=== PATIENT | male | born 1960 | race Caucasian/White ===

== ENCOUNTER → 2017-03-30 10:23 | Outpatient (CLI) | payer MEDICAID, SELFPAY | PROVIDERS: Family Provider Family Medicine; PCP Family Medicine; Visit Provider Family Medicine | DX: R22.2 Localized swelling, mass and lump, trunk (principal) ==

== ENCOUNTER → 2017-04-09 16:47 | Outpatient (CLI) | payer MEDICAID, SELFPAY ==
[2017-04-02 09:06] VITALS: BP 160/82; BMI 40.6
[2017-04-08 07:12] VITALS: BP 144/77; BMI 42.3
--- NOTE | 2017-04-09 16:49 | CT_ITS ---
STUDY: CT CHEST WITH CONTRAST REASON FOR EXAM: Male, 56 years old. Enlarged lymph nodes. Left neck swelling for months. RADIATION DOSAGE (If Supplied By Facility): CTDIvol = ( 18.38 ) mGy, DLP = ( 687.98 ) mGycm TECHNIQUE: Transaxial imaging was performed following intravenous administration of 100 ml of Isovue 300 contrast material. Multiplanar coronal and sagittal images were reformatted. Individualized dose optimization techniques were used for this CT. COMPARISON: Chest, March 05, 2017. FINDINGS: The lungs are normal. There is no demonstrated pleural abnormality. Normal heart and pericardium. Normal mediastinum. Normal hilar regions. Normal enhanced pulmonary arteries. Normal aorta arch and descending thoracic aorta. There are multi-level degenerative changes of the thoracic spine. There is no demonstrated abnormality of the visualized upper abdomen. CT/Chest WITH Contrast IMPRESSION: Essentially normal enhanced CT Chest examination. Electronically Signed: Fox Marc DO at 18:05 EST Tel [phone], Service support ,
== END ==
PROVIDERS: Family Provider Family Medicine; PCP Family Medicine; Visit Provider Surgery
DX: R59.0 Localized enlarged lymph nodes (principal)
CPT/HCPCS: 71260; Q9967

== ENCOUNTER → 2017-04-14 09:55 | Outpatient (CLI) | payer MEDICAID, SELFPAY ==
[2017-04-08 07:12] VITALS: BP 144/77; BMI 42.3
--- NOTE | 2017-04-14 13:34 | PFT_ITS ---
INTRODUCTION: The patient is a 56-year-old male currently under the care of myself the presents for pulmonary function testing secondary to a diagnosis of tobacco abuse. Respiratory therapy reports good patient effort reports no other concerns. Bronchodilators were used during testing. INTERPRETATION: Forced expiration spirometry demonstrates no evidence of a large airways obstructive ventilatory defect. There was no significant response to aerosolized bronchodilators, based upon strict ATS criteria. Spirograms are of good quality and plateau gradually. The respiratory flow volume loop appears normal. Body plethysmography was performed and reveals a trend towards hyperinflation and air-trapping. Diffusing capacity by single breath CO is within normal limits. IMPRESSION: These pulmonary function studies are essentially within normal limits. There is , nevertheless, a trend towards hyperinflation and air-trapping.
== END ==
PROVIDERS: Family Provider Family Medicine; PCP Family Medicine; Visit Provider Internal Medicine Critical Care Medicine
DX: J45.909 Unspecified asthma, uncomplicated (principal); F17.201 Nicotine dependence, unspecified, in remission
CPT/HCPCS: 94060; 94726; 94729

== ENCOUNTER → 2017-04-28 20:10 | Outpatient (CLI) | payer MEDICAID, SELFPAY ==
[2017-04-08 07:12] VITALS: BP 144/77; BMI 42.3
== END ==
PROVIDERS: Family Provider Family Medicine; PCP Family Medicine; Visit Provider Nurse Practitioner Acute Care
DX: G47.33 Obstructive sleep apnea (adult) (pediatric) (principal)
CPT/HCPCS: 95811

== ENCOUNTER → 2017-06-03 07:17 | Outpatient (CLI) | payer MEDICAID, SELFPAY ==
[2017-06-03 10:20] LABS: Hematocrit 41.7 % (40-54); Hemoglobin 13.9 g/dl (13.0-16.5); Mean Corp Hgb Conc 33.3 g/gl (32-36); Mean Corpuscular Hgb 31.3 pg (27.0-32.0); Mean Corpuscular Volume 93.9 fL (80-94); Mean Platelet Vol. 10.5 fl (6.2-12.0); Platelet Count 231 K/mm3 (150-450); RBC Distribution Width CV 12.6 % (11.6-14.6); RBC Distribution Width SD 42.4 fl (35.1-43.9); Red Blood Count 4.44 M/mm3 (4.6-6.2); White Blood Count 7.9 K/mm3 (4.4-11.0)
[2017-06-03 10:21] LABS: Scan Indicated on CBC? Y/N NO
[2017-06-03 10:55] LABS: Albumin, Serum 3.7 g/dL (3.2-5.0); BUN 22 mg/dL (7-18); BUN/Creat Ratio 21.6 RATIO (10-20); Creatinine, Serum 1.02 mg/dL (0.70-1.30); EST Glomerular Filtration Rate 80 mL/min (>60); Est Glom Filt Rate - Afr Amer 97 mL/min (>60); Glucose 121 mg/dL (74-106); Protein, Total 7.3 g/dL (6.4-8.2)
[2017-06-03 10:56] LABS: AST(SGOT) 19 U/L (15-37); Alanine Aminotransfer ALT/SGPT 35 U/L (16-61); Alkaline Phosphatase 48 U/L (45-117); Anion Gap 8 (5-15); Chloride 104 mmol/L (98-107); Cholesterol 162 mg/dL (200); Globulin 3.6 g/dL (2.2-4.2); High Density Lipoprotein 42 mg/dL; Potassium 4.2 mmol/L (3.5-5.1); Sodium Level 141 mmol/L (136-145); Triglycerides 179 mg/dL; Very Low Density Lipoprotein 36 mg/dL (5-40)
[2017-06-03 11:14] LABS: Hemoglobin A1c 6.7 % (4.2-6.3)
== END ==
PROVIDERS: Family Provider Family Medicine; PCP Family Medicine; Visit Provider Family Medicine
DX: E11.9 Type 2 diabetes mellitus without complications (principal); I10 Essential (primary) hypertension; E78.5 Hyperlipidemia, unspecified
CPT/HCPCS: 36415; 80053; 80061; 83036; 85027

== ENCOUNTER 2017-08-25 08:45 | Emergency (ER) | payer MEDICAID, SELFPAY ==
[2017-08-25 08:46] VITALS: BP 156/92; PULSE 71; RESP 18; TEMP 36.6; O2SAT 98; BMI 43.4
--- NOTE | 2017-08-25 09:31 | CT_ITS ---
STUDY: CT BRAIN WITHOUT CONTRAST REASON FOR EXAM: Male, 57 years old. Dizziness. RADIATION DOSAGE (If Supplied By Facility): CTDIvol = ( 44.99 ) mGy, DLP = ( 846.73 ) mGycm TECHNIQUE: Transaxial CT imaging of the brain was performed without administration of intravenous contrast material. Individualized dose optimization techniques were used for this CT. COMPARISON: None. FINDINGS: Normal soft tissue structures. Normal calvarium. Normal size ventricles and extra-axial spaces for the patient's age. Normal white matter tracts of the cerebral hemispheres. Normal basal ganglia and thalami. Normal brainstem. Normal cerebellum. Prominence of the cisterna magna. This is a normal variant. There is no intracranial hemorrhage. There are no findings of an acute ischemic infarction. Partial opacification of the maxillary sinuses and ethmoid sinuses bilaterally. CT/Brain/Head without Contrast IMPRESSION: Maxillary and ethmoid sinusitis. Electronically Signed: Blayne Novak MD at 11:01 EDT Tel [phone], Service support ,
--- NOTE | 2017-08-25 09:32 | ED.VISSUMM ---
- ER Visit Summary Date of Service: 08/25/17 Chief Complaint: Vertigo History of Present Illness: The patient is a 57 M woke up this morning with vertigo symptoms. Patient states he sat up in bed and had a sudden spinning sensation. He states when he turns his head this gets much worse. The symptoms are starting to resolve. He denies recent fever. Denies chest pain or shortness of breath. Denies headache. Denies lightheadedness or syncope. Physical Examination: Vitals are stable. Patient is afebrile. Alert no acute distress. HEENT exam is unremarkable. TMs normal bilaterally Neck is supple. Lungs are clear and equal bilaterally. Heart is regular rate and rhythm. Abdomen is soft nontender nondistended. Extremities are unremarkable. Skin is warm and dry. No focal neurologic deficit. Remainder of exam is unremarkable. Emergency Department Course and Treatment: Patient given IV fluids, meclizine. CBC, chemistries unremarkable other than glucose 159, BUN 22. CT head shows maxillary and ethmoid sinusitis. Patient has much improvement on reevaluation. He is able to ambulate in the ED without difficulty. He is given a prescription for meclizine. He is advised to follow up with his primary care physician. Advised return to ED if worsening complaints. Disposition: Discharge home Impression: Benign positional vertigo This note was generated with [employer] dictation software. It may contain incorrect words, spelling, and punctuation that were not noted in review of the chart prior to signing ED Disposition - Plan for ED Patient: Chief Complaint: Dizziness Referrals: Kevin Borden MD [Primary Care Provider] -
[2017-08-25] MEDS: 0.9% Normal Saline 1,000 ML 999 ML IV (09:54)
[2017-08-25] MEDS: Meclizine HCl 25 MG Tablet PO (09:54)
--- NOTE | 2017-08-25 09:57 | EKG12_ITS ---
Test Reason : SYNCOPE Blood Pressure : / mmHG Vent. Rate : 061 BPM Atrial Rate : 061 BPM P-R Int : 178 ms QRS Dur : 148 ms QT Int : 442 ms P-R-T Axes : 031 -45 027 degrees QTc Int : 444 ms Normal sinus rhythm Left bundle branch block Abnormal ECG Confirmed by ALESSANDRA CUEVA, ANUP ([id number]), film editor KODAK SLOAN ([id number]) on 08/28/2017 8:43:45 AM Referred By: CHRISTINE Confirmed By:ANUP APARICIO MD
[2017-08-25 10:17] LABS: Anion Gap 10 (5-15); BUN 22 mg/dL (7-18); BUN/Creat Ratio 20.8 RATIO (10-20); Calcium,Total 9.3 mg/dL (8.5-10.1); Chloride 100 mmol/L (98-107); Creatinine, Serum 1.06 mg/dL (0.70-1.30); EST Glomerular Filtration Rate 77 mL/min (>60); Est Glom Filt Rate - Afr Amer 93 mL/min (>60); Estimated Creatinine Clearance 84.39 ml/min; Glucose 159 mg/dL (74-106); Potassium 3.9 mmol/L (3.5-5.1); Sodium Level 139 mmol/L (136-145)
[2017-08-25 10:21] LABS: Absolute Lymphocyte Count 1.41 X10^3/ul (0.83-4.51); Absolute Neutrophil Count 4.9 X10^3/uL (2.0-7.7); Basophil# 0.04 X10^3/uL; Basophil% 0.6 % (0-1); Eosinophil# 0.33 X10^3/uL; Eosinophils% 4.6 % (0-5); Hematocrit 44.1 % (40-54); Hemoglobin 14.5 g/dl (13.0-16.5); Lymphocyte # 1.41 X10^3/ul (4.0); Lymphocyte % 19.4 % (19-41); Mean Corp Hgb Conc 32.9 g/gl (32-36); Mean Corpuscular Hgb 30.3 pg (27.0-32.0); Mean Corpuscular Volume 92.3 fL (80-94); Mean Platelet Vol. 10.3 fl (6.2-12.0); Monocyte# 0.52 X10^3/uL; Monocyte% 7.2 % (0-10); Neutrophil # 4.93 X10^3/uL (2.7-7.7); Neutrophil % 67.9 % (47-70); Platelet Count 240 K/mm3 (150-450); RBC Distribution Width SD 43.1 fl (35.1-43.9); Red Blood Count 4.78 M/mm3 (4.6-6.2); White Blood Count 7.3 K/mm3 (4.4-11.0)
[2017-08-25 10:22] LABS: POSITIVE COUNT NO; POSITIVE DIFFERENTIAL NO; POSITIVE MORPHOLOGY NO
--- NOTE | 2017-08-25 11:39 | ED.DEP ---
ED Disposition - Plan for ED Patient: Chief Complaint: Dizziness Instructions: ED BPV Vertigo Prescriptions: Meclizine HCl [Antivert] 25 mg PO TID PRN PRN #20 tablet PRN Reason: Vertigo Referrals: Kevin Borden MD [Primary Care Provider] -
== END 2017-08-25 11:54 | disposition home or self-care (01) ==
LOC: ED 10:19
PROVIDERS: Emergency Provider Emergency Medicine; Family Provider Family Medicine; PCP Family Medicine
DX: H81.10 Benign paroxysmal vertigo, unspecified ear (principal); J32.0 Chronic maxillary sinusitis; J32.2 Chronic ethmoidal sinusitis; J45.909 Unspecified asthma, uncomplicated; K21.9 Gastro-esophageal reflux disease without esophagitis; E11.9 Type 2 diabetes mellitus without complications; I10 Essential (primary) hypertension; E78.00 Pure hypercholesterolemia, unspecified; M10.9 Gout, unspecified; G47.33 Obstructive sleep apnea (adult) (pediatric); Z79.82 Long term (current) use of aspirin; Z79.84 Long term (current) use of oral hypoglycemic drugs; Z79.899 Other long term (current) drug therapy
CPT/HCPCS: 70450; 80048; 85025; 93005; 96360; 96361; 99283; J7030; A4216

== ENCOUNTER → 2017-09-17 09:25 | Outpatient (CLI) | payer MEDICAID, SELFPAY ==
[2017-09-17 09:30] LABS: Bacteria 0 SEEN /hpf (None Seen); Mucous, Urine 0 SEEN /hpf (<or=2+); Red Blood Cells-Urine 0 SEEN /hpf (0-5); Squamous Epithelial Cells - UA 0 SEEN /hpf (0-5); White Blood Cells 0 SEEN /hpf (0-5)
[2017-09-17 12:22] LABS: Absolute Lymphocyte Count 2.13 X10^3/ul (0.83-4.51); Absolute Neutrophil Count 4.9 X10^3/uL (2.0-7.7); Basophil# 0.03 X10^3/uL; Basophil% 0.4 % (0-1); Eosinophil# 0.48 X10^3/uL; Eosinophils% 5.8 % (0-5); Hematocrit 43.1 % (40-54); Lymphocyte # 2.13 X10^3/ul (4.0); Lymphocyte % 25.9 % (19-41); Mean Corp Hgb Conc 32.5 g/gl (32-36); Mean Corpuscular Hgb 30.4 pg (27.0-32.0); Mean Corpuscular Volume 93.5 fL (80-94); Mean Platelet Vol. 10.5 fl (6.2-12.0); Monocyte# 0.67 X10^3/uL; Monocyte% 8.2 % (0-10); Neutrophil # 4.89 X10^3/uL (2.7-7.7); Neutrophil % 59.6 % (47-70); Platelet Count 238 K/mm3 (150-450); RBC Distribution Width CV 13.3 % (11.6-14.6); RBC Distribution Width SD 45.4 fl (35.1-43.9); Red Blood Count 4.61 M/mm3 (4.6-6.2); White Blood Count 8.2 K/mm3 (4.4-11.0)
[2017-09-17 12:25] LABS: Color, Urine Yellow (Yellow); Glucose, Dipstick Normal (Normal); Ketone-Dipstick Negative (Negative); Leukocyte Esterase-Dipstick Negative /ul (Negative); Nitrite-Dipstick Negative (Negative); Occult Blood-Urine Negative /ul (Negative); Protein-Dipstick Negative (Negative); Urine Bilirubin Dipstick Negative (Negative); Urine Clarity Sl. Cloudy (Clear); Urine Urobilinogen Normal (Normal); Urine pH 6.5 (5.0 - 8.0)
[2017-09-17 12:36] LABS: POSITIVE COUNT NO; POSITIVE DIFFERENTIAL NO; POSITIVE MORPHOLOGY NO
[2017-09-17 12:38] LABS: AST(SGOT) 24 U/L (15-37); Alanine Aminotransfer ALT/SGPT 39 U/L (16-61); Albumin, Serum 3.9 g/dL (3.2-5.0); Alkaline Phosphatase 51 U/L (45-117); Anion Gap 8 (5-15); BUN 19 mg/dL (7-18); BUN/Creat Ratio 16.4 RATIO (10-20); Calcium,Total 8.7 mg/dL (8.5-10.1); Chloride 103 mmol/L (98-107); Cholesterol 179 mg/dL (200); Creatinine, Serum 1.16 mg/dL (0.70-1.30); EST Glomerular Filtration Rate 69 mL/min (>60); Est Glom Filt Rate - Afr Amer 83 mL/min (>60); Globulin 3.9 g/dL (2.2-4.2); Glucose 138 mg/dL (74-106); High Density Lipoprotein 46 mg/dL; Potassium 3.7 mmol/L (3.5-5.1); Protein, Total 7.8 g/dL (6.4-8.2); Sodium Level 138 mmol/L (136-145); Triglycerides 172 mg/dL; Uric Acid 8.1 mg/dL (3.5-7.2); Very Low Density Lipoprotein 34 mg/dL (5-40)
[2017-09-17 12:52] LABS: Microalbumin,Random Urine 5.2 mg/L (NO RANGE EST.); Microalbumin:Creatinine Ratio 19.3 mg/g CRE (<30 mg/g CRE)
== END ==
PROVIDERS: Family Provider Family Medicine; PCP Family Medicine; Visit Provider Family Medicine
DX: I10 Essential (primary) hypertension (principal); E11.9 Type 2 diabetes mellitus without complications; E78.5 Hyperlipidemia, unspecified; Z87.39 Personal history of other diseases of the musculoskeletal system and connective tissue
CPT/HCPCS: 36415; 80053; 80061; 81001; 82043; 82570; 83036; 84550; 85025

== ENCOUNTER → 2017-12-31 09:18 | Outpatient (CLI) | payer MEDICAID, SELFPAY ==
[2017-12-31 11:58] LABS: Absolute Lymphocyte Count 1.88 X10^3/ul (0.83-4.51); Absolute Neutrophil Count 3.6 X10^3/uL (2.0-7.7); Basophil# 0.04 X10^3/uL; Basophil% 0.6 % (0-1); Eosinophil# 0.39 X10^3/uL; Eosinophils% 6.2 % (0-5); Hematocrit 43.4 % (40-54); Hemoglobin 14.1 g/dl (13.0-16.5); Lymphocyte # 1.88 X10^3/ul (4.0); Lymphocyte % 29.7 % (19-41); Mean Corp Hgb Conc 32.5 g/gl (32-36); Mean Corpuscular Hgb 29.7 pg (27.0-32.0); Mean Corpuscular Volume 91.4 fL (80-94); Mean Platelet Vol. 10.5 fl (6.2-12.0); Monocyte# 0.43 X10^3/uL; Monocyte% 6.8 % (0-10); Neutrophil # 3.58 X10^3/uL (2.7-7.7); Neutrophil % 56.5 % (47-70); Platelet Count 252 K/mm3 (150-450); RBC Distribution Width CV 13.1 % (11.6-14.6); RBC Distribution Width SD 43.7 fl (35.1-43.9); Red Blood Count 4.75 M/mm3 (4.6-6.2); White Blood Count 6.3 K/mm3 (4.4-11.0)
[2017-12-31 12:05] LABS: POSITIVE COUNT NO; POSITIVE DIFFERENTIAL NO; POSITIVE MORPHOLOGY NO
[2017-12-31 12:14] LABS: Hemoglobin A1c 6.8 % (4.2-6.3)
[2017-12-31 12:37] LABS: ALB/GLOB Ratio 1.1 RATIO (0.9-2.4); AST(SGOT) 23 U/L (15-37); Alanine Aminotransfer ALT/SGPT 39 U/L (16-61); Albumin, Serum 3.9 g/dL (3.2-5.0); Alkaline Phosphatase 52 U/L (45-117); Anion Gap 12 (5-15); BUN 19 mg/dL (7-18); BUN/Creat Ratio 19.1 RATIO (10-20); Calcium,Total 9.4 mg/dL (8.5-10.1); Chloride 101 mmol/L (98-107); Cholesterol 160 mg/dL (200); Creatinine, Serum 0.99 mg/dL (0.70-1.30); EST Glomerular Filtration Rate 82 mL/min (>60); Est Glom Filt Rate - Afr Amer 100 mL/min (>60); Globulin 3.7 g/dL (2.2-4.2); Glucose 134 mg/dL (74-106); High Density Lipoprotein 38 mg/dL; Potassium 3.5 mmol/L (3.5-5.1); Protein, Total 7.6 g/dL (6.4-8.2); Sodium Level 138 mmol/L (136-145); Triglycerides 211 mg/dL; Very Low Density Lipoprotein 42 mg/dL (5-40)
== END ==
PROVIDERS: Family Provider Family Medicine; PCP Family Medicine; Referring Provider Family Medicine; Visit Provider Family Medicine
DX: E78.5 Hyperlipidemia, unspecified (principal); E11.9 Type 2 diabetes mellitus without complications; I10 Essential (primary) hypertension
CPT/HCPCS: 36415; 80053; 80061; 83036; 85025

== ENCOUNTER → 2018-03-29 08:37 | Outpatient (CLI) | payer MEDICAID, SELFPAY ==
[2018-03-29 08:37] VITALS: BMI 42.3
[2018-03-29 08:47] LABS: Bacteria 0 SEEN /hpf (None Seen); Mucous, Urine 0 SEEN /hpf (<or=2+); Red Blood Cells-Urine 0 SEEN /hpf (0-5); Squamous Epithelial Cells - UA 0 SEEN /hpf (0-5); White Blood Cells 0 SEEN /hpf (0-5)
[2018-03-29 10:19] LABS: Absolute Lymphocyte Count 1.88 X10^3/ul (0.83-4.51); Absolute Neutrophil Count 4.2 X10^3/uL (2.0-7.7); Basophil# 0.04 X10^3/uL; Basophil% 0.6 % (0-1); Eosinophil# 0.51 X10^3/uL; Hematocrit 41.9 % (40-54); Hemoglobin 13.4 g/dl (13.0-16.5); Lymphocyte # 1.88 X10^3/ul (4.0); Mean Corpuscular Volume 93.7 fL (80-94); Mean Platelet Vol. 10.1 fl (6.2-12.0); Monocyte# 0.61 X10^3/uL; Monocyte% 8.4 % (0-10); Neutrophil # 4.18 X10^3/uL (2.7-7.7); Neutrophil % 57.7 % (47-70); Platelet Count 259 K/mm3 (150-450); RBC Distribution Width CV 13.4 % (11.6-14.6); RBC Distribution Width SD 45.9 fl (35.1-43.9); Red Blood Count 4.47 M/mm3 (4.6-6.2); White Blood Count 7.2 K/mm3 (4.4-11.0)
[2018-03-29 10:27] LABS: POSITIVE COUNT NO; POSITIVE DIFFERENTIAL NO; POSITIVE MORPHOLOGY NO
[2018-03-29 10:57] LABS: AST(SGOT) 23 U/L (15-37); Alanine Aminotransfer ALT/SGPT 39 U/L (16-61); Albumin, Serum 3.7 g/dL (3.2-5.0); Alkaline Phosphatase 48 U/L (45-117); Anion Gap 10 (5-15); BUN 18 mg/dL (7-18); Calcium,Total 8.9 mg/dL (8.5-10.1); Chloride 105 mmol/L (98-107); Cholesterol 155 mg/dL (200); Creatinine, Serum 0.95 mg/dL (0.70-1.30); EST Glomerular Filtration Rate 87 mL/min (>60); Est Glom Filt Rate - Afr Amer 105 mL/min (>60); Globulin 3.7 g/dL (2.2-4.2); Glucose 140 mg/dL (74-106); High Density Lipoprotein 47 mg/dL; Potassium 3.8 mmol/L (3.5-5.1); Protein, Total 7.4 g/dL (6.4-8.2); Sodium Level 142 mmol/L (136-145); Triglycerides 89 mg/dL; Uric Acid 7.1 mg/dL (3.5-7.2); Very Low Density Lipoprotein 18 mg/dL (5-40)
[2018-03-29 11:11] LABS: Color, Urine Yellow (Yellow); Glucose, Dipstick Normal (Normal); Ketone-Dipstick Negative (Negative); Leukocyte Esterase-Dipstick Negative /ul (Negative); Nitrite-Dipstick Negative (Negative); Occult Blood-Urine 10 /ul (Negative); Protein-Dipstick Negative (Negative); Specific Gravity, Urine 1.015 (1.002-1.030); Urine Bilirubin Dipstick Negative (Negative); Urine Clarity Clear (Clear); Urine Urobilinogen Normal (Normal)
[2018-03-29 12:13] LABS: Microalbumin:Creatinine Ratio 6.4 mg/g CRE (<30 mg/g CRE)
== END ==
PROVIDERS: Family Provider Family Medicine; PCP Family Medicine; Referring Provider Family Medicine; Visit Provider Family Medicine
DX: I10 Essential (primary) hypertension (principal); E78.5 Hyperlipidemia, unspecified; E11.9 Type 2 diabetes mellitus without complications; Z87.39 Personal history of other diseases of the musculoskeletal system and connective tissue
CPT/HCPCS: 36415; 80053; 80061; 81001; 82043; 82570; 83036; 84550; 85025

== ENCOUNTER → 2018-04-22 14:34 | Outpatient (CLI) | payer MEDICAID, SELFPAY ==
[2018-03-29 08:37] VITALS: BMI 42.3
--- NOTE | 2018-04-22 14:36 | RAD_ITS ---
STUDY: X-RAY CHEST REASON FOR EXAM: Male, 57 years old. Asthma exacerbation TECHNIQUE: PA and lateral views of the chest. COMPARISON: None. FINDINGS: The lungs are clear and expanded. There is no demonstrated pleural abnormality. Normal size heart. Normal mediastinum and gloria. Normal visualized pulmonary arteries. Normal visualized aortic arch and descending thoracic aorta. Normal visualized thoracic spine. Normal visualized ribs, clavicles, and shoulders. There is no demonstrated abnormality of the visualized soft tissue structures of the upper abdomen. RAD/Chest PA and Lateral IMPRESSION: Normal x-ray examination of the chest. Electronically Signed: Tomas Clark MD at 14:52 EST , Service support ,
== END ==
PROVIDERS: Family Provider Family Medicine; PCP Family Medicine; Referring Provider Family Medicine; Visit Provider Family Medicine
DX: J45.901 Unspecified asthma with (acute) exacerbation (principal)
CPT/HCPCS: 71046

== ENCOUNTER → 2018-07-19 | Outpatient (CLI) | payer MEDICAID, SELFPAY ==
[2018-06-30 08:53] VITALS: BMI 42.3
[2018-07-19 10:29] LABS: Hemoglobin A1c 6.8 % (4.2-6.3)
[2018-07-19 10:43] LABS: AST(SGOT) 22 U/L (15-37); Alanine Aminotransfer ALT/SGPT 43 U/L (16-61); Albumin, Serum 3.7 g/dL (3.2-5.0); Alkaline Phosphatase 49 U/L (45-117); Anion Gap 9 (5-15); BUN 16 mg/dL (7-18); BUN/Creat Ratio 16.6 RATIO (10-20); Calcium,Total 9.2 mg/dL (8.5-10.1); Chloride 105 mmol/L (98-107); Cholesterol 159 mg/dL (200); Creatinine, Serum 0.96 mg/dL (0.70-1.30); EST Glomerular Filtration Rate 85 mL/min (>60); Est Glom Filt Rate - Afr Amer 103 mL/min (>60); Globulin 3.7 g/dL (2.2-4.2); Glucose 130 mg/dL (74-106); High Density Lipoprotein 49 mg/dL; Potassium 3.7 mmol/L (3.5-5.1); Protein, Total 7.4 g/dL (6.4-8.2); Sodium Level 141 mmol/L (136-145); Triglycerides 170 mg/dL; Very Low Density Lipoprotein 34 mg/dL (5-40)
== END | disposition home or self-care (01) ==
LOC: MTLAB 09:04
PROVIDERS: Family Provider Family Medicine; PCP Family Medicine; Referring Provider Family Medicine; Visit Provider Family Medicine
DX: E78.5 Hyperlipidemia, unspecified (principal); E11.9 Type 2 diabetes mellitus without complications
CPT/HCPCS: 36415; 80053; 80061; 83036

== ENCOUNTER → 2018-09-09 | Outpatient (CLI) | payer MEDICAID, SELFPAY ==
[2018-06-30 08:53] VITALS: BMI 42.3
[2018-09-09 13:00] LABS: PSA,Total - Annual Screen 1.24 ng/mL (0.00-4.00)
== END | disposition home or self-care (01) ==
LOC: MTLAB 10:32
PROVIDERS: Family Provider Family Medicine; PCP Family Medicine; Referring Provider Family Medicine; Visit Provider Family Medicine
DX: Z12.5 Encounter for screening for malignant neoplasm of prostate (principal)
CPT/HCPCS: 36415; 84153; G0103

== ENCOUNTER 2018-10-20 06:55 | Day surgery (SDC) | payer MEDICAID, SELFPAY ==
[2018-06-30 08:53] VITALS: BMI 42.3
--- NOTE | 2018-10-20 | COLBX_PTH ---
PATIENT: JONEL FRITZ LOC: EN U#:[id number] AGE/SX: 58/M ROOM: RE10/20/[address]: Dr. Davy Toscano MD : 1960 BED: DIS: 10/20/2018 SPEC #: [id number] RECD: 10/20/18 13:34 STATUS: SIM NICK #: [id number] KARINE: 10/20/18 00:[address]: Davy Toscano DEPT: SURGICAL PATHOLOGY RECD BY: Gian Allan ENTERED: 10/20/18 13:34 SP TYPE: COLON BX OTHR DR: Dr. Kevin Borden MD Tissues: A - Ascending colon B - Transverse colon Procedures: Surgery Specimen Level IV HEADER OPERATION: Colonoscopy - open access (MAC) PRE-OP DIAGNOSIS: Screen TISSUE SUBMITTED: A - Ascending colon polyp, B - Transverse colon polyp MICROSCOPIC DIAGNOSIS A. Ascending colon polyp, biopsy: Fragments of colonic mucosa with marked cautery artifact, changes suggestive of hyperplastic polyp. B. Transverse colon polyp, biopsy: Consistent with inflammatory polyp. JOHANNY:reid 10/21/18 MICROSCOPIC DESCRIPTION Slides are reviewed. GROSS DESCRIPTION A - Received in fixative is one container labeled with the patient's name and designated ascending colon polyp. The specimen consists of multiple minute fragments of boyd soft tissue that in aggregate measure 0.3 x 0.1 x 0.1 cm. The specimen is totally submitted in one cassette. B - Received in fixative is one container labeled with the patient's name and designated transverse colon polyp. The specimen consists of a boyd-pink polyp measuring 0.5 x 0.5 x 0.3 cm. The polyp is bisected and submitted entirely in one cassette. / JOHANNY:reid 10/20/18 TC:5 [facility]: [id number] x2
[2018-10-20 07:18] VITALS: BP 146/87; PULSE 78; RESP 16; TEMP 36.7; O2SAT 96; BMI 41.2
[2018-10-20 07:31] LABS: Bedside Glucose 140 mg/dL (70-110)
[2018-10-20] MEDS: Lactated Ringers 1,000 ML 75 ML IV (07:50)
--- NOTE | 2018-10-20 08:13 | H&P.OPEN ---
History of Present Illness Date of Admission: 10/20/18 The patient is a 58 year old M who presents for screening colonoscopy Past Medical/Surgical History - Planned Operation Planned Operative Procedure/s: cscope open access Date of Operative Procedure: 10/20/18 Permit Signed: No S.O.S: No Is This Patient Having a Total Joint: No - Previous Hospitalizations/Surgeries HX Hospitalizations: No HX of Surgeries: umbilical hernia repair. cscope 2007 Any Problems With Anesthesia: No You/Your Family Experience Fever (Hyperthermia) With Anes: No Cholinesterase deficiency: No - Cardiovascular Hx Chest Pain within Last 2 months: No Hx of Irregular Heartbeat and/or Afib: No Hx Heart Attack: No Hx Congestive Heart Failure: No Hx Rheumatic Fever: No Hx Hypertension: Yes - controlled with med Hx Internal Defibrillator: No Hx Pacemaker: No Hx Cardiac Catheterization: No Hx Cardiac Surgery/Stents/Etc.: No Hx Stress Test: Yes - over 5 yrs ago/echo 2015 HX Edema: Yes - legs Hx Pain in Legs when Walking/Leg Cramps: No - Respiratory Chronic Cough: No HX of Shortness of Breath: No Hoarseness: No Hx Chronic Obstructive Pulmonary Disease (COPD): No Hx Asthma: Yes - inhalers Hx Emphysema: No Hx Sleep Apnea: Yes CPAP: Yes BIPAP: No Hx Oxygen Use at Home: No Hx Respiratory Tract Infection/Cold (presently): No Result (for STOP score): Positive Hx Smoking: Yes - quit chewing tobacco 1 yr ago Smoking Status: Former smoker - Gastrointestinal Hx Gastroesophageal Reflux: No Hx Gastrointestinal Disorders: No Hx Gastrointestinal Bleed: No Hx Ulcer: No Hx Hiatal Hernia: No Difficulty Chewing/Swallowing: No Recent Onset of Swallowing Problems: No Special diet followed at home: Yes - ada Hx Unplanned Weight Loss of 20#: No HX Unplanned Weight Gain of 20#: No - Neurological Hx Seizures: No HX Syncope/Blackout Spells/Unconsciousness: Yes - vertigo Hx CVA/Stroke: No Hx Transient Ischemic Attacks (TIA): No Hx Multiple Sclerosis: No Hx Parkinson's Disease: No Hx Head/Neck Injury: No Hx Headaches: No Hx Back Injury/Pain: Yes - occ back pain Recent Onset of Speech Difficulty: No Restless Legs: No Does patient have nerve stimulator: No Patient instructed to have device shut off: No Rep notified?: No - Blood Disorder Hx Leukemia: No Bleeding Tendencies: Yes - easy bleeding Hx Deep Vein Thrombosis: No Hx High Cholesterol: Yes - on med Blood Transmitted Disease: No Hx Hepatitis: No Hx Cirrhosis: No Hx Anemia: No Hx Blood Disorders: No - Genitourinary Hx Renal Disease: No - Musculoskeletal Hx Arthritis: No Hx Rheumatoid Arthritis: No Hx Gout: No Recent Onset of an Orthopedic Problem: No - Endocrine Hx Diabetes: Yes Insulin: No Thyroid Disease: No Hx Steroid Therapy: No - Psycho/Social Hx Substance Use: No Hx Alcohol Use: Yes - occ Hx Anxiety: No Hx Depression: No Mental Illness: No Hx Dementia: No - Miscellaneous Hx Cancer: No Recent Exposure to Contagious Disease: No Active MRSA: No Hx of C-Diff: No Any Loose Teeth: No Allergies lisinopril Allergy (Mild, Verified 10/18/18 10:50) Unknown PEANUTS Allergy (Uncoded 10/18/18 10:50) Anaphylaxis - Discharge Is Pt Admitted From a Skilled Nursing, or a Prison: No Who Could Help: family After D/C, Where Do you Plan to Go: Return Home - Physical Exam General: Alert, Oriented x3 Lungs: Clear to auscultation Cardiovascular: Regular rate, Regular Rhythm, No murmurs Abdomen: Bowel Sounds Present, Soft, Non Tender, Non-Distended Vital Signs Temp Pulse Resp BP Pulse Ox 98.0 F 78 16 146/87 H 96 10/20/18 07:18 10/20/18 07:18 10/20/18 07:18 10/20/18 07:18 10/20/18 07:18 Oxygen Delivery Method Room Air Weight: 303 lb 12.752 oz Body Mass Index (BMI) 41.2 POC Glucose 10/20/18 07:25 POC Glucose 140 H Assessment/Plan All Active Problems (Last Reviewed 06/30/18 @ 08:55 by Patricia Mtz) Hemorrhoids (Acute) Acid reflux (Acute) Arthritis (Acute) Gout (Acute) Hx of umbilical hernia repair (Acute) Diabetes (Acute) Mild intermittent asthma (Acute) Aortic root aneurysm (Acute) Hyperlipemia (Acute) LVH (left ventricular hypertrophy) (Acute) Plan is to perform a colonoscopy Surgery Risks - Colonoscopy Risks Include but are not Limited To: Risks include but are not limited to: Bleeding, perforation requiring further surgery, inability to complete colonoscopy requiring barium enema.
[2018-10-20 08:50] VITALS: BP 110/66; BP 146/87; PULSE 66; RESP 14; TEMP 36.9; O2SAT 95
[2018-10-20 08:55] VITALS: BP 114/59; BP 146/87; PULSE 63; RESP 16; O2SAT 96
[2018-10-20 09:00] VITALS: BP 115/73; BP 146/87; PULSE 64; RESP 16; O2SAT 93
[2018-10-20 09:05] VITALS: BP 124/73; BP 146/87; PULSE 61; RESP 16; TEMP 36.6; O2SAT 95
[2018-10-20 09:30] VITALS: BP 146/87
--- NOTE | 2018-10-20 16:40 | OP.ENDO_ITS ---
10/21/2018 Kevin Borden [address] [place] [address] Re : Colonoscopy procedure for Kendrick Terrell Dear Dr. Borden This procedure was performed on Saturday, October 20, 2018. My impressions and recommendations are as follows: Impressions : - Three 2 to 8 mm polyps in the transverse colon, in the ascending colon and in the cecum, removed with a hot snare. Resected and retrieved. - Diverticulosis in the sigmoid colon. No specimens collected. - Non-bleeding internal hemorrhoids. - The examination was otherwise normal. Recommendations : - Discharge patient to home. - Resume previous diet. - Continue present medications. - Await pathology results. - Repeat colonoscopy in 3 years for surveillance. - Return to my office in 1 week. My findings are described in the full procedure note, which is enclosed. If I can be of further assistance, please feel free to contact me at Doctor phone number(s): , Fax: [phone], Work: . Sincerely, MD Davy Yepez MD 10/20/2018 8:49:05 AM This report has been signed electronically.
== END 2018-10-20 09:40 | disposition home or self-care (01) ==
LOC: EN 06:56 → AC 06:57
PROVIDERS: Family Provider Family Medicine; PCP Family Medicine; Referring Provider Surgery; Visit Provider Surgery
PROC: 0DJD8ZZ Inspection of Lower Intestinal Tract, Via Natural or Artificial Opening Endoscopic (ICD-10-PCS; CPT 45378; principal; 2018-10-20 08:10)
DX: Z12.11 Encounter for screening for malignant neoplasm of colon (principal); K63.5 Polyp of colon; K57.30 Diverticulosis of large intestine without perforation or abscess without bleeding; K64.8 Other hemorrhoids; I10 Essential (primary) hypertension; G47.30 Sleep apnea, unspecified; E78.00 Pure hypercholesterolemia, unspecified; E11.9 Type 2 diabetes mellitus without complications; K21.9 Gastro-esophageal reflux disease without esophagitis; M19.90 Unspecified osteoarthritis, unspecified site; M10.9 Gout, unspecified; J45.20 Mild intermittent asthma, uncomplicated; Q25.43 Congenital aneurysm of aorta; Z79.82 Long term (current) use of aspirin; Z79.84 Long term (current) use of oral hypoglycemic drugs; Z79.899 Other long term (current) drug therapy; Z87.891 Personal history of nicotine dependence
CPT/HCPCS: 45385; 82962; 88305; J7120; J1610

== ENCOUNTER → 2018-12-15 09:10 | Outpatient (CLI) | payer MEDICAID, SELFPAY ==
[2018-12-15 09:16] LABS: Bacteria 0 SEEN /hpf (None Seen); Mucous, Urine 0 SEEN /hpf (<or=2+); Red Blood Cells-Urine 0 SEEN /hpf (0-5); Squamous Epithelial Cells - UA 0 SEEN /hpf (0-5); White Blood Cells 0 SEEN /hpf (0-5)
[2018-12-15 10:12] LABS: Absolute Lymphocyte Count 2.05 X10^3/uL (0.83-4.51); Absolute Neutrophil Count 4.2 X10^3/uL (2.0-7.7); Basophil# 0.05 X10^3/uL; Basophil% 0.7 % (0-1); Eosinophil# 0.58 X10^3/uL; Eosinophils% 7.6 % (0-5); Hematocrit 43.1 % (40-54); Hemoglobin 13.9 g/dL (13.0-16.5); Lymphocyte # 2.05 X10^3/ul (4.0); Lymphocyte % 26.8 % (19-41); Mean Corp Hgb Conc 32.3 g/dL (32-36); Mean Corpuscular Hgb 30.2 pg (27.0-32.0); Mean Corpuscular Volume 93.7 fL (80-94); Mean Platelet Vol. 10.1 fl (6.2-12.0); Monocyte# 0.73 X10^3/uL; Monocyte% 9.6 % (0-10); NRBC Flagged by Analyzer 0 % (0-5); Neutrophil % 54.9 % (47-70); Platelet Count 265 K/mm3 (150-450); RBC Distribution Width CV 12.9 % (11.6-14.6); RBC Distribution Width SD 43.8 fl (35.1-43.9); White Blood Count 7.6 K/mm3 (4.4-11.0)
[2018-12-15 10:21] LABS: Color, Urine Yellow (Yellow); Glucose, Dipstick Normal (Normal); Ketone-Dipstick Negative (Negative); Leukocyte Esterase-Dipstick Negative /ul (Negative); Nitrite-Dipstick Negative (Negative); Occult Blood-Urine 10 /ul (Negative); Protein-Dipstick Negative (Negative); Urine Bilirubin Dipstick Negative (Negative); Urine Clarity Clear (Clear); Urine Urobilinogen Normal (Normal)
[2018-12-15 10:25] LABS: Hemoglobin A1c 6.5 % (4.2-6.3)
[2018-12-15 10:28] LABS: Microalbumin,Random Urine 9.3 mg/L (NO RANGE EST.); Microalbumin:Creatinine Ratio 7.4 mg/g CRE (<30 mg/g CRE)
[2018-12-15 10:33] LABS: AST(SGOT) 19 U/L (15-37); Alanine Aminotransfer ALT/SGPT 35 U/L (16-61); Albumin, Serum 3.7 g/dL (3.2-5.0); Alkaline Phosphatase 47 U/L (45-117); Anion Gap 5 (5-15); BUN 19 mg/dL (7-18); BUN/Creat Ratio 20.6 RATIO (10-20); Calcium,Total 9.2 mg/dL (8.5-10.1); Chloride 107 mmol/L (98-107); Cholesterol 149 mg/dL (200); Creatinine, Serum 0.92 mg/dL (0.70-1.30); EST Glomerular Filtration Rate 90 mL/min (>60); Est Glom Filt Rate - Afr Amer 108 mL/min (>60); Globulin 3.6 g/dL (2.2-4.2); Glucose 120 mg/dL (74-106); High Density Lipoprotein 53 mg/dL; Potassium 3.7 mmol/L (3.5-5.1); Protein, Total 7.3 g/dL (6.4-8.2); Sodium Level 140 mmol/L (136-145); Triglycerides 75 mg/dL; Very Low Density Lipoprotein 15 mg/dL (5-40)
== END ==
PROVIDERS: Family Provider Family Medicine; PCP Family Medicine; Referring Provider Family Medicine; Visit Provider Family Medicine
DX: I10 Essential (primary) hypertension (principal); E11.9 Type 2 diabetes mellitus without complications; E78.5 Hyperlipidemia, unspecified
CPT/HCPCS: 80053; 80061; 81001; 82043; 82570; 83036; 85025

== ENCOUNTER → 2019-05-13 08:02 | Outpatient (CLI) | payer MEDICAID, SELFPAY ==
[2019-03-15 09:25] VITALS: BMI 40.6
[2019-05-13 10:38] LABS: AST(SGOT) 22 U/L (15-37); Alanine Aminotransfer ALT/SGPT 36 U/L (16-61); Albumin, Serum 3.8 g/dL (3.2-5.0); Alkaline Phosphatase 56 U/L (45-117); Anion Gap 8 (5-15); BUN 18 mg/dL (7-18); BUN/Creat Ratio 19.9 RATIO (10-20); Calcium,Total 9.2 mg/dL (8.5-10.1); Chloride 103 mmol/L (98-107); Cholesterol 168 mg/dL (200); EST Glomerular Filtration Rate 91 mL/min (>60); Est Glom Filt Rate - Afr Amer 111 mL/min (>60); Globulin 3.9 g/dL (2.2-4.2); Glucose 113 mg/dL (74-106); High Density Lipoprotein 50 mg/dL; Potassium 3.7 mmol/L (3.5-5.1); Protein, Total 7.7 g/dL (6.4-8.2); Sodium Level 139 mmol/L (136-145); Triglycerides 161 mg/dL; Very Low Density Lipoprotein 32 mg/dL (5-40)
[2019-05-13 10:46] LABS: Hemoglobin A1c 6.9 % (4.2-6.3)
== END ==
PROVIDERS: PCP Family Medicine; Referring Provider Family Medicine; Visit Provider Family Medicine
DX: E11.9 Type 2 diabetes mellitus without complications (principal); E78.5 Hyperlipidemia, unspecified
CPT/HCPCS: 36415; 80053; 80061; 83036

== ENCOUNTER → 2019-11-01 08:32 | Outpatient (CLI) | payer MEDICAID, SELFPAY ==
[2019-10-06 07:07] VITALS: BMI 39.6
[2019-11-01 10:17] LABS: Absolute Lymphocyte Count 1.98 X10^3/uL (0.83-4.51); Absolute Neutrophil Count 4.6 X10^3/uL (2.0-7.7); Basophil# 0.04 X10^3/uL; Basophil% 0.5 % (0-1); Eosinophils% 7.4 % (0-5); Hematocrit 43.8 % (40-54); Hemoglobin 13.8 g/dL (13.0-16.5); Lymphocyte # 1.98 X10^3/ul (4.0); Lymphocyte % 24.5 % (19-41); Mean Corp Hgb Conc 31.5 g/dL (32-36); Mean Corpuscular Hgb 29.7 pg (27.0-32.0); Mean Corpuscular Volume 94.2 fL (80-94); Mean Platelet Vol. 10.1 fl (6.2-12.0); Monocyte# 0.84 X10^3/uL; Monocyte% 10.4 % (0-10); NRBC Flagged by Analyzer 0 % (0-5); Neutrophil # 4.58 X10^3/uL (2.7-7.7); Neutrophil % 56.8 % (47-70); Platelet Count 303 K/mm3 (150-450); RBC Distribution Width CV 12.8 % (11.6-14.6); RBC Distribution Width SD 43.8 fl (35.1-43.9); Red Blood Count 4.65 M/mm3 (4.6-6.2); White Blood Count 8.1 K/mm3 (4.4-11.0)
[2019-11-01 10:44] LABS: AST(SGOT) 16 U/L (15-37); Alanine Aminotransfer ALT/SGPT 36 U/L (16-61); Albumin, Serum 3.7 g/dL (3.2-5.0); Alkaline Phosphatase 50 U/L (45-117); Anion Gap 5 (5-15); BUN 19 mg/dL (7-18); BUN/Creat Ratio 20.5 RATIO (10-20); Calcium,Total 9.1 mg/dL (8.5-10.1); Chloride 102 mmol/L (98-107); Cholesterol 174 mg/dL (200); Creatinine, Serum 0.93 mg/dL (0.70-1.30); EST Glomerular Filtration Rate 89 mL/min (>60); Est Glom Filt Rate - Afr Amer 107 mL/min (>60); Globulin 3.7 g/dL (2.2-4.2); Glucose 124 mg/dL (74-106); High Density Lipoprotein 45 mg/dL; Potassium 3.6 mmol/L (3.5-5.1); Protein, Total 7.4 g/dL (6.4-8.2); Sodium Level 136 mmol/L (136-145); Triglycerides 197 mg/dL; Very Low Density Lipoprotein 39 mg/dL (5-40)
[2019-11-01 10:46] LABS: Hemoglobin A1c 6.5 % (3.8-5.6)
[2019-11-01 11:02] LABS: Microalbumin,Random Urine < 5.0 mg/L (NO RANGE EST.)
== END ==
PROVIDERS: PCP Family Medicine; Referring Provider Family Medicine; Visit Provider Family Medicine
DX: I11.0 Hypertensive heart disease with heart failure (principal); E11.9 Type 2 diabetes mellitus without complications; M19.90 Unspecified osteoarthritis, unspecified site
CPT/HCPCS: 36415; 80053; 80061; 82043; 82570; 83036; 85025

== ENCOUNTER → 2020-03-06 08:50 | Outpatient (CLI) | payer MEDICARE, MEDICAID, SELFPAY ==
[2019-10-06 07:07] VITALS: BMI 39.6
[2020-03-06 09:03] LABS: Bacteria 0 SEEN /hpf (None Seen); Mucous, Urine 0 SEEN /hpf (<or=2+); Red Blood Cells-Urine 0 SEEN /hpf (0-5); Squamous Epithelial Cells - UA 0 SEEN /hpf (0-5); White Blood Cells 0 SEEN /hpf (0-5)
[2020-03-06 10:13] LABS: Color, Urine Yellow (Yellow); Glucose, Dipstick Normal (Normal); Ketone-Dipstick Negative (Negative); Leukocyte Esterase-Dipstick Negative /ul (Negative); Nitrite-Dipstick Negative (Negative); Occult Blood-Urine Negative /ul (Negative); Protein-Dipstick Negative (Negative); Urine Bilirubin Dipstick Negative (Negative); Urine Clarity Clear (Clear); Urine Urobilinogen Normal (Normal)
[2020-03-06 10:17] LABS: Absolute Lymphocyte Count 2.07 X10^3/uL (0.83-4.51); Absolute Neutrophil Count 4.3 X10^3/uL (2.0-7.7); Basophil# 0.05 X10^3/uL; Basophil% 0.7 % (0-1); Eosinophil# 0.46 X10^3/uL; Hematocrit 43.6 % (40-54); Hemoglobin 13.9 g/dL (13.0-16.5); Lymphocyte # 2.07 X10^3/ul (4.0); Lymphocyte % 27.2 % (19-41); Mean Corp Hgb Conc 31.9 g/dL (32-36); Mean Corpuscular Hgb 29.9 pg (27.0-32.0); Mean Corpuscular Volume 93.8 fL (80-94); Mean Platelet Vol. 10.2 fl (6.2-12.0); Monocyte# 0.71 X10^3/uL; Monocyte% 9.3 % (0-10); NRBC Flagged by Analyzer 0 % (0-5); Neutrophil % 56.5 % (47-70); Platelet Count 267 K/mm3 (150-450); RBC Distribution Width CV 12.7 % (11.6-14.6); RBC Distribution Width SD 43.7 fl (35.1-43.9); Red Blood Count 4.65 M/mm3 (4.6-6.2); White Blood Count 7.6 K/mm3 (4.4-11.0)
[2020-03-06 10:27] LABS: AST(SGOT) 10 U/L (15-37); Alanine Aminotransfer ALT/SGPT 28 U/L (16-61); Albumin, Serum 3.7 g/dL (3.2-5.0); Alkaline Phosphatase 43 U/L (45-117); Anion Gap 8 (5-15); BUN 18 mg/dL (7-18); BUN/Creat Ratio 19.8 RATIO (10-20); Calcium,Total 9.2 mg/dL (8.5-10.1); Chloride 102 mmol/L (98-107); Cholesterol 166 mg/dL (200); Creatinine, Serum 0.91 mg/dL (0.70-1.30); EST Glomerular Filtration Rate 90 mL/min (>60); Est Glom Filt Rate - Afr Amer 109 mL/min (>60); Globulin 3.6 g/dL (2.2-4.2); Glucose 122 mg/dL (74-106); High Density Lipoprotein 59 mg/dL; PSA,Total - Annual Screen 1.25 ng/mL (0.00-4.00); Potassium 3.6 mmol/L (3.5-5.1); Protein, Total 7.3 g/dL (6.4-8.2); Sodium Level 139 mmol/L (136-145); Triglycerides 87 mg/dL; Very Low Density Lipoprotein 17 mg/dL (5-40)
[2020-03-06 10:35] LABS: Hemoglobin A1c 6.2 % (3.8-5.6)
[2020-03-06 10:39] LABS: Microalbumin,Random Urine < 5.0 mg/L (NO RANGE EST.)
== END ==
PROVIDERS: PCP Family Medicine; Referring Provider Family Medicine; Visit Provider Family Medicine
DX: E11.9 Type 2 diabetes mellitus without complications (principal); I10 Essential (primary) hypertension; E78.5 Hyperlipidemia, unspecified; Z12.5 Encounter for screening for malignant neoplasm of prostate
CPT/HCPCS: 36415; 80053; 80061; 81001; 82043; 82570; 83036; 84153; 85025; G0103

== ENCOUNTER → 2020-04-12 10:57 | Outpatient (CLI) | payer MEDICAID, SELFPAY | PROVIDERS: PCP Family Medicine; Visit Provider Family Medicine | DX: I71.9 Aortic aneurysm of unspecified site, without rupture (principal) | CPT/HCPCS: 93306 ==

== ENCOUNTER → 2020-06-28 16:36 | Outpatient (CLI) | payer MEDICAID, SELFPAY ==
--- NOTE | 2020-06-28 16:38 | RAD_ITS ---
STUDY: X-RAY - LEFT SHOULDER REASON FOR EXAM: Male, 59 years old. PAIN TECHNIQUE: 4 view(s) of the shoulder. COMPARISON: None. FINDINGS: Normal glenohumeral articulation. Degenerative hypertrophy at the acromioclavicular joint. Normal acromion. Normal humeral head and visualized proximal humerus. The soft tissue structures are unremarkable. Normal visualized pulmonary apex. RAD/Shoulder min 2 Views IMPRESSION: No acute bony injury of the shoulder. Electronically Signed: Federico Ulrich DO at 16:39 EDT Tel [phone], Service support ,
--- NOTE | 2020-06-28 16:38 | RAD_ITS ---
EXAM: XR LEFT HAND COMPLETE, 3 OR MORE VIEWS : 1960 CLINICAL INDICATION: PAIN TECHNIQUE: Frontal, lateral and oblique views of the left hand. This report was created using [employer] report generation technology. COMPARISON: None. FINDINGS: BONES/JOINTS: Unremarkable. No acute fracture. No subluxation. Normal alignment. Preservation of the joint space. No sclerotic or destructive changes observed. SOFT TISSUES: Unremarkable. No soft tissue swelling or gas. No radiopaque foreign body. RAD/Hand Min 3 Views IMPRESSION: Negative left hand x-rays. at 0116 Reported and signed by: Rome Mccarthy MD Electronically Signed: Rome Mccarthy MD at 1:15 EDT Tel , Service support ,
--- NOTE | 2020-06-28 16:38 | RAD_ITS ---
EXAM: XR RIGHT HAND COMPLETE, 3 OR MORE VIEWS : 1960 CLINICAL INDICATION: Pain TECHNIQUE: Frontal, lateral and oblique views of the right hand. This report was created using [employer] report generation technology. COMPARISON: None. FINDINGS: BONES/JOINTS: Unremarkable. No acute fracture. No subluxation. Normal alignment. Preservation of the joint space. No sclerotic or destructive changes observed. SOFT TISSUES: Unremarkable. No soft tissue swelling or gas. No radiopaque foreign body. RAD/Hand Min 3 Views IMPRESSION: Negative right hand x-rays. at 0117 Reported and signed by: Rome Mccarthy MD Electronically Signed: Rome Mccarthy MD at 1:15 EDT Tel , Service support ,
== END ==
PROVIDERS: PCP Family Medicine; Referring Provider Family Medicine; Visit Provider Family Medicine
DX: M25.512 Pain in left shoulder (principal); M79.642 Pain in left hand; M79.641 Pain in right hand
CPT/HCPCS: 73030; 73130

== ENCOUNTER → 2020-10-31 09:17 | Outpatient (CLI) | payer MEDICAID, SELFPAY ==
[2020-10-31 10:15] LABS: Absolute Lymphocyte Count 1.78 X10^3/uL (0.83-4.51); Absolute Neutrophil Count 3.9 X10^3/uL (2.0-7.7); Basophil# 0.06 X10^3/uL; Basophil% 0.8 % (0-1); Eosinophil# 0.74 X10^3/uL; Eosinophils% 9.9 % (0-5); Hematocrit 42.6 % (40-54); Lymphocyte # 1.78 X10^3/ul (0.83-4.51); Lymphocyte % 23.8 % (19-41); Mean Corp Hgb Conc 32.9 g/dL (32-36); Mean Corpuscular Hgb 30.6 pg (27.0-32.0); Mean Corpuscular Volume 93.2 fL (80-94); Mean Platelet Vol. 10.2 fl (6.2-12.0); Monocyte# 0.96 X10^3/uL; Monocyte% 12.8 % (0-10); NRBC Flagged by Analyzer 0 % (0-5); Neutrophil # 3.92 X10^3/uL (2.7-7.7); Neutrophil % 52.4 % (47-70); Platelet Count 265 K/mm3 (150-450); RBC Distribution Width CV 12.7 % (11.6-14.6); RBC Distribution Width SD 43.6 fl (35.1-43.9); Red Blood Count 4.57 M/mm3 (4.6-6.2); White Blood Count 7.5 K/mm3 (4.4-11.0)
[2020-10-31 10:37] LABS: Hemoglobin A1c 6.2 % (3.8-5.6)
[2020-10-31 10:52] LABS: ALB/GLOB Ratio 1.2 RATIO (0.9-2.4); AST(SGOT) 22 U/L (15-37); Alanine Aminotransfer ALT/SGPT 36 U/L (16-61); Alkaline Phosphatase 44 U/L (45-117); Anion Gap 6 (5-15); BUN 15 mg/dL (7-18); BUN/Creat Ratio 17.3 RATIO (10-20); Calcium,Total 9.1 mg/dL (8.5-10.1); Chloride 104 mmol/L (98-107); Cholesterol 155 mg/dL (200); Creatinine, Serum 0.87 mg/dL (0.70-1.30); EST Glomerular Filtration Rate 95 mL/min (>60); Est Glom Filt Rate - Afr Amer 116 mL/min (>60); Globulin 3.2 g/dL (2.2-4.2); Glucose 124 mg/dL (74-106); High Density Lipoprotein 52 mg/dL; Potassium 3.4 mmol/L (3.5-5.1); Protein, Total 7.2 g/dL (6.4-8.2); Sodium Level 139 mmol/L (136-145); Triglycerides 83 mg/dL; Very Low Density Lipoprotein 17 mg/dL (5-40)
== END ==
PROVIDERS: PCP Family Medicine; Referring Provider Family Medicine; Visit Provider Family Medicine
DX: I10 Essential (primary) hypertension (principal); E11.9 Type 2 diabetes mellitus without complications; E78.5 Hyperlipidemia, unspecified
CPT/HCPCS: 36415; 80053; 80061; 83036; 85025

== ENCOUNTER → 2021-02-13 09:35 | Outpatient (CLI) | payer MEDICAID, SELFPAY ==
--- NOTE | 2021-02-13 09:45 | RAD_ITS ---
STUDY: X-RAY - LEFT WRIST REASON FOR EXAM: Male, 60 years old. Bilateral wrist pain. TECHNIQUE: 3 view(s) of the wrist were obtained. COMPARISON: None. FINDINGS: Mild osteopenia. Cystic change in the distal ulna. Mild arthrosis of the radiocarpal joint. Mild arthrosis of the radioulnar joint. Mild arthrosis of the radiocarpal row. Mild arthrosis of the first CMC joint. The soft tissue structures are unremarkable. RAD/Wrist min 3 Views IMPRESSION: Mild osteopenia with diffuse mild osteoarthritic changes. No acute abnormality, erosive changes, chondrocalcinosis or periostitis. Electronically Signed: Brandon Patrick MD at 10:18 EST , Service support ,
--- NOTE | 2021-02-13 09:45 | RAD_ITS ---
STUDY: X-RAY - RIGHT WRIST REASON FOR EXAM: Male, 60 years old. Bilateral wrist pain. TECHNIQUE: 3 view(s) of the wrist were obtained. COMPARISON: None. FINDINGS: Mild osteopenia. Mild arthrosis of the radiocarpal joint. Mild arthrosis of the radioulnar joint. Mild arthrosis of the radiocarpal row. Mild arthrosis of the first CMC joint. The soft tissue structures are unremarkable. RAD/Wrist min 3 Views IMPRESSION: Mild osteopenia with diffuse mild osteoarthritic changes. No acute abnormality, erosive changes, chondrocalcinosis or periostitis. Electronically Signed: Brandon Patrick MD at 10:18 EST , Service support ,
== END ==
PROVIDERS: PCP Family Medicine; Referring Provider Family Medicine; Visit Provider Family Medicine
DX: M25.531 Pain in right wrist (principal); M25.532 Pain in left wrist
CPT/HCPCS: 73110

== ENCOUNTER → 2021-02-28 10:47 | Outpatient (CLI) | payer MEDICAID, SELFPAY ==
[2021-02-28 12:26] LABS: Erythrocyte Sedimentation Rate 51 mm/hr (0-20)
[2021-02-28 13:06] LABS: Rheumatoid Factor < 10.0 IU/mL (<15)
[2021-03-01 23:37] LABS: ANTINUCLEAR ANTIBODIES DIRECT Negative (Negative)
[2021-03-04 14:26] LABS: CCP IgG Antibodies < 1 units (0-19)
== END ==
PROVIDERS: PCP Family Medicine; Referring Provider Family Medicine; Visit Provider Family Medicine
DX: M25.50 Pain in unspecified joint (principal)
CPT/HCPCS: 36415; 85652; 86038; 86200; 86431

== ENCOUNTER 2021-03-06 08:53 | Outpatient (CLI) | payer MEDICAID, SELFPAY ==
[2021-03-06 10:17] LABS: Absolute Lymphocyte Count 2.86 X10^3/uL (0.83-4.51); Absolute Neutrophil Count 5.3 X10^3/uL (2.0-7.7); Basophil# 0.05 X10^3/uL; Basophil% 0.5 % (0-1); Eosinophil# 0.38 X10^3/uL; Hematocrit 41.5 % (40-54); Hemoglobin 13.4 g/dL (13.0-16.5); Lymphocyte # 2.86 X10^3/ul (0.83-4.51); Lymphocyte % 30.1 % (19-41); Mean Corp Hgb Conc 32.3 g/dL (32-36); Mean Corpuscular Hgb 30.2 pg (27.0-32.0); Mean Corpuscular Volume 93.5 fL (80-94); Mean Platelet Vol. 9.7 fl (6.2-12.0); Monocyte# 0.85 X10^3/uL; Monocyte% 8.9 % (0-10); NRBC Flagged by Analyzer 0 % (0-5); Neutrophil # 5.32 X10^3/uL (2.7-7.7); Platelet Count 315 K/mm3 (150-450); RBC Distribution Width CV 13.2 % (11.6-14.6); Red Blood Count 4.44 M/mm3 (4.6-6.2); White Blood Count 9.5 K/mm3 (4.4-11.0)
[2021-03-06 10:38] LABS: Hemoglobin A1c 6.3 % (3.8-5.6)
[2021-03-06 10:44] LABS: ALB/GLOB Ratio 1.1 RATIO (0.9-2.4); AST(SGOT) 11 U/L (15-37); Alanine Aminotransfer ALT/SGPT 25 U/L (16-61); Albumin, Serum 3.2 g/dL (3.2-5.0); Alkaline Phosphatase 39 U/L (45-117); Anion Gap 10 (5-15); BUN 21 mg/dL (7-18); BUN/Creat Ratio 24.6 RATIO (10-20); Calcium,Total 9.5 mg/dL (8.5-10.1); Chloride 105 mmol/L (98-107); Cholesterol 180 mg/dL (200); Creatinine, Serum 0.85 mg/dL (0.70-1.30); EST Glomerular Filtration Rate 97 mL/min (>60); Est Glom Filt Rate - Afr Amer 118 mL/min (>60); Glucose 115 mg/dL (74-106); High Density Lipoprotein 58 mg/dL; Magnesium 2.1 mg/dL (1.6-2.6); Microalbumin,Random Urine 5.3 mg/L (NO RANGE EST.); Microalbumin:Creatinine Ratio 5.5 mg/g CRE (<30 mg/g CRE); Protein, Total 6.2 g/dL (6.4-8.2); Sodium Level 142 mmol/L (136-145); Triglycerides 86 mg/dL; Very Low Density Lipoprotein 17 mg/dL (5-40)
== END 2021-03-06 23:59 | disposition short-term general hospital (02) ==
LOC: MFPLAB 08:54
PROVIDERS: PCP Family Medicine; Referring Provider Family Medicine; Visit Provider Family Medicine
DX: E11.59 Type 2 diabetes mellitus with other circulatory complications (principal)
CPT/HCPCS: 36415; 80053; 80061; 82043; 82570; 83036; 83735; 85025

== ENCOUNTER 2021-05-03 10:28 | Outpatient (CLI) | payer MEDICAID, SELFPAY ==
[2021-05-03 12:45] LABS: PSA,Total - Annual Screen 1.47 ng/mL (0.00-4.00)
== END 2021-05-03 23:59 | disposition home or self-care (01) ==
LOC: MFPLAB 10:30
PROVIDERS: PCP Family Medicine; Referring Provider Family Medicine; Visit Provider Family Medicine
DX: Z12.5 Encounter for screening for malignant neoplasm of prostate (principal)
CPT/HCPCS: 84153; 36415; G0103

== ENCOUNTER → 2021-08-01 | Outpatient (CLI) | payer MEDICAID, SELFPAY ==
[2021-08-01 10:05] LABS: Absolute Lymphocyte Count 1.74 X10^3/uL (0.83-4.51); Absolute Neutrophil Count 4.1 X10^3/uL (2.0-7.7); Basophil# 0.05 X10^3/uL; Basophil% 0.7 % (0-1); Eosinophil# 0.56 X10^3/uL; Eosinophils% 7.8 % (0-5); Hemoglobin 13.3 g/dL (13.0-16.5); Lymphocyte # 1.74 X10^3/ul (0.83-4.51); Lymphocyte % 24.3 % (19-41); Mean Corp Hgb Conc 32.4 g/dL (32-36); Mean Corpuscular Hgb 30.6 pg (27.0-32.0); Mean Corpuscular Volume 94.5 fL (80-94); Monocyte# 0.67 X10^3/uL; Monocyte% 9.3 % (0-10); NRBC Flagged by Analyzer 0 % (0-5); Neutrophil # 4.13 X10^3/uL (2.7-7.7); Neutrophil % 57.6 % (47-70); Platelet Count 248 K/mm3 (150-450); RBC Distribution Width CV 13.2 % (11.6-14.6); RBC Distribution Width SD 45.5 fl (35.1-43.9); Red Blood Count 4.34 M/mm3 (4.6-6.2); White Blood Count 7.2 K/mm3 (4.4-11.0)
[2021-08-01 10:28] LABS: AST(SGOT) 15 U/L (15-37); Alanine Aminotransfer ALT/SGPT 27 U/L (16-61); Albumin, Serum 3.4 g/dL (3.2-5.0); Alkaline Phosphatase 41 U/L (45-117); Anion Gap 6 (5-15); BUN 17 mg/dL (7-18); BUN/Creat Ratio 21.4 RATIO (10-20); Calcium,Total 8.8 mg/dL (8.5-10.1); Chloride 109 mmol/L (98-107); Cholesterol 148 mg/dL (200); EST Glomerular Filtration Rate 105 mL/min (>60); Est Glom Filt Rate - Afr Amer 127 mL/min (>60); Globulin 3.4 g/dL (2.2-4.2); Glucose 127 mg/dL (74-106); High Density Lipoprotein 52 mg/dL; Potassium 3.7 mmol/L (3.5-5.1); Protein, Total 6.8 g/dL (6.4-8.2); Sodium Level 139 mmol/L (136-145); Triglycerides 61 mg/dL; Very Low Density Lipoprotein 12 mg/dL (5-40)
[2021-08-01 10:43] LABS: Hemoglobin A1c 6.2 % (3.8-5.6)
[2021-08-01 10:53] LABS: Microalbumin,Random Urine < 5.0 mg/L (NO RANGE EST.)
== END | disposition home or self-care (01) ==
LOC: MFPLAB 08:33
PROVIDERS: PCP Family Medicine; Visit Provider Family Medicine
DX: E11.9 Type 2 diabetes mellitus without complications (principal)
CPT/HCPCS: 36415; 80053; 80061; 82043; 82570; 83036; 85025

== ENCOUNTER → 2021-08-20 | Outpatient (CLI) | payer MEDICAID, SELFPAY ==
--- NOTE | 2021-08-20 16:44 | CT_ITS ---
EXAM: CT ANGIOGRAPHY CHEST WITHOUT AND WITH INTRAVENOUS CONTRAST CLINICAL INDICATION: aortic root aneurysm TECHNIQUE: Helically acquired angiography images were obtained of the chest without and with intravenous contrast. This CT exam was performed using one or more of the following dose reduction techniques: automated exposure control, adjustment of the mA and/or kV according to patient size, and/or use of iterative reconstruction technique. This report was created using [employer] report generation technology. MIP reconstructed images were created and reviewed. CONTRAST: IV 100mL Isovue-370 RADIATION DOSE: CTDIvol = 25.72 mGy, DLP = 592.10 mGy-cm COMPARISON: April 09, 2017. FINDINGS: PULMONARY ARTERIES: Unremarkable. Normal in caliber. No evidence of pulmonary embolism. AORTA: Mildly patulous aortic root, similar to prior exam, measuring 4.1 cm AP on axial images, it was 4.2, presumably measured at a different location. Ascending aorta 4.2 cm, slightly dilated, also stable. No evidence of dissection. GREAT VESSELS OF AORTIC ARCH: Unremarkable. Normal in caliber. No evidence of dissection. LUNGS AND PLEURAL SPACES: Stable right posterior lateral pulmonary nodule of roughly 4.5 mm on axial image #101, similar size and configuration, 5 mm on prior exam. Stable left lower lobe nodule 5.2 mm x 5.2 mm, it was 5.4 mm x 5.3 mm. No infiltrates or effusions. No pneumothorax. HEART: Mild calcification of left anterior descending coronary artery. Normal heart size. MEDIASTINUM: Unremarkable. No mediastinal or hilar adenopathy. Esophagus is unremarkable. No hiatal hernia. THYROID: Slightly heterogeneous thyroid, slight hypodensity in the left lobe. BONES/JOINTS: No suspicious findings. ABDOMEN: No suspicious findings, the proximal pancreas and gallbladder are not fully included. CT/CTA Chest W/WO Contrast IMPRESSION: 1. Similar size and patulous appearance of aortic root and slightly dilatedectatic ascending aorta. 2. Stable 4.5 mm right lower lobe pulmonary nodule. Stable 5.2 mm left lower lobe pulmonary nodule. Recommendations concerning small pulmonary nodules stable over 12 months: Fleischner Society Guidelines suggest no follow-up is necessary for patients with low or high risk of malignancy. 3. Exam is compared to April 2017, consistent with 4 years and 4 months follow-up interval. 4. Minimal coronary artery calcification. Electronically Signed: Elicia Hussein MD at 6:36 EDT ,
== END | disposition home or self-care (01) ==
LOC: CT 16:43
PROVIDERS: PCP Family Medicine; Referring Provider Family Medicine; Visit Provider Family Medicine
DX: I71.9 Aortic aneurysm of unspecified site, without rupture (principal)
CPT/HCPCS: 71275; Q9967

== ENCOUNTER → 2021-12-09 | Outpatient (CLI) | payer MEDICAID, SELFPAY ==
[2021-12-09 12:09] LABS: Absolute Lymphocyte Count 2.13 X10^3/uL (0.83-4.51); Absolute Neutrophil Count 5.1 X10^3/uL (2.0-7.7); Basophil# 0.05 X10^3/uL; Basophil% 0.6 % (0-1); Eosinophil# 0.64 X10^3/uL; Eosinophils% 7.4 % (0-5); Hematocrit 44.7 % (40-54); Hemoglobin 14.2 g/dL (13.0-16.5); Lymphocyte # 2.13 X10^3/ul (0.83-4.51); Lymphocyte % 24.6 % (19-41); Mean Corp Hgb Conc 31.8 g/dL (32-36); Mean Corpuscular Hgb 30.7 pg (27.0-32.0); Mean Corpuscular Volume 96.5 fL (80-94); Mean Platelet Vol. 10.4 fl (6.2-12.0); Monocyte# 0.68 X10^3/uL; Monocyte% 7.9 % (0-10); NRBC Flagged by Analyzer 0 % (0-5); Neutrophil # 5.12 X10^3/uL (2.7-7.7); Neutrophil % 59.2 % (47-70); Platelet Count 252 K/mm3 (150-450); RBC Distribution Width CV 12.9 % (11.6-14.6); RBC Distribution Width SD 46.1 fl (35.1-43.9); Red Blood Count 4.63 M/mm3 (4.6-6.2); White Blood Count 8.7 K/mm3 (4.4-11.0)
[2021-12-09 12:37] LABS: AST(SGOT) 17 U/L (15-37); Alanine Aminotransfer ALT/SGPT 28 U/L (16-61); Albumin, Serum 3.5 g/dL (3.2-5.0); Alkaline Phosphatase 45 U/L (45-117); Anion Gap 9 (5-15); BUN 19 mg/dL (7-18); BUN/Creat Ratio 17.9 RATIO (10-20); Calcium,Total 8.9 mg/dL (8.5-10.1); Chloride 108 mmol/L (98-107); Cholesterol 169 mg/dL (200); Creatinine, Serum 1.06 mg/dL (0.70-1.30); EST Glomerular Filtration Rate 75 mL/min (>60); Est Glom Filt Rate - Afr Amer 91 mL/min (>60); Globulin 3.5 g/dL (2.2-4.2); Glucose 133 mg/dL (74-106); High Density Lipoprotein 50 mg/dL; Sodium Level 142 mmol/L (136-145); Triglycerides 126 mg/dL; Very Low Density Lipoprotein 25 mg/dL (5-40)
[2021-12-09 13:04] LABS: Hemoglobin A1c 6.2 % (3.8-5.6)
== END | disposition home or self-care (01) ==
LOC: MFPLAB 09:20
PROVIDERS: PCP Family Medicine; Visit Provider Family Medicine
DX: E11.59 Type 2 diabetes mellitus with other circulatory complications (principal)
CPT/HCPCS: 36415; 80053; 80061; 83036; 85025

== ENCOUNTER → 2021-12-10 | Outpatient (CLI) | payer MEDICAID, SELFPAY ==
--- NOTE | 2021-12-10 11:17 | RAD_ITS ---
STUDY: X-RAY - CERVICAL SPINE REASON FOR EXAM: Male, 61 years old. cervicalgia TECHNIQUE: 6 view(s) of the cervical spine were obtained. COMPARISON: None FINDINGS: There is moderate anterior osteophyte formation C4-C7 with severe loss of disc space height. Mild anterior osteophyte formation and loss of disc space height is seen at C3-4 and C7-T1. There is moderate bilateral neural foraminal encroachment extending from C3 through C7. There is normal alignment. The odontoid is intact. There is normal articulation of the lateral mass of C1 and C2. RAD/Cerv Spine 4 or 5 Views IMPRESSION: Degenerative changes as above. Electronically Signed: Yamil Richardson MD, SVETLANA at 12:29 EDT ,
== END | disposition home or self-care (01) ==
LOC: MTRAD 11:09
PROVIDERS: PCP Family Medicine; Referring Provider Family Medicine; Visit Provider Family Medicine
DX: M54.12 Radiculopathy, cervical region (principal)
CPT/HCPCS: 72050

== ENCOUNTER 2022-02-19 00:13 | Emergency (ER) | payer MEDICAID, SELFPAY ==
[2022-02-19 00:18] VITALS: BP 141/126; PULSE 85; RESP 18; TEMP 36; O2SAT 98; BMI 37.3
--- NOTE | 2022-02-19 00:39 | ED.VIS.DENTA ---
HPI History of Present Illness Chief Complaint: Dental Informant: patient Onset/Context/Timing Onset: Days Context: Gradual Onset Timing: Continuous Quality: Aching, pressure Location: Right upper molars Worsened by: Nothing Relieved by: - (Nothing) Associated Symptoms Assocated Symptom - Dental: jaw swelling and face swelling; Negative for fever, cold sensitivity or hot sensitivity Narrative Narrative: Shama with right upper dental pain that has been getting worse over the past several days. Patient states he went to an urgent care and was started on prednisone and Augmentin and Flagyl. Patient states that he followed up with his dentist who recommended pulling his tooth. Patient states that he did not want to have the tooth pulled at that time. Patient states he would prefer to wait until the infection was cleared up by the antibiotics. Patient admits to some pressure in his right maxillary sinus. Patient admits to some subjective chills but denies any fevers. Patient admits to some nausea but denies any vomiting. Patient describes his pain as aching and pressure. [facility] Medical History (Updated 02/19/22 @ 00:[address] Kayden Agee, ) Acid reflux Allergic rhinitis Aortic root aneurysm Arthritis Asthma Diabetes Gout Hemorrhoids Hyperlipemia Hypertension LVH (left ventricular hypertrophy) Mild intermittent asthma Morbid obesity HASMUHK (obstructive sleep apnea) Tobacco dependence in remission Home Medications aspirin 81 mg tablet,delayed release (Adult Low Dose Aspirin) 81 mg PO QDAY heart 04/02/17 [History Last Taken 08/25/17] atorvastatin 40 mg tablet 40 mg PO QHS cholesterol 04/02/17 [History Last Taken 08/24/17] metformin 500 mg tablet 1,000 mg PO BID blood sugar 04/02/17 [History Last Taken 08/24/17] metoprolol tartrate 25 mg tablet 25 mg PO DAILY 10/18/18 [History Last Taken Unknown] triamcinolone acetonide 55 mcg nasal spray aerosol (Nasacort) 2 spray intranasal DAILY #16.9 mL 05/09/21 [Rx Last Taken Unknown] mometasone-formoterol HFA 200 mcg-5 mcg/actuation aerosol inhaler (Dulera) 2 puff inhalation BID #13 grams 10/17/21 [Rx Last Taken Unknown] montelukast 10 mg tablet 10 mg PO QPM #30 tabs 10/17/21 [Rx Last Taken Unknown] albuterol sulfate 90 mcg/actuation aerosol inhaler 2 puff inhalation Q4H PRN shortness of breath or wheezing #8.5 grams 12/09/21 [Rx Last Taken Unknown] amoxicillin 875 mg-potassium clavulanate 125 mg tablet 1 tab PO BID 02/19/22 [History Last Taken Unknown] betamethasone valerate 0.1 % topical cream 1 applic topical BID 02/19/22 [History Last Taken Unknown] hydrocodone-acetaminophen 5-325mg 5mg-325mg 1 tab PO Q6H PRN PRN Pain 3 days #10 TABLETS 02/19/22 [Rx Last Taken Unknown] metronidazole 500 mg tablet 500 mg PO BID 02/19/22 [History Last Taken Unknown] prednisolone 5 mg tablet 4 mg PO BID 02/19/22 [History Last Taken Unknown] Allergy/AdvReac Type Severity Reaction Status Date / Time peanut Allergy Severe Anaphylaxis Verified 02/19/22 00:14 lisinopril Allergy Mild Unknown Verified 02/19/22 00:14 Family History Mother Asthma Surgical History Hx of colonoscopy Hx of umbilical hernia repair Social History Smoking Status: Never smoker how long ago did patient quit smokin, 2p/day second hand exposure: Yes alcohol intake: current alcohol intake frequency: a few times a week substance use type: does not use caffeine: Yes what type of physical activity do you participate in: none frequency: does not exercise seatbelt use: always ROS ROS ED Constitutional Constitutional ED: Reports chills and subjective; Denies fever(s) Eyes Eyes: Reports blurry vision; Denies change in vision ENT ENT ED: Reports tinnitus; Denies rhinorrhea or sore throat Cardiovascular Cardiovascular: Denies chest pain or palpitations Respiratory/Chest Respiratory/Chest: Denies cough or dyspnea Gastrointestinal Gastrointestinal: Reports nausea; Denies vomiting Genitourinary Genitourinary ED: Reports urinary frequency; Denies dysuria or hematuria Musculoskeletal Musculoskeletal: Denies back pain or neck pain Integumentary Denies abscess or rash Neurologic Neurologic: Denies headache(s) or weakness Allergic/Immunologic Allergic/Immunologic ED: Denies mouth swelling or urticaria EXAM Physical Exam Const Vital Signs: 02/19/22 00:18 Temperature 96.8 F L Temperature Source Temporal Pulse Rate 85 Respiratory Rate 18 Blood Pressure 141/126 H Blood Pressure Mean 131 Pulse Ox 98 Oxygen Delivery Method Room Air Positive well nourished, well developed and obese General Appearance ED: well developed and NAD Nutritional Appearance: obese HEENT HEENT Narrative: There is dental caries and tenderness over the right upper first molar. There is some mild gingival edema. There is no fluctuance. There is no evidence of any abscess. There is tenderness over the right maxillary sinus. Tympanic membranes are clear bilaterally. Nasal mucosa is pink and moist. There is no septal deviation or septal hematoma noted. Mouth ED: Yes tongue normal Mouth: tongue normal Teeth and Gingiva: caries Eyes PERRL and EOMs intact bilaterally Neck no lymphadenopathy, supple and no JVD Lymph Lymphatic: no lymphadenopathy noted Neuro oriented x3, CN's II-XII intact bilaterally, moves all extremities, no focal motor deficits and no sensory deficits noted Sensorium / Orientation: alert Motor Exam: strength 5/5 throughout Psych mental status grossly normal MDM MDM MDM Narrative Medical decision making narrative: Patient was advised he is on the appropriate antibiotics. I do not want to increase his prednisone. Patient was given a dose of [place] here. Patient was given a prescription for [place]. Patient was instructed to follow-up with his dentist in 5 to 7 days. Patient understood and was agreeable with the plan. All questions were answered. Discharge Plan Triage Chief Complaint: Dental ED Provider: Kayden Agee Dx/Rx/DC Orders Clinical Impression: Infected dental caries Instructions: ED Dental Pain Prescriptions: New hydrocodone-acetaminophen [hydrocodone-acetaminophen] 5-325 mg tablet 1 tab PO Q6H PRN PRN (Reason: Pain) 3 Days Qty: 10 0RF No Action metformin 500 mg tablet 1,000 mg PO BID atorvastatin 40 mg tablet 40 mg PO QHS aspirin [Adult Low Dose Aspirin] 81 mg tablet,delayed release (DR/EC) 81 mg PO QDAY Dulera 200-5 mcg/actuation HFA aerosol inhaler 2 puff INHALATION BID Qty: 13 11RF montelukast 10 mg tablet 10 mg PO QPM Qty: 30 11RF metoprolol tartrate 25 MG tablet 25 mg PO DAILY betamethasone valerate 0.1 % cream 1 applic TOPICAL BID metronidazole [Flagyl] 500 mg Tablet 500 mg PO BID prednisolone 5 mg Tablet 4 mg PO BID amoxicillin-pot clavulanate 875-125 mg tablet 1 tab PO BID triamcinolone acetonide [Nasacort] 55 mcg aerosol,spray 2 spray INTRANASAL DAILY Qty: 16.9 11RF Rx Instructions: administer into each nostril albuterol sulfate 90 mcg/actuation HFA aerosol inhaler 2 puff inhalation Q4H PRN (Reason: shortness of breath or wheezing) Qty: 8.5 6RF Rx Instructions: administer with spacer Primary Care Provider: Kevin Borden Referrals: Kevin Borden MD [Primary Care Provider] - 3-5 Days Dentist,Penelope [STAFF PHYSICIAN] - 5-7 Days Disposition Disposition: Home, Self Care
[2022-02-19] MEDS: HYDROcodone Bitartrate/Apap 5/325 Tablet PO (01:01)
== END 2022-02-19 01:03 | disposition home or self-care (01) ==
PROVIDERS: Emergency Provider Emergency Medicine; PCP Family Medicine; Visit Provider Emergency Medicine
DX: E11.638 Type 2 diabetes mellitus with other oral complications (principal); I10 Essential (primary) hypertension; E78.5 Hyperlipidemia, unspecified; G47.33 Obstructive sleep apnea (adult) (pediatric); E66.9 Obesity, unspecified; Z79.82 Long term (current) use of aspirin; Z79.899 Other long term (current) drug therapy; Z79.84 Long term (current) use of oral hypoglycemic drugs
CPT/HCPCS: 99283

== ENCOUNTER → 2022-04-08 | Outpatient (CLI) | payer MEDICAID, SELFPAY ==
[2022-04-08 10:05] LABS: Absolute Lymphocyte Count 2.11 X10^3/uL (0.83-4.51); Absolute Neutrophil Count 4.1 X10^3/uL (2.0-7.7); Basophil# 0.05 X10^3/uL; Basophil% 0.7 % (0-1); Eosinophil# 0.66 X10^3/uL; Eosinophils% 8.8 % (0-5); Hematocrit 43.3 % (40-54); Hemoglobin 13.4 g/dL (13.0-16.5); Lymphocyte # 2.11 X10^3/ul (0.83-4.51); Lymphocyte % 28.1 % (19-41); Mean Corp Hgb Conc 30.9 g/dL (32-36); Mean Corpuscular Hgb 29.6 pg (27.0-32.0); Mean Corpuscular Volume 95.6 fL (80-94); Mean Platelet Vol. 10.2 fl (6.2-12.0); Monocyte# 0.61 X10^3/uL; Monocyte% 8.1 % (0-10); NRBC Flagged by Analyzer 0 % (0-5); Neutrophil # 4.05 X10^3/uL (2.7-7.7); Neutrophil % 53.9 % (47-70); Platelet Count 292 K/mm3 (150-450); RBC Distribution Width CV 13.6 % (11.6-14.6); Red Blood Count 4.53 M/mm3 (4.6-6.2); White Blood Count 7.5 K/mm3 (4.4-11.0)
[2022-04-08 11:17] LABS: Hemoglobin A1c 6.2 % (3.8-5.6)
[2022-04-08 11:28] LABS: AST(SGOT) 18 U/L (15-37); Alanine Aminotransfer ALT/SGPT 23 U/L (16-61); Albumin, Serum 3.5 g/dL (3.2-5.0); Alkaline Phosphatase 38 U/L (45-117); Anion Gap 8 (5-15); BUN 17 mg/dL (7-18); BUN/Creat Ratio 18.2 RATIO (10-20); Calcium,Total 9.2 mg/dL (8.5-10.1); Chloride 107 mmol/L (98-107); Cholesterol 199 mg/dL (200); Creatinine, Serum 0.94 mg/dL (0.70-1.30); EST Glomerular Filtration Rate 87 mL/min (>60); Est Glom Filt Rate - Afr Amer 105 mL/min (>60); Globulin 3.5 g/dL (2.2-4.2); Glucose 126 mg/dL (74-106); High Density Lipoprotein 66 mg/dL; Potassium 4.3 mmol/L (3.5-5.1); Sodium Level 141 mmol/L (136-145); Thyroid Stim Hormone (TSH) 3.21 uIU/mL (0.358-3.74); Triglycerides 60 mg/dL; Very Low Density Lipoprotein 12 mg/dL (5-40)
[2022-04-08 13:28] LABS: Microalbumin,Random Urine 5.2 mg/L (NO RANGE EST.); Microalbumin:Creatinine Ratio 7.8 mg/g CRE (<30 mg/g CRE)
== END | disposition home or self-care (01) ==
LOC: MFPLAB 08:33
PROVIDERS: PCP Family Medicine; Referring Provider Family Medicine; Visit Provider Family Medicine
DX: E11.69 Type 2 diabetes mellitus with other specified complication (principal)
CPT/HCPCS: 36415; 80053; 80061; 82043; 82570; 83036; 84443; 85025

== ENCOUNTER → 2022-05-30 | Outpatient (CLI) | payer MEDICAID, SELFPAY ==
--- NOTE | 2022-05-30 08:56 | RAD_ITS ---
INDICATION: ASTHMA EXAMINATION/TECHNIQUE: X-RAY - XR Chest 2 Views COMPARISON: None. FINDINGS: LINES/DEVICES: None. LUNGS: No consolidation, edema or effusion. No pneumothorax. MEDIASTINUM AND CARDIOVASCULAR STRUCTURES: Cardiac silhouette not enlarged. Central airways and mediastinal contour are unremarkable. BONES AND SOFT TISSUES: Degenerative vertebral changes. RAD/Chest PA and Lateral IMPRESSION: No radiographic evidence of acute cardiopulmonary disease. Electronically Signed: Federico Ulrich DO at 23:01 EDT Reading Location ID and State: [facility] / [place] Tel [phone], Service support ,
== END | disposition home or self-care (01) ==
LOC: MTRAD 08:55
PROVIDERS: PCP Family Medicine; Referring Provider Family Medicine; Visit Provider Family Medicine
DX: J45.901 Unspecified asthma with (acute) exacerbation (principal)
CPT/HCPCS: 71046

== ENCOUNTER → 2022-08-04 | Outpatient (CLI) | payer MEDICAID, SELFPAY ==
[2022-08-04 10:49] LABS: Absolute Lymphocyte Count 2.06 X10^3/uL (0.83-4.51); Absolute Neutrophil Count 4.3 X10^3/uL (2.0-7.7); Basophil# 0.07 X10^3/uL; Basophil% 0.8 % (0-1); Eosinophil# 1.28 X10^3/uL; Eosinophils% 15.1 % (0-5); Hemoglobin 14.2 g/dL (13.0-16.5); Lymphocyte # 2.06 X10^3/ul (0.83-4.51); Lymphocyte % 24.4 % (19-41); Mean Corp Hgb Conc 32.3 g/dL (32-36); Mean Corpuscular Hgb 30.7 pg (27.0-32.0); Mean Corpuscular Volume 95.2 fL (80-94); Mean Platelet Vol. 10.1 fl (6.2-12.0); Monocyte# 0.73 X10^3/uL; Monocyte% 8.6 % (0-10); NRBC Flagged by Analyzer 0 % (0-5); Neutrophil # 4.29 X10^3/uL (2.7-7.7); Neutrophil % 50.9 % (47-70); Platelet Count 262 K/mm3 (150-450); RBC Distribution Width SD 45.7 fl (35.1-43.9); Red Blood Count 4.62 M/mm3 (4.6-6.2); White Blood Count 8.5 K/mm3 (4.4-11.0)
[2022-08-04 11:10] LABS: Hemoglobin A1c 6.3 % (3.8-5.6)
[2022-08-04 11:12] LABS: Microalbumin,Random Urine 5.3 mg/L (NO RANGE EST.); Microalbumin:Creatinine Ratio 6.6 mg/g CRE (<30 mg/g CRE)
[2022-08-04 11:27] LABS: AST(SGOT) 17 U/L (15-37); Alanine Aminotransfer ALT/SGPT 24 U/L (16-61); Albumin, Serum 3.4 g/dL (3.2-5.0); Alkaline Phosphatase 42 U/L (45-117); Anion Gap 7 (5-15); BUN 18 mg/dL (7-18); BUN/Creat Ratio 21.4 RATIO (10-20); Calcium,Total 9.1 mg/dL (8.5-10.1); Chloride 107 mmol/L (98-107); Cholesterol 149 mg/dL (200); Creatinine, Serum 0.84 mg/dL (0.70-1.30); EST Glomerular Filtration Rate 98 mL/min (>60); Est Glom Filt Rate - Afr Amer 119 mL/min (>60); Globulin 3.4 g/dL (2.2-4.2); Glucose 118 mg/dL (74-106); High Density Lipoprotein 51 mg/dL; Potassium 3.8 mmol/L (3.5-5.1); Protein, Total 6.8 g/dL (6.4-8.2); Sodium Level 140 mmol/L (136-145); Thyroid Stim Hormone (TSH) 3.44 uIU/mL (0.358-3.74); Triglycerides 81 mg/dL; Uric Acid 5.8 mg/dL (3.5-7.2); Very Low Density Lipoprotein 16 mg/dL (5-40)
== END | disposition home or self-care (01) ==
LOC: MFPLAB 08:41
PROVIDERS: PCP Family Medicine; Visit Provider Family Medicine
DX: E11.59 Type 2 diabetes mellitus with other circulatory complications (principal); M10.9 Gout, unspecified
CPT/HCPCS: 36415; 80053; 80061; 82043; 82570; 83036; 84443; 84550; 85025

== ENCOUNTER → 2022-08-19 | Outpatient (CLI) | payer MEDICAID, SELFPAY ==
--- NOTE | 2022-08-19 16:41 | CT_ITS ---
STUDY: CTA CHEST REASON FOR EXAM: Male, 62 years old. aortic root enlargement and pulm nodules RADIATION DOSAGE (If Supplied By Facility): CTDIvol = ( 20.31 ) mGy, DLP = ( 1884.19 ) mGycm TECHNIQUE: The examination was performed with the intravenous administration of IV 100mL Isovue-370. Post-processing of the angiographic images was performed, with multiplanar reformation and 3D reconstruction. Individualized dose optimization techniques were used for this CT. COMPARISON: Chest x-ray May 30, 2022. CT chest April 09, 2017 FINDINGS: 3 mm pulmonary nodule right lower lobe image #95 appears stable. 5 mm stable nodule left lower lobe image #9. Normal enhancement of the main pulmonary artery and right and left pulmonary arteries. Normal enhancement of the bilateral peripheral pulmonary arteries. There is no demonstrated pulmonary embolism. Normal thoracic aorta and visualized great vessels. There is no demonstrated aortic dissection. Calcific coronary artery disease. Normal mediastinum. Normal hilar regions. Normal visualized trachea and bronchi. The lungs are well expanded. Normal pulmonary parenchyma. Normal pleura. Normal chest wall structures. Normal osseous structures. Normal visualized upper abdomen. CT/CTA Chest W/WO Contrast IMPRESSION: Stable bilateral pulmonary nodules. No further follow-up required. Coronary artery disease. Electronically Signed: Yusuf Murray MD at 18:23 EDT ,
== END | disposition home or self-care (01) ==
LOC: CT 16:40
PROVIDERS: PCP Family Medicine; Referring Provider Family Medicine; Visit Provider Family Medicine
DX: I71.21 Aneurysm of the ascending aorta, without rupture (principal)
CPT/HCPCS: 71275; Q9967; A4216

== ENCOUNTER 2022-09-04 17:36 | Emergency (ER) | payer MEDICAID, SELFPAY ==
[2022-09-04 17:38] VITALS: BP 121/70; PULSE 86; RESP 17; TEMP 36.6; O2SAT 99; BMI 36.3
--- NOTE | 2022-09-04 18:22 | EKG12_ITS ---
Test Reason : DIZZINESS Blood Pressure : / mmHG Vent. Rate : 068 BPM Atrial Rate : 068 BPM P-R Int : 180 ms QRS Dur : 156 ms QT Int : 450 ms P-R-T Axes : 033 -66 014 degrees QTc Int : 478 ms Normal sinus rhythm Right bundle branch block Left anterior fascicular block Bifascicular block Abnormal ECG Confirmed by TY CUEVA, STEPHEN ([id number]), editor in chief BERNARD GAVIRIA ([id number]) on 09/08/2022 1:05:38 PM Referred By: ARAMIS Confirmed By:ANN CRAWFORD MD
--- NOTE | 2022-09-04 18:25 | EX.ED.DYSGE1 ---
HPI History of Present Illness Chief Complaint: Dizziness Informant: patient Onset/Context/Timing Onset: Days (2-3) Context: Gradual Onset Timing: Intermittent Quality: dizzy Location: head Current Severity: Gone Maximum Severity: Moderate Narrative Narrative: Patient states he has started sulfasalazine about 2 weeks ago because of arthritis in his neck and back, with radicular versus neuropathic symptoms going down his right upper extremity, and he has been increasingly feeling lightheaded at times, especially in the last couple days where he has been feeling very fatigued with it. He states his neck feels better, but he feels poorly everywhere else. He has had some headaches. He has some occasional blurry vision but no diplopia or vision loss. He states his dizziness feels like lightheadedness, he has been experiencing intermittent tinnitus bilaterally, and states this feels different than vertigo suggesting that he had vertigo from his CPAP machine exerting pressure on his inner ear in the past. He denies any focal neurologic symptoms or confusions or fever/chills but he felt very cold the day and laid inside all day. He admits he has been working outside lately it is been very hot and humid and he thinks he has been drinking water, but he is urinating less, and it is orange. [facility] Medical History (Updated 09/04/22 @ 20:[address] Floyd Vickers MD) Acid reflux Allergic rhinitis Aortic root aneurysm Arthritis Asthma Diabetes Gout Hemorrhoids Hyperlipemia Hypertension LVH (left ventricular hypertrophy) Mild intermittent asthma Morbid obesity HASMUKH (obstructive sleep apnea) Tobacco dependence in remission Home Medications aspirin 81 mg tablet,delayed release (Adult Low Dose Aspirin) 81 mg PO QDAY heart 04/02/17 [History Last Taken 08/25/17] atorvastatin 40 mg tablet 40 mg PO QHS cholesterol 04/02/17 [History Last Taken 08/24/17] metformin 500 mg tablet 1,000 mg PO BID blood sugar 04/02/17 [History Last Taken 08/24/17] metoprolol tartrate 25 mg tablet 25 mg PO DAILY 10/18/18 [History Last Taken Unknown] mometasone-formoterol HFA 200 mcg-5 mcg/actuation aerosol inhaler (Dulera) 2 puff inhalation BID #13 grams 10/17/21 [Rx Last Taken Unknown] albuterol sulfate 90 mcg/actuation aerosol inhaler 2 puff inhalation Q4H PRN shortness of breath or wheezing #8.5 grams 12/09/21 [Rx Last Taken Unknown] amoxicillin 875 mg-potassium clavulanate 125 mg tablet 1 tab PO BID 02/19/22 [History Last Taken Unknown] betamethasone valerate 0.1 % topical cream 1 applic topical BID 02/19/22 [History Last Taken Unknown] hydrocodone-acetaminophen 5-325mg 5mg-325mg 1 tab PO Q6H PRN PRN Pain 3 days #10 TABLETS 02/19/22 [Rx Last Taken Unknown] metronidazole 500 mg tablet 500 mg PO BID 02/19/22 [History Last Taken Unknown] prednisolone 5 mg tablet 4 mg PO BID 02/19/22 [History Last Taken Unknown] triamcinolone acetonide 55 mcg nasal spray aerosol (Nasacort) 2 spray intranasal DAILY #16.9 mL 05/13/22 [Rx Last Taken Unknown] montelukast 10 mg tablet 10 mg PO QPM #30 tabs 07/01/22 [Rx Last Taken Unknown] meclizine 25 mg tablet 25 mg PO Q8H PRN PRN Dizziness #20 tabs 09/04/22 [Rx Last Taken Unknown] Allergy/AdvReac Type Severity Reaction Status Date / Time peanut Allergy Severe Anaphylaxis Verified 09/04/22 17:37 lisinopril Allergy Mild Unknown Verified 09/04/22 17:37 amlodipine AdvReac Mild Rash Verified 09/04/22 17:37 Family History Mother Asthma Surgical History Hx of colonoscopy Hx of umbilical hernia repair Social History Smoking Status: Never smoker how long ago did patient quit smokin, 2p/day second hand exposure: Yes alcohol intake: current alcohol intake frequency: a few times a week substance use type: does not use caffeine: Yes what type of physical activity do you participate in: none frequency: does not exercise seatbelt use: always ROS ROS ED Constitutional Constitutional ED: Reports other Details: felt cold all day today ; Denies chills or fever(s) Eyes Eyes: Denies change in vision or diplopia ENT ENT ED: Reports as per HPI, tinnitus and other Details: hearing disturbance intermittently ; Denies ear discharge, ear pain, hearing loss, rhinorrhea or sore throat Cardiovascular Cardiovascular: Denies chest pain or palpitations Respiratory/Chest Respiratory/Chest: Denies cough or dyspnea Gastrointestinal Gastrointestinal: Denies abdominal pain, diarrhea, nausea or vomiting Genitourinary Genitourinary ED: Denies dysuria or hematuria Musculoskeletal Musculoskeletal: Denies back pain or neck pain Integumentary Denies abscess or rash Neurologic Neurologic: Reports as per HPI and dizziness; Denies abnormal gait, headache(s), paresthesias or weakness Psychiatric Psychiatric: Denies anxiety or suicidal thoughts EXAM Physical Exam Const Vital Signs: 09/04/22 17:38 09/04/22 18:41 09/04/22 19:25 Temperature 98 F Temperature Source Temporal Pulse Rate 86 69 Respiratory Rate 17 16 Respiratory Effort Normal Non-Labored Respiratory Pattern Normal Blood Pressure 121/70 H 135/64 H Blood Pressure Mean 87 87 Pulse Ox 99 98 Oxygen Delivery Method Room Air Room Air Positive well nourished and well developed General Appearance ED: well developed and NAD HEENT Reports TM's clear and moist mucous membranes normocephalic and atraumatic Tympanic Membrane ED: Yes TM's clear Eyes PERRL and EOMs intact bilaterally Neck full ROM and supple Resp normal respiratory effort and clear to auscultation bilaterally Cardio regular rate, regular rhythm and no murmurs GI non-tender and non-distended Auscultation: normoactive bowel sounds Palpation: soft Back/Spine no CVA tenderness General Back: other FROM Extremity normal to inspection General Extremety ED: Negative for edema, pulses abnormal or tenderness General Extremity: Negative for edema or pulses abnormal Neuro oriented x3, CN's II-XII intact bilaterally and no sensory deficits noted Neuro Narrative: Normal [id number] and [id number] bilaterally Sensorium / Orientation: awake and alert Motor Exam: strength 5/5 throughout Psych mental status grossly normal Skin no rashes or lesions noted and no wounds MDM MDM MDM Narrative Medical decision making narrative: Labs are unremarkable, he does not have prerenal azotemia, he was given a liter of fluids he thinks he feels a little better, but he is not feeling dizzy right now. His blood pressure has been stable, 120-130, and he only seems to have symptoms when he gets up he states. He does not have jorge spinning. He states on reevaluation after reporting test results that every time he gets the dizziness, he gets a whooshing type of feeling in his ears. I think this is more disequilibrium/vertiginous than it is low-flow/lightheaded, he has never been near syncopal or syncopal, I reassured him I think he stable to be discharged home, whether this is a side effect of his new arthritis medication or not is unknown, I think he should talk to his doctor about whether he should continue that or not, he states that the pharmacy told him he needs to taper off of it and cannot to stop it cold turkey. I am putting him on meclizine to use as needed and have him follow-up he is comfortable with that plan. Lab Data Attestation: I reviewed the patient's lab results. Labs: Laboratory Results - last 24 hr 09/04/22 09/04/22 18:43 19:15 WBC 7.2 RBC 4.41 L Hgb 14.0 Hct 40.9 MCV 92.7 MCH 31.7 MCHC 34.2 RDW Std Deviation 44.3 H RDW Coeff of Clotilde 13.0 Plt Count 218 MPV 9.7 Immature Gran % (Auto) 0.300 Neut % (Auto) 68.3 Lymph % (Auto) 11.5 L [place] % (Auto) 11.9 H Eos % (Auto) 7.4 H Baso % (Auto) 0.6 Absolute Neuts (auto) 4.9 Absolute Lymphs (auto) 0.83 Nucleated RBC % 0 Sodium 136 Potassium 3.7 Chloride 103 Carbon Dioxide 26.0 Anion Gap 7 BUN 11 Creatinine 1.04 Estim Creat Clear Calc 80.83 Est GFR (MDRD) Af Amer 93 Est GFR (MDRD) Non-Af 77 BUN/Creatinine Ratio 10.6 Glucose 118 H Calcium 9.1 Urine Color Yellow Urine Clarity Clear Urine pH 7.0 Ur Specific [place] 1.010 Urine Protein Negative Urine Glucose (UA) Normal Urine Ketones 15 H Urine Occult Blood 10 H Urine Nitrite Negative Urine Bilirubin Negative Urine Urobilinogen Normal Ur Leukocyte Esterase Negative Urine RBC 0 SEEN Urine WBC 0 SEEN Ur Squamous Epith Cells 0 SEEN Urine Bacteria 0 SEEN Urine Mucus 0 SEEN EKG Initial EKG: Attestation: I personally reviewed and interpreted this EKG as follows: Interpretation: Sinus Rhythm, No Acute Injury Pattern, RBBB and LAFB Prior EKG tracings: available for review (2018) Prior: Changed Discharge Plan Triage Chief Complaint: Dizziness ED Provider: Floyd Vickers Dx/Rx/DC Orders Clinical Impression: Nonspecific dizziness Instructions: Vertigo Disequilibrium Syncope Prescriptions: New meclizine [meclizine] 25 mg tablet 25 mg PO Q8H PRN PRN (Reason: Dizziness) Qty: 20 0RF No Action metformin 500 mg tablet 1,000 mg PO BID atorvastatin 40 mg tablet 40 mg PO QHS aspirin [Adult Low Dose Aspirin] 81 mg tablet,delayed release (DR/EC) 81 mg PO QDAY Dulera 200-5 mcg/actuation HFA aerosol inhaler 2 puff INHALATION BID Qty: 13 11RF metoprolol tartrate 25 MG tablet 25 mg PO DAILY betamethasone valerate 0.1 % cream 1 applic TOPICAL BID metronidazole [Flagyl] 500 mg Tablet 500 mg PO BID prednisolone 5 mg Tablet 4 mg PO BID amoxicillin-pot clavulanate 875-125 mg tablet 1 tab PO BID hydrocodone-acetaminophen [hydrocodone-acetaminophen] 5-325 mg tablet 1 tab PO Q6H PRN PRN (Reason: Pain) 3 Days Qty: 10 0RF albuterol sulfate 90 mcg/actuation HFA aerosol inhaler 2 puff inhalation Q4H PRN (Reason: shortness of breath or wheezing) Qty: 8.5 6RF Rx Instructions: administer with spacer triamcinolone acetonide [Nasacort] 55 mcg aerosol,spray 2 spray INTRANASAL DAILY Qty: 16.9 11RF Rx Instructions: administer into each nostril montelukast 10 mg tablet 10 mg PO QPM Qty: 30 11RF Primary Care Provider: Kevin Borden Referrals: Kevin Borden MD [Primary Care Provider] - Yusuf Keller MD [Med Staff - Active Staff] - 1 Week if not improving Disposition Disposition: Home, Self Care
[2022-09-04] MEDS: 0.9% Normal Saline 1,000 ML 999 ML IV (18:43)
[2022-09-04 18:54] LABS: Absolute Lymphocyte Count 0.83 X10^3/uL (0.83-4.51); Absolute Neutrophil Count 4.9 X10^3/uL (2.0-7.7); Basophil# 0.04 X10^3/uL; Basophil% 0.6 % (0-1); Eosinophil# 0.53 X10^3/uL; Eosinophils% 7.4 % (0-5); Hematocrit 40.9 % (40-54); Lymphocyte # 0.83 X10^3/ul (0.83-4.51); Lymphocyte % 11.5 % (19-41); Mean Corp Hgb Conc 34.2 g/dL (32-36); Mean Corpuscular Hgb 31.7 pg (27.0-32.0); Mean Corpuscular Volume 92.7 fL (80-94); Mean Platelet Vol. 9.7 fl (6.2-12.0); Monocyte# 0.86 X10^3/uL; Monocyte% 11.9 % (0-10); NRBC Flagged by Analyzer 0 % (0-5); Neutrophil # 4.93 X10^3/uL (2.7-7.7); Neutrophil % 68.3 % (47-70); Platelet Count 218 K/mm3 (150-450); RBC Distribution Width SD 44.3 fl (35.1-43.9); Red Blood Count 4.41 M/mm3 (4.6-6.2); White Blood Count 7.2 K/mm3 (4.4-11.0)
[2022-09-04 19:10] LABS: Anion Gap 7 (5-15); BUN 11 mg/dL (7-18); BUN/Creat Ratio 10.6 RATIO (10-20); Calcium,Total 9.1 mg/dL (8.5-10.1); Chloride 103 mmol/L (98-107); Creatinine, Serum 1.04 mg/dL (0.70-1.30); EST Glomerular Filtration Rate 77 mL/min (>60); Est Glom Filt Rate - Afr Amer 93 mL/min (>60); Estimated Creatinine Clearance 80.83 ml/min; Glucose 118 mg/dL (74-106); Potassium 3.7 mmol/L (3.5-5.1); Sodium Level 136 mmol/L (136-145)
[2022-09-04 19:25] VITALS: BP 135/64; PULSE 69; RESP 16; O2SAT 98
[2022-09-04 19:31] LABS: Bacteria 0 SEEN /hpf (None Seen); Mucous, Urine 0 SEEN /hpf (<or=2+); Red Blood Cells-Urine 0 SEEN /hpf (0-5); Squamous Epithelial Cells - UA 0 SEEN /hpf (0-5); White Blood Cells 0 SEEN /hpf (0-5)
[2022-09-04 19:33] LABS: Color, Urine Yellow (Yellow); Glucose, Dipstick Normal (Normal); Ketone-Dipstick 15 mg/dl (Negative); Leukocyte Esterase-Dipstick Negative /ul (Negative); Nitrite-Dipstick Negative (Negative); Occult Blood-Urine 10 /ul (Negative); Protein-Dipstick Negative (Negative); Urine Bilirubin Dipstick Negative (Negative); Urine Clarity Clear (Clear); Urine Urobilinogen Normal (Normal)
[2022-09-04] MEDS: Meclizine HCl 25 MG Tablet PO (20:16)
[2022-09-04 20:30] VITALS: BP 138/78; PULSE 78; RESP 16; O2SAT 99
== END 2022-09-04 20:32 | disposition home or self-care (01) ==
PROVIDERS: Emergency Provider Emergency Medicine; PCP Family Medicine; Visit Provider Emergency Medicine
DX: R42 Dizziness and giddiness (principal); E11.9 Type 2 diabetes mellitus without complications; E78.5 Hyperlipidemia, unspecified; M47.812 Spondylosis without myelopathy or radiculopathy, cervical region; I10 Essential (primary) hypertension; R51.9 Headache, unspecified; Z79.82 Long term (current) use of aspirin; Z79.84 Long term (current) use of oral hypoglycemic drugs; Z79.899 Other long term (current) drug therapy
CPT/HCPCS: 80048; 81001; 85025; 93005; 96360; 99285; J7030; A4216

== ENCOUNTER → 2022-09-26 | Outpatient (CLI) | payer MEDICAID, SELFPAY ==
--- NOTE | 2022-09-26 07:37 | ECHOD_ITS ---
Reason For Study: CAD/ASHD Procedure This was a 2D Doppler, Color Flow transthoracic echocardiogram. Exam performed in department. Left Ventricle Normal LV size. Left ventricular systolic function is normal. No regional wall motion abnormalities noted. Right Ventricle Normal RV size. Normal systolic function. Atria Normal left atrium. Normal right atrium. Bubble contrast study negative for right to left interatrial shunt. Mitral Valve Normal mitral valve. Tricuspid Valve Normal tricuspid valve. Aortic Valve Trisinus/trileaflet aortic valve. Pulmonic Valve Normal pulmonic valve. Great Vessels Mildly dilated aortic root. The pulmonary artery is normal size. Normal inferior vena cava. Pericardium/Pleural No pericardial effusion. Medication Performed a rapid injection of agitated mix of 9 cc saline and 1cc air to assess for atrial septal defect. MMode/2D Measurements & Calculations LVIDd: 5.1 cm IVSd: 1.4 cm LVOT diam: 2.2 cm LVIDs: 3.8 cm LVPWd: 1.4 cm FS: 24.3 % LVOT area: 3.9 cm2 Ao root diam: 4.2 cm LAV(MOD-bp): 54.9 ml LVAd ap4: 33.0 cm2 LAV(MOD-bp) Indexed: 22.5 ml/m2 LVLd ap4: 8.2 cm LAV(MOD-sp2): 66.2 ml EDV(MOD-sp4): 108.9 ml LAV(MOD-sp4): 41.3 ml EDV(sp4-el): 112.4 ml LVAs ap4: 21.9 cm2 LVLs ap4: 7.2 cm ESV(MOD-sp4): 56.7 ml ESV(sp4-el): 56.3 ml EF(MOD-sp4): 48.0 % EF(sp4-el): 49.9 % SV(MOD-sp4): 52.2 ml SV(sp4-el): 56.2 ml LA A4 area: 18.2 cm2 LA dimension(2D): 4.6 cm RA A4 area: 15.7 cm2 TAPSE: 2.9 cm Time Measurements MV dec time: 0.20 sec Doppler Measurements & Calculations MV E max jerry: 72.8 cm/sec MV V2 max: 77.2 cm/sec MV dec slope: 393.0 cm/sec2 MV A max jerry: 58.8 cm/sec MV max P.4 mmHg MV E/A: 1.2 MV V2 mean: 44.5 cm/sec MV mean P.91 mmHg MV V2 VTI: 26.5 cm MVA(VTI): 3.4 cm2 Ao V2 max: 153.9 cm/sec LV V1 max: 90.5 cm/sec SV(LVOT): 91.1 ml Ao max P.5 mmHg LV V1 max P.1 mmHg Ao V2 mean: 102.9 cm/sec LV V1 mean P.2 mmHg Ao mean P.9 mmHg LV V1 mean: 84.0 cm/sec Ao V2 VTI: 30.7 cm LV V1 VTI: 23.2 cm AV (velocity ratio): 0.75 LAURIE(I,D): 3.0 cm2 LAURIE(V,D): 2.3 cm2 PA V2 max: 97.8 cm/sec PA V2 mean: 69.4 cm/sec ECHO/Echo Complete Interpretation Summary Normal LV size. Left ventricular systolic function is normal. Bubble contrast study negative for right to left interatrial shunt. Mildly dilated aortic root. Ordering Physician: Lu Styles Referring Physician: Lu Styles Performed By: Megan Simon RCS
--- NOTE | 2022-09-26 16:52 | STRESSREP_ITS ---
Stress Test Report Exercise myocardial perfusion stress test. 62-year-old man with a history of coronary artery disease Stress protocol: Resting EKG demonstrates normal sinus rhythm with a rate of 52 bpm resting blood pressure is 134/78 mmHg. The patient exercised according to the regular Ag protocol for a total duration of 6 minutes and 44 seconds attaining a maximum heart rate of 146 bpm which was 92% of maximum predicted heart rate; the maximum workload was 9.2 metabolic equivalents. At rest there were no ST or T wave changes noted to suggest ischemia and at peak exercise upsloping ST changes only were noted which did not meet the criteria for ischemia. No clinical angina was noted the test was terminated due to the target heart rate being ac hieved/fatigue. The peak blood pressure was 204/70 mmHg. Rate-pressure product was 22,700. Myocardial perfusion protocol. 14.7 mCi of technetium 99m sestamibi was injected at rest. The patient exe rcised according to regular Ag protocol for total duration of 6 minutes and 44 seconds and at peak exercise 44.9 mCi of technetium 99m sestamibi was injected stress images were obtained stress and rest images were reconstructed in comparing the short axis vertical long and horizontal long axis. Gated images were also obtained. Perfusion SPECT analysis: Review of the stress images demonstrate normal uptake of tracer noted in all areas of the myocardium. The resting images similarly demonstrate normal uptake of tracer noted in all areas of the myocardium. No areas of reversibility are noted to suggest ischemia no previous infarct was noted. Gated SPECT analysis: The gated ejection fraction is 64%. Conclusion: Normal exercise myocardial perfusion stress test at a moderate to high workload Preserved ejection fraction.
== END | disposition home or self-care (01) ==
LOC: CVS 07:32
PROVIDERS: PCP Family Medicine; Referring Provider Internal Medicine Cardiovascular Disease; Visit Provider Internal Medicine Cardiovascular Disease
DX: I25.10 Atherosclerotic heart disease of native coronary artery without angina pectoris (principal); I71.9 Aortic aneurysm of unspecified site, without rupture; R42 Dizziness and giddiness; I10 Essential (primary) hypertension; I51.7 Cardiomegaly
CPT/HCPCS: 78452; 93017; 93306; A9500; A4216

== ENCOUNTER 2022-10-20 01:47 | Emergency (ER) | payer MEDICAID, SELFPAY ==
[2022-10-20 01:48] VITALS: PULSE 60; RESP 20; TEMP 36.6; O2SAT 97; BMI 37.3
[2022-10-20 01:52] VITALS: BP 152/72
--- NOTE | 2022-10-20 01:54 | ED.VIS.DENTA ---
HPI History of Present Illness Chief Complaint: Dental Informant: patient Onset/Context/Timing Onset: Days Context: Gradual Onset Narrative Narrative: Patient presents with left-sided dental pain has been building for the past week or so. He has a temporary veneer to the left central incisor that is scheduled to be replaced next week. He states for the past week his left back teeth been bothering him but he was just going to wait until his appointment. Pain has been progressively worsening and tonight has become more severe. As long as he keeps cold water in his mouth he states that seems to improve the pain. Has been trying Orajel without improvement. [facility] Medical History Acid reflux Allergic rhinitis Aortic root aneurysm Arthritis Asthma BPPV (benign paroxysmal positional vertigo) CAD (coronary artery disease) Cervical radiculopathy DDD (degenerative disc disease), cervical Diabetes Gout Hand pain Hemorrhoids Hyperlipemia Hypertension Lightheadedness LVH (left ventricular hypertrophy) Mild intermittent asthma Morbid obesity Neck pain Nonspecific dizziness HASMUKH (obstructive sleep apnea) Polyarticular psoriatic arthritis Pulmonary nodules Tear of biceps muscle Tobacco dependence in remission Home Medications aspirin 81 mg tablet,delayed release (Adult Low Dose Aspirin) 81 mg PO QDAY heart 04/02/17 [History Last Taken 08/25/17] atorvastatin 40 mg tablet 40 mg PO QHS cholesterol 04/02/17 [History Last Taken 08/24/17] mometasone-formoterol HFA 200 mcg-5 mcg/actuation aerosol inhaler (Dulera) 2 puff inhalation BID #13 grams 10/17/21 [Rx Last Taken Unknown] montelukast 10 mg tablet 10 mg PO QPM #30 tabs 07/01/22 [Rx Last Taken Unknown] albuterol sulfate 90 mcg/actuation aerosol inhaler 2 puff inhalation Q6H PRN shortness of breath or wheezing 09/11/22 [History Last Taken Unknown] metformin 1,000 mg tablet 1,000 mg PO BIDWMEAL 09/11/22 [History Last Taken Unknown] metoprolol succinate 50 mg tablet,extended release 24 hr 50 mg PO DAILY 09/11/22 [History Last Taken Unknown] hydrocodone-acetaminophen 5-325mg 5mg-325mg 1 tab PO Q6H PRN PRN Pain 3 days #10 TABLETS 10/20/22 [Rx Last Taken Unknown] penicillin V potassium 500 mg tablet 500 mg PO 4X/DAY #40 tabs 10/20/22 [Rx Last Taken Unknown] Allergy/AdvReac Type Severity Reaction Status Date / Time peanut Allergy Severe Anaphylaxis Verified 09/12/22 11:19 lisinopril Allergy Intermediate Angioedema Verified 09/12/22 11:19 metronidazole [From Flagyl] Allergy Hives Verified 10/20/22 01:50 amlodipine AdvReac Mild Rash Verified 09/12/22 11:19 Family History Mother Asthma Surgical History Hx of colonoscopy Hx of umbilical hernia repair Social History Smoking Status: Current some day smoker tobacco type: cigars Smokeless tobacco user: chewing tobacco how long ago did patient quit smokin, 2p/day second hand exposure: Yes alcohol intake: current alcohol intake frequency: a few times a month substance use type: does not use caffeine: Yes Type: coffee Number of servings: 10 what type of physical activity do you participate in: none frequency: does not exercise seatbelt use: always ROS ROS ED Constitutional Constitutional ED: Denies chills or fever(s) Eyes Eyes: Denies change in vision or discharge from eye(s) ENT ENT ED: Reports other Details: Left-sided dental pain ; Denies discharge from eye(s), rhinorrhea or sore throat Cardiovascular Cardiovascular: Denies chest pain Respiratory/Chest Respiratory/Chest: Denies cough or dyspnea Gastrointestinal Gastrointestinal: Denies abdominal pain, nausea or vomiting Musculoskeletal Musculoskeletal: Denies back pain or extremity pain Integumentary Denies Abrasions or rash Neurologic Neurologic: Denies headache(s) or weakness Allergic/Immunologic Allergic/Immunologic ED: Denies lip swelling or urticaria EXAM Physical Exam Const Vital Signs: 10/20/22 01:48 10/20/22 01:52 Temperature 97.9 F Temperature Source Temporal Pulse Rate 60 Respiratory Rate 20 H Blood Pressure 152/72 H Blood Pressure Mean 98 Pulse Ox 97 Oxygen Delivery Method Room Air Positive well nourished and well developed General Appearance ED: well developed HEENT HEENT Narrative: No facial edema or erythema noted. Intraoral examination reveals tenderness to the left maxillary second molar and left mandibular third molar. Mild gum edema is noted. He has no trismus. Posterior pharynx exam is unremarkable. Eyes EOMs intact bilaterally Neck no lymphadenopathy Lymph Lymphatic: no lymphadenopathy noted Chest Wall inspection of chest normal Resp normal respiratory effort Cardio regular rate and regular rhythm Extremity normal to inspection Neuro oriented x3, no focal motor deficits and no sensory deficits noted Skin no rashes or lesions noted MDM MDM MDM Narrative Medical decision making narrative: Patient be treated with a course of Pen-Vee K. He will follow-up with his dentist. He is taking Tylenol and ibuprofen to help control pain. I will write him a short course of [place] to help him sleep at night. [facility] report was reviewed and he has not had a prescription since March. Discharge Plan Triage Chief Complaint: Dental ED Provider: Latonia Mann Dx/Rx/DC Orders Clinical Impression: Odontalgia Instructions: ED Dental Pain Prescriptions: New hydrocodone-acetaminophen 5-325 mg tablet 1 tab PO Q6H PRN PRN (Reason: Pain) 3 Days Qty: 10 0RF penicillin V potassium 500 mg tablet 500 mg PO 4X/DAY Qty: 40 0RF No Action atorvastatin 40 mg tablet 40 mg PO QHS aspirin [Adult Low Dose Aspirin] 81 mg tablet,delayed release (DR/EC) 81 mg PO QDAY Dulera 200-5 mcg/actuation HFA aerosol inhaler 2 puff INHALATION BID Qty: 13 11RF metoprolol succinate 50 mg tablet extended release 24 hr 50 mg PO DAILY metformin 1,000 mg tablet 1,000 mg PO BIDWMEAL albuterol sulfate 90 mcg/actuation HFA aerosol inhaler 2 puff inhalation Q6H PRN (Reason: shortness of breath or wheezing) Rx Instructions: administer with spacer montelukast 10 mg tablet 10 mg PO QPM Qty: 30 11RF Primary Care Provider: Kevin Borden Referrals: Kevin Borden MD [Primary Care Provider] - Activity Restrictions/Additional Instructions: Please complete the full course of antibiotics. Follow-up with your dentist as scheduled. Disposition Disposition: Home, Self Care
[2022-10-20] MEDS: Penicillin Vk 250 MG Tablet 500 MG PO (02:09)
== END 2022-10-20 02:10 | disposition home or self-care (01) ==
LOC: ED 02:00
PROVIDERS: Emergency Provider Emergency Medicine; PCP Family Medicine; Visit Provider Emergency Medicine
DX: K08.89 Other specified disorders of teeth and supporting structures (principal); E11.9 Type 2 diabetes mellitus without complications; I25.10 Atherosclerotic heart disease of native coronary artery without angina pectoris; I10 Essential (primary) hypertension; E78.5 Hyperlipidemia, unspecified; J45.20 Mild intermittent asthma, uncomplicated; G47.33 Obstructive sleep apnea (adult) (pediatric); Z79.82 Long term (current) use of aspirin; Z79.84 Long term (current) use of oral hypoglycemic drugs; Z87.891 Personal history of nicotine dependence; Z79.899 Other long term (current) drug therapy
CPT/HCPCS: 99283

== ENCOUNTER → 2022-12-09 | Outpatient (CLI) | payer MEDICAID, SELFPAY ==
[2022-12-09 10:39] LABS: Absolute Lymphocyte Count 1.82 X10^3/uL (0.83-4.51); Absolute Neutrophil Count 4.1 X10^3/uL (2.0-7.7); Basophil# 0.08 X10^3/uL; Eosinophil# 1.38 X10^3/uL; Eosinophils% 16.9 % (0-5); Hematocrit 43.9 % (40-54); Hemoglobin 13.9 g/dL (13.0-16.5); Lymphocyte # 1.82 X10^3/ul (0.83-4.51); Lymphocyte % 22.3 % (19-41); Mean Corp Hgb Conc 31.7 g/dL (32-36); Mean Corpuscular Hgb 30.8 pg (27.0-32.0); Mean Corpuscular Volume 97.1 fL (80-94); Mean Platelet Vol. 10.2 fl (6.2-12.0); Monocyte# 0.75 X10^3/uL; Monocyte% 9.2 % (0-10); NRBC Flagged by Analyzer 0 % (0-5); Neutrophil % 50.4 % (47-70); Platelet Count 270 K/mm3 (150-450); RBC Distribution Width SD 46.6 fl (35.1-43.9); Red Blood Count 4.52 M/mm3 (4.6-6.2); White Blood Count 8.2 K/mm3 (4.4-11.0)
[2022-12-09 10:58] LABS: ALB/GLOB Ratio 0.9 RATIO (0.9-2.4); AST(SGOT) 13 U/L (15-37); Alanine Aminotransfer ALT/SGPT 25 U/L (16-61); Albumin, Serum 3.3 g/dL (3.2-5.0); Alkaline Phosphatase 46 U/L (45-117); Anion Gap 5 (5-15); BUN 16 mg/dL (7-18); BUN/Creat Ratio 17.4 RATIO (10-20); Calcium,Total 8.8 mg/dL (8.5-10.1); Chloride 106 mmol/L (98-107); Cholesterol 152 mg/dL (200); Creatinine, Serum 0.92 mg/dL (0.70-1.30); EST Glomerular Filtration Rate 89 mL/min (>60); Est Glom Filt Rate - Afr Amer 107 mL/min (>60); Globulin 3.5 g/dL (2.2-4.2); Glucose 127 mg/dL (74-106); High Density Lipoprotein 52 mg/dL; Potassium 4.5 mmol/L (3.5-5.1); Protein, Total 6.8 g/dL (6.4-8.2); Sodium Level 139 mmol/L (136-145); Triglycerides 59 mg/dL; Very Low Density Lipoprotein 12 mg/dL (5-40)
[2022-12-09 11:08] LABS: Hemoglobin A1c 6.1 % (3.8-5.6)
[2022-12-09 11:39] LABS: Microalbumin,Random Urine < 5.0 mg/L (NO RANGE EST.)
== END | disposition home or self-care (01) ==
LOC: MFPLAB 08:57
PROVIDERS: PCP Family Medicine; Visit Provider Family Medicine
DX: E11.9 Type 2 diabetes mellitus without complications (principal)
CPT/HCPCS: 36415; 80053; 80061; 82043; 82570; 83036; 85025

== ENCOUNTER → 2022-12-11 | Outpatient (CLI) | payer MEDICAID, SELFPAY | END | disposition home or self-care (01) | LOC: MFPLAB 11:01 | PROVIDERS: PCP Family Medicine; Visit Provider Family Medicine | DX: Z12.5 Encounter for screening for malignant neoplasm of prostate (principal) | CPT/HCPCS: 84153; 36415; G0103 ==

== ENCOUNTER → 2022-12-16 | Outpatient (CLI) | payer MEDICAID, SELFPAY ==
--- NOTE | 2022-12-16 15:00 | RAD_ITS ---
STUDY: X-RAY - ABDOMEN/PELVIS REASON FOR EXAM: Male, 62 years old. swolled foreing body TECHNIQUE: Single AP view of the abdomen / pelvis. COMPARISON: None. FINDINGS: Normal visualized lung bases. No radiopaque foreign bodies are seen. There is an unremarkable bowel gas pattern. There is no demonstrated free abdominal air. The visualized liver, spleen and kidneys are grossly normal in size and morphology. Normal soft tissue structures. Normal visualized osseous structures. RAD/Abdomen Single View IMPRESSION: Normal x-ray examination of the abdomen and pelvis. Electronically Signed: Frederic Aguilar MD at 21:06 EDT ,
== END | disposition home or self-care (01) ==
LOC: MTRAD 14:52
PROVIDERS: PCP Family Medicine; Referring Provider Family Medicine; Visit Provider Family Medicine
DX: T18.9XXA Foreign body of alimentary tract, part unspecified, initial encounter (principal); X58.XXXA Exposure to other specified factors, initial encounter
CPT/HCPCS: 74018

== ENCOUNTER → 2022-12-31 | Outpatient (CLI) | payer MEDICAID, SELFPAY ==
--- NOTE | 2022-12-31 14:53 | CT_ITS ---
STUDY: CT ABDOMEN AND PELVIS WITH CONTRAST REASON FOR EXAM: Male, 62 years old. Abdominal pain, altered bowel habits, possible ingested stable, n RADIATION DOSAGE (If Supplied By Facility): CTDIvol = ( 16.24 ) mGy, DLP = ( 1223.75 ) mGycm TECHNIQUE: Transaxial images were obtained from the dome of the diaphragm to the symphysis pubis without oral contrast. IV 100mL Isovue-300 was administered. Sagittal and coronal images were reconstructed. Individualized dose optimization techniques were used for this CT. COMPARISON: None. FINDINGS: The visualized lung bases are unremarkable. Coronary artery calcification. There is decreased attenuation of the liver consistent with steatosis. Normal gallbladder and extrahepatic biliary system. Normal spleen. Normal pancreas. Normal bilateral adrenal glands. Punctate calculus in the anterior upper pole calyx. 2 mm calculus is seen in the posterior mid pole calyx of the right kidney. A tiny calculus is also seen in the inferior pole of the right kidney. Normal left kidney. Normal visualized stomach. Normal small intestine. There are multiple colonic diverticula consistent with diverticulosis. Mild degree of sigmoid diverticulitis. The appendix is visualized and appears normal. Normal abdominal aorta. Normal inferior vena cava. Normal retroperitoneum. Mild degree of diffuse bladder wall thickening although the bladder is not completely distended at this time. Central prostatic calcification. There is evidence of prior anterior abdominal wall hernia repair with a mesh. Deformity and calcification of the inferior aspect of the mesh. Small benign-appearing bilateral inguinal lymph nodes. There are degenerative changes of the visualized lumbar spine. CT/Abdomen/Pelvis W IV Cont ONLY IMPRESSION: Findings suggestive of a mild degree of sigmoid diverticulitis. Fatty infiltration of the liver. Tiny nonobstructive right intrarenal calculi. Electronically Signed: Blayne Novak MD at 15:38 EDT ,
== END | disposition home or self-care (01) ==
LOC: CT 14:46
PROVIDERS: PCP Family Medicine; Visit Provider Family Medicine
DX: R10.9 Unspecified abdominal pain (principal); R19.4 Change in bowel habit
CPT/HCPCS: 74177; Q9967

== ENCOUNTER → 2023-04-14 | Outpatient (CLI) | payer MEDICAID, SELFPAY ==
[2023-04-14 10:16] LABS: Absolute Lymphocyte Count 1.94 X10^3/uL (0.83-4.51); Absolute Neutrophil Count 3.6 X10^3/uL (2.0-7.7); Basophil# 0.06 X10^3/uL; Basophil% 0.8 % (0-1); Eosinophil# 1.68 X10^3/uL; Hemoglobin 13.6 g/dL (13.0-16.5); Lymphocyte # 1.94 X10^3/ul (0.83-4.51); Lymphocyte % 24.3 % (19-41); Mean Corp Hgb Conc 32.4 g/dL (32-36); Mean Corpuscular Hgb 31.1 pg (27.0-32.0); Mean Corpuscular Volume 95.9 fL (80-94); Mean Platelet Vol. 10.1 fl (6.2-12.0); Monocyte# 0.67 X10^3/uL; Monocyte% 8.4 % (0-10); NRBC Flagged by Analyzer 0 % (0-5); Neutrophil # 3.62 X10^3/uL (2.7-7.7); Neutrophil % 45.1 % (47-70); Platelet Count 253 K/mm3 (150-450); RBC Distribution Width CV 12.7 % (11.6-14.6); RBC Distribution Width SD 44.5 fl (35.1-43.9); Red Blood Count 4.38 M/mm3 (4.6-6.2)
[2023-04-14 10:41] LABS: AST(SGOT) 22 U/L (15-37); Alanine Aminotransfer ALT/SGPT 26 U/L (16-61); Albumin, Serum 3.5 g/dL (3.2-5.0); Alkaline Phosphatase 43 U/L (45-117); Anion Gap 5 (5-15); BUN 16 mg/dL (7-18); BUN/Creat Ratio 18.3 RATIO (10-20); Calcium,Total 9.5 mg/dL (8.5-10.1); Chloride 110 mmol/L (98-107); Cholesterol 175 mg/dL (200); Creatinine, Serum 0.88 mg/dL (0.70-1.30); EST Glomerular Filtration Rate 94 mL/min (>60); Est Glom Filt Rate - Afr Amer 113 mL/min (>60); Globulin 3.5 g/dL (2.2-4.2); Glucose 121 mg/dL (74-106); High Density Lipoprotein 56 mg/dL; Potassium 4.5 mmol/L (3.5-5.1); Sodium Level 141 mmol/L (136-145); Thyroid Stim Hormone (TSH) 2.63 uIU/mL (0.358-3.74); Triglycerides 53 mg/dL; Very Low Density Lipoprotein 11 mg/dL (5-40)
[2023-04-14 11:27] LABS: Hemoglobin A1c 6.2 % (3.8-5.6)
== END | disposition home or self-care (01) ==
LOC: MFPLAB 08:43
PROVIDERS: PCP Family Medicine; Visit Provider Family Medicine
DX: E11.8 Type 2 diabetes mellitus with unspecified complications (principal); M10.9 Gout, unspecified
CPT/HCPCS: 36415; 80053; 80061; 83036; 84443; 84550; 85025

== ENCOUNTER → 2023-04-15 | Outpatient (CLI) | payer MEDICAID, SELFPAY ==
--- NOTE | 2023-04-15 10:59 | RAD_ITS ---
STUDY: X-RAY CHEST REASON FOR EXAM: Male, 62 years old. MILD PERSISTENT ASTHMA TECHNIQUE: PA and lateral views of the chest. COMPARISON: Comparison is made with prior study dated May 30, 2022. FINDINGS: Hyperinflation. The lungs are clear. There is no demonstrated pleural abnormality. Normal size heart. Normal mediastinum and gloria. Normal visualized pulmonary arteries. Normal visualized aortic arch and descending thoracic aorta. Normal visualized thoracic spine. Normal visualized ribs, clavicles, and shoulders. There is no demonstrated abnormality of the visualized soft tissue structures of the upper abdomen. RAD/Chest PA and Lateral IMPRESSION: Hyperinflation. The lungs are clear. Electronically Signed: Blayne Novak MD at 15:20 EST ,
== END | disposition home or self-care (01) ==
PROVIDERS: PCP Family Medicine; Referring Provider Family Medicine; Visit Provider Family Medicine
DX: J45.30 Mild persistent asthma, uncomplicated (principal)
CPT/HCPCS: 71046

== ENCOUNTER → 2023-08-05 | Outpatient (CLI) | payer MEDICAID, SELFPAY ==
[2023-08-05 18:10] LABS: AST(SGOT) 17 U/L (15-37); Alanine Aminotransfer ALT/SGPT 23 U/L (16-61); Albumin, Serum 3.8 g/dL (3.2-5.0); Alkaline Phosphatase 51 U/L (45-117); Anion Gap 5 (5-15); BUN 17 mg/dL (7-18); BUN/Creat Ratio 19.1 RATIO (10-20); Calcium,Total 9.7 mg/dL (8.5-10.1); Chloride 107 mmol/L (98-107); Creatinine, Serum 0.89 mg/dL (0.70-1.30); EST Glomerular Filtration Rate 92 mL/min (>60); Est Glom Filt Rate - Afr Amer 111 mL/min (>60); Globulin 3.7 g/dL (2.2-4.2); Glucose 81 mg/dL (74-106); Potassium 3.9 mmol/L (3.5-5.1); Protein, Total 7.5 g/dL (6.4-8.2); Sodium Level 140 mmol/L (136-145)
== END | disposition home or self-care (01) ==
LOC: MFPLAB 17:02
PROVIDERS: PCP Family Medicine; Visit Provider Family Medicine
DX: E11.8 Type 2 diabetes mellitus with unspecified complications (principal)
CPT/HCPCS: 36415; 80053

== ENCOUNTER → 2023-08-11 | Outpatient (CLI) | payer MEDICAID, SELFPAY ==
[2023-08-11 08:41] LABS: Bacteria 0 SEEN /hpf (None Seen); Mucous, Urine 0 SEEN /hpf (<or=2+); White Blood Cells 0 SEEN /hpf (0-5)
[2023-08-11 10:02] LABS: Absolute Lymphocyte Count 2.06 X10^3/uL (0.83-4.51); Basophil# 0.06 X10^3/uL; Basophil% 0.7 % (0-1); Eosinophil# 0.56 X10^3/uL; Eosinophils% 6.6 % (0-5); Hematocrit 41.9 % (40-54); Hemoglobin 13.6 g/dL (13.0-16.5); Lymphocyte # 2.06 X10^3/ul (0.83-4.51); Lymphocyte % 24.2 % (19-41); Mean Corp Hgb Conc 32.5 g/dL (32-36); Mean Corpuscular Volume 95.4 fL (80-94); Mean Platelet Vol. 9.9 fl (6.2-12.0); Monocyte# 0.79 X10^3/uL; Monocyte% 9.3 % (0-10); NRBC Flagged by Analyzer 0 % (0-5); Neutrophil % 58.8 % (47-70); Platelet Count 294 K/mm3 (150-450); RBC Distribution Width CV 12.5 % (11.6-14.6); RBC Distribution Width SD 44.1 fl (35.1-43.9); Red Blood Count 4.39 M/mm3 (4.6-6.2); White Blood Count 8.5 K/mm3 (4.4-11.0)
[2023-08-11 10:06] LABS: Color, Urine Yellow (Yellow); Glucose, Dipstick Normal (Normal); Ketone-Dipstick Negative (Negative); Leukocyte Esterase-Dipstick Negative /ul (Negative); Nitrite-Dipstick Negative (Negative); Occult Blood-Urine 10 /ul (Negative); Protein-Dipstick Negative (Negative); Specific Gravity, Urine 1.015 (1.002-1.030); Urine Bilirubin Dipstick Negative (Negative); Urine Clarity Clear (Clear); Urine Urobilinogen Normal (Normal)
[2023-08-11 10:17] LABS: Red Blood Cells-Urine 0-5 SEEN /hpf (0-5); Squamous Epithelial Cells - UA 0-5 SEEN /hpf (0-5)
[2023-08-11 10:55] LABS: AST(SGOT) 14 U/L (15-37); Alanine Aminotransfer ALT/SGPT 23 U/L (16-61); Albumin, Serum 3.6 g/dL (3.2-5.0); Alkaline Phosphatase 47 U/L (45-117); Anion Gap 5 (5-15); BUN 20 mg/dL (7-18); BUN/Creat Ratio 23.3 RATIO (10-20); Calcium,Total 9.1 mg/dL (8.5-10.1); Chloride 107 mmol/L (98-107); Cholesterol 176 mg/dL (200); Creatinine, Serum 0.86 mg/dL (0.70-1.30); EST Glomerular Filtration Rate 96 mL/min (>60); Est Glom Filt Rate - Afr Amer 116 mL/min (>60); Globulin 3.5 g/dL (2.2-4.2); Glucose 124 mg/dL (74-106); High Density Lipoprotein 53 mg/dL; Protein, Total 7.1 g/dL (6.4-8.2); Sodium Level 137 mmol/L (136-145); Triglycerides 94 mg/dL; Very Low Density Lipoprotein 19 mg/dL (5-40)
[2023-08-11 11:40] LABS: Hemoglobin A1c 6.2 % (3.8-5.6)
== END | disposition home or self-care (01) ==
LOC: MTLAB 08:36
PROVIDERS: PCP Family Medicine; Referring Provider Family Medicine; Visit Provider Family Medicine
DX: E11.59 Type 2 diabetes mellitus with other circulatory complications (principal)
CPT/HCPCS: 36415; 80053; 80061; 81001; 83036; 85025

== ENCOUNTER 2023-09-02 21:00 | Emergency (ER) | payer MEDICAID, SELFPAY ==
[2023-09-02 21:01] VITALS: BP 173/90; PULSE 71; RESP 17; TEMP 36.2; O2SAT 99; BMI 37.6
[2023-09-02 21:02] VITALS: BP 173/90; PULSE 71; RESP 16; TEMP 36.2; O2SAT 97
[2023-09-02] MEDS: Penicillin Vk 250 MG Tablet 500 MG PO (22:13)
[2023-09-02 22:14] VITALS: BP 150/78; PULSE 78; RESP 16; TEMP 36.2; O2SAT 99
--- NOTE | 2023-09-22 16:24 | ED.VIS.DENTA ---
HPI History of Present Illness Chief Complaint: Dental Informant: patient Onset/Context/Timing Onset: Days Context: Gradual Onset Timing: Continuous Current Severity: Mild Maximum Severity: Mild Associated Symptoms Assocated Symptom - Dental: jaw swelling Narrative Narrative: 63-year-old male initially seen on September 01 dictation was either lost or misses being redictated now on 09/22/2023. Chief complaint is dental pain left lower molar. Several days. Pain and swelling. No fever. No trouble swallowing or breathing. He has appointment to see a dentist on 09/08/2023. Patient is a history of diabetes and CAD. Prior similar symptoms: Yes [facility] Medical History Dental abscess Polyarticular psoriatic arthritis BPPV (benign paroxysmal positional vertigo) Tear of biceps muscle Neck pain Cervical radiculopathy DDD (degenerative disc disease), cervical Hand pain Pulmonary nodules CAD (coronary artery disease) Lightheadedness Nonspecific dizziness Allergic rhinitis Tobacco dependence in remission Morbid obesity Asthma Hemorrhoids Acid reflux Arthritis Gout Diabetes Hypertension HASMUKH (obstructive sleep apnea) Mild intermittent asthma Aortic root aneurysm Hyperlipemia LVH (left ventricular hypertrophy) Home Medications ?Medication ?Instructions ?Recorded ?Last Taken ?Type aspirin 81 mg tablet,delayed 81 mg PO QDAY heart 04/02/17 08/25/17 History release (Adult Low Dose Aspirin) atorvastatin 40 mg tablet 40 mg PO QHS cholesterol 04/02/17 08/24/17 History metformin 1,000 mg tablet 1,000 mg PO BIDWMEAL 09/11/22 Unknown History metoprolol succinate 50 mg 50 mg PO DAILY 09/11/22 Unknown History tablet,extended release 24 hr hydrocodone-acetaminophen 5-325mg 1 tab PO Q6H PRN PRN Pain 3 days 10/20/22 Unknown Rx 5mg-325mg #10 TABLETS mometasone-formoterol HFA 200 2 puff inhalation BID #13 grams 11/04/22 Unknown Rx mcg-5 mcg/actuation aerosol inhaler (Dulera) azithromycin 250 mg tablet See Rx Instructions PO .COMPLEX 04/16/23 Unknown History (Zithromax) prednisone 20 mg tablet 40 mg PO DAILY 04/16/23 Unknown History albuterol sulfate 90 mcg/actuation 2 puff inhalation Q6H PRN 06/04/23 Unknown Rx aerosol inhaler shortness of breath or wheezing #8.5 grams montelukast 10 mg tablet 10 mg PO QPM #30 tabs 06/04/23 Unknown Rx triamcinolone acetonide 55 mcg 2 spray intranasal DAILY #16.9 mL 06/04/23 Unknown Rx nasal spray aerosol (Nasacort Allergy) penicillin V potassium 500 mg 500 mg PO 4X/DAY #40 tabs 09/02/23 Unknown Rx tablet Allergy/AdvReac Type Severity Reaction Status Date / Time peanut Allergy Severe Anaphylaxis Verified 09/02/23 21:01 lisinopril Allergy Intermediate Angioedema Verified 09/02/23 21:01 metronidazole (From Flagyl) Allergy Hives Verified 09/02/23 21:01 amlodipine AdvReac Mild Rash Verified 09/02/23 21:01 Family History Mother Asthma Surgical History Hx of colonoscopy Hx of umbilical hernia repair Social History Smoking Status: Current some day smoker tobacco type: cigars Smokeless tobacco user: chewing tobacco how long ago did patient quit smokin, 2p/day second hand exposure: Yes alcohol intake: current alcohol intake frequency: a few times a month substance use type: does not use caffeine: Yes Type: coffee Number of servings: 10 what type of physical activity do you participate in: none frequency: does not exercise seatbelt use: always ROS ROS ED ROS Narrative Jaw and dental pain. Constitutional Constitutional ED: Denies chills or fever(s) Eyes Eyes: Denies blurry vision ENT ENT ED: Denies ear pain Cardiovascular Cardiovascular: Denies chest pain Respiratory/Chest Respiratory/Chest: Denies cough Gastrointestinal Gastrointestinal: Denies abdominal pain Genitourinary Genitourinary ED: Denies dysuria or hematuria Integumentary Denies abscess Neurologic Neurologic: Denies headache(s) Psychiatric Psychiatric: Denies anxiety or depression Endocrine Endocrinology: Denies cold intolerance Hematologic/Lymphatic Hematologic/Lymphatic: Denies easy bleeding Allergic/Immunologic Allergic/Immunologic ED: Denies mouth swelling, tongue swelling or urticaria EXAM Physical Exam Narrative Exam Narrative: 63-year-old male no acute distress vital signs stable afebrile. H EENT exam left lower molar tender to palpation. Minimal gingival swelling. No drainable abscess. No trismus. No trouble breathing or swallowing. Neck nontender. No lymphadenopathy. Lungs clear. Heart regular rhythm no murmur. Abdomen soft. Otherwise exam unremarkable. Const Positive well nourished and well developed; Negative for cachectic or contractures General Appearance ED: well developed and NAD; Negative for cachectic or contractures Nutritional Appearance: Negative for cachectic HEENT HEENT Narrative: Tenderness left lower molar. No drainable abscess. Mild swelling. No trismus. Negative for trauma or tenderness Mouth ED: Yes lips normal, Yes tongue normal, Yes salivary gland normal, No mouth trauma and No salivary gland abnormal Mouth: lips normal, tongue normal, salivary gland normal, No mouth trauma and No salivary gland abnormal Teeth and Gingiva: abnormal tooth and associated gingiva Eyes PERRL and EOMs intact bilaterally General Eye ED: Negative for pale conjunctiva or scleral icterus Neck no lymphadenopathy, supple and no JVD General: Negative for normal visual inspection Lymph Lymphatic: no lymphadenopathy noted Chest Wall inspection of chest normal Resp normal respiratory effort, no retractions and clear to auscultation bilaterally Cardio regular rate, regular rhythm, S1 normal heart sound, S2 normal heart sound and no murmurs GI normal to inspection, nondistended, normoactive bowel sounds, non-tender, non-distended and no masses Back/Spine no CVA tenderness Extremity normal to inspection and no joint enlargement General Extremety ED: Negative for edema General Extremity: Negative for edema Neuro oriented x3 Sensorium / Orientation: alert, oriented to person, oriented to place and oriented to time Motor Exam: strength 5/5 throughout Psych mental status grossly normal Skin no rashes or lesions noted and no wounds MDM MDM MDM Narrative Medical decision making narrative: 63-year-old male left lower jaw dental pain. Patient be started on oral antibiotics. Motrin and Tylenol for pain. Follow-up with his dentist appointment Discharge Plan Triage Chief Complaint: Dental ED Provider: Abhilash Lozano Dx/Rx/DC Orders Clinical Impression: Pain, dental, Abscess, dental Instructions: Dental Abscess, ED Dental Pain Prescriptions: New penicillin V potassium 500 mg tablet 500 mg PO 4X/DAY Qty: 40 0RF No Action atorvastatin 40 mg tablet 40 mg PO QHS aspirin [Adult Low Dose Aspirin] 81 mg tablet,delayed release (DR/EC) 81 mg PO QDAY metoprolol succinate 50 mg tablet extended release 24 hr 50 mg PO DAILY metformin 1,000 mg tablet 1,000 mg PO BIDWMEAL azithromycin [Zithromax] 250 mg tablet See Rx Instructions PO .COMPLEX Rx Instructions: For 250 mg dose pack: take 500 mg today (day 1), then 250 mg for 4 days (days 2-5) PO prednisone 20 mg tablet 40 mg PO DAILY Rx Instructions: X 5 days hydrocodone-acetaminophen 5-325 mg tablet 1 tab PO Q6H PRN PRN (Reason: Pain) 3 Days Qty: 10 0RF Dulera 200-5 mcg/actuation HFA aerosol inhaler 2 puff INHALATION BID Qty: 13 11RF triamcinolone acetonide [Nasacort Allergy] 55 mcg aerosol,spray 2 spray intranasal DAILY Qty: 16.9 11RF Rx Instructions: administer into each nostril albuterol sulfate 90 mcg/actuation HFA aerosol inhaler 2 puff inhalation Q6H PRN (Reason: shortness of breath or wheezing) Qty: 8.5 11RF Rx Instructions: administer with spacer montelukast 10 mg tablet 10 mg PO QPM Qty: 30 11RF Primary Care Provider: Kevin Borden Referrals: Kevin Borden MD [Primary Care Provider] - Activity Restrictions/Additional Instructions: Motrin and Tylenol for pain. Penicillin 4 times a day. Follow-up with your dentist as scheduled. Print Language: Japanese Disposition Disposition: Home, Self Care Discharge Date/Time: 09/02/23 22:15
== END 2023-09-02 22:15 | disposition home or self-care (01) ==
PROVIDERS: Emergency Provider Emergency Medicine; PCP Family Medicine; Visit Provider Emergency Medicine
DX: K04.7 Periapical abscess without sinus (principal); E11.9 Type 2 diabetes mellitus without complications; I10 Essential (primary) hypertension; I25.10 Atherosclerotic heart disease of native coronary artery without angina pectoris; E78.5 Hyperlipidemia, unspecified; J45.20 Mild intermittent asthma, uncomplicated; Z79.82 Long term (current) use of aspirin; Z79.84 Long term (current) use of oral hypoglycemic drugs; Z79.899 Other long term (current) drug therapy; Z87.891 Personal history of nicotine dependence
CPT/HCPCS: 99282

== ENCOUNTER → 2023-12-22 | Outpatient (CLI) | payer MEDICAID, SELFPAY | END | disposition home or self-care (01) | PROVIDERS: PCP Family Medicine; Referring Provider Family Medicine; Visit Provider Family Medicine | DX: Z12.5 Encounter for screening for malignant neoplasm of prostate (principal) | CPT/HCPCS: 84153; 36415; G0103 ==

== ENCOUNTER → 2024-01-20 | Outpatient (CLI) | payer MEDICAID, SELFPAY ==
--- NOTE | 2024-01-20 13:38 | CT_ITS ---
STUDY: CTA CHEST REASON FOR EXAM: Male, 63 years old. Aortic root aneurysm, CAD, LVH -- Aortic root aneurysm, CAD RADIATION DOSAGE (If Supplied By Facility): CTDIvol = ( 18.80 ) mGy, DLP = ( 838.76 ) mGycm TECHNIQUE: The examination was performed with the intravenous administration of IV 100mL Isovue-370. Post-processing of the angiographic images was performed, with multiplanar reformation and 3D reconstruction. The protocol utilizes one or more of the following dose reduction techniques: automated exposure control, adjustment of mA and/or kV according to patient size,and/or use of iterative reconstruction technique. COMPARISON: No relevant prior comparison study available FINDINGS: Normal enhancement of the main pulmonary artery and right and left pulmonary arteries. Normal enhancement of the bilateral peripheral pulmonary arteries. There is no demonstrated pulmonary embolism. Borderline dilatation of the ascending thoracic aorta measuring up to 4 cm AP diameter. Mild atherosclerotic calcifications of the aortic arch. There is no demonstrated aortic dissection. Normal heart and pericardium. Mild coronary calcifications. Normal mediastinum. Normal hilar regions. Normal visualized trachea and bronchi. There are no pulmonary infiltrates. 3 mm right lower lobe nodule on image 83 series 2 for which no further follow-up examination is needed. There are no pleural effusions. Normal chest wall structures. Mild degenerative changes of the thoracic spine. No demonstrated acute changes in the visualized upper abdomen. Probable hepatic steatosis. CT/CTA Chest W/WO Contrast IMPRESSION: 1. Borderline aneurysm of the ascending thoracic aorta measuring up to 4 cm in AP diameter. 2. No acute pulmonary infiltrate, adenopathy or pleural effusions. 3. Small right lower lobe nodule for which no further follow-up exam is needed other than routine annual screening (lung RADS 2). Electronically Signed: Mike Moy MD at 15:38 EST ,
[2024-01-20 14:15] LABS: CREATININE FINGERSTICK < 1.0 mg/dL (0.70-1.30); EGFR FINGERSTICK > 60.0000 mL/min (>60)
== END | disposition home or self-care (01) ==
LOC: CT 13:36
PROVIDERS: PCP Family Medicine; Referring Provider Internal Medicine Cardiovascular Disease; Visit Provider Internal Medicine Cardiovascular Disease
DX: R42 Dizziness and giddiness (principal); I51.7 Cardiomegaly; I25.10 Atherosclerotic heart disease of native coronary artery without angina pectoris; I71.9 Aortic aneurysm of unspecified site, without rupture
CPT/HCPCS: 71275; Q9967

== ENCOUNTER → 2024-02-18 | Outpatient (CLI) | payer MEDICAID, SELFPAY ==
--- NOTE | 2024-02-18 09:00 | RAD_ITS ---
STUDY: X-RAY - ESOPHAGUS (BARIUM SWALLOW) WITH FLUOROSCOPY REASON FOR EXAM: Male, 63 years old. GERD,DYSPHGIA TECHNIQUE: 66 fluoroscopic view(s) of the esophagus were obtained following swallowing of barium. FLUOROSCOPY TIME (if supplied): (36 seconds) minutes/seconds. 37.9 mGy COMPARISON: None. FINDINGS: There is no demonstrated esophageal foreign body. There is no demonstrated stricture or mucosal abnormality. Normal gastroesophageal junction, without a demonstrated hiatal hernia. The patient ingested a 12 mm tablet of barium without any difficulty. Normal visualized aortic arch and descending thoracic aorta. Normal visualized pulmonary parenchyma. There are degenerative changes of the visualized thoracic spine. RAD/Esophagus Dual Contrast IMPRESSION: Normal plain film x-ray examination (barium swallow) of the esophagus. Electronically Signed: Blayne Novak MD at 10:51 EST ,
== END | disposition home or self-care (01) ==
LOC: RAD 08:55
PROVIDERS: PCP Family Medicine; Referring Provider Otolaryngology Otolaryngology/Facial Plastic Surgery; Visit Provider Otolaryngology Otolaryngology/Facial Plastic Surgery
DX: R13.10 Dysphagia, unspecified (principal); K21.9 Gastro-esophageal reflux disease without esophagitis
CPT/HCPCS: 74221

== ENCOUNTER → 2024-03-24 | Outpatient (CLI) | payer MEDICAID, SELFPAY ==
[2024-03-24 12:53] LABS: Hemoglobin A1c 6.4 % (3.8-5.6)
== END | disposition home or self-care (01) ==
LOC: MFPLAB 09:52
PROVIDERS: PCP Family Medicine; Visit Provider Family Medicine
DX: E11.8 Type 2 diabetes mellitus with unspecified complications (principal)
CPT/HCPCS: 36415; 83036

== ENCOUNTER → 2024-03-25 | Outpatient (CLI) | payer MEDICAID, SELFPAY ==
[2024-03-25 10:49] LABS: Bacteria 0 SEEN /hpf (None Seen); Mucous, Urine 0 SEEN /hpf (<or=2+); Red Blood Cells-Urine 0 SEEN /hpf (0-5); Squamous Epithelial Cells - UA 0 SEEN /hpf (0-5)
[2024-03-25 17:39] LABS: Absolute Lymphocyte Count 1.96 X10^3/uL (0.83-4.51); Absolute Neutrophil Count 5.5 X10^3/uL (2.0-7.7); Basophil# 0.08 X10^3/uL; Basophil% 0.8 % (0-1); Eosinophil# 1.35 X10^3/uL; Hematocrit 42.8 % (40-54); Hemoglobin 13.6 g/dL (13.0-16.5); Lymphocyte # 1.96 X10^3/ul (0.83-4.51); Lymphocyte % 20.3 % (19-41); Mean Corp Hgb Conc 31.8 g/dL (32-36); Mean Corpuscular Hgb 29.6 pg (27.0-32.0); Mean Platelet Vol. 9.9 fl (6.2-12.0); Monocyte# 0.67 X10^3/uL; NRBC Flagged by Analyzer 0 % (0-5); Neutrophil # 5.54 X10^3/uL (2.7-7.7); Neutrophil % 57.5 % (47-70); Platelet Count 340 K/mm3 (150-450); RBC Distribution Width CV 13.4 % (11.6-14.6); RBC Distribution Width SD 45.3 fl (35.1-43.9); White Blood Count 9.6 K/mm3 (4.4-11.0)
[2024-03-25 18:03] LABS: ALB/GLOB Ratio 0.9 RATIO (0.9-2.4); AST(SGOT) 17 U/L (15-37); Alanine Aminotransfer ALT/SGPT 28 U/L (16-61); Albumin, Serum 3.7 g/dL (3.2-5.0); Alkaline Phosphatase 48 U/L (45-117); Anion Gap 9 (5-15); BUN 19 mg/dL (7-18); BUN/Creat Ratio 18.3 RATIO (10-20); Calcium,Total 9.8 mg/dL (8.5-10.1); Chloride 103 mmol/L (98-107); Cholesterol 242 mg/dL (200); Creatinine, Serum 1.04 mg/dL (0.70-1.30); EST Glomerular Filtration Rate 77 mL/min (>60); Est Glom Filt Rate - Afr Amer 93 mL/min (>60); Globulin 3.9 g/dL (2.2-4.2); Glucose 107 mg/dL (74-106); High Density Lipoprotein 53 mg/dL; Magnesium 2.2 mg/dL (1.6-2.6); Potassium 4.1 mmol/L (3.5-5.1); Protein, Total 7.6 g/dL (6.4-8.2); Sodium Level 139 mmol/L (136-145); Triglycerides 154 mg/dL; Very Low Density Lipoprotein 31 mg/dL (5-40)
[2024-03-25 19:05] LABS: Color, Urine Yellow (Yellow); Glucose, Dipstick Normal (Normal); Ketone-Dipstick Negative (Negative); Leukocyte Esterase-Dipstick 25 /ul (Negative); Nitrite-Dipstick Negative (Negative); Occult Blood-Urine Negative /ul (Negative); Protein-Dipstick Negative (Negative); Urine Bilirubin Dipstick Negative (Negative); Urine Clarity Clear (Clear); Urine Urobilinogen Normal (Normal)
[2024-03-25 19:22] LABS: White Blood Cells 0-5 SEEN /hpf (0-5)
[2024-03-25 19:28] LABS: Microalbumin,Random Urine < 5.0 mg/L (NO RANGE EST.)
== END | disposition home or self-care (01) ==
LOC: MFPLAB 10:45
PROVIDERS: PCP Family Medicine; Referring Provider Family Medicine; Visit Provider Family Medicine
DX: E11.59 Type 2 diabetes mellitus with other circulatory complications (principal)
CPT/HCPCS: 36415; 80053; 80061; 81001; 82043; 82570; 83735; 85025

== ENCOUNTER → 2024-06-02 | Outpatient (CLI) | payer MEDICAID, SELFPAY ==
--- NOTE | 2024-06-02 13:44 | RAD_ITS ---
PROCEDURE: CHEST PA AND LATERAL 06/02/2024 REASON FOR EXAM: BRONCHITIS TECHNIQUE: Frontal and lateral views of the chest. 2 PA views to include the entire chest and lateral, 3 total images COMPARISON: None available FINDINGS: Small linear opacity at the peripheral left base on the frontal view may represent atelectasis or scar. The lungs otherwise appear clear. Pulmonary vascularity appears within limits. No pleural effusion. The cardiac and mediastinal contours appear within limits. The visualized osseous structures appear within limits. RAD/Chest PA and Lateral IMPRESSION: Small linear opacity at the peripheral left base on the frontal view may repres ent atelectasis or scar. The lungs otherwise appear clear. Pulmonary vascularity appears within limits. No pleural effusion . Reading Location: [id number]
== END | disposition home or self-care (01) ==
LOC: MTRAD 13:42
PROVIDERS: PCP Family Medicine; Referring Provider Family Medicine; Visit Provider Family Medicine
DX: J20.9 Acute bronchitis, unspecified (principal)
CPT/HCPCS: 71046

== ENCOUNTER → 2024-06-16 | Outpatient (CLI) | payer MEDICAID, SELFPAY | END | disposition home or self-care (01) | LOC: LABSPEC 15:13 | PROVIDERS: PCP Family Medicine; Referring Provider Otolaryngology Otolaryngology/Facial Plastic Surgery; Visit Provider Otolaryngology Otolaryngology/Facial Plastic Surgery | DX: J32.9 Chronic sinusitis, unspecified (principal) | CPT/HCPCS: 87070; 87077; 87186; 87205 ==

== ENCOUNTER → 2024-07-12 | Outpatient (CLI) | payer MEDICAID, SELFPAY ==
--- NOTE | 2024-07-12 15:47 | CT_ITS ---
PROCEDURE: SINUS/FACIAL BONE REASON FOR EXAM: SINUSITIS TECHNIQUE: CT of the paranasal sinuses without contrast. Coronal and Sagittal reconstruction series were provided. One or more dose reduction techniques were used (e.g., Automated exposure control, adjustment of the mA and/or kV according to patient size, use of iterative reconstruction technique). CT dL volume: 33.06 mGy. DLP: 899.96 COMPARISON: None. FINDINGS: Frontal: Opacification of the left frontal sinus. Ethmoid: Opacification of the ethmoid sinuses bilaterally worse on the right side with thinning of the bony septations. Sphenoid: Mucosal thickening of the sphenoid sinuses. Maxillary: Bilateral maxillary sinus opacification. There is compromise of the ostiomeatal complexes due to soft tissue prominence. Turbinates: Hypertrophy of the inferior turbinates bilaterally. Soft tissue prominence in the posterior aspect of the nasal passages. Nasal Septum: Nasal septal deviation towards the left side of the midline. Mastoids/Middle Ears: Unremarkable CT/Sinus/Facial Bone IMPRESSION: Pansinusitis. Reading Location: [id number]
== END | disposition home or self-care (01) ==
LOC: CT 15:40
PROVIDERS: PCP Family Medicine; Referring Provider Otolaryngology Otolaryngology/Facial Plastic Surgery; Visit Provider Otolaryngology Otolaryngology/Facial Plastic Surgery
DX: J32.9 Chronic sinusitis, unspecified (principal)
CPT/HCPCS: 70486

== ENCOUNTER → 2024-09-22 | Outpatient (CLI) | payer MEDICAID, SELFPAY ==
[2024-09-22 09:35] LABS: Mucous, Urine 0 SEEN /hpf (<or=2+); Red Blood Cells-Urine 0 SEEN /hpf (0-5); Squamous Epithelial Cells - UA 0 SEEN /hpf (0-5)
[2024-09-22 10:19] LABS: Hematocrit 42.4 % (40-54); Hemoglobin 13.9 g/dL (13.0-16.5); Immature Granulocytes Count 0.060 X10^3/uL (0.0-0.0); Mean Corp Hgb Conc 32.8 g/dL (32-36); Mean Corpuscular Volume 92.2 fL (80-94); Mean Platelet Vol. 10.1 fl (6.2-12.0); NRBC Flagged by Analyzer 0 % (0-5); Platelet Count 286 K/mm3 (150-450); RBC Distribution Width CV 13.1 % (11.6-14.6); RBC Distribution Width SD 43.7 fl (35.1-43.9); Red Blood Count 4.60 M/mm3 (4.6-6.2); White Blood Count 8.8 K/mm3 (4.4-11.0)
[2024-09-22 10:50] LABS: Color, Urine Yellow (Yellow); Glucose, Dipstick Normal (Normal); Ketone-Dipstick Negative (Negative); Leukocyte Esterase-Dipstick Negative /ul (Negative); Nitrite-Dipstick Negative (Negative); Occult Blood-Urine Negative /ul (Negative); Protein-Dipstick Negative (Negative); Specific Gravity, Urine 1.015 (1.002-1.030); Urine Bilirubin Dipstick Negative (Negative)
[2024-09-22 11:23] LABS: Creatinine, Urine (random) 67.90 mg/dL (39.00-259.00); Microalbumin,Random Urine < 12.0 mg/L (<20 mg/L)
[2024-09-22 11:30] LABS: AST(SGOT) 22 U/L (<=37); Alanine Aminotransfer ALT/SGPT 24 U/L (<=46); Albumin, Serum 4.2 g/dL (3.4-4.8); Alkaline Phosphatase 46 U/L (40-129); Anion Gap 14 (5-15); BUN 20 mg/dL (4-19); BUN/Creat Ratio 21.0 RATIO (10-20); Calcium,Total 9.8 mg/dL (7.6-11.0); Carbon Dioxide 24.5 mmol/L (21.0-32.0); Chloride 100 mmol/L (98-108); Cholesterol 235 mg/dL (<=200); Globulin 3.0 g/dL (2.2-4.2); Glucose 124 mg/dL (70-99); Low Density Lipoprotein Calc. 160 mg/dL; Potassium 3.7 mmol/L (3.3-5.1); Triglycerides 126 mg/dL; Very Low Density Lipoprotein 25 mg/dL (5-40); cholesterol:hdl ratio screen 4.67
--- OUTSIDE RECORDS SUMMARY | 2024-09-22 19:51 | XMS RPT_ITS | CCD ---
Author Organization [facility] CliniSyut Care Team Providers Care Legal Intern Name Role Phone Zahra Guerrero Primary Care Provider [phone] Dr. Zahra Guerrero Primary Care Provider Dr. Zahra Guerrero Referring Provider Dr. Suman Hanley Attending Provider 1([facility])[phone] Zahra Guerrero Primary Care Provider ZAHRA GUERRERO Primary Care ZAHRA Aldrich Primary Care Dr. Zahra Aldrich Primary Care Provider [phone] Dr. Zahra Guerrero Referring Provider Dr. Lu Styles Attending Provider Dr. Cody Sherwood Attending Provider 1([facility])-[phone] Roof DIRECTOR OF INVESTIGATIONS, DIRECTOR OF INVESTIGATIONS-Brett Lugo Attending Provider Zahra Guerrero MD Primary Care Provider Dr. Zahra Guerrero Primary Care Provider Dr. Zahra Guerrero Referring Provider Dr. Lu Styles Attending Provider Dr. Cody Sherwood Attending Provider [phone]([facility])[phone] Roof DIRECTOR OF INVESTIGATIONS, DIRECTOR OF INVESTIGATIONS-C Zahra Lugo Attending Provider Dr. Suman Hanley Attending Provider 1([facility])[phone] Zahra Guerrero Primary Care Provider Dr. Zahra Guerrero Referring Provider 1([facility])[phone] Jensen, Dr. Lu Attending Provider Suha CUEVA, Zahra Fabian Primary Care Provider Suha CUEVA, Dr. Zahra Fabian Primary Care Provider [phone] Arianna CUEVA, Dr. Heber Reyes Attending Provider Arianna CUEVA, Dr. Heber Reyes Referring Provider Xander CUEVA, Dr. Monique Attending Provider [phone] Suha CUEVA, Dr. Zahra Fabian Attending Provider Suha CUEVA, Dr. Zahra Fabian Referring Provider SHARRON TORIBIO Attending Unavailable SCHINNER, ZAHRA E Primary Care Unavailable SHARRON TORIBIO Attending Unavailable SCHINNER, ZAHRA E Primary Care Unavailable SHARRON TORIBIO Attending Unavailable SCHINNER, ZAHRA E Primary Care Unavailable Suha CUEVA, Dr. Zahra Fabian Primary Care Provider [phone] Jensen CUEVA, Dr. Leigh Attending Provider Arianna CUEVA, Dr. Heber Reyes Attending Provider Arianna CUEVA, Dr. Hbeer Reyes Referring Provider Schinner, Zahra E Primary Care Unavailable Abhilash Lozano Attending Unavailable Arianna, Yusuf Attending Unavailable Arianna, Yusuf Referring Unavailable Schinner, Zahra E Primary Care Unavailable Schinner, Zahra E Attending Unavailable Schinner, Zahra E Referring Unavailable Schinner, Zahra E Primary Care Unavailable Schinner, Zahra E Primary Care Unavailable Kayden Terrell Attending Unavailable Schinner, Zahra E Primary Care Unavailable Heber Keller Attending Unavailable Heber Keller K Referring Unavailable Schinner, Zahra E Primary Care Unavailable JensenLu bingham Attending Unavailable JensenLu Referring Unavailable Schinner, Zahra E Primary Care Unavailable Schinner, Zahra E Attending Unavailable Schinner, Zahra E Referring Unavailable JensenLu Attending Unavailable Schinner, Zahra E Referring Unavailable Schinner, Zahra E Primary Care Unavailable Schinner, Zahra E Primary Care Unavailable Marily Javier NP Attending Unavailable Schinner, Zahra E Primary Care Unavailable JensenLu Attending Unavailable Schinner, Zahra E Referring Unavailable Heber Keller Referring Unavailable Heber Keller Attending Unavailable Schinner, Zahra E Primary Care Unavailable Heber Keller Attending Unavailable Heber Keller Referring Unavailable Zahra Guerrero Primary Care Unavailable Zahra Guerrero Attending Unavailable Zahra Guerrero Referring Unavailable Zahra Guerrero Primary Care Unavailable Zahra Guerrero Primary Care Unavailable Tamiko Modi NP Attending Unavailable Zahra Guerrero Referring Unavailable Allergies Allergy Classification Reported Allergen(s) Allergy Type Date of Onset Reaction(s) Facility Angiotensin Converting Enzyme (LEO) Inhibitors (1 source) Lisinopril Drug Allergy 11-23-19 17 Other: See Comments [facility] Nitroimidazoles (antibiotic) (1 source) metroNIDAZOLE Drug Allergy 02-25-20 Other: See Comments [facility] Work Phone: (20 sources) Lisinopril; Translations: [LISINOPRIL] Drug Allergy 11-23-19 17 Other: See Comments [facility] (19 sources) peanut butter [Other] Propensity to adverse reactions 10-07-19 08 Anaphylaxis [facility] (2 sources) peanut Allergy to substance 07-01-19 20 Anaphylaxis [facility] Work Phone: (14 sources) peanut allergenic extract Drug Allergy 10-18-19 22 Anaphylaxis [facility] (20 sources) metroNIDAZOLE; Translations: [METRONIDAZOLE] Drug Allergy 02-25-20 Other: See Comments [facility] Work Phone: (2 sources) OTHER; Translations: [OTHER] Propensity to adverse reactions (disorder) 10-07-19 08 [facility] Repository (9 sources) amLODIPine Drug Allergy 09-05-19 23 Rash [facility] (1 source) amLODIPine Drug Allergy 06-16-19 25 [facility] Repository (1 source) Lisinopril Drug Allergy 06-16-19 25 [facility] Repository (1 source) metroNIDAZOLE Drug Allergy 06-16-19 25 [facility] Repository (1 source) peanut allergenic extract Drug Allergy 06-16-19 25 [facility] Repository Medications Current Medications Medication Drug Class(es) Dates Sig (Normalized) Sig (Original) aspirin 81 mg delayed release oral tablet (20 sources) Platelet Aggregation Inhibitor, Nonsteroidal Anti-inflammatory Drug Start: 04-02-2017 Aspirin (Adult Low Dose Aspirin) 81 mg tablet,delayed release (DR/EC) Active 81 mg PO daily April 02, 2017 1:00am Comment on above: Take 81 mg by mouth once daily. atorvastatin 40 mg oral tablet (20 sources) HMG-CoA Reductase Inhibitor Start: 04-02-2017 take 1 tablet by mouth at bedtime Atorvastatin 40 mg tablet Active 40 mg PO AT BEDTIME April 02, 2017 1:00am take 2 tablets by mouth once ilene ly atorvastatin (LIPITOR) 20 mg tablet Take 40 mg by mouth once daily. Active Comment on above: Take 40 mg by mouth once daily. doxycycline monohydrate 100 mg oral tablet (1 source) Tetracycline-cl ass Drug Start: 022 End: 023 take 1 tablet by mouth twice daily doxycycline monohydrate 100 mg tablet Indications: Sinusitis, unspecified chronicity, unspecified location Take 1 tablet by mouth twice daily for 7 days. 14 tablet 0 02/24/2022 03/03/2022 Active Comment on above: Take 1 tablet by matilde th twice daily for 7 days. hydroCHLOROthiazide 25 mg oral tablet (18 sources) Thiazide Diuretic Start: take 1 tablet by mouth once daily Hydrochlorothiazide 25 mg tablet Active 25 mg PO daily December 29, 2023 12:00am Start: 04-02-2017 End: 10-17-2021 take 1 tablet by mouth once daily Hydrochlorothiazide 25 mg tablet Discontinued 25 mg PO daily April 02, 2017 1:00am October 17, 2021 8:46am metFORMIN hydrochloride 1000 mg oral tablet (20 sources) Biguanide Start: 09-11-2022 take 1 tablet by mouth twice daily at mealtime Metformin 1,000 mg tablet Active 1000 mg PO 2 times per day with meals September 11, 2022 12:00am Start: 04-02-2017 End: 09-11-2022 take 2 tablets by mouth twice daily Metformin 500 mg tablet Discontinued 1000 mg PO TWICE A DAY April 02, 2017 1:00am September 11, 2022 5:55pm Start: 04-02-2017 End: 09-11-2022 take 1000 mg by mouth twice daily Metformin Discontinued 1000 MG PO TWICE A DAY April 02, 2017 12:00am September 11, 2022 4:55pm Comment on above: Take 1,000 mg by matilde th twice daily with meals. methylPREDNISolone (5 sources) Corticosteroid Start: 02-15-2022 End: 02-21-2022 methylPREDNISolone (MEDROL, RAVI,) 4 mg Dose-Pack Follow dosing instructions, take with food. 21 tablet 0 02/15/2022 02/21/2022 Active Start: 11-22-2016 End: 02-15-2022 methylPREDNISolone (MEDROL D OSE-PACK) 4 mg Dose-Pack Indications: Acute pain of left shoulder As Instructed per package 1 Package 0 11/22/2016 02/15/2022 Discontinued Start: 11-22-2016 methylPREDNISo lone (MEDROL DOSE-PACK) 4 mg Dose-Pack Indications: Acute pain of left shoulder As Instructed per package 1 Package 0 11/22/2016 Active Comment on above: As Instructed per margie wing Follow dosing instru ctions, take with food. 24 hr metoprolol succinate 50 mg extended release oral tablet (20 sources) beta-Adrenergic David Start: 09-11-2022 take 1 tablet by mouth once daily Metoprolol Succinate 50 mg tablet extended release 24 hr Active 50 mg PO DAILY September 11, 2022 12:00am Start: 10-18-2018 End: 09-11-2022 take 1 tablet by mouth once daily Metoprolol Tartrate 25 MG tablet Discontinued 25 mg PO DAILY October 18, 2018 12:00am September 11, 2022 5:56pm take 1 tablet by matilde th once daily metoprolol succinate ER (TOPROL XL) 25 mg 24 hr tablet Take 50 mg by mouth once daily. Active take 1 tablet by matilde th once daily metoprolol succinate ER (TOPROL XL) 25 mg 24 hr tablet Take 25 mg by mouth once daily. 0 Active Comment on above: Take 25 mg by mouth once daily. Take 50 mg by mouth once daily. Mometasone-Formoterol (Dulera) 200-5 mcg/actuation HFA aerosol inhaler (20 sources) Start: 12-21-2023 Mometasone-Formoterol (Dulera) 200-5 mcg/actuation HFA aerosol inhaler Active 2 NMA INHALATION TWICE A DAY December 21, 2023 11:31am Start: 11-04-2022 End: 12-21-2023 Mometasone-Formoterol (Duler a) 200-5 mcg/actuation HFA aerosol inhaler Discontinued 2 NMA INHALATION TWICE A DAY November 04, 2022 9:04am December 21, 2023 11:31am Start: 11-04-2022 take 1 puff(s) by in halation twice daily Mometasone-Formoterol (Dulera) 200-5 mcg/actuation HFA aerosol inhaler Active 2 PUFF INHALATION TWICE A DAY November 04, 2022 8:04am Start: 11-04-2022 take 1 puff(s) by in halation twice daily Mometasone-Formoterol (Dulera) 200-5 mcg/actuation HFA aerosol inhaler Active 2 PUFF INHALATION TWICE A DAY November 04, 2022 9:04am Start: 10-17-2021 End: 11-04-2022 Mometasone-Formoterol (Duler a) 200-5 mcg/actuation HFA aerosol inhaler Discontinued 2 NMA INHALATION TWICE A DAY October 17, 2021 9:10am November 04, 2022 9:04am Start: 10-17-2021 End: 11-04-2022 take 1 puff(s) by inhalation twice daily Mometasone-Formoterol (Dulera) 200-5 mcg/actuation HFA aerosol inhaler Discontinued 2 PUFF INHALATION TWICE A DAY October 17, 2021 8:10am November 04, 2022 8:04am Start: 10-17-2021 End: 11-04-2022 take 1 puff(s) by inhalation twice daily Mometasone-Formoterol (Dulera) 200-5 mcg/actuation HFA aerosol inhaler Discontinued 2 PUFF INHALATION TWICE A DAY October 17, 2021 9:10am November 04, 2022 9:04am Start: 10-17-2021 take 1 puff(s) by in halation twice daily Mometasone-Formoterol (Dulera) 200-5 mcg/actuation HFA aerosol inhaler Active 2 PUFF INHALATION TWICE A DAY October 17, 2021 8:10am Start: 10-17-2021 take 1 puff(s) by in halation twice daily Mometasone-Formoterol (Dulera) 200-5 mcg/actuation HFA aerosol inhaler Active 2 PUFF INHALATION TWICE A DAY October 17, 2021 9:10am pantoprazole 40 mg delayed release oral tablet (2 sources) Proton Pump Inhibitor take 1 tablet by mouth once daily pantoprazole DR (PROTONIX) 40 mg tablet Take 40 mg by mouth once daily. Active sulfaSALAzine 500 mg oral tablet (18 sources) Aminosalicylate Start: 05-18-19 End: 10-29-19 take 1 tablet by mouth once daily sulfaSALAzine (AZULFIDINE) 500 mg tablet Indications: Polyarticular psoriatic arthritis (HCC) take 1 tablet by mouth once daily 30 tablet 10/29/2023 Active Start: 03-18-2023 End: 05-18-2023 take 1 tablet by mouth twice daily sulfaSALAzine (AZULFIDINE) 500 mg tablet Indications: Polyarticular psoriatic arthritis (HCC) Take 1 tablet by mouth two times a day. 60 tablet 1 03/18/2023 05/18/2023 Discontinued Start: 07-31-2022 take 1 tablet by matilde th twice daily sulfaSALAzine (AZULFIDINE) 500 mg tablet Indications: Polyarticular psoriatic arthritis (HCC) Take 1 tablet by mouth twice daily. 60 tablet 1 07/31/2022 Active Comment on above: Take 1 tablet by matilde th twice daily. Take 1 tablet by matilde th two times a day. Take 1 tablet by matilde th once daily. tiZANidine 2 mg oral capsule (3 sources) Central alpha-2 Adrenergic Agonist Start: 04-02-19 take 2-4 mg by mouth three times daily Tizanidine Active 2 - 4 MG PO THREE TIMES A DAY April 02, 2020 1:00am triamcinolone acetonide 0.055 mg/actuat metered dose nasal spray (20 sources) Corticosteroid Start: 06-04-19 End: 12-21-19 Triamcinolone Acetonide (Nasacort Allergy) 55 mcg aerosol,spray Active 2 NMA INTRANASAL DAILY 16.December 21, 2023 11:29am administer into each nostril Start: 05-13-2022 End: 10-20-2022 Triamcinolone Acetonide (Dwayne acort) 55 mcg aerosol,spray Discontinued 2 NMA INTRANASAL DAILY 16.May 13, 2022 11:27am October 20, 2022 1:54am administer into each nostril Start: 05-09-2021 End: 05-13-2022 Triamcinolone Acetonide (Dwayne acort) 55 mcg aerosol,spray Discontinued 2 NMA INTRANASAL DAILY 16.May 09, 2021 3:56pm May 13, 2022 11:28am administer into each nostril Start: 05-03-2020 End: 05-09-2021 Triamcinolone Acetonide (Dwayne acort) 55 mcg aerosol,spray Discontinued 2 NMA INTRANASAL DAILY 16.May 03, 2020 4:09pm May 09, 2021 3:56pm administer into each nostril Start: 03-15-2019 End: 05-03-2020 Triamcinolone Acetonide (Dwayne acort) 55 mcg aerosol,spray Discontinued 2 NMA INTRANASAL DAILY 16.March 15, 2019 1:00am May 03, 2020 4:10pm administer into each nostril Start: 03-15-2019 End: 10-20-2022 take 1 spray(s) nasal route once daily Triamcinolone Acetonide (Nasacort) 55 mcg aerosol,spray Discontinued 2 SPRAY INTRANASAL DAILY 16.May 13, 2022 10:27am October 20, 2022 12:54am administer into each nostril TRIAMCINOLONE AC ETONIDE (NASACORT NASAL) Use in the nose. Active TRIAMCINOLONE AC ETONIDE (NASACORT NASAL) Use in the nose. 0 Active Comment on above: Use in the nose. Completed/Discontinued Medications Medication Drug Class(es) Dates Sig (Normalized) Sig (Original) acetaminophen 325 mg / HYDROcodone bitartrate 5 mg oral tablet (20 sources) Opioid Agonist Start: 10-20-2022 End: 12-21-2023 Hydrocodone-Acetami nophen 5-325 mg tablet Discontinued 1 {tbl} PO EVERY 6 HOURS NEEDED as needed for Pain 10 October 20, 2022 December 21, 2023 11:31am Start: 10-20-2022 take 1 tablet by matilde th every six hours as needed Hydrocodone-Acetaminophen Active 1 TABLE T PO EVERY 6 HOURS NEEDED 10 October 20, 2022 Start: 02-19-2022 End: 09-11-2022 Hydrocodone-Acetaminophen 5- 325 mg tablet Discontinued 1 {tbl} PO EVERY 6 HOURS NEEDED as needed for Pain 10 February 19, 2022 September 11, 2022 5:57pm Start: 02-19-2022 End: 09-11-2022 take 1 tablet by mouth every six hours as needed Hydrocodone-Acetaminophen Discontinued 1 TABLET PO EVERY 6 HOURS NEEDED 10 February 19, 2022 September 11, 2022 4:57pm acetaminophen 325 mg / oxyCODONE hydrochloride 5 mg oral tablet (16 sources) Opioid Agonist Start: 10-29-2013 End: 04-02-2017 Oxycodone-Acetaminophen 1 TABLET tablet Discontinued 1 {tbl} PO EVERY 6 HOURS NEEDED as needed for Pain 10 October 29, 2013 12:00am April 02, 2017 10:15am Start: 10-29-2013 End: 04-02-2017 take 1 tablet by mouth every six hours as needed Oxycodone-Acetaminophen Discontinued 1 TABLET PO EVERY 6 HOURS NEEDED October 28, 2013 11:00pm April 02, 2017 9:15am [id number] 200 actuat albuterol 0.09 mg/actuat metered dose inhaler (20 sources) beta2-Adrenergic Agonist Start: 09-11-2022 End: 12-21-2023 Albuterol Sulfate 90 mcg/actuation HFA aerosol inhaler Discontinued 2 NMA INHALATION EVERY 6 HOURS as needed for shortness of breath or wheezing 8.5 June 04, 2023 7:21am December 21, 2023 11:31am administer with spacer Start: 09-11-2022 End: 11-04-2022 take 1 puff(s) by inhalation every six hours Albuterol Sulfate Active 2 PUFF INHALATION EVERY 6 HOURS 8.5 November 04, 2022 8:04am administer with spacer Start: 10-18-2020 End: 09-11-2022 Albuterol Sulfate 90 mcg/act uation HFA aerosol inhaler Discontinued 2 NMA INHALATION Q4H as needed for shortness of breath or wheezing 8.5 December 09, 2021 10:56am September 11, 2022 5:58pm administer with spacer Start: 10-18-2020 End: 09-11-2022 take 1 puff(s) by inhalation every four hours Albuterol Sulfate Discontinued 2 PUFF INHALATION Q4H 8.December 09, 2021 9:56am September 11, 2022 4:58pm administer with spacer Start: 01-11-2019 End: 04-02-2020 Albuterol Sulfate (Ventolin Hfa) 90 mcg/actuation HFA aerosol inhaler Discontinued 2 NMA INHALATION EVERY 6 HOURS as needed for Shortness Of Breath October 06, 2019 9:29am April 02, 2020 11:07am Start: 01-11-2019 End: 04-02-2020 take 1 puff(s) by inhalation every six hours Albuterol Sulfate (Ventolin Hfa) 90 mcg/actuation HFA aerosol inhaler Discontinued 2 PUFF INHALATION EVERY 6 HOURS October 06, 2019 8:29am April 02, 2020 10:07am Start: 04-16-2018 End: 01-11-2019 Albuterol Sulfate (Ventolin Hfa) 90 mcg/actuation HFA aerosol inhaler Discontinued 2 NMA INHALATION EVERY 6 HOURS as needed for Shortness Of Breath April 16, 2018 5:10pm January 11, 2019 10:41am Start: 04-16-2018 End: 01-11-2019 take 1 puff(s) by inhalation every six hours Albuterol Sulfate (Ventolin Hfa) 90 mcg/actuation HFA aerosol inhaler Discontinued 2 PUFF INHALATION EVERY 6 HOURS April 16, 2018 4:10pm January 11, 2019 9:41am Start: 04-16-2018 End: 01-11-2019 take 1 puff(s) by inhalation every six hours Albuterol Sulfate (Ventolin Hfa) 90 mcg/actuation HFA aerosol inhaler Discontinued 2 PUFF INHALATION EVERY 6 HOURS April 16, 2018 5:10pm January 11, 2019 10:41am Start: 04-02-2017 End: 04-16-2018 Albuterol Sulfate (Ventolin Hfa) 90 mcg/actuation HFA aerosol inhaler Discontinued 2 NMA INHALATION EVERY 6 HOURS as needed for Shortness Of Breath April 02, 2017 1:00am April 16, 2018 5:11pm Start: 04-02-2017 End: 04-16-2018 take 1 puff(s) by inhalation every six hours Albuterol Sulfate (Ventolin Hfa) 90 mcg/actuation HFA aerosol inhaler Discontinued 2 PUFF INHALATION EVERY 6 HOURS April 02, 2017 12:00am April 16, 2018 4:11pm take 2 puff(s) by in halation every six hours as needed for wheezing albuterol HFA (PROVENTIL HFA, VENTOLIN HFA) 90 mcg/actuation inhaler Inhale 2 Puffs as instructed every 6 hours as needed for wheezing/shortness of breath. Active Comment on above: Inhale 2 Puffs as in structed every 6 hours as needed for wheezing/shortness of breath. amLODIPine 5 mg oral tablet (16 sources) Dihydropyridine Calcium Channel David Start: 08-26-19 End: 10-18-19 take 2 tablets by mouth once daily Amlodipine 5 MG tablet Discontinued 10 mg PO DAILY August 25, 2017 12:00am October 17, 2021 8:46am Start: 08-25-2017 End: 10-17-2021 take 10 mg by mouth once daily Amlodipine Discontinued 10 MG PO DAILY August 24, 2017 11:00pm October 17, 2021 7:46am amoxicillin 875 mg / clavulanate 125 mg oral tablet (14 sources) Penicillin-class Antibacterial Start: 02-19-2022 End: 09-11-2022 take 1 tablet by mouth twice daily Amoxicillin-Pot Clavulanate Discontinued 1 TABLET PO TWICE A DAY February 19, 2022 12:00am September 11, 2022 4:57pm Start: 02-15-2022 End: 09-11-2022 Amoxicillin-Pot Clavulanate 875-125 mg tablet Discontinued 1 {tbl} PO TWICE A DAY February 19, 2022 1:00am September 11, 2022 5:57pm Comment on above: Take 1 tablet by matilde twice daily for 5 days. azithromycin 250 mg oral tablet (4 sources) Macrolide Antimicrobial Start: 024 End: 024 Azithromycin (Zithromax) 250 mg tablet Discontinued 0 PO .COMPLEX April 16, 2023 1:00am December 21, 2023 11:30am For 250 mg dose pack: take 500 mg today (day 1), then 250 mg for 4 days (days 2-5) PO betamethasone 1 mg/ml topical cream (20 sources) Corticosteroid Start: 022 End: 023 Betamethasone Valerate 0.1 % cream Discontinued 1 NMA TOPICAL TWICE A DAY February 19, 2022 1:00am October 20, 2022 1:55am Comment on above: Apply to affected ar ea twice daily. cyclobenzaprine hydrochloride 10 mg oral tablet (16 sources) Muscle Relaxant Start: 014 End: take 1 tablet by mouth three times daily as needed for pain Cyclobenzaprine 10 MG tablet Discontinued 10 mg PO THREE TIMES A DAY as needed for Pain October 29, 2013 12:12am April 02, 2017 10:15am 60 actuat fluticasone propionate 0.232 mg/actuat / salmeterol xinafoate 0.014 mg/actuat dry powder inhaler (20 sources) Corticosteroid, beta2-Adrenergic Agonist Start: End: Fluticasone Propion-Salmeterol (Airduo Respiclick) 232-14 mcg/actuation aerosol powdr breath activated Discontinued 1 INH INHALATION TWICE A DAY October 06, 2019 8:30am February 16, 2020 8:10am Start: 02-24-2018 End: 02-16-2020 Fluticasone Propion-Salmeter ol (Airduo Respiclick) 232-14 mcg/actuation aerosol powdr breath activated Discontinued 1 NMA INHALATION TWICE A DAY March 10, 2019 7:32am October 06, 2019 9:30am Start: 02-24-2018 End: 10-06-2019 take 1 puff(s) by inhalation twice daily Fluticasone Propion-Salmeterol (Airduo Respiclick) 232-14 mcg/actuation aerosol powdr breath activated Discontinued 1 PUFF INHALATION TWICE A DAY March 10, 2019 6:32am October 06, 2019 8:30am take 1 puff(s) by in halation twice daily fluticasone-salmeterol (ADVAIR, WIXELA) 250-50 mcg/dose inhaler Inhale 1 Puff as instructed two times a day. Active take 1 puff(s) by in halation twice daily fluticasone-salmeterol (ADVAIR, WIXELA) 250-50 mcg/dose inhaler Inhale 1 Puff as instructed two times a day. 0 Active take 1 puff(s) by in halation twice daily fluticasone-salmeterol (ADVAIR, WIXELA) 250-50 mcg/dose inhaler Inhale 1 Puff as instructed twice daily. 0 Active take 1 puff(s) by in halation twice daily fluticasone-salmeterol (ADVAIR DISKUS) 250-50 mcg/dose dsdv Inhale 1 Puff as instructed twice daily. 0 Active take 1 puff(s) by in halation twice daily fluticasone-salmeterol (ADVAIR DISKUS) 250-50 mcg/dose dsdv Inhale 1 Puff as instructed twice daily. 0 Active Comment on above: Inhale 1 Puff as ins tructed twice daily. Inhale 1 Puff as ins tructed two times a day. Fluticasone Furoate-Vilanterol (20 sources) Corticosteroid, beta2-Adrenergic Agonist Start: 01-07-2018 End: 03-04-2018 Fluticasone Furoate-Vilanterol 200-25 mcg/dose blister with device Discontinued 1 NMA INHALATION daily 60 January 07, 2018 4:01pm March 04, 2018 8:25am after inhalation, rinse mouth with water and spit out; do not swallow Start: 01-07-2018 End: 03-04-2018 Fluticasone Furoate-Vilanter ol Discontinued 1 INH INHALATION daily 60 January 07, 2018 3:01pm March 04, 2018 7:25am after inhalation, rinse mouth with water and spit out; do not swallow Start: 01-07-2018 End: 03-04-2018 Fluticasone Furoate-Vilanter ol Discontinued 1 INH INHALATION daily 60 January 07, 2018 4:01pm March 04, 2018 8:25am after inhalation, rinse mouth with water and spit out; do not swallow Start: 08-25-2017 End: 01-07-2018 take 1 dose by mouth once daily Fluticasone Furoate-Vilanterol 1 EACH blister with device Discontinued 1 NMA INHALATION daily August 25, 2017 10:11am January 07, 2018 4:08pm after inhalation, rinse mouth with water and spit out; do not swallow Start: 08-25-2017 End: 01-07-2018 take 1 puff(s) by mouth once daily Fluticasone Furoate-Vilanterol Discontinued 1 PUFF INHALATION daily August 25, 2017 9:11am January 07, 2018 3:08pm after inhalation, rinse mouth with water and spit out; do not swallow Start: 08-25-2017 End: 01-07-2018 take 1 puff(s) by mouth once daily Fluticasone Furoate-Vilanterol Discontinued 1 PUFF INHALATION daily August 25, 2017 10:11am January 07, 2018 4:08pm after inhalation, rinse mouth with water and spit out; do not swallow Start: 05-14-2017 End: 08-25-2017 Fluticasone Furoate-Vilanter ol (Breo Ellipta) 200-25 mcg/dose blister with device Discontinued 1 INH INHALATION daily 60 May 14, 2017 9:27am August 25, 2017 10:12am after inhalation, rinse mouth with water and spit out; do not swallow Start: 05-14-2017 End: 08-25-2017 Fluticasone Furoate-Vilanter ol (Breo Ellipta) 200-25 mcg/dose blister with device Discontinued 1 NMA INHALATION daily 60 May 14, 2017 12:00am August 25, 2017 10:12am after inhalation, rinse mouth with water and spit out; do not swallow Start: 05-14-2017 End: 08-25-2017 Fluticasone Furoate-Vilanter ol (Breo Ellipta) 200-25 mcg/dose blister with device Discontinued 1 INH INHALATION daily 60 May 13, 2017 11:00pm August 25, 2017 9:12am after inhalation, rinse mouth with water and spit out; do not swallow Start: 05-14-2017 End: 08-25-2017 Fluticasone Furoate-Vilanter ol (Breo Ellipta) 200-25 mcg/dose blister with device Discontinued 1 INH INHALATION daily 60 May 14, 2017 12:00am August 25, 2017 10:12am after inhalation, rinse mouth with water and spit out; do not swallow 120 actuat formoterol fumarate 0.005 mg/actuat / mometasone furoate 0.2 mg/actuat metered dose inhaler (20 sources) Corticosteroid, beta2-Adrenergic Agonist Start: 02-16-2020 End: 10-17-2021 Mometasone-Formoterol (Dulera) 200-5 mcg/actuation HFA aerosol inhaler Discontinued 2 NMA INHALATION TWICE A DAY 13 October 18, 2020 9:18am October 17, 2021 9:10am Start: 02-16-2020 End: 10-17-2021 take 1 puff(s) by inhalation twice daily Mometasone-Formoterol (Dulera) 200-5 mcg/actuation HFA aerosol inhaler Discontinued 2 PUFF INHALATION TWICE A DAY October 18, 2020 8:18am October 17, 2021 8:10am mometasone-formo terol (DULERA) 200-5 mcg/actuation inhaler Inhale as instructed twice daily. Active Comment on above: Inhale as instructed twice daily. meclizine hydrochloride 25 mg oral tablet (12 sources) Antiemetic Start: 09-05-19 End: 10-21-19 take 1 tablet by mouth every eight hours as needed for dizziness Meclizine 25 mg tablet Discontinued 25 mg PO EVERY 8 HOURS NEEDED as needed for Dizziness September 04, 2022 8:02pm October 20, 2022 1:54am Start: 08-25-2017 take 25 mg by mouth three times daily as needed Meclizine Active 25 MG PO 3 TIMES DAILY NEEDED August 25, 2017 12:00am metroNIDAZOLE 500 mg oral tablet (13 sources) Nitroimidazole Antimicrobial Start: 02-19-2022 End: 09-11-2022 take 1 tablet by mouth twice daily Metronidazole (Flagyl) 500 mg Tablet Discontinued 500 mg PO TWICE A DAY February 19, 2022 1:00am September 11, 2022 5:57pm montelukast 10 mg oral tablet (20 sources) Leukotriene Receptor Antagonist Start: 03-15-2019 End: 12-21-2023 take 1 tablet by mouth once daily in the evening Montelukast 10 mg tablet Discontinued 10 mg PO EVERY EVENING June 04, 2023 7:21am December 21, 2023 11:31am penicillin v potassium 500 mg oral tablet (9 sources) Start: 09-02-2023 End: 12-21-2023 take 1 tablet by mouth four times daily Penicillin V Potassium 500 mg tablet Discontinued 500 mg PO 4 TIMES DAILY September 02, 2023 12:00am December 21, 2023 11:30am Start: 10-20-2022 End: 04-16-2023 take 1 tablet by mouth four times daily Penicillin V Potassium 500 mg tablet Discontinued 500 mg PO 4 TIMES DAILY October 20, 2022 12:00am April 16, 2023 12:53pm prednisoLONE 5 mg oral tablet (13 sources) Corticosteroid Start: 02-19-2022 End: 09-11-2022 take 4 mg by mouth twice daily Prednisolone 5 mg Tablet Discontinued 4 mg PO TWICE A DAY February 19, 2022 1:00am September 11, 2022 5:57pm Start: 02-19-2022 End: 09-11-2022 take 4 mg by mouth twice daily Prednisolone Discontinu ed 4 MG PO TWICE A DAY February 19, 2022 12:00am September 11, 2022 4:57pm Start: 02-19-2022 End: 09-11-2022 take 4 mg by mouth twice daily Prednisolone Discontinu ed 4 MG PO TWICE A DAY February 19, 2022 1:00am September 11, 2022 5:57pm Start: 02-19-2022 take 4 mg by mouth twice daily Prednisolone Active 4 MG PO TWICE A DAY February 19, 2022 1:00am Start: 02-19-2022 take 4 mg by mouth twice daily Prednisolone Active 4 MG PO TWICE A DAY February 19, 2022 12:00am predniSONE 20 mg oral tablet (20 sources) Start: 04-16-2023 End: 12-21-2023 take 2 tablets by mouth once daily Prednisone 20 mg tablet Discontinued 40 mg PO DAILY April 16, 2023 1:00am December 21, 2023 11:30am X 5 days Start: 04-16-2023 take 40 mg by mouth once daily Prednisone Active 40 MG PO DAILY April 16, 2023 12:00am X 5 days Start: 09-11-2022 End: 10-20-2022 take 2 tablets by mouth once daily Prednisone 20 mg tablet Discontinued 40 mg PO DAILY September 11, 2022 12:00am October 20, 2022 1:54am Start: 09-11-2022 End: 10-20-2022 take 40 mg by mouth once daily Prednisone Discontinued 40 MG PO DAILY September 10, 2022 11:00pm October 20, 2022 12:54am Start: 02-24-2022 End: 03-01-2022 take 2 tablets by mouth once daily at mealtime predniSONE (DELTASONE) 20 mg tablet Indications: Sinusitis, unspecified chronicity, unspecified location Take 2 tablets by mouth once daily for 5 days. Take daily with food. 10 tablet 0 02/24/2022 03/01/2022 Active Start: 03-15-2019 End: 07-01-2019 take 3 tablets by mouth once daily at mealtime Prednisone 20 mg tablet Discontinued 60 mg PO daily March 15, 2019 1:00am July 01, 2019 9:14am administer with food or milk Start: 03-15-2019 End: 07-01-2019 take 60 mg by mouth once daily at mealtime Prednisone Discontinued 60 MG PO daily March 15, 2019 12:00am July 01, 2019 8:14am administer with food or milk Comment on above: Take 2 tablets by mo [facility] once daily for 5 days. Take daily with food. Triamcinolone Acetonide 55 mcg/actuation aerosol (2 sources) Start: 04-02-2017 End: 03-15-2019 Triamcinolone Acetonide 55 mcg/actuation aerosol Discontinued 1 NMA INTRANASAL DAILY April 02, 2017 1:00am March 15, 2019 10:54am triamcinolone acetonide 55 mcg/actuation nasal spray,aerosol (14 sources) Start: 04-02-2017 End: 03-15-2019 triamcinolone acetonide 55 mcg/actuation nasal spray,aerosol Discontinued 1 SPRAY INTRANASAL DAILY April 02, 2017 10:22am March 15, 2019 10:54am Start: 04-02-2017 End: 03-15-2019 triamcinolone acetonide 55 m cg/actuation nasal spray,aerosol Discontinued 1 SPRAY INTRANASAL DAILY April 02, 2017 12:00am March 15, 2019 9:54am Start: 04-02-2017 End: 03-15-2019 triamcinolone acetonide 55 m cg/actuation nasal spray,aerosol Discontinued 1 SPRAY INTRANASAL DAILY April 02, 2017 1:00am March 15, 2019 10:54am Problems Active Problems Problem Classification Problem Date Documented Date Episodic/Chronic Acute bronchitis (1 source) Acute bronchitis, unspecified; Translations: [Acute bronchitis, unspecified] Onset: 06-08-2024 Episodic Aortic; peripheral; and visceral artery aneurysms (20 sources) Aneurysm of aortic root; Translations: [Aortic aneurysm of unspecified site, without rupture] Onset: 12-29-2023 04-02-2017 Chronic Comment on above: 4.2 cm per echo 09/26; Asthma (20 sources) Mild intermittent asthma; Translations: [Mild intermittent asthma, uncomplicated] Onset: 12-29-2023 Chronic Coronary atherosclerosis and other heart disease (16 sources) Coronary arteriosclerosis; Translations: [Atherosclerotic heart disease of [place] coronary artery without angina pectoris] Onset: 12-29-2023 09-12-2022 Chronic Diabetes mellitus with complications (2 sources) Type 2 diabetes mellitus with other circulatory complications; Translations: [Type 2 diabetes mellitus with unspecified complications] Onset: 04-13-2024 Chronic Diabetes mellitus without complication (16 sources) Diabetes mellitus; Translations: [Type 2 diabetes mellitus without complications] 04-02-2017 Chronic Disorders of lipid metabolism (20 sources) Hyperlipidemia; Translations: [Hyperlipidemia, unspecified] Onset: 12-29-2023 04-02-2017 Chronic Esophageal disorders (16 sources) Gastroesophageal reflux disease; Translations: [Gastro-esophageal reflux disease without esophagitis] 04-02-2017 Chronic Essential hypertension (20 sources) Hypertensive disorder; Translations: [Essential (primary) hypertension] Onset: 12-29-2023 04-02-2017 Chronic Gout and other crystal arthropathies (16 sources) Gout; Translations: [Gout, unspecified] 04-02-2017 Chronic Hemorrhoids (16 sources) Hemorrhoids; Translations: [Unspecified hemorrhoids] 04-02-2017 Episodic Nutritional deficiencies (3 sources) Vitamin D deficiency; Translations: [Vitamin D deficiency, unspecified] Onset: 08-19-2023 04-20-2023 Chronic Osteoarthritis (20 sources) Degenerative joint disease involving multiple joints; Translations: [Polyosteoarthritis, unspecified] Onset: 12-01-2022 Chronic Other and ill-defined heart disease (16 sources) Left ventricular hypertrophy; Translations: [Cardiomegaly] 04-02-2017 Chronic Other inflammatory condition of skin (20 sources) Psoriatic arthritis; Translations: [Other psoriatic arthropathy] Onset: 12-01-2022 Chronic Other non-traumatic joint disorders (7 sources) Multiple joint pain; Translations: [Pain in unspecified joint] Episodic Other non-traumatic joint disorders (1 source) Joint pain Onset: 06-14-2024 Episodic Other nutritional; endocrine; and metabolic disorders (17 sources) Morbid obesity; Translations: [Morbid (severe) obesity due to excess calories] 04-08-2017 Chronic Other nutritional; endocrine; and metabolic disorders (7 sources) Morbid (severe) obesity due to excess calories; Translations: [Morbid obesity] Onset: 12-29-2023 09-12-2022 Chronic Other upper respiratory disease (16 sources) Allergic rhinitis; Translations: [Allergic rhinitis, unspecified] 03-15-2019 Chronic Other upper respiratory disease (1 source) Chronic rhinitis; Translations: [Unspecified sinusitis (chronic)] Chronic Other upper respiratory infections (2 sources) Sinusitis; Translations: [Chronic sinusitis, unspecified] Onset: 07-18-2024 Chronic Otitis media and related conditions (1 source) Acute left otitis media; Translations: [Otitis media, unspecified, left ear] Episodic Residual codes; unclassified (17 sources) Obstructive sleep apnea syndrome; Translations: [Obstructive sleep apnea (adult) (pediatric)] 05-14-2017 Chronic Comment on above: 12/11 cmH20 Residual codes; unclassified (7 sources) Obstructive sleep apnea (adult) (pediatric); Translations: [Obstructive sleep apnea (adult)(pediatric)] Onset: 12-29-2023 09-12-2022 Chronic Residual codes; unclassified (16 sources) History of repair of umbilical hernia; Translations: [Other specified postprocedural states] 04-02-2017 Episodic Residual codes; unclassified (16 sources) History of colonoscopy; Translations: [Other specified postprocedural states] 11-09-2018 Episodic Comment on above: 10/20/2018 Spondylosis; intervertebral disc disorders; other back problems (1 source) Neck pain; Translations: [Cervicalgia] Episodic Substance-related disorders (16 sources) Tobacco dependence in remission; Translations: [Nicotine dependence, unspecified, in remission] 04-08-2017 Chronic Past or Other Problems Problem Classification Problem Date Documented Da te Episodic/Chronic Conditions associated with dizziness or vertigo (18 sources) Dizziness; Translations: [Dizziness and giddiness] Onset: 01-21-2024 09-04-2022 Episodic Disorders of teeth and jaw (20 sources) Dental caries; Translations: [Dental caries, unspecified] Onset: 10-07-2023 02-27-2022 Episodic Other gastrointestinal disorders (19 sources) Constipation; Translations: [Constipation, unspecified] Onset: 10-12-2007 10-12-2007 Episodic Other gastrointestinal disorders (1 source) Dysphagia, unspecified; Translations: [Dysphagia, unspecified] Onset: 03-24-2024 Episodic Other non-traumatic joint disorders (1 source) Pain in unspecified joint; Translations: [Pain in joint, multiple sites] Onset: 08-19-2023 Episodic Other screening for suspected conditions (not mental disorders or infectious disease) (1 source) Encounter for screening for malignant neoplasm of prostate; Translations: [Encounter for screening for malignant neoplasm of prostate] Onset: 01-15-2024 Episodic Results Test Name Value Interpretation Reference Range Facility Sinus/Facial Boneon 07-13-19 Sinus/Facial Bone [facility] Imaging Services [address] [place] [address] Sinus/Facial Bone MR#: [id number] Acct: [id number] Name: JONEL TERRELL Rep #: [id number] : 1960 M 63 From: Blayne whitney MD PCP: Dr. Zahra Guerrero MD Status: REG CLI Study: Sinus/Facial Bone Date of Exam: 07/12/24 Exam# [id number] Ordering Dr: Heber Keller MD PROCEDURE: SINUS/FACIAL BONE REASON FOR EXAM: SINUSITIS TECHNIQUE: CT of the paranasal sinuses without contrast. Coronal and Sagittal reconstruction series were provided. One or more dose reduction techniques were used (e.g., Automated exposure control, adjustment of the mA and/or kV according to patient size, use of iterative reconstruction technique). CT dL volume: 33.06 mGy. DLP: 899.96 COMPARISON: None. FINDINGS: Frontal: Opacification of the left frontal sinus. Ethmoid: Opacification of the ethmoid sinuses bilaterally worse on the right side with thinning of the bony septations. Sphenoid: Mucosal thickening of the sphenoid sinuses. Maxillary: Bilateral maxillary sinus opacification. There is compromise of the ostiomeatal complexes due to soft tissue prominence. Turbinates: Hypertrophy of the inferior turbinates bilaterally. Soft tissue prominence in the posterior aspect of the nasal passages. Nasal Septum: Nasal septal deviation towards the left side of the midline. Mastoids/Middle Ears: Unremarkable CT/Sinus/Facial Bone IMPRESSION: Pansinusitis. Reading Location: [facility] CC: Dr. Heber Keller MD; Dr. Zahra Guerrero MD Net Application Architect: Signed Normal [facility] Nasopharyngeal Cultureon NAC Staphylococcus lugdunensis Amount Growth Very Rare Staphylococcus lugdunensis: REACTION cefOXitin Susc Islt Doxycycline Islt ADELINA <=0.5 S Clindamycin Islt ADELINA 0.25 S Clindamycin.induced Susc Islt NEG Erythromycin Islt ADELINA <=0.25 S Gentamicin Islt ADELINA <=0.5 S Linezolid Islt ADELINA 2 S Oxacillin Susc Islt 0.5 S Tetracycline Islt ADELINA <=1 S TMP SMX Islt ADELINA <=10 S Vancomycin Islt ADELINA 1 S Normal [facility] Comment on above: Performed By: #### M 100.2000, M100.2500 #### [facility] [address] [place], [address] Gram Stainon 06-17-2024 GS Gram Stain Rare White Blood Cells No organisms seen Normal [facility] Comment on above: Performed By: #### M 100.2000, M100.2500 #### [facility] [address] [place], [address] Gram stainOrdered By: Heber escalante on 06-16-2024 Microscopic observation Gram stain Nom (Unsp spec) [facility] Nasopharyngeal cultureOrdere d By: Heber Keller on 06-16-2024 Respiratory microbial culture Staphylococcus lugdunensis Abnormal [facility] Cardiology Visit Reporton Cardiology Visit Report [facility] [address] [place], [place] [address] OFFICE VISIT Date of Service: 06/15/24 MR#: [id number] Acct: [id number] Name: JONEL TERRELL Rep #: [id number] : 1960 Provider: Dr. Lu Styles MD Age/Sex: 63/M Location: [facility] Status: Signed HPI HPI History of Present Illness Details: This gentleman with history of diabetes mellitus, hypertension, nonobstructive coronary artery disease, dyslipidemia and thoracic aortic dilatation is here for follow-up visit. Denies any chest pains. No shortness of breath. Recently he has had an upper respiratory tract infection from which he is recovering. Per patient, he stopped taking his atorvastatin about 10 months ago. According to him, he was just taking too many pills". Intake Vital Signs 12/29/23 08:40 06/15/24 08:47 Height 6 ft 6 ft Weight: 281 lb BMI 38.1 BP 128/80 H Blood Pressure Location Lt brachial Position Sitting Respiration 16 Pulse 66 Pulse Source NIBP Intake Visit Reasons: 6 M FU Vehicle Dismantler Required: No Accompanied by: Self Is patient in pain?: No Allergies peanut Allergy (Severe, Verified 06/15/24 14:03) Anaphylaxis lisinopril Allergy (Intermediate, Verified 06/15/24 14:03) Angioedema metronidazole (From Flagyl) Allergy (Verified 06/15/24 14:03) Hives amlodipine Adverse Reaction (Mild, Verified 06/15/24 14:03) Rash Medications ???Medication ???Instructions ???Recorded ???Confirmed ???Type aspirin 81 mg tablet,delayed 81 mg PO QDAY heart 04/02/1706/15 History release (Adult Low Dose Aspirin) atorvastatin 40 mg tablet 40 mg PO QHS cholesterol 04/02/17 06/15/24 History metformin 1,000 mg tablet 1,000 mg PO BIDWMEAL 09/11/2205/31 History metoprolol succinate 50 mg 50 mg PO DAILY 09/11/22 06/15/24 H istory tablet,extended release 24 hr albuterol sulfate 90 mcg/actuation 2 puff inhalation Q6H PRN 06/15/24 Rx aerosol inhaler shortness of breath or wheezing #8.5 grams mometasone-formoterol HFA 200 2 puff inhalation BID #3 ea 06/15/24 Rx mcg-5 mcg/actuation aerosol inhaler (Dulera) montelukast 10 mg tablet 10 mg PO QPM #90 tabs 12/21/23 Rx triamcinolone acetonide 55 mcg 2 spray intranasal DAILY #16.9 mL 12/21/23 06/15/24 Rx nasal spray aerosol (Nasacort Allergy) hydrochlorothiazide 25 mg tablet 25 mg PO QDAY #90 tabs 12/29/23 Rx Ejection fraction %: 55 Have you fallen in the past year?: No PFSH Medical History Acid reflux Allergic rhinitis Aortic root aneurysm Arthritis Asthma BPPV (benign paroxysmal positional vertigo) CAD (coronary artery disease) Cervical radiculopathy DDD (degenerative disc disease), cervical Dental abscess Diabetes Gout Hand pain Hemorrhoids Hyperlipemia Hypertension Lightheadedness LVH (left ventricular hypertrophy) Mild intermittent asthma Morbid obesity Neck pain Nonspecific dizziness HASMUKH (obstructive sleep apnea) Polyarticular psoriatic arthritis Pulmonary nodules Tear of biceps muscle Tobacco dependence in remission Surgical History Hx of colonoscopy Hx of umbilical hernia repair Hannah teeth removed Family History Mother Asthma Social History Smoking Status: Current some day smoker tobacco type: cigars Smokeless tobacco user: chewing tobacco how long ago did patient quit smokin, 2p/day second hand exposure: Yes alcohol intake: current alcohol intake frequency: a few times a month substance use type: does not use caffeine: Yes Type: coffee Number of servings: 10 what type of physical activity do you participate in: none frequency: does not exercise seatbelt use: always ROS Const Const: Negative for fatigue, weakness, headache(s) or weight gain ENT ENT: Negative for headache(s), dizziness, Nosebleed/epistaxis or balance problems Cardio Chest Pain: No Palpitations: No Edema: None Muscle aches with walking: None Resp Respiratory: Negative for SOB with activity, SOB at rest or SOB orthopnea SOB lying down GI GI: Negative nausea, vomiting or heartburn Musc Musc: Negative for muscle aches/ myalgia, muscle weakness, joint pain or balance problems Neuro Neuro: Negative for dizziness, lightheadedness, near syncope, syncope, headache(s) or weakness Endo Endo: Negative for fatigue Cardiology Exam Const Appearance: comfortable and no acute distress Nutritional Appearance: obese Neck Neck: no JVD Carotids: Negative bruit Chest Auscultation: Bilateral: Clear to Auscultation Cardio Rate: (more content not included)... Normal [facility] Chest PA and Lateralon 06-02 Chest PA and Lateral [facility] Imaging Services [address] [place], [place] [address] Chest PA and Lateral MR#: [id number] Acct: [id number] Name: JONEL TERRELL Rep #: [id number] : 1960 M 63 From: Hector Barkley MD PCP: Dr. Zahra Guerrero MD Status: REG CLI Study: Chest PA and Lateral Date of Exam: 06/02/24 Exam# [id number] Ordering Dr: Zahra Guerrero MD PROCEDURE: CHEST PA AND LATERAL 06/02/2024 REASON FOR EXAM: BRONCHITIS TECHNIQUE: Frontal and lateral views of the chest. 2 PA views to include the entire chest and lateral, 3 total images COMPARISON: None available FINDINGS: Small linear opacity at the peripheral left base on the frontal view may represent atelectasis or scar. The lungs otherwise appear clear. Pulmonary vascularity appears within limits. No pleural effusion. The cardiac and mediastinal contours appear within limits. The visualized osseous structures appear within limits. RAD/Chest PA and Lateral IMPRESSION: Small linear opacity at the peripheral left base on the frontal view may represent atelectasis or scar. The lungs otherwise appear clear. Pulmonary vascularity appears within limits. No pleural effusion. Reading Location: [facility] CC: Dr. Zahra Guerrero MD Net Application Architect: Signed Normal [facility] Absolute lymphocyte countOrd ered By: Zahra Guerrero on 03-25-2024 Lymphocytes Auto (Unsp spec) [#/Vol] 1.96 10*3/uL 0.83-4.51 [facility] Absolute neutrophil countOrd ered By: Zahra Guerrero on 03-25-2024 Neutrophils (Bld) [#/Vol] 5.5 10*3/uL 2.0-7.7 [facility] Albumin to globulin ratioOrd ered By: Zahra Guerrero on 01-24-2025 Albumin/Globulin [Mass ratio] 0.9 {ratio} 0.9-2.4 [facility] Automated lymphocyte count a s percentage of total leukocytesOrdered By: Zahra Guerrero on 03-25-2024 Lymphocytes/100 WBC Auto (Unsp spec) 20.3 % - [facility] Basophil percentageOrdered B y: Zahra Guerrero on 03-25-2024 Basophils/100 WBC (Bld) 0.8 % 0-1 [facility] Bilirubin Test strip Ql (U)O rdered By: Zahra Guerrero on 03-25-2024 Bilirubin Ql (U) Negative Negative [facility] Bilirubin, totalOrdered By: Zahra Guerrero on 03-25-2024 Bilirubin [Mass/Vol] 0.20 mg/dL 0.20-1.00 [facility] Comment on above: For patients on eltr ombopag therapy, use of Dimension [place] TBIL is not recommended. Blood urea nitrogen (BUN)/cr eatinine ratioOrdered By: Zahra Guerrero on 03-25-2024 Urea nitrogen/Creatinine [Mass ratio] 18.3 mg/mg 10- [facility] CBC W/Diff, Automatedon 03-03 Absolute Lymph 1.96 X10 3/uL Normal 0.83-4.51 [facility] Comment on above: Order Comment: Order Date: 03/25/24Order Info: [id number] - CBCD Performed By: #### M 100.1999, M100.2500 #### [facility] [address] [place], [address] Absolute Neut 5.5 X10 3/uL Normal 2.0-7.7 [facility] Comment on above: Order Comment: Order Date: 03/25/24Order Info: [id number] - CBCD Performed By: #### M 100.1999, M100.2500 #### [facility] [address] [place], [address] Basophils/100 WBC (Bld) 0.8 % Normal 0-1 [facility] Comment on above: Order Comment: Order Date: 03/25/24Order Info: [id number] - CBCD Performed By: #### M 100.1999, M100.2500 #### [facility] [address] [place], [address] Eosinophils/100 WBC (Bld) 14.0 % High 0-5 [facility] Comment on above: Order Comment: Order Date: 03/25/24Order Info: [id number] - CBCD Performed By: #### M 100.1999, M100.2500 #### [facility] [address] [place], [address] Erythrocyte distribution width (RBC) [Ratio] 13.4 % Normal 11.6-14.6 [facility] Comment on above: Order Comment: Order Date: 03/25/24Order Info: [id number]- - CBCD Performed By: #### M 100, M100.2500 #### [facility] [address] [place], [address] Hematocrit (Bld) [Volume fraction] 42.8 % Normal 40-54 [facility] Comment on above: Order Comment: Order Date: 03/25/24Order Info: 018- - CBCD Performed By: #### M , M100.2500 #### [facility] [address] [place], [address] Hemoglobin (Bld) [Mass/Vol] 13.6 g/dL Normal 13.0-16.5 [facility] Comment on above: Order Comment: Order Date: 03/25/24Order Info: [id number] - CBCD Performed By: #### M , M100.2500 #### [facility] [address] [place], [address] IG% 0.400 Normal 0.0-0.9 [facility] Comment on above: Order Comment: Order Date: 03/25/24Order Info: [id number] - CBCD Result Comment: IG% - Immature Granulocytes (promyelocytes, myelocytes and metamyelocytes) > 1% indicates that a LEFT SHIFT is Present. Performed By: #### M 100.1999, M100.2500 #### [facility] [address] [place], [address] Lymphocytes/100 WBC (Bld) 20.3 % Normal 19-41 [facility] Comment on above: Order Comment: Order Date: 03/25/24Order Info: [id number] - CBCD Performed By: #### M 100.1999, M100.2500 #### [facility] [address] [place], [address] MCH (RBC) [Entitic mass] 29.6 pg Normal 27.0-32.0 [facility] Comment on above: Order Comment: Order Date: 03/25/24Order Info: [id number]- - CBCD Performed By: #### M , M100.2500 #### [facility] [address] [place], [address] MCHC (RBC) [Mass/Vol] 31.8 g/dL Low 32-36 [facility] Comment on above: Order Comment: Order Date: 03/25/24Order Info: [id number] - CBCD Performed By: #### M , M100.2500 #### [facility] [address] [place], [address] MCV (RBC) [Entitic vol] 93.0 fL Normal 80-94 [facility] Comment on above: Order Comment: Order Date: 03/25/24Order Info: [id number] - CBCD Performed By: #### M , M100.2500 #### [facility] [address] [place], [address] Monocytes/100 WBC (Bld) 7.0 % Normal 0-10 [facility] Comment on above: Order Comment: Order Date: 03/25/24Order Info: [id number] - CBCD Performed By: #### M , M100.2500 #### [facility] [address] [place], [address] Neutrophils/100 WBC (Bld) 57.5 % Normal 47-70 [facility] Comment on above: Order Comment: Order Date: 03/25/24Order Info: [id number] - CBCD Performed By: #### M 100.1999, M100.2500 #### [facility] [address] [place], [address] Nucleated RBC (Bld) [#/Vol] 0 10*3/uL Normal 0-5 [facility] Comment on above: Order Comment: Order Date: 03/25/24Order Info: [id number] - CBCD Performed By: #### M 100, M100.2500 #### [facility] [address] [place], [address] Platelet mean volume (Bld) [Entitic vol] 9.9 fL Normal 6.2-12.0 [facility] Comment on above: Order Comment: Order Date: 03/25/24Order Info: [id number] - CBCD Performed By: #### M 100.1999, M100.2500 #### [facility] [address] [place], [address] Platelets (Bld) [#/Vol] 340 10*3/uL Normal 150-450 [facility] Comment on above: Order Comment: Order Date: 03/25/24Order Info: [id number] - CBCD Performed By: #### M 100.1999, M100.2500 #### [facility] [address] [place], [address] RBC (Bld) [#/Vol] 4.60 10*6/uL Normal 4.6-6.2 [facility] Comment on above: Order Comment: Order Date: 03/25/24Order Info: [id number] - CBCD Performed By: #### M 100.1999, M100.2500 #### [facility] [address] [place], [address] RDW SD 45.3 fl High 35.1-43.9 [facility] Comment on above: Order Comment: Order Date: 03/25/24Order Info: [id number] - CBCD Performed By: #### M , #### [facility] [address] [place], [address] WBC (Bld) [#/Vol] 9.6 10*3/uL Normal 4.4-11.0 [facility] Comment on above: Order Comment: Order Date: 03/25/24Order Info: [id number] - CBCD Performed By: #### M , #### [facility] [address] [place], [place], [address] Carbon dioxide measurementOr dered By: Zahra Guerrero on 03-25-2024 CO2 [Moles/Vol] 27.0 mmol/L 21.0-32.0 [facility] Chloride measurementOrdered By: Zahra Guerrero on 03-25-2024 Chloride [Moles/Vol] 103 mmol/L 98-107 [facility] Comprehensive Metabolic Prof ilon 03-25-2024 Albumin [Mass/Vol] 3.7 g/dL Normal 3.2-5.0 [facility] Comment on above: Order Comment: Order Date: 03/25/24Order Info: [id number] - CMPOrder Info: [id number] - LIPIDOrder Info: [id number] - MG Performed By: #### M , #### [facility] [address] [place], [place], [address] Albumin/Globulin [Mass ratio] 0.9 {ratio} Normal 0.9-2.4 [facility] Comment on above: Order Comment: Order Date: 03/25/24Order Info: [id number] - CMPOrder Info: [id number] - LIPIDOrder Info: [id number] - MG Performed By: #### M , #### [facility] [address] [place], [address] ALK P 48 U/L Normal 45-117 [facility] Comment on above: Order Comment: Order Date: 03/25/24Order Info: [id number] - CMPOrder Info: [id number] - LIPIDOrder Info: [id number] - MG Performed By: #### M 100.1999, M100.2500 #### [facility] [address] [place], [address] ALT [Catalytic activity/Vol] 28 U/L Normal 16-61 [facility] Comment on above: Order Comment: Order Date: 03/25/24Order Info: [id number] - CMPOrder Info: [id number] - LIPIDOrder Info: [id number] - MG Performed By: #### M 100, M1.2500 #### [facility] [address] [place] [place], [address] AST [Catalytic activity/Vol] 17 U/L Normal 15-37 [facility] Comment on above: Order Comment: Order Date: 03/25/24Order Info: [id number] - CMPOrder Info: [id number] - LIPIDOrder Info: [id number] - MG Performed By: #### M 100.1999, M100.2500 #### [facility] [address] [place], [address] Bilirubin [Mass/Vol] 0.20 mg/dL Normal 0.20-1.00 [facility] Comment on above: Order Comment: Order Date: 03/25/24Order Info: [id number] - CMPOrder Info: [id number] - LIPIDOrder Info: [id number] - MG Result Comment: For patients on eltrombopag therapy, use of Dimension [place] TBIL is not recommended. Performed By: #### M 100.1999, M100.2500 #### [facility] [address] [place], [address] BUN/CRE 18.3 RATIO Normal 10-20 [facility] Comment on above: Order Comment: Order Date: 03/25/24Order Info: [id number] - CMPOrder Info: [id number] - LIPIDOrder Info: [id number] - MG Performed By: #### M 100.1999, M100.2500 #### [facility] [address] [place], [address] CA,Total 9.8 mg/dL Normal 8.5-10.1 [facility] Comment on above: Order Comment: Order Date: 03/25/24Order Info: [id number] - CMPOrder Info: [id number] - LIPIDOrder Info: [id number] - MG Performed By: #### M 100.1999, M100.2500 #### [facility] [address] [place], [address] Chloride [Moles/Vol] 103 mmol/L Normal 98-107 [facility] Comment on above: Order Comment: Order Date: 03/25/24Order Info: [id number] - CMPOrder Info: [id number] - LIPIDOrder Info: [id number] - MG Performed By: #### M 100.1999, M100.2500 #### [facility] [address] [place], [address] CO2 [Moles/Vol] 27.0 mmol/L Normal 21.0-32.0 [facility] Comment on above: Order Comment: Order Date: 03/25/24Order Info: [id number] - CMPOrder Info: [id number] - LIPIDOrder Info: [id number] - MG Performed By: #### M , M100.2500 #### [facility] [address] [place], [address] Creatinine [Mass/Vol] 1.04 mg/dL Normal 0.70-1.30 [facility] Comment on above: Order Comment: Order Date: 03/25/24Order Info: [id number] - CMPOrder Info: [id number] - LIPIDOrder Info: [id number] - MG Result Comment: The validity of the calculated GFR GFRAA in patients over 70 years has not been determined. Clinical correlation is essential. Performed By: #### M 100.1999, .2499 #### [facility] [address] [place], [address] EST GFR - AA 93 mL/min Normal >60 [facility] Comment on above: Order Comment: Order Date: 03/25/24Order Info: [id number] - CMPOrder Info: [id number] - LIPIDOrder Info: [id number] - MG Result Comment: Afri can [place] GFR Calc Performed By: #### M , #### [facility] [address] [place], [address] GAP 9 Normal 5-15 [facility] Comment on above: Order Comment: Order Date: 03/25/24Order Info: [id number] - CMPOrder Info: [id number] - LIPIDOrder Info: [id number] - MG Performed By: #### M , #### [facility] [address] [place], [address] GFR/1.73 sq M.predicted among non-blacks MDRD (S/P/Bld) [Vol rate/Area] 77 mL/min/{1.73_m2} Normal >60 [facility] Comment on above: Order Comment: Order Date: 03/25/24Order Info: [id number] - CMPOrder Info: [id number] - LIPIDOrder Info: [id number] - MG Result Comment: Non- GFR Calc Performed By: #### M , .2499 #### [facility] [address] [place], [address] Globulin (S) [Mass/Vol] 3.9 g/dL Normal 2.2-4.2 [facility] Comment on above: Order Comment: Order Date: 03/25/24Order Info: [id number] - CMPOrder Info: [id number] - LIPIDOrder Info: [id number] - MG Performed By: #### M , #### [facility] [address] [place], [address] Glucose [Mass/Vol] 107 mg/dL High 74-106 [facility] Comment on above: Order Comment: Order Date: 03/25/24Order Info: [id number] - CMPOrder Info: [id number] - LIPIDOrder Info: [id number] - MG Result Comment: Fast ing Glucose result from 100 to 125 mg/dL suggests IMPAIRED HOMEOSTASIS per A.D.A. criteria. Performed By: #### M , #### [facility] [address] [place], [address] Potassium [Moles/Vol] 4.1 mmol/L Normal 3.5-5.1 [facility] Comment on above: Order Comment: Order Date: 03/25/24Order Info: [id number] - CMPOrder Info: [id number] - LIPIDOrder Info: [id number] - MG Performed By: #### M , #### [facility] [address] [place], [address] Sodium [Moles/Vol] 139 mmol/L Normal 136-145 [facility] Comment on above: Order Comment: Order Date: 03/25/24Order Info: [id number] - CMPOrder Info: [id number] - LIPIDOrder Info: [id number] - MG Performed By: #### M , #### [facility] [address] [place], [address] T PROT 7.6 g/dL Normal 6.4-8.2 [facility] Comment on above: Order Comment: Order Date: 03/25/24Order Info: [id number] - CMPOrder Info: [id number] - LIPIDOrder Info: [id number] - MG Performed By: #### M , #### [facility] [address] [place], [address] Urea nitrogen [Mass/Vol] 19 mg/dL High 7-18 [facility] Comment on above: Order Comment: Order Date: 03/25/24Order Info: [id number] - CMPOrder Info: [id number] - LIPIDOrder Info: [id number] - MG Performed By: #### M 100.2000, M100.2500 #### [facility] [address] [place], [address] Eosinophil percentageOrdered By: Zahra Guerrero on 03-25-2024 Eosinophils/100 WBC (Bld) 14.0 % High 0-5 [facility] Epithelial cells.squamous LM Ql (Urine sed)Ordered By: Zahra Guerrero on 03-25-2024 Epithelial cells.squamous LM.HPF (Urine sed) [#/Area] 0 /[HPF] 0-5 [facility] Erythrocyte distribution wid th (RBC) [Ratio]Ordered By: Zahra Guerrero on 03-25-2024 Erythrocyte distribution width (RBC) [Entitic vol] 45.3 fL High 35.1-43.9 [facility] Erythrocyte distribution wid th ratioOrdered By: Zahra Guerrero on 03-25-2024 Erythrocyte distribution width (RBC) [Ratio] 13.4 % 11.6-14.6 [facility] Erythrocyte distribution wid th standard deviationOrdered By: Zahra Guerrero on 03-25-2024 Erythrocyte distribution width (RBC) [Ratio] 45.3 fl High 35.1-43.9 [facility] Estimated glomerular filtrat ion rate (GFR) AmericanOrdered By: Zahra Guerrero on 03-25-2024 Estimated GFR (MDRD) Amer 93 mL/min >60 [facility] Comment on above: GFR Calc Glomerular filtration rate ( GFR) estimationOrdered By: Zahra Guerrero on 03-25-2024 Estimated GFR (MDRD) Non-Af Amer 77 mL/min >60 [facility] Comment on above: Non- GFR Calc GFR/1.73 sq M.predicted among non-blacks MDRD (S/P/Bld) [Vol rate/Area] 77 mL/min/{1.73_m2} >60 [facility] Comment on above: Non- GFR Calc Glucose Ql (U)Ordered By: Leila Guerrero on 03-25-2024 Urine Glucose (UA) Normal mg/dl Normal [facility] Glucose measurementOrdered B y: Zahra Guerrero on 03-25-2024 Glucose [Mass/Vol] 107 mg/dL High 74-106 [facility] Comment on above: Fasting Glucose resu lt from 100 to 125 mg/dL suggests IMPAIRED HOMEOSTASIS per A.D.A. criteria. Hematocrit Auto (Bld) [Volum e fraction]Ordered By: Zahra Guerrero on 03-25-2024 Hematocrit (Bld) [Volume fraction] 42.8 % 40-54 [facility] Hemoglobin measurementOrdere d By: Zahra Guerrero on 03-25-2024 Hemoglobin (Bld) [Mass/Vol] 13.6 g/dL 13.0-16.5 [facility] High density lipoprotein (HD L) measurementOrdered By: Zahra Guerrero on 03-25-2024 Cholesterol in HDL [Mass/Vol] 53 mg/dL >40 [facility] Comment on above: The drugs N-Acetylcy steine and Metamizole may falsely depress this assay. Reference Range HDL <40 mg/dL Low HDL Cholesterol HDL >or= 60 mg/dL High HDL Cholesterol Immature granulocytes/100 WB C Auto (Bld)Ordered By: Zahra Guerrero on 03-25-2024 Immature granulocytes/100 WBC (Bld) 0.400 % 0.0-0.9 [facility] Comment on above: IG% - Immature Granu locytes (promyelocytes, myelocytes and metamyelocytes) > 1% indicates that a LEFT SHIFT is Present. Ketones Test strip Ql (U)Ord ered By: Zahra Guerrero on 03-25-2024 Ketones Ql (U) Negative Negative [facility] - Chemistry and C hemistry - challengeOrdered By: Zahra Guerrero on 03-25-2024 AST [Catalytic activity/Vol] 17 U/L 15-37 [facility] Lipid Profileon 03-25-2024 Cholesterol [Mass/Vol] 242 mg/dL High 200 [facility] Comment on above: Order Comment: Order Date: 03/25/24Order Info: [id number] - CMPOrder Info: [id number] - LIPIDOrder Info: [id number] - MG Result Comment: <200 mg/dL Desirable 200-240 mg/dL Borderline >240 mg/dL High Risk Performed By: #### M 100.1999, M100.2500 #### [facility] [address] [place], [address] Cholesterol in HDL [Mass/Vol] 53 mg/dL Normal [facility] Comment on above: Order Comment: Order Date: 03/25/24Order Info: [id number] - CMPOrder Info: [id number] - LIPIDOrder Info: [id number] - MG Result Comment: The drugs N-Acetylcysteine and Metamizole may falsely depress this assay. Reference Range HDL <40 mg/dL Low HDL Cholesterol HDL >or= 60 mg/dL High HDL Cholesterol Performed By: #### M 100, M1.2499 #### [facility] [address] [place], [address] Cholesterol in LDL [Mass/Vol] 158 mg/dL High 0-130 [facility] Comment on above: Order Comment: Order Date: 03/25/24Order Info: [id number] - CMPOrder Info: [id number] - LIPIDOrder Info: [id number] - MG Performed By: #### M .1999, M1.2500 #### [facility] [address] [place], [address] Cholesterol in VLDL [Mass/Vol] 31 mg/dL Normal 5-40 [facility] Comment on above: Order Comment: Order Date: 03/25/24Order Info: [id number] - CMPOrder Info: [id number] - LIPIDOrder Info: [id number] - MG Performed By: #### M 100, M100.2500 #### [facility] [address] [place], [address] Triglyceride [Mass/Vol] 154 mg/dL Normal [facility] Comment on above: Order Comment: Order Date: 03/25/24Order Info: [id number] - CMPOrder Info: [id number] - LIPIDOrder Info: [id number] - MG Result Comment: The drugs N-Acetylcysteine and Metamizole may falsely depress this assay. Serum Triglycerides Reference Interval Normal <150 mg/dL Borderline high 150 - 199 mg/dL High 200 - 499 mg/dL Very High > or = 500 mg/dL Performed By: #### M 100, M1 #### [facility] [address] [place], [place], [address] Low density lipoprotein (LDL ) cholesterol measurementOrdered By: Zahra Guerrero on 03-25-2024 Cholesterol in LDL [Mass/Vol] 158 mg/dL High 0-130 [facility] Lymphocytes Auto (Unsp spec) [#/Vol]Ordered By: Zahra Guerrero on 03-25-2024 Lymphocytes (Bld) [#/Vol] 1.96 10*3/uL 0.83-4.5 1 [facility] Lymphocytes/100 WBC Auto (Un sp spec)Ordered By: Zahra Guerrero on 03-25-2024 Lymphocytes/100 WBC (Bld) 20.3 % 19-41 [facility] MCV (mean corpuscular volume ) determinationOrdered By: Zahra Guerrero on 03-25-2024 MCV (RBC) [Entitic vol] 93.0 fL 80-94 [facility] Magnesiumon 03-25-2024 Magnesium [Mass/Vol] 2.2 mg/dL Normal 1.6-2.6 [facility] Comment on above: Order Comment: Order Date: 03/25/24Order Info: [id number] - CMPOrder Info: [id number] - LIPIDOrder Info: - MG Performed By: #### M , M1 #### [facility] [address] [place], [address] Magnesium measurementOrdered By: Zahra Guerrero on 03-25-2024 Magnesium [Mass/Vol] 2.2 mg/dL 1.6-2.6 [facility] Mean corpuscular hemoglobin (MCH) determinationOrdered By: Zahra Guerrero on 03-25-2024 MCH (RBC) [Entitic mass] 29.6 pg 27.0-32.0 [facility] Mean corpuscular hemoglobin concentration (MCHC) determinationOrdered By: Zahra Guerrero on 03-25-2024 MCHC (RBC) [Mass/Vol] 31.8 g/dL Low 32-36 [facility] Mean platelet volume determi nationOrdered By: Zahra Guerrero on 03-25-2024 Platelet mean volume (Bld) [Entitic vol] 9.9 fL 6.2-12.0 [facility] Microalb:Creat Ratio,Random URon 03-25-2024 Creatinine [Mass/Vol] 33.60 mg/dL Normal NO RAN GE EST. [facility] Comment on above: Order Comment: Order Date: 03/25/24Order Info: [id number] - MIACRE Performed By: #### M 100.1999, M100.2500 #### [facility] [address] [place], [address] MALB:CRE TNP Normal <30 mg/g CRE [facility] Comment on above: Order Comment: Order Date: 03/25/24Order Info: [id number] - MIACRE Performed By: #### M 100.1999, M100.2500 #### [facility] [address] [place], [address] MICROALBUMIN,UR < 5.0 Normal NO RANGE EST. [facility] Comment on above: Order Comment: Order Date: 03/25/24Order Info: [id number] - MIACRE Performed By: #### M 100.1999, M100.2500 #### [facility] [address] [place], [address] Microscopic analysis of urin e for red blood cells (RBC)Ordered By: Zahra Guerrero on 03-25-2024 Microscopic analysis of urine for red blood cells (RBC) 0 SEEN /hpf 0-5 [facility] Urine RBC 0 SEEN /hpf 0-5 [facility] Monocyte percentageOrdered B y: Zahra Guerrero on 03-25-2024 Monocytes/100 WBC (Bld) 7.0 % 0-10 [facility] Mucus LM Ql (Urine sed)Order ed By: Zahra Guerrero on 03-25-2024 Mucus Ql (Urine sed) 0 SEEN /hpf [facility] Neutrophil percentageOrdered By: Zahra Guerrero on 03-25-2024 Neutrophils/100 WBC (Bld) 57.5 % 47-70 [facility] Nitrite Test strip Ql (U)Ord ered By: Zahra Guerrero on 03-25-2024 Nitrite Ql (U) Negative Negative [facility] Nucleated red blood cell per centageOrdered By: Zahra Guerrero on 03-25-2024 Nucleated RBC/100 WBC (Bld) [Ratio] 0 % 0-5 [facility] Platelet countOrdered By: Leila Guerrero on 03-25-2024 Platelets (Bld) [#/Vol] 340 10*3/uL 150-450 [facility] Potassium measurementOrdered By: Zahra Guerrero on 03-25-2024 Potassium [Moles/Vol] 4.1 mmol/L 3.5-5.1 [facility] Protein Test strip Ql (U)Ord ered By: Zahra Guerrero on 03-25-2024 Protein Ql (U) Negative Negative [facility] RBC Auto (Bld) [#/Vol]Ordere d By: Zahra Guerrero on 03-25-2024 RBC (Bld) [#/Vol] 4.60 10*6/uL 4.6-6.2 [facility] Random urine microalbumin me asurementOrdered By: Zahra Guerrero on 03-25-2024 Urine Random Microalbumin < 5.0 mg/L NO RANGE EST. [facility] Serum anion gap measurementO rdered By: Zahra Guerrero on 03-25-2024 Anion gap [Moles/Vol] 9 mmol/L 5-15 [facility] Serum globulin measurementOr dered By: Zahra Guerrero on 03-25-2024 Globulin (S) [Mass/Vol] 3.9 g/dL 2.2-4.2 [facility] Serum or plasma alanine fernández otransferase (ALT) measurementOrdered By: Zahra Guerrero on 03-25-2024 ALT [Catalytic activity/Vol] 28 U/L 16-61 [facility] Serum or plasma albumin ruchi urement (mass/volume)Ordered By: Zahra Guerrero on 03-25-2024 Albumin [Mass/Vol] 3.7 g/dL 3.2-5.0 [facility] Serum or plasma alkaline elias sphatase measurementOrdered By: Zahra Guerrero on 03-25-2024 ALP [Catalytic activity/Vol] 48 U/L 45-117 [facility] Serum or plasma calcium ruchi urement (mass/volume)Ordered By: Zahra Guerrero on 03-25-2024 Calcium [Mass/Vol] 9.8 mg/dL 8.5-10.1 [facility] Serum or plasma cholesterol measurement (mass/volume)Ordered By: Zahra Guerrero on 03-25-2024 Cholesterol [Mass/Vol] 242 mg/dL High <200 [facility] Comment on above: <200 mg/dL Desirable 200-240 mg/dL Borderline >240 mg/dL High Risk Serum or plasma creatinine m easurement (mass/volume)Ordered By: Zahra Guerrero on 03-25-2024 Creatinine [Mass/Vol] 1.04 mg/dL 0.70-1.30 [facility] Comment on above: The validity of the calculated GFR & GFRAA in patients over 70 years has not been determined. Clinical correlation is essential. Serum or plasma urea nitroge n measurement (mass/volume)Ordered By: Zahra Guerrero on 03-25-2024 Urea nitrogen [Mass/Vol] 19 mg/dL High 7-18 [facility] Sodium levelOrdered By: Zahra Guerrero on 03-25-2024 Sodium [Moles/Vol] 139 mmol/L 136-145 [facility] Squamous epithelial cells de tection in urine sediment by light microscopyOrdered By: Zahra Guerrero on 03-25-2024 Epithelial cells.squamous LM Ql (Urine sed) 0 SEEN /hpf 0-5 [facility] Total proteinOrdered By: [place] Guerrero on 03-25-2024 Protein [Mass/Vol] 7.6 g/dL 6.4-8.2 [facility] Triglycerides measurementOrd ered By: Zahra Guerrero on 03-25-2024 Triglyceride [Mass/Vol] 154 mg/dL <199 [facility] Comment on above: The drugs N-Acetylcy steine and Metamizole may falsely depress this assay.Serum Triglycerides Reference Interval Normal <150 mg/dL Borderline high 150 - 199 mg/dL High 200 - 499 mg/dL Very High > or = 500 mg/dL Urinalysis, Completeon 03-25 WBC 0-5 SEEN Normal 0-5 [facility] Comment on above: Order Comment: CLEAN CATCH Performed By: #### L 400.0001 #### [facility] [address] [place], [address] BACTERIA 0 SEEN Normal None Seen [facility] Comment on above: Order Comment: CLEAN CATCH Performed By: #### L 400.0001 #### [facility] [address] [place], [address] EPI,SQUAMOUS 0 SEEN Normal 0-5 [facility] Comment on above: Order Comment: CLEAN CATCH Performed By: #### L 400.0001 #### [facility] [address] [place], [address] Mucus Ql (Urine sed) 0 SEEN Normal [facility] Comment on above: Order Comment: CLEAN CATCH Performed By: #### L 400.0001 #### [facility] [address] [place], [address] RBC 0 SEEN Normal 0-5 [facility] Comment on above: Order Comment: CLEAN CATCH Performed By: #### L 400.0001 #### [facility] [address] [place], [address] Urine albumin/creatinine rat io for detection of microalbuminuriaOrdered By: Zahra Guerrero on 03-25-2024 Urine Microalbumin/Creatinine Ratio TNP [facility] Comment on above: Test not performed Urine blood detectionOrdered By: Zahra Guerrero on 03-25-2024 Urine Occult Blood Negative Negative [facility] Urine clarityOrdered By: [place] Guerrero on 03-25-2024 Clarity (U) Clear Clear [facility] Urine color determinationOrd ered By: Zahra Guerrero on 03-25-2024 Color (U) Yellow Yellow [facility] Urine creatinine measurement (mass/volume)Ordered By: Zahra Guerrero on 03-25-2024 Creatinine (U) [Mass/Vol] 33.60 mg/dL NO RANGE EST. [facility] Urine glucose detectionOrder ed By: Zahra Guerrero on 03-25-2024 Glucose Ql (U) Normal mg/dl Normal [facility] Urine leukocyte esterase det ection by dipstickOrdered By: Zahra Guerrero on 03-25-2024 Leukocyte esterase Test strip Ql (U) 25 /ul High Negative [facility] Urine pHOrdered By: Zahra lynch on 03-25-2024 pH (U) 7.0 [pH] 5.0 - 8.0 [facility] Urine sediment bacteria coun t by microscopy (number/high power field)Ordered By: Zahra Guerrero on 03-25-2024 Bacteria LM.HPF (Urine sed) [#/Area] 0 /[HPF] None Seen [facility] Urine specific gravity measu rementOrdered By: Zahra Guerrero on 03-25-2024 Specific gravity (U) [Rel density] 1.010 1.002-1.030 [facility] Urine urobilinogen measureme ntOrdered By: Zahra Guerrero on 03-25-2024 Urobilinogen Ql (U) Normal mg/dl Normal [facility] Urobilinogen Ql (U)Ordered B y: Zahra Guerrero on 03-25-2024 Urine Urobilinogen Normal mg/dl Normal [facility] Very low density lipoprotein (VLDL) cholesterol measurementOrdered By: Zahra Guerrero on 03-25-2024 Very low density lipoprotein (VLDL) cholesterol measurement 31 mg/dL 5-40 [facility] VLDL Cholesterol 31 mg/dL 5-40 [facility] White blood cell (WBC) count Ordered By: Zahra Guerrero on 03-25-2024 WBC (Bld) [#/Vol] 9.6 10*3/uL 4.4-11.0 [facility] White blood cell countOrdere d By: Zahra Guerrero on 03-25-2024 Urine WBC 0-5 SEEN /hpf 0-5 [facility] White blood cell count 0-5 SEEN /hpf 0-5 [facility] Hemoglobin A1con 03-24-2024 HbA1c (Bld) [Mass fraction] 6.4 % High 3.8-5.6 [facility] Comment on above: Order Comment: Order Date: 03/24/24 Order Info: [id number] - A1C Result Comment: Norm al < 5.7 % Prediabetic 5.7 - 6.4 % Diabetic >or= 6.5 % Please note range changes. Performed By: #### L [id number] #### [facility] [place], [address] Hemoglobin A1c percentageOrd ered By: Kayden Terrell on 03-24-2024 HbA1c (Bld) [Mass fraction] 6.4 % High 3.8-5.6 [facility] Comment on above: Normal < 5.7 % Predi abetic 5.7 - 6.4 % Diabetic >or= 6.5 % Please note range changes. CNOVon 03-14-2024 CNOV Office Visit (RHBATH ) JONEL TERRELL ([id number]) 1960 M Date Time Provider Department 03/14/24 3:00 PM [facility] During your visit today, we recorded the following information about you: Pulse Respiration Blood pressure 72/minute 13/minute 128/76 Sharron Toribio MD 03/14/2024 3:58 PM Signed RHEUMATOLOGY PROGRESS NOTE Patient is here for a follow up visit for Patient presents with: Joint Pain HPI: Jonel Tejeda Xander is a 63 year old male who presents joint pain He has not been on SSZ for a dental infection. Was on penicillin for 3 months. Having a lot of stomach issues, on PPI. Started taking Mag which has been helping with neck/shoulder pain. Sometimes takes tylenol. Brief Rheumatological history - He stopped SSZ in apr, 2023. Did not have any symptoms. Dark urine x 1 month. Went to PCP. Was told he was dehydrated. Resumed SSZ August 10. Thinks it helped with pain. He has been mowing. Shoulder and knee pain Brief Rheumatological history - Cold sweats and shaking when he started SSZ. He took for a week. Side effects subsided when he stopped SSZ. He went to ER HISTORY OF PRESENT ILLNESS Base of neck and b/w shoulder blades, Severe wrist pain, carpal tunnel ? Xray : arthritis : somewhat 6 months ago Pain was tremendous Prednisone: 1 day and pain went away Mother : RA, psoriasis Brother : psoriasis Psoriasis : scalp: coltar, right hand, scalp, clinical diagnosis, never been to physical therapy nurse Morning stiffness : not much Had that for several days , whole hand swollen, by next day pain was completely gone Work : [employer], had fluid pockets on base of his knees, not employed right now Right big toe: long time ago 2 or 3 more episodes with it that were milder Diabetes well controlled No numbness and tingling No gi issues Brief Rheumatological history - Jan 2021 - Bilateral Hand, wrist swelling, pain, weakness. PCP prescribed prednisone which helped. Symptoms returned after he finished the pred course. Hot epsom salt water helps. Currently pain subsided. He had gout one time podagra. Not had a flare up of gout for sometimes. He tried several OTC tylenol, NSAIDs. h/o possible dactylitis HTN, DM2, HLP, asthma, gout, HASMUKH, obesity He may have psoriasis? Uses cream. "water in knees" did not seek treatment at that time. [place] Family h/o autoimmune disease - mother had PsA, brother with psorsis Smoking - ex smoker Interval Review of Systems CONSTITUTIONAL: Recent Weight change: YES losing unintentional Fever: No EYES: Dryness in nose: No Dryness of mouth: No Oral ulcers: No CARDIOVASCULAR: Pain in chest: No RESPIRATORY: Shortness of breath: No Cough: No GASTROINTESTINAL: Nausea: No Vomiting: No Changes in bowel movements: No Jaundice: No Heartburn: No MUSCULOSKELETAL: Per HPI INTEGUMENTARY: Rash: No HEMATOLOGIC/LYMPHATIC : Anemia: No NEUROLOGICAL SYSTEM: Headaches: No Sensitivity or pain of hands and/or feet: No PSYCHIATRIC: Anxiety: No Poor sleep: No PAST MEDICAL HISTORY Diagnosis Date Abdominal pain, other specified site LLQ,RLQ Anal or rectal pain Other and unspecified hyperlipidemia Other constipation PAST SURGICAL HISTORY Procedure Laterality Date COLONOSCOPY FLX DX W/COLLJ SPEC WHEN PFRMD 10/12/2007 Colonoscopy PAST SURGICAL HISTORY OF umb hernia History Review: I have reviewed and modified as needed, the following during this visit: Allergies, Past Medical History, Past Surgical History, Past Family History, Past Social History. BP 128/76 Pulse 72 Resp 13 Physical Exam GENERAL: Well appearing, alert, comfortable, in no acute distress, well-hydrated, well nourished. HEENT: Negative for external ears normal. Canals are clear. Both TMs visualized and are normal. Eye Exam normal. External nose normal, no nasal ulcer or throat ulcer. NECK: NECK Supple, no adenopathy; thyroid symmetric, normal size, no bruits CARDIAC: regular rate and rhythm, No murmur asculated., and Equal peripheral pulses RESPIRATORY: Lungs clear to auscultation. No wheezing, rhonchi, rales VASCULAR: RRR without murmur, gallop, or rubs. No ectopy. NEURO: Motor and sensory exam normal MOTOR: Normal; including tone, gait, stressed gait, power and coordination. SKIN: Negative for alopecia, skin rash, malar rash, skin lesion, skin ulcer, pits, thickening, color changes, telangiectasias, nail changes, nail ridging, nail pitting, onycholysis MUSCULOSKELETAL: DIPS: Normal PIPS: Normal MCPs: Normal Wrists: Normal Elbows: Normal Shoulders: Normal C-Spine: Normal Hips: Normal Knees: Normal Ankles: Normal MTPs / Toes: Normal Arches: Normal Lab Results: Glucose 122 06/27/2021 ALT 20 06/27/2021 WBC 7.88 06/27/2021 Hemoglobin 13.8 06/27/2021 Platelet Count 267 06/27/2021 Sed Rate, Westergren 12 4/ (more content not included)... Normal [facility] Esophagus Dual Contraston Esophagus Dual Contrast [facility] Imaging Services [address] [place] [address] Esophagus Dual Contrast MR#: [id number] Acct: [id number] Name: DEONTE TERRELLALAN Tejeda Rep #: [id number] : 1960 M 63 From: Blayne whitney MD PCP: Dr. Zahra Guerrero MD Status: REG CLI Study: Esophagus Dual Contrast Date of Exam: 02/18/24 Exam# [id number] Ordering Dr: Heber Keller MD [id number] STUDY: X-RAY - ESOPHAGUS (BARIUM SWALLOW) WITH FLUOROSCOPY REASON FOR EXAM: Male, 63 years old. GERD,DYSPHGIA TECHNIQUE: 66 fluoroscopic view(s) of the esophagus were obtained following swallowing of barium. FLUOROSCOPY TIME (if supplied): (36 seconds) minutes/seconds. 37.9 mGy COMPARISON: None. FINDINGS: There is no demonstrated esophageal foreign body. There is no demonstrated stricture or mucosal abnormality. Normal gastroesophageal junction, without a demonstrated hiatal hernia. The patient ingested a 12 mm tablet of barium without any difficulty. Normal visualized aortic arch and descending thoracic aorta. Normal visualized pulmonary parenchyma. There are degenerative changes of the visualized thoracic spine. RAD/Esophagus Dual Contrast IMPRESSION: Normal plain film x-ray examination (barium swallow) of the esophagus. Electronically Signed: Blayne Novak MD at 10:51 EST Reading Location ID and State: [address] [place] [address] , Service support , CC: Dr. Heber Keller MD; Dr. Zahra Guerrero MD Net Application Architect: Signed Normal [facility] CREATININE FINGERSTICKon CREATININE WB < 1.0 Normal 0.70-1.30 [facility] Comment on above: Performed By: #### M 100.2000, M100.2500 #### [facility] [address] [place], [place], [id number] EGFR WB > 60.0000 Normal >60 [facility] Comment on above: Performed By: #### M 100.2000, M100.2500 #### [facility] [address] [place], [address] CTA Chest W/WO Contraston CTA Chest W/WO Contrast [facility] Imaging Services [address] [place] [address] CTA Chest W/WO Contrast MR#: [id number] Acct: [id number] Name: JONEL TERRELL Rep #: [id number] : 1960 M 63 From: Mike Tejeda PCP: Dr. Zahra Guerrero MD Status: REG CLI Study: CTA Chest W/WO Contrast Date of Exam: 01/20/24 Exam# [id number] Ordering Dr: Lu Styles MD [id number] STUDY: CTA CHEST REASON FOR EXAM: Male, 63 years old. Aortic root aneurysm, CAD, LVH -- Aortic root aneurysm, CAD RADIATION DOSAGE (If Supplied By Facility): CTDIvol = ( 18.80 ) mGy, DLP = ( 838.76 ) mGycm TECHNIQUE: The examination was performed with the intravenous administration of IV 100mL Isovue-370. Post-processing of the angiographic images was performed, with multiplanar reformation and 3D reconstruction. The protocol utilizes one or more of the following dose reduction techniques: automated exposure control, adjustment of mA and/or kV according to patient size,and/or use of iterative reconstruction technique. COMPARISON: No relevant prior comparison study available FINDINGS: Normal enhancement of the main pulmonary artery and right and left pulmonary arteries. Normal enhancement of the bilateral peripheral pulmonary arteries. There is no demonstrated pulmonary embolism. Borderline dilatation of the ascending thoracic aorta measuring up to 4 cm AP diameter. Mild atherosclerotic calcifications of the aortic arch. There is no demonstrated aortic dissection. Normal heart and pericardium. Mild coronary calcifications. Normal mediastinum. Normal hilar regions. Normal visualized trachea and bronchi. There are no pulmonary infiltrates. 3 mm right lower lobe nodule on image 83 series 2 for which no further follow-up examination is needed. There are no pleural effusions. Normal chest wall structures. Mild degenerative changes of the thoracic spine. No demonstrated acute changes in the visualized upper abdomen. Probable hepatic steatosis. CT/CTA Chest W/WO Contrast IMPRESSION: 1. Borderline aneurysm of the ascending thoracic aorta measuring up to 4 cm in AP diameter. 2. No acute pulmonary infiltrate, adenopathy or pleural effusions. 3. Small right lower lobe nodule for which no further follow-up exam is needed other than routine annual screening (lung RADS 2). Electronically Signed: Mike Moy MD at 15:38 EST , CC: Dr. Lu Styles MD; Dr. Zahra Guerrero MD Net Application Architect: Signed Normal [facility] Cardiology Visit Reporton Cardiology Visit Report [facility] [address] [place] [address] OFFICE VISIT Date of Service: 12/29/23 MR#: [id number] Acct: [id number] Name: JONEL TERRELL Rep #: [id number] : 1960 Provider: Dr. Lu Styles MD Age/Sex: 63/M [place] [facility] Status: Signed HPI [facility] History of Present Illness Details: Mr. Nathan is here for routine follow-up visit. Denies any chest pains. No shortness of breath. No palpitations. No orthopnea or PND. Occasional ankle edema. Intake Vital Signs 09/02/23 21:01 12/21/23 07:26 12/29/23 08:40 Height 6 ft 6 ft 6 ft Weight: 278 lb 279 lb BMI 37.7 37.8 BP 131/83 H 139/78 H Blood Pressure Location Lt brachial Lt brachial Position Sitting Sitting Respiration 16 18 Pulse 64 54 L Pulse Source Monitor NIBP Temp 97.5 F L Temperature Source Temporal Artery Pulse Oximetry (%) 97 Oxygen Delivery Method room air Intake Visit Reasons: 7 M Vehicle Dismantler Required: No Accompanied by: Self Is patient in pain?: No Allergies peanut Allergy (Severe, Verified 12/29/23 13:59) Anaphylaxis lisinopril Allergy (Intermediate, Verified 12/29/23 13:59) Angioedema metronidazole (From Flagyl) Allergy (Verified 12/29/23 13:59) Hives amlodipine Adverse Reaction (Mild, Verified 12/29/23 13:59) Rash Medications ???Medication ???Instructions ???Recorded ???Confirmed ???Type aspirin 81 mg tablet,delayed 81 mg PO QDAY heart 04/02/17 12/29/23 History release (Adult Low Dose Aspirin) atorvastatin 40 mg tablet 40 mg PO QHS cholesterol 04/02/17 12/29/23 History metformin 1,000 mg tablet 1,000 mg PO BIDWMEAL 09/11/22 12/29/23 History metoprolol succinate 50 mg 50 mg PO DAILY 09/11/22 12/29/23 History tablet,extended release 24 hr albuterol sulfate 90 mcg/actuation 2 puff inhalation Q6H PRN 12/21/23 12/29/23 Rx aerosol inhaler shortness of breath or wheezing #8.5 grams mometasone-formoterol HFA 200 2 puff inhalation BID #3 ea 12/21/23 12/29/23 Rx mcg-5 mcg/actuation aerosol inhaler (Dulera) montelukast 10 mg tablet 10 mg PO QPM #90 tabs 12/21/23 12/29/23 Rx triamcinolone acetonide 55 mcg 2 spray intranasal DAILY #16.9 mL 12/21/23 12/29/23 Rx nasal spray aerosol (Nasacort Allergy) Ejection fraction %: 55 Have you fallen in the past year?: No PFSH Medical History Acid reflux Allergic rhinitis Aortic root aneurysm Arthritis Asthma BPPV (benign paroxysmal positional vertigo) CAD (coronary artery disease) Cervical radiculopathy DDD (degenerative disc disease), cervical Dental abscess Diabetes Gout Hand pain Hemorrhoids Hyperlipemia Hypertension Lightheadedness LVH (left ventricular hypertrophy) Mild intermittent asthma Morbid obesity Neck pain Nonspecific dizziness HASMUKH (obstructive sleep apnea) Polyarticular psoriatic arthritis Pulmonary nodules Tear of biceps muscle Tobacco dependence in remission Surgical History Hx of colonoscopy Hx of umbilical hernia repair Hannah teeth removed Family History Mother Asthma Social History Smoking Status: Current some day smoker tobacco type: cigars Smokeless tobacco user: chewing tobacco how long ago did patient quit smokin, 2p/day second hand exposure: Yes alcohol intake: current alcohol intake frequency: a few times a month substance use type: does not use caffeine: Yes Type: coffee Number of servings: 10 what type of physical activity do you participate in: none frequency: does not exercise seatbelt use: always ROS Const Const: Negative for fatigue, weakness, headache(s) or weight gain ENT ENT: Negative for headache(s), dizziness, Nosebleed/epistaxis or balance problems Cardio Chest Pain: No Palpitations: No Edema: None Muscle aches with walking: None Resp Respiratory: Negative for SOB with activity, SOB at rest or SOB orthopnea SOB lying down GI GI: Negative nausea, vomiting or heartburn Musc Musc: Negative for muscle aches/ myalgia, muscle weakness, joint pain or balance problems Neuro Neuro: Negative for dizziness, lightheadedness, near syncope, syncope, headache(s) or weakness Endo Endo: Negative for fatigue Cardiology Exam Const Appearance: comfortable and no acute distress Nutritional Appearance: obese Neck Neck: no JVD Carotids: Negative bruit Chest Auscultation: Bilateral: Clear to Auscultation Cardio Rate: regular rate Rhythm: regular rhythm Heart sounds: S1 normal and S2 normal GI GI: obese Neuro General: patient alert, patient awake and patient oriented x3 Extremities Lower Extremit (more content not included)... Normal [facility] PSA,Total - Annual Screenon 12-22-2023 PSA,TOT SCREEN 1.10 ng/mL Normal 0.00-4.00 [facility] Comment on above: Order Comment: Order Date: 12/22/23 Order Info: [id number] - PSA Comments: screening Result Comment: This test was performed using the TPSA assay method for the [employer] chemistry system. Values obtained with different assay methods cannot be used interchangably. When changing PSA assays in the course of monitoring a patient, additional sequential testing should be carried out to confirm baseline values. Performed By: #### L [id number] #### [facility] [address] [place], [address] Pulmonary Visit Reporton Pulmonary Visit Report [facility] [address] [place] [address] OFFICE VISIT Date of Service: 12/21/23 MR#: [id number] Acct: [id number] Name: JONEL TERRELL Rep #: [id number] : 1960 Provider: RODRIGO Modi Age/Sex: 63/M [place] [facility] Status: Signed Assessment and Plan Assessment and Plan (1) Asthma: Status: Chronic Qualifiers: Asthma severity: unspecified severity Asthma persistence: unspecified Asthma complication type: unspecified Qualified Code(s): J45.909 - Unspecified asthma, uncomplicated Plan: Stable, no signs of exacerbation of asthma today. No change in maintenance medications, symptomatically controlled with use of Dulera, Singulair and Nasacort. No additional testing at this time. Contact the office with any signs of new or worsening symptoms. Follow-up in 1 year. (2) Morbid obesity: Status: Chronic Plan: Complicates exam, plan, care and prognosis. Encourage healthy weight loss. (3) HASMUKH (obstructive sleep apnea): Status: Chronic Comment: 12/11 cmH20 Plan: Noncompliant. Medications: Refilled triamcinolone acetonide (Nasacort Allergy) administer into each nostril 2 sprays intranasal DAILY 16.9 mL 11RF albuterol sulfate 90 mcg/actuation administer with spacer 2 puffs inhalation Q6H PRN 8.5 grams 11RF shortness of breath or wheezing montelukast 10 mg PO QPM 90 tabs 3RF mometasone-formoterol 200-5 mcg/actuation (Dulera) 2 puffs inhalation BID 3 ea 3RF Discontinued prednisone X 5 days Discontinued Reason: Order Completed 40 mg PO DAILY azithromycin (Zithromax) Discontinued Reason: Order Completed For 250 mg dose pack: take 500 mg today (day 1), then 250 mg for 4 days (days 2-5) PO hydrocodone-acetamino phen 5-325 mg Discontinued Reason: Order Completed 1 TAB PO Q6H PRN 3 days PRN 10 TABLETS 0RF Pain K08.89 - Other specified disorders of teeth and supporting structures penicillin V potassium Discontinued Reason: Order Completed 500 mg PO 4X/DAY 40 tabs 0RF Plan Details Follow Up: 1 Year (LR) HPI 1 Y FU Chief Complaint: ROUTINE FOLLOW UP HPI Comments Details: This patient presents to the office today for follow-up of his asthma complicated by obstructive sleep apnea for which she is not compliant. He is ambulatory and currently on room air. He has not recently been seen in the ED or urgent care for any respiratory illness. He has not required any antibiotics or prednisone for any breathing problems. He is compliant with use of Dulera 2 puffs twice daily. He also uses Singulair and Nasacort daily. He rinse his mouth out after the use of Dulera, he denies any medication side effect such as sore throat or thrush. He is not requiring albuterol. He estimates that he probably smokes a cigar 1 or 2 times per month. He quit smoking cigarettes back in 1979. He denies any difficulty with shortness of breath. He denies any cough, sputum production or hemoptysis. He denies any wheezing, chest tightness, chest pain or palpitations. He also denies any fever, chills or body aches. Intake Vital Signs 12/17/22 07:51 09/02/23 21:01 12/21/23 07:26 Height 6 ft 6 ft 6 ft Weight: 278 lb BMI 37.7 BP 131/83 H Blood Pressure Location Lt brachial Position Sitting Respiration 16 Pulse 64 Pulse Source Monitor Temp 97.5 F L Temperature Source Temporal Artery Pulse Oximetry (%) 97 Oxygen Delivery Method room air Intake Visit Reasons: 1 Y FU Chief Complaint: HASMUKH DME Vendor: N/A Accompanied by: Self Allergies peanut Allergy (Severe, Verified 12/21/23 11:18) Anaphylaxis lisinopril Allergy (Intermediate, Verified 12/21/23 11:18) Angioedema metronidazole (From Flagyl) Allergy (Verified 12/21/23 11:18) Hives amlodipine Adverse Reaction (Mild, Verified 12/21/23 11:18) Rash Medications ???Medication ???Instructions ???Recorded ???Confirmed ???Type aspirin 81 mg tablet,delayed 81 mg PO QDAY heart 04/02/17 12/21/23 History release (Adult Low Dose Aspirin) atorvastatin 40 mg tablet 40 mg PO QHS cholesterol 04/02/17 12/21/23 History metformin 1,000 mg tablet 1,000 mg PO BIDWMEAL 09/11/22 12/21/23 History metoprolol succinate 50 mg 50 mg PO DAILY 09/11/22 12/21/23 History tablet,extended release 24 hr albuterol sulfate 90 mcg/actuation 2 puff inhalation Q6H PRN 12/21/23 12/21/23 Rx aerosol inhaler shortness of breath or wheezing #8.5 grams mometasone-formoterol HFA 200 2 puff inhalation BID #3 ea 12/21/23 12/21/23 Rx mcg-5 mcg/actuation aerosol inhaler (Dulera) montelukast 10 mg tablet 10 mg PO QPM #90 tabs 12/21/23 12/21/23 Rx triamcinolone acetonide 55 mcg 2 spray intranasal DAILY #16.9 mL 12/21/23 12/21/23 Rx nasal spray aerosol (Nasacort Allergy) [facility] Medical History (Re (more content not included)... [facility] 10-19-2023 [facility] Telephone (RHBATH) JONEL TERRELL ([id number]) 1960 M Date Time Provider Department 10/19/[address] [facility] During your visit today, we recorded the following information about you: Jade Salazar LPN 10/19/2023 11:30 AM Signed Patient states he has been off sulfasalazine since 08/28/2023 because he has an abscessed wisdom tooth/dental infection. Pharmacist advised patient not to take sulfasalazine with antibiotics. Patient has completed the antibiotic, last dose was on 10/11/2023. The infection is not resolved. Patient is not sure if they are putting him on another antibiotic, he has been on three different antibiotics. Patient will call with update when he is able to go back on sulfasalazine. Left detailed voice message instructed patient to follow up with Dentist because an unresolved dental infection can be serious and can also be life-threatening. Jade Salazar LPN Allergies As of Date: 10/19/2023 Noted Allergy Reaction FLAGYL (METRONIDAZOLE) 02/24/2022 14 - Other: See Comments Comments: Feels flushed and sweaty and makes the skin on the inside of his mouth peel. LISINOPRIL 11/22/2016 14 - Other: See Comments Comments: Lips and throat swelled peanut butter [Other] 10/07/2007 10 - Anaphylaxis Date Reviewed: 10/19/2023 Reviewed by: Jade Salazar LPN - Fully Assessed Reason for Visit: Patient Update [1234] Prescriptions as of 10/19/2023 - sulfaSALAzine (AZULFIDINE) 500 mg tablet take 1 tablet by mouth once daily - metoprolol succinate ER (TOPROL XL) 25 mg 24 hr tablet Take 50 mg by mouth once daily. - mometasone-formoterol (DULERA) 200-5 mcg/actuation inhaler Inhale as instructed twice daily. - betamethasone valerate 0.1 % cream Apply to affected area twice daily. - lancets (ONETOUCH DELICA PLUS LANCET MISC) - albuterol HFA (PROVENTIL HFA, VENTOLIN HFA) 90 mcg/actuation inhaler Inhale 2 Puffs as instructed every 6 hours as needed for wheezing/shortness of breath. - metFORMIN (GLUCOPHAGE) 500 mg tablet Take 1,000 mg by mouth twice daily with meals. - atorvastatin (LIPITOR) 20 mg tablet Take 40 mg by mouth once daily. - aspirin, enteric coated (ASPIRIN, ENTERIC COATED) 81 mg EC tablet Take 81 mg by mouth once daily. - fluticasone-salmetero l (ADVAIR, WIXELA) 250-50 mcg/dose inhaler Inhale 1 Puff as instructed two times a day. - TRIAMCINOLONE ACETONIDE (NASACORT NASAL) Use in the nose. Problem List As Of Date 10/19/2023 Noted Resolved CONSTIPATION NOS [K59.00] 10/12/2007 Psoriatic arthropathy (HCC) [L40.50] 12/01/2022 Primary osteoarthritis involving multiple joint*12/01/2022 Encounter Status:Closed by JADE SALAZAR on 10/19/23 Normal [facility] Emergency Department Summary on 09-22-2023 Emergency Department Summary [facility] Medical Records Department [address] [place] [address] Emergency Department Summary 09/22/23 MR#: [id number] Acct: [id number] Name: JONEL TERRELL Rep #: [id number] : [id number] 63 From: Abhilash Lozano MD PCP: Dr. Zahra Guerrero MD Status:DEP ER Location: ED HPI History of Present Illness Chief Complaint: Dental Informant: patient Onset/Context/Timing Onset: Days Context: Gradual Onset Timing: Continuous Current Severity: Mild Maximum Severity: Mild Associated Symptoms Assocated Symptom - Dental: jaw swelling Narrative Narrative: 63-year-old male initially seen on September 01 dictation was either lost or misses being redictated now on 09/22/2023. Chief complaint is dental pain left lower molar. Several days. Pain and swelling. No fever. No trouble swallowing or breathing. He has appointment to see a dentist on 09/08/2023. Patient is a history of diabetes and CAD. Prior similar symptoms: Yes PFSH PFSH Medical History Dental abscess Polyarticular psoriatic arthritis BPPV (benign paroxysmal positional vertigo) Tear of biceps muscle Neck pain Cervical radiculopathy DDD (degenerative disc disease), cervical Hand pain Pulmonary nodules CAD (coronary artery disease) Lightheadedness Nonspecific dizziness Allergic rhinitis Tobacco dependence in remission Morbid obesity Asthma Hemorrhoids Acid reflux Arthritis Gout Diabetes Hypertension HASMUKH (obstructive sleep apnea) Mild intermittent asthma Aortic root aneurysm Hyperlipemia LVH (left ventricular hypertrophy) Home Medications ???Medication ???Instructions ???Recorded ???Last Taken ???Type aspirin 81 mg tablet,delayed 81 mg PO QDAY heart 04/02/17 08/25/17 History release (Adult Low Dose Aspirin) atorvastatin 40 mg tablet 40 mg PO QHS cholesterol 04/02/17 08/24/17 History metformin 1,000 mg tablet 1,000 mg PO BIDWMEAL 09/11/22 Unknown History metoprolol succinate 50 mg 50 mg PO DAILY 09/11/22 Unknown History tablet,extended release 24 hr hydrocodone-acetamino phen 5-325mg 1 tab PO Q6H PRN PRN Pain 3 days 10/20/22 Unknown Rx 5mg-325mg #10 TABLETS mometasone-formoterol HFA 200 2 puff inhalation BID #13 grams 11/04/22 Unknown Rx mcg-5 mcg/actuation aerosol inhaler (Dulera) azithromycin 250 mg tablet See Rx Instructions PO .COMPLEX 04/16/23 Unknown History (Zithromax) prednisone 20 mg tablet 40 mg PO DAILY 04/16/23 Unknown History albuterol sulfate 90 mcg/actuation 2 puff inhalation Q6H PRN 06/04/23 Unknown Rx aerosol inhaler shortness of breath or wheezing #8.5 grams montelukast 10 mg tablet 10 mg PO QPM #30 tabs 06/04/23 Unknown Rx triamcinolone acetonide 55 mcg 2 spray intranasal DAILY #16.9 mL 06/04/23 Unknown Rx nasal spray aerosol (Nasacort Allergy) penicillin V potassium 500 mg 500 mg PO 4X/DAY #40 tabs 09/02/23 Unknown Rx tablet Allergy/AdvReac Type Severity Reaction Status Date / Time peanut Allergy Severe Anaphylaxis Verified 09/02/23 21:01 lisinopril Allergy Intermediate Angioedema Verified 09/02/23 21:01 metronidazole (From Flagyl) Allergy Hives Verified 09/02/23 21:01 amlodipine AdvReac Mild Rash Verified 09/02/23 21:01 Family History Mother Asthma Surgical History Hx of colonoscopy Hx of umbilical hernia repair Social History Smoking Status: Current some day smoker tobacco type: cigars Smokeless tobacco user: chewing tobacco how long ago did patient quit smokin, 2p/day second hand exposure: Yes alcohol intake: current alcohol intake frequency: a few times a month substance use type: does not use caffeine: Yes Type: coffee Number of servings: 10 what type of physical activity do you participate in: none frequency: does not exercise seatbelt use: always ROS ROS ED ROS Narrative Jaw and dental pain. Constitutional Constitutional ED: Denies chills or fever(s) Eyes Eyes: Denies blurry vision ENT ENT ED: Denies ear pain Cardiovascular Cardiovascular: Denies chest pain Respiratory/Chest Respiratory/Chest: Denies cough Gastrointestinal Gastrointestinal: Denies abdominal pain Genitourinary Genitourinary ED: Denies dysuria or hematuria Integumentary Denies abscess Neurologic Neurologic: Denies headache(s) Psychiatric Psychiatric: Denies anxiety or depression Endocrine Endocrinology: Denies cold intolerance Hematologic/Lymphatic Hematologic/Lymphatic : Denies easy bleeding Allergic/Immunologic Allergic/Immunologic ED: Denies mouth swelling, tongue swelling or urticaria EXAM Physical Exam Narrative Exam Narrative: 63-year-old male no (more content not included)... Normal [facility] Absolute lymphocyte countOrd ered By: Zahra Guerrero on 04-14-2023 Lymphocytes Auto (Unsp spec) [#/Vol] 1.94 10*3/uL 0.83-4.51 [facility] Automated lymphocyte count a s percentage of total leukocytesOrdered By: Zahra Guerrero on 04-14-2023 Lymphocytes/100 WBC Auto (Unsp spec) 24.3 % 19-41 [facility] Basophil percentageOrdered B y: Zahra Guerrero on 04-14-2023 Basophils/100 WBC (Bld) 0.8 % 0-1 [facility] Bilirubin [Mass/Vol] 0.40 mg/dL 0.20-1.00 [facility] Comment on above: For patients on eltr ombopag therapy, use of Dimension Silver Star TBIL is not recommended. Chloride [Moles/Vol] 110 mmol/L 98-107 [facility] Cholesterol [Mass/Vol] 175 mg/dL <200 [facility] Comment on above: <200 mg/dL Desirable 200-240 mg/dL Borderline >240 mg/dL High Risk Eosinophils/100 WBC (Bld) 21.0 % 0-5 [facility] Glucose [Mass/Vol] 121 mg/dL 74-106 [facility] Comment on above: Fasting Glucose resu lt from 100 to 125 mg/dL suggests IMPAIRED HOMEOSTASIS per A.D.A. criteria. Hemoglobin (Bld) [Mass/Vol] 13.6 g/dL 13.0-16.5 [facility] Monocytes/100 WBC (Bld) 8.4 % 0-10 [facility] Neutrophils (Bld) [#/Vol] 3.6 10*3/uL 2.0-7.7 [facility] Neutrophils/100 WBC (Bld) 45.1 % 47-70 [facility] Potassium [Moles/Vol] 4.5 mmol/L 3.5-5.1 [facility] Protein [Mass/Vol] 7.0 g/dL 6.4-8.2 [facility] Sodium [Moles/Vol] 141 mmol/L 136-145 [facility] Triglyceride [Mass/Vol] 53 mg/dL <199 [facility] Comment on above: The drugs N-Acetylcy steine and Metamizole may falsely depress this assay.Serum Triglycerides Reference Interval Normal <150 mg/dL Borderline high 150 - 199 mg/dL High 200 - 499 mg/dL Very High > or = 500 mg/dL WBC (Bld) [#/Vol] 8.0 10*3/uL 4.4-11.0 [facility] Determination of erythrocyte mean corpuscular volume (MCV)Ordered By: Zahra Guerrero on 04-14-2023 MCV (RBC) [Entitic vol] 95.9 fL 80-94 [facility] Erythrocyte distribution wid th ratioOrdered By: Zahra Guerrero on 04-14-2023 Erythrocyte distribution width (RBC) [Ratio] 12.7 % 11.6-14.6 [facility] Erythrocyte distribution wid th standard deviationOrdered By: Zahra Guerrero on 04-14-2023 Erythrocyte distribution width (RBC) [Entitic vol] 44.5 fL 35.1-43.9 [facility] Hematocrit Auto (Bld) [Volum e fraction]Ordered By: Zahra Guerrero on 04-14-2023 Hematocrit (Bld) [Volume fraction] 42.0 % 40-54 [facility] Immature granulocytes/100 WB C Auto (Bld)Ordered By: Zahra Guerrero on 04-14-2023 Immature granulocytes/100 WBC (Bld) 0.400 % 0.0-0.9 [facility] Comment on above: IG% - Immature Granu locytes (promyelocytes, myelocytes and metamyelocytes) > 1% indicates that a LEFT SHIFT is Present. Laboratory - Chemistry and C hemistry - challengeOrdered By: Zahra Guerrero on 04-14-2023 Albumin/Globulin [Mass ratio] 1.0 {ratio} 0.9-2.4 [facility] ALP [Catalytic activity/Vol] 43 U/L 45-117 [facility] ALT [Catalytic activity/Vol] 26 U/L 16-61 [facility] Cholesterol in HDL [Mass/Vol] 56 mg/dL >40 [facility] Comment on above: The drugs N-Acetylcy steine and Metamizole may falsely depress this assay. Reference Range HDL <40 mg/dL Low HDL Cholesterol HDL >or= 60 mg/dL High HDL Cholesterol Cholesterol in LDL [Mass/Vol] 108 mg/dL 0-130 [facility] CO2 [Moles/Vol] 26.0 mmol/L 21.0-32.0 [facility] Globulin (S) [Mass/Vol] 3.5 g/dL 2.2-4.2 [facility] Urea nitrogen/Creatinine [Mass ratio] 18.3 mg/mg 10-20 [facility] Laboratory - Hematology and Cell countsOrdered By: Zahra Guerrero on 04-14-2023 MCH (RBC) [Entitic mass] 31.1 pg 27.0-32.0 [facility] MCHC (RBC) [Mass/Vol] 32.4 g/dL 32-36 [facility] Nucleated RBC/100 WBC (Bld) [Ratio] 0 % 0-5 [facility] Platelet mean volume (Bld) [Entitic vol] 10.1 fL 6.2-12.0 [facility] Platelets (Bld) [#/Vol] 253 10*3/uL 150-450 [facility] No Panel InformationOrdered By: Zahra Guerrero on 04-14-2023 Estimated GFR (MDRD) Amer 113 mL/min >60 [facility] Comment on above: GFR Calc Estimated GFR (MDRD) Non-Af Amer 94 mL/min >60 [facility] Comment on above: Non- GFR Calc VLDL Cholesterol 11 mg/dL 5-40 [facility] RBC Auto (Bld) [#/Vol]Ordere d By: Zahra Guerrero on 04-14-2023 RBC (Bld) [#/Vol] 4.38 10*6/uL 4.6-6.2 [facility] Serum or plasma calcium ruchi urement (mass/volume)Ordered By: Zahra Guerrero on 04-14-2023 Calcium [Mass/Vol] 9.5 mg/dL 8.5-10.1 [facility] Serum or plasma creatinine m easurement (mass/volume)Ordered By: Zahra Guerrero on 04-14-2023 Creatinine [Mass/Vol] 0.88 mg/dL 0.70-1.30 [facility] Comment on above: The validity of the calculated GFR & GFRAA in patients over 70 years has not been determined. Clinical correlation is essential. Serum or plasma thyroid stim ulating hormone (TSH) measurement (units/volume)Ordered By: Zahra Guerrero on 04-14-2023 TSH Qn 2.63 uIU/mL 0.358-3.74 [facility] Serum or plasma urea nitroge n measurement (mass/volume)Ordered By: Zahra Guerrero on 04-14-2023 Urea nitrogen [Mass/Vol] 16 mg/dL 7-18 [facility] Serum or plasma uric acid me asurement (mass/volume)Ordered By: Zahra Guerrero on 04-14-2023 Urate [Mass/Vol] 6.0 mg/dL 3.5-7.2 [facility] Comment on above: The drugs N-Acetylcy steine and Metamizole may falsely depress this assay. Thin prep Papanicolaou smear with manual screeningOrdered By: Zahra Guerrero on 04-14-2023 Thin prep Papanicolaou smear with manual screening 3.5 g/dL 3.2-5.0 [facility] Thin prep Papanicolaou smear with manual screening 22 U/L 15-37 [facility] Thin prep Papanicolaou smear with manual screening 5 5-15 [facility] Whole blood hemoglobin A1c/t otal hemoglobin ratio (mass fraction)Ordered By: Zahra Guerrero on 04-14-2023 HbA1c (Bld) [Mass fraction] 6.2 % 3.8-5.6 [facility] Comment on above: Normal < 5.7 % Predi abetic 5.7 - 6.4 % Diabetic >or= 6.5 % Please note range changes. No Panel InformationOrdered By: Zahra Suha on 12-11-2022 Prostate Specific Antigen Screen 1.10 ng/mL 0.00-4.00 [facility] Comment on above: This test was perfor med using the TPSA assay method for the[employer] chemistry system. Values obtained with differentassay methods cannot be used interchangably.When changing PSA assays in the course of monitoring apatient, additional sequential testing should be carriedout to confirm baseline values. Absolute lymphocyte countOrd ered By: Zahra Guerrero on 12-09-2022 Lymphocytes Auto (Unsp spec) [#/Vol] 1.82 10*3/uL 0.83-4.51 [facility] Basophil percentageOrdered B y: Zahra Guerrero on 12-09-2022 Basophils/100 WBC (Bld) 1.0 % 0-1 [facility] Bilirubin [Mass/Vol] 0.30 mg/dL 0.20-1.00 [facility] Comment on above: For patients on eltr ombopag therapy, use of Dimension Silver Star TBIL is not recommended. Chloride [Moles/Vol] 106 mmol/L 98-107 [facility] Cholesterol [Mass/Vol] 152 mg/dL <200 [facility] Comment on above: <200 mg/dL Desirable 200-240 mg/dL Borderline >240 mg/dL High Risk Eosinophils/100 WBC (Bld) 16.9 % 0-5 [facility] Glucose [Mass/Vol] 127 mg/dL 74-106 [facility] Comment on above: Fasting Glucose resu lt greater than or equal to 126 mg/dL suggests DIABETES MELLITUS per A.D.A. criteria. Neutrophils (Bld) [#/Vol] 4.1 10*3/uL 2.0-7.7 [facility] Neutrophils/100 WBC (Bld) 50.4 % 47-70 [facility] Potassium [Moles/Vol] 4.5 mmol/L 3.5-5.1 [facility] Protein [Mass/Vol] 6.8 g/dL 6.4-8.2 [facility] Sodium [Moles/Vol] 139 mmol/L 136-145 [facility] Triglyceride [Mass/Vol] 59 mg/dL <199 [facility] Comment on above: The drugs N-Acetylcy steine and Metamizole may falsely depress this assay.Serum Triglycerides Reference Interval Normal <150 mg/dL Borderline high 150 - 199 mg/dL High 200 - 499 mg/dL Very High > or = 500 mg/dL WBC (Bld) [#/Vol] 8.2 10*3/uL 4.4-11.0 [facility] Blood erythrocytes count (nu mber/volume)Ordered By: Zahra Guerrero on 12-09-2022 RBC (Bld) [#/Vol] 4.52 10*6/uL 4.6-6.2 [facility] Blood hemoglobin measurement (mass/volume)Ordered By: Zahra Guerrero on 12-09-2022 Hemoglobin (Bld) [Mass/Vol] 13.9 g/dL 13.0-16.5 [facility] Blood lymphocytes/100 leukoc ytesOrdered By: Zahra Gurerero on 12-09-2022 Lymphocytes/100 WBC (Bld) 22.3 % 19-41 [facility] Blood monocytes/100 leukocyt esOrdered By: Zahra Guerrero on 12-09-2022 Monocytes/100 WBC (Bld) 9.2 % 0-10 [facility] Blood platelet mean volumeOr dered By: Zahra Guerrero on 12-09-2022 Platelet mean volume (Bld) [Entitic vol] 10.2 fL 6.2-12.0 [facility] Determination of erythrocyte mean corpuscular volume (MCV)Ordered By: Zahra Guerrero on 12-09-2022 MCV (RBC) [Entitic vol] 97.1 fL 80-94 [facility] Hematocrit Auto (Bld) [Volum e fraction]Ordered By: Zahra Guerrero on 12-09-2022 Hematocrit (Bld) [Volume fraction] 43.9 % 40-54 [facility] Laboratory - Chemistry and C hemistry - challengeOrdered By: Zahra Guerrero on 12-09-2022 ALP [Catalytic activity/Vol] 46 U/L 45-117 [facility] ALT [Catalytic activity/Vol] 25 U/L 16-61 [facility] CO2 [Moles/Vol] 28.0 mmol/L 21.0-32.0 [facility] Globulin (S) [Mass/Vol] 3.5 g/dL 2.2-4.2 [facility] Urea nitrogen/Creatinine [Mass ratio] 17.4 mg/mg 10-20 [facility] Laboratory - Hematology and Cell countsOrdered By: Zahra Guerrero on 12-09-2022 Erythrocyte distribution width (RBC) [Entitic vol] 46.6 fL 35.1-43.9 [facility] Erythrocyte distribution width (RBC) [Ratio] 13.0 % 11.6-14.6 [facility] Immature granulocytes/100 WBC (Bld) 0.200 % 0.0-0.9 [facility] Comment on above: IG% - Immature Granu locytes (promyelocytes, myelocytes and metamyelocytes) > 1% indicates that a LEFT SHIFT is Present. MCH (RBC) [Entitic mass] 30.8 pg 27.0-32.0 [facility] Nucleated RBC/100 WBC (Bld) [Ratio] 0 % 0-5 [facility] MCHC Auto (RBC) [Mass/Vol]Or dered By: Zahra Guerrero on 12-09-2022 MCHC (RBC) [Mass/Vol] 31.7 g/dL 32-36 [facility] No Panel InformationOrdered By: Zahra Guerrero on 12-09-2022 Estimated GFR (MDRD) Amer 107 mL/min >60 [facility] Comment on above: GFR Calc Estimated GFR (MDRD) Non-Af Amer 89 mL/min >60 [facility] Comment on above: Non- GFR Calc Urine Microalbumin/Creatinine Ratio TNP [facility] Comment on above: Test not performed Platelets bldOrdered By: [place] Guerrero on 12-09-2022 Platelets (Bld) [#/Vol] 270 10*3/uL 150-450 [facility] Serum or plasma albumin ruchi urement (mass/volume)Ordered By: Zahra Guerrero on 12-09-2022 Albumin [Mass/Vol] 3.3 g/dL 3.2-5.0 [facility] Serum or plasma albumin/glob ulin mass ratioOrdered By: Zahra Guerrero on 12-09-2022 Albumin/Globulin [Mass ratio] 0.9 {ratio} 0.9-2.4 [facility] Serum or plasma calcium ruchi urement (mass/volume)Ordered By: Zahra Guerrero on 12-09-2022 Calcium [Mass/Vol] 8.8 mg/dL 8.5-10.1 [facility] Serum or plasma cholesterol in HDL measurement (mass/volume)Ordered By: Zahra Guerrero on 12-09-2022 Cholesterol in HDL [Mass/Vol] 52 mg/dL >40 [facility] Comment on above: The drugs N-Acetylcy steine and Metamizole may falsely depress this assay. Reference Range HDL <40 mg/dL Low HDL Cholesterol HDL >or= 60 mg/dL High HDL Cholesterol Serum or plasma cholesterol in VLDL measurement (mass/volume)Ordered By: Zahra Guerrero on 12-09-2022 Cholesterol in VLDL [Mass/Vol] 12 mg/dL 5-40 [facility] Serum or plasma creatinine m easurement (mass/volume)Ordered By: Zahra Guerrero on 12-09-2022 Creatinine [Mass/Vol] 0.92 mg/dL 0.70-1.30 [facility] Comment on above: The validity of the calculated GFR & GFRAA in patients over 70 years has not been determined. Clinical correlation is essential. Serum or plasma low density lipoprotein (LDL) cholesterol measurement (mass/volume)Ordered By: Zahra Guerrero on 12-09-2022 Cholesterol in LDL [Mass/Vol] 88 mg/dL 0-130 [facility] Serum or plasma urea nitroge n measurement (mass/volume)Ordered By: Zahra Guerrero on 12-09-2022 Urea nitrogen [Mass/Vol] 16 mg/dL 7-18 [facility] Thin prep Papanicolaou smear with manual screeningOrdered By: Zahra Guerrero on 12-09-2022 Thin prep Papanicolaou smear with manual screening 13 U/L 15-37 [facility] Thin prep Papanicolaou smear with manual screening 5 5-15 [facility] Thin prep Papanicolaou smear with manual screening < 5.0 mg/L NO RANGE EST. [facility] Urine creatinine measurement (mass/volume)Ordered By: Zahra Guerrero on 12-09-2022 Creatinine (U) [Mass/Vol] 71.20 mg/dL NO RANGE EST. [facility] Whole blood hemoglobin A1c/t otal hemoglobin ratio (mass fraction)Ordered By: Zahra Guerrero on 12-09-2022 HbA1c (Bld) [Mass fraction] 6.1 % 3.8-5.6 [facility] Comment on above: Normal < 5.7 % Predi abetic 5.7 - 6.4 % Diabetic >or= 6.5 % Please note range changes. Absolute lymphocyte countOrd ered By: Floyd Vickers on 09-04-2022 Lymphocytes Auto (Unsp spec) [#/Vol] 0.83 10*3/uL 0.83-4.51 [facility] Basophil percentageOrdered B y: Floyd Vickers on 09-04-2022 Basophil percentage 0 SEEN /hpf 0-5 [facility] Basophils/100 WBC (Bld) 0.6 % 0-1 [facility] Chloride [Moles/Vol] 103 mmol/L 98-107 [facility] Eosinophils/100 WBC (Bld) 7.4 % 0-5 [facility] Glucose [Mass/Vol] 118 mg/dL 74-106 [facility] Comment on above: Fasting Glucose resu lt from 100 to 125 mg/dL suggests IMPAIRED HOMEOSTASIS per A.D.A. criteria. Neutrophils (Bld) [#/Vol] 4.9 10*3/uL 2.0-7.7 [facility] Neutrophils/100 WBC (Bld) 68.3 % 47-70 [facility] Potassium [Moles/Vol] 3.7 mmol/L 3.5-5.1 [facility] Sodium [Moles/Vol] 136 mmol/L 136-145 [facility] WBC (Bld) [#/Vol] 7.2 10*3/uL 4.4-11.0 [facility] Bilirubin Test strip Ql (U)O rdered By: Floyd Vickers on 09-04-2022 Bilirubin Ql (U) Negative Negative [facility] Blood erythrocytes count (nu mber/volume)Ordered By: Floyd Vickers on 09-04-2022 RBC (Bld) [#/Vol] 4.41 10*6/uL 4.6-6.2 [facility] Blood hemoglobin measurement (mass/volume)Ordered By: Floyd Vickers on 09-04-2022 Hemoglobin (Bld) [Mass/Vol] 14.0 g/dL 13.0-16.5 [facility] Blood lymphocytes/100 leukoc ytesOrdered By: Floyd Vickers on 09-04-2022 Lymphocytes/100 WBC (Bld) 11.5 % 19-41 [facility] Blood monocytes/100 leukocyt esOrdered By: Floyd Vickers on 09-04-2022 Monocytes/100 WBC (Bld) 11.9 % 0-10 [facility] Blood platelet mean volumeOr dered By: Floyd Vickers on 09-04-2022 Platelet mean volume (Bld) [Entitic vol] 9.7 fL 6.2-12.0 [facility] Determination of erythrocyte mean corpuscular volume (MCV)Ordered By: Floyd Vickers on 09-04-2022 MCV (RBC) [Entitic vol] 92.7 fL 80-94 [facility] Hematocrit Auto (Bld) [Volum e fraction]Ordered By: Floyd Vickers on 09-04-2022 Hematocrit (Bld) [Volume fraction] 40.9 % 40-54 [facility] Ketones Test strip Ql (U)Ord ered By: Floyd Vickers on 09-04-2022 Ketones Ql (U) 15 mg/dl Negative [facility] Laboratory - Chemistry and C hemistry - challengeOrdered By: Floyd Vickers on 09-04-2022 CO2 [Moles/Vol] 26.0 mmol/L 21.0-32.0 [facility] Urea nitrogen/Creatinine [Mass ratio] 10.6 mg/mg 10-20 [facility] Laboratory - Hematology and Cell countsOrdered By: Floyd Vickers on 09-04-2022 Erythrocyte distribution width (RBC) [Entitic vol] 44.3 fL 35.1-43.9 [facility] Erythrocyte distribution width (RBC) [Ratio] 13.0 % 11.6-14.6 [facility] Immature granulocytes/100 WBC (Bld) 0.300 % 0.0-0.9 [facility] Comment on above: IG% - Immature Granu locytes (promyelocytes, myelocytes and metamyelocytes) > 1% indicates that a LEFT SHIFT is Present. MCH (RBC) [Entitic mass] 31.7 pg 27.0-32.0 [facility] Nucleated RBC/100 WBC (Bld) [Ratio] 0 % 0-5 [facility] MCHC Auto (RBC) [Mass/Vol]Or dered By: Floyd Vickers on 09-04-2022 MCHC (RBC) [Mass/Vol] 34.2 g/dL 32-36 [facility] Mucus LM Ql (Urine sed)Order ed By: Floyd Vickers on 09-04-2022 Mucus Ql (Urine sed) 0 SEEN /hpf [facility] Nitrite Test strip Ql (U)Ord ered By: Floyd Vickers on 09-04-2022 Nitrite Ql (U) Negative Negative [facility] No Panel InformationOrdered By: Floyd Vickers on 09-04-2022 Estimated Creatinine Clearance Calc 80.83 ml/min [facility] Estimated GFR (MDRD) Amer 93 mL/min >60 [facility] Comment on above: GFR Calc Estimated GFR (MDRD) Non-Af Amer 77 mL/min >60 [facility] Comment on above: Non- GFR Calc Platelets bldOrdered By: Brett Vickers on 09-04-2022 Platelets (Bld) [#/Vol] 218 10*3/uL 150-450 [facility] Protein Test strip Ql (U)Ord ered By: Floyd Vickers on 09-04-2022 Protein Ql (U) Negative Negative [facility] Serum or plasma calcium ruchi urement (mass/volume)Ordered By: Floyd Vickers on 09-04-2022 Calcium [Mass/Vol] 9.1 mg/dL 8.5-10.1 [facility] Serum or plasma creatinine m easurement (mass/volume)Ordered By: Floyd Vickers on 09-04-2022 Creatinine [Mass/Vol] 1.04 mg/dL 0.70-1.30 [facility] Comment on above: The validity of the calculated GFR & GFRAA in patients over 70 years has not been determined. Clinical correlation is essential. Serum or plasma urea nitroge n measurement (mass/volume)Ordered By: Floyd Vickers on 09-04-2022 Urea nitrogen [Mass/Vol] 11 mg/dL 7-18 [facility] [facility] Squamous epithelial cells de tection in urine sediment by light microscopyOrdered By: Floyd Vickers on 09-04-2022 Epithelial cells.squamous LM Ql (Urine sed) 0 SEEN /hpf 0-5 [facility] Thin prep Papanicolaou smear with manual screeningOrdered By: Floyd Vickers on 09-04-2022 Thin prep Papanicolaou smear with manual screening 7 5-15 [facility] Urine blood detectionOrdered By: Floyd Vickers on 09-04-2022 RBC Ql (U) 10 /ul Negative [facility] RBC Ql (U) 0 SEEN /hpf 0-5 [facility] Urine clarityOrdered By: Brett Vikcers on 09-04-2022 Clarity (U) Clear Clear [facility] Urine color determinationOrd ered By: Floyd Vickers on 09-04-2022 Color (U) Yellow Yellow [facility] Urine glucose detectionOrder ed By: Floyd Vickers on 09-04-2022 Glucose Ql (U) Normal mg/dl Normal [facility] Urine leukocyte esterase det ection by dipstickOrdered By: Floyd Vickers on 09-04-2022 Leukocyte esterase Test strip Ql (U) Negative Negative [facility] Urine pHOrdered By: Floyd Vickers on 09-04-2022 pH (U) 7.0 [pH] 5.0 - 8.0 [facility] Urine sediment bacteria coun t by microscopy (number/high power field)Ordered By: Floyd Vickers on 09-04-2022 Bacteria LM.HPF (Urine sed) [#/Area] 0 /[HPF] None Seen [facility] Urine specific gravity measu rementOrdered By: Floyd Vickers on 09-04-2022 Specific gravity (U) [Rel density] 1.010 1.002-1.030 [facility] Urobilinogen Auto test strip Ql (U)Ordered By: Floyd Vickers on 09-04-2022 Urobilinogen Ql (U) Normal mg/dl Normal [facility] Absolute lymphocyte countOrd ered By: Dr. Guerrero on 08-04-2022 Lymphocytes Auto (Unsp spec) [#/Vol] 2.06 10*3/uL 0.83-4.51 [facility] Basophil percentageOrdered B y: Dr. Guerrero on 08-04-2022 Basophils/100 WBC (Bld) 0.8 % 0-1 [facility] Bilirubin [Mass/Vol] 0.40 mg/dL 0.20-1.00 [facility] Comment on above: For patients on eltr ombopag therapy, use of Dimension Silver Star TBIL is not recommended. Chloride [Moles/Vol] 107 mmol/L 98-107 [facility] Cholesterol [Mass/Vol] 149 mg/dL <200 [facility] Comment on above: <200 mg/dL Desirable 200-240 mg/dL Borderline >240 mg/dL High Risk Eosinophils/100 WBC (Bld) 15.1 % 0-5 [facility] Glucose [Mass/Vol] 118 mg/dL 74-106 [facility] Comment on above: Fasting Glucose resu lt from 100 to 125 mg/dL suggests IMPAIRED HOMEOSTASIS per A.D.A. criteria. Neutrophils (Bld) [#/Vol] 4.3 10*3/uL 2.0-7.7 [facility] Neutrophils/100 WBC (Bld) 50.9 % 47-70 [facility] Potassium [Moles/Vol] 3.8 mmol/L 3.5-5.1 [facility] Protein [Mass/Vol] 6.8 g/dL 6.4-8.2 [facility] Sodium [Moles/Vol] 140 mmol/L 136-145 [facility] Triglyceride [Mass/Vol] 81 mg/dL <199 [facility] Comment on above: The drugs N-Acetylcy steine and Metamizole may falsely depress this assay.Serum Triglycerides Reference Interval Normal <150 mg/dL Borderline high 150 - 199 mg/dL High 200 - 499 mg/dL Very High > or = 500 mg/dL WBC (Bld) [#/Vol] 8.5 10*3/uL 4.4-11.0 [facility] Blood erythrocytes count (nu mber/volume)Ordered By: Dr. Guerrero on 08-04-2022 RBC (Bld) [#/Vol] 4.62 10*6/uL 4.6-6.2 [facility] Blood hemoglobin measurement (mass/volume)Ordered By: Dr. Guerrero on 08-04-2022 Hemoglobin (Bld) [Mass/Vol] 14.2 g/dL 13.0-16.5 [facility] Blood lymphocytes/100 leukoc ytesOrdered By: Dr. Guerrero on 08-04-2022 Lymphocytes/100 WBC (Bld) 24.4 % 19-41 [facility] Blood monocytes/100 leukocyt esOrdered By: Dr. Guerrero on 08-04-2022 Monocytes/100 WBC (Bld) 8.6 % 0-10 [facility] Blood platelet mean volumeOr dered By: Dr. Guerrero on 08-04-2022 Platelet mean volume (Bld) [Entitic vol] 10.1 fL 6.2-12.0 [facility] Determination of erythrocyte mean corpuscular volume (MCV)Ordered By: Dr. Guerrero on 08-04-2022 MCV (RBC) [Entitic vol] 95.2 fL 80-94 [facility] Hematocrit Auto (Bld) [Volum e fraction]Ordered By: Dr. Guerrero on 08-04-2022 Hematocrit (Bld) [Volume fraction] 44.0 % 40-54 [facility] Laboratory - Chemistry and C hemistry - challengeOrdered By: Dr. Guerrero on 08-04-2022 ALP [Catalytic activity/Vol] 42 U/L 45-117 [facility] ALT [Catalytic activity/Vol] 24 U/L 16-61 [facility] CO2 [Moles/Vol] 26.0 mmol/L 21.0-32.0 [facility] Globulin (S) [Mass/Vol] 3.4 g/dL 2.2-4.2 [facility] Urea nitrogen/Creatinine [Mass ratio] 21.4 mg/mg 10-20 [facility] Laboratory - Hematology and Cell countsOrdered By: Dr. Guerrero on 08-04-2022 Erythrocyte distribution width (RBC) [Entitic vol] 45.7 fL 35.1-43.9 [facility] Erythrocyte distribution width (RBC) [Ratio] 13.0 % 11.6-14.6 [facility] Immature granulocytes/100 WBC (Bld) 0.200 % 0.0-0.9 [facility] Comment on above: IG% - Immature Granu locytes (promyelocytes, myelocytes and metamyelocytes) > 1% indicates that a LEFT SHIFT is Present. MCH (RBC) [Entitic mass] 30.7 pg 27.0-32.0 [facility] Nucleated RBC/100 WBC (Bld) [Ratio] 0 % 0-5 [facility] MCHC Auto (RBC) [Mass/Vol]Or dered By: Dr. Guerrero on 08-04-2022 MCHC (RBC) [Mass/Vol] 32.3 g/dL 32-36 [facility] No Panel InformationOrdered By: Dr. Guerrero on 08-04-2022 Estimated GFR (MDRD) Amer 119 mL/min >60 [facility] Comment on above: GFR Calc Estimated GFR (MDRD) Non-Af Amer 98 mL/min >60 [facility] Comment on above: Non- GFR Calc Thyroid Stimulating Hormone (TSH) 3.44 uIU/mL 0.358-3.74 [facility] Urine Microalbumin/Creatinine Ratio 6.6 mg/g CRE <30 [facility] Platelets bldOrdered By: Dr. Guerrero on 08-04-2022 Platelets (Bld) [#/Vol] 262 10*3/uL 150-450 [facility] Serum or plasma albumin ruchi urement (mass/volume)Ordered By: Dr. Guerrero on 08-04-2022 Albumin [Mass/Vol] 3.4 g/dL 3.2-5.0 [facility] Serum or plasma albumin/glob ulin mass ratioOrdered By: Dr. Guerrero on 08-04-2022 Albumin/Globulin [Mass ratio] 1.0 {ratio} 0.9-2.4 [facility] Serum or plasma calcium ruchi urement (mass/volume)Ordered By: Dr. Guerrero on 08-04-2022 Calcium [Mass/Vol] 9.1 mg/dL 8.5-10.1 [facility] Serum or plasma cholesterol in HDL measurement (mass/volume)Ordered By: Dr. Guerrero on 08-04-2022 Cholesterol in HDL [Mass/Vol] 51 mg/dL >40 [facility] Comment on above: The drugs N-Acetylcy steine and Metamizole may falsely depress this assay. Reference Range HDL <40 mg/dL Low HDL Cholesterol HDL >or= 60 mg/dL High HDL Cholesterol Serum or plasma cholesterol in VLDL measurement (mass/volume)Ordered By: Dr. Guerrero on 08-04-2022 Cholesterol in VLDL [Mass/Vol] 16 mg/dL 5-40 [facility] Serum or plasma creatinine m easurement (mass/volume)Ordered By: Dr. Guerrero on 08-04-2022 Creatinine [Mass/Vol] 0.84 mg/dL 0.70-1.30 [facility] Comment on above: The validity of the calculated GFR & GFRAA in patients over 70 years has not been determined. Clinical correlation is essential. Serum or plasma low density lipoprotein (LDL) cholesterol measurement (mass/volume)Ordered By: Dr. Guerrero on 08-04-2022 Cholesterol in LDL [Mass/Vol] 82 mg/dL 0-130 [facility] Serum or plasma urea nitroge n measurement (mass/volume)Ordered By: Dr. Guerrero on 08-04-2022 Urea nitrogen [Mass/Vol] 18 mg/dL 7-18 [facility] Serum or plasma uric acid me asurement (mass/volume)Ordered By: Dr. Guerrero on 08-04-2022 Urate [Mass/Vol] 5.8 mg/dL 3.5-7.2 [facility] Comment on above: The drugs N-Acetylcy steine and Metamizole may falsely depress this assay. Thin prep Papanicolaou smear with manual screeningOrdered By: Dr. Guerrero on 08-04-2022 Thin prep Papanicolaou smear with manual screening 17 U/L 15-37 [facility] Thin prep Papanicolaou smear with manual screening 7 5-15 [facility] Thin prep Papanicolaou smear with manual screening 5.3 mg/L NO RANGE EST. [facility] Urine creatinine measurement (mass/volume)Ordered By: Dr. Guerrero on 08-04-2022 Creatinine (U) [Mass/Vol] 80.00 mg/dL NO RANGE EST. [facility] Whole blood hemoglobin A1c/t otal hemoglobin ratio (mass fraction)Ordered By: Dr. Guerrero on 08-04-2022 HbA1c (Bld) [Mass fraction] 6.3 % 3.8-5.6 [facility] Comment on above: Normal < 5.7 % Predi abetic 5.7 - 6.4 % Diabetic >or= 6.5 % Please note range changes. Absolute lymphocyte countOrd ered By: Dr. Guerrero on 04-08-2022 Lymphocytes Auto (Unsp spec) [#/Vol] 2.11 10*3/uL 0.83-4.51 [facility] Basophil percentageOrdered B y: Dr. Guerrero on 04-08-2022 Basophils/100 WBC (Bld) 0.7 % 0-1 [facility] Bilirubin [Mass/Vol] 0.40 mg/dL 0.20-1.00 [facility] Comment on above: For patients on eltr ombopag therapy, use of Dimension Silver Star TBIL is not recommended. Chloride [Moles/Vol] 107 mmol/L 98-107 [facility] Cholesterol [Mass/Vol] 199 mg/dL <200 [facility] Comment on above: <200 mg/dL Desirable 200-240 mg/dL Borderline >240 mg/dL High Risk Eosinophils/100 WBC (Bld) 8.8 % 0-5 [facility] Glucose [Mass/Vol] 126 mg/dL 74-106 [facility] Comment on above: Fasting Glucose resu lt greater than or equal to 126 mg/dL suggests DIABETES MELLITUS per A.D.A. criteria. Neutrophils (Bld) [#/Vol] 4.1 10*3/uL 2.0-7.7 [facility] Neutrophils/100 WBC (Bld) 53.9 % 47-70 [facility] Potassium [Moles/Vol] 4.3 mmol/L 3.5-5.1 [facility] Protein [Mass/Vol] 7.0 g/dL 6.4-8.2 [facility] Sodium [Moles/Vol] 141 mmol/L 136-145 [facility] Triglyceride [Mass/Vol] 60 mg/dL <199 [facility] Comment on above: The drugs N-Acetylcy steine and Metamizole may falsely depress this assay.Serum Triglycerides Reference Interval Normal <150 mg/dL Borderline high 150 - 199 mg/dL High 200 - 499 mg/dL Very High > or = 500 mg/dL WBC (Bld) [#/Vol] 7.5 10*3/uL 4.4-11.0 [facility] Blood erythrocytes count (nu mber/volume)Ordered By: Dr. Guerrero on 04-08-2022 RBC (Bld) [#/Vol] 4.53 10*6/uL 4.6-6.2 [facility] Blood hemoglobin measurement (mass/volume)Ordered By: Dr. Guerrero on 04-08-2022 Hemoglobin (Bld) [Mass/Vol] 13.4 g/dL 13.0-16.5 [facility] Blood lymphocytes/100 leukoc ytesOrdered By: Dr. Guerrero on 04-08-2022 Lymphocytes/100 WBC (Bld) 28.1 % 19-41 [facility] Blood monocytes/100 leukocyt esOrdered By: Dr. Guerrero on 04-08-2022 Monocytes/100 WBC (Bld) 8.1 % 0-10 [facility] Blood platelet mean volumeOr dered By: Dr. Guerrero on 04-08-2022 Platelet mean volume (Bld) [Entitic vol] 10.2 fL 6.2-12.0 [facility] Determination of erythrocyte mean corpuscular volume (MCV)Ordered By: Dr. Guerrero on 04-08-2022 MCV (RBC) [Entitic vol] 95.6 fL 80-94 [facility] Hematocrit Auto (Bld) [Volum e fraction]Ordered By: Dr. Guerrero on 04-08-2022 Hematocrit (Bld) [Volume fraction] 43.3 % 40-54 [facility] Laboratory - Chemistry and C hemistry - challengeOrdered By: Dr. Guerrero on 04-08-2022 ALP [Catalytic activity/Vol] 38 U/L 45-117 [facility] ALT [Catalytic activity/Vol] 23 U/L 16-61 [facility] CO2 [Moles/Vol] 26.0 mmol/L 21.0-32.0 [facility] Globulin (S) [Mass/Vol] 3.5 g/dL 2.2-4.2 [facility] Urea nitrogen/Creatinine [Mass ratio] 18.2 mg/mg 10-20 [facility] Laboratory - Hematology and Cell countsOrdered By: Dr. Guerrero on 04-08-2022 Erythrocyte distribution width (RBC) [Entitic vol] 48.0 fL 35.1-43.9 [facility] Erythrocyte distribution width (RBC) [Ratio] 13.6 % 11.6-14.6 [facility] Immature granulocytes/100 WBC (Bld) 0.400 % 0.0-0.9 [facility] Comment on above: IG% - Immature Granu locytes (promyelocytes, myelocytes and metamyelocytes) > 1% indicates that a LEFT SHIFT is Present. MCH (RBC) [Entitic mass] 29.6 pg 27.0-32.0 [facility] Nucleated RBC/100 WBC (Bld) [Ratio] 0 % 0-5 [facility] MCHC Auto (RBC) [Mass/Vol]Or dered By: Dr. Guerrero on 04-08-2022 MCHC (RBC) [Mass/Vol] 30.9 g/dL 32-36 [facility] No Panel InformationOrdered By: Dr. Guerrero on 04-08-2022 Estimated GFR (MDRD) Amer 105 mL/min >60 [facility] Comment on above: GFR Calc Estimated GFR (MDRD) Non-Af Amer 87 mL/min >60 [facility] Comment on above: Non- GFR Calc Thyroid Stimulating Hormone (TSH) 3.21 uIU/mL 0.358-3.74 [facility] Urine Microalbumin/Creatinine Ratio 7.8 mg/g CRE <30 [facility] Platelets bldOrdered By: Dr. Guerrero on 04-08-2022 Platelets (Bld) [#/Vol] 292 10*3/uL 150-450 [facility] Serum or plasma albumin ruchi urement (mass/volume)Ordered By: Dr. Guerrero on 04-08-2022 Albumin [Mass/Vol] 3.5 g/dL 3.2-5.0 [facility] Serum or plasma albumin/glob ulin mass ratioOrdered By: Dr. Guerrero on 04-08-2022 Albumin/Globulin [Mass ratio] 1.0 {ratio} 0.9-2.4 [facility] Serum or plasma calcium ruchi urement (mass/volume)Ordered By: Dr. Geurrero on 04-08-2022 Calcium [Mass/Vol] 9.2 mg/dL 8.5-10.1 [facility] Serum or plasma cholesterol in HDL measurement (mass/volume)Ordered By: Dr. Guerrero on 04-08-2022 Cholesterol in HDL [Mass/Vol] 66 mg/dL >40 [facility] Comment on above: The drugs N-Acetylcy steine and Metamizole may falsely depress this assay. Reference Range HDL <40 mg/dL Low HDL Cholesterol HDL >or= 60 mg/dL High HDL Cholesterol Serum or plasma cholesterol in VLDL measurement (mass/volume)Ordered By: Dr. Guerrero on 04-08-2022 Cholesterol in VLDL [Mass/Vol] 12 mg/dL 5-40 [facility] Serum or plasma creatinine m easurement (mass/volume)Ordered By: Dr. Guerrero on 04-08-2022 Creatinine [Mass/Vol] 0.94 mg/dL 0.70-1.30 [facility] Comment on above: The validity of the calculated GFR & GFRAA in patients over 70 years has not been determined. Clinical correlation is essential. Serum or plasma low density lipoprotein (LDL) cholesterol measurement (mass/volume)Ordered By: Dr. Guerrero on 04-08-2022 Cholesterol in LDL [Mass/Vol] 121 mg/dL 0-130 [facility] Serum or plasma urea nitroge n measurement (mass/volume)Ordered By: Dr. Guerrero on 04-08-2022 Urea nitrogen [Mass/Vol] 17 mg/dL 7-18 [facility] Thin prep Papanicolaou smear with manual screeningOrdered By: Dr. Guerrero on 04-08-2022 Thin prep Papanicolaou smear with manual screening 18 U/L 15-37 [facility] Thin prep Papanicolaou smear with manual screening 8 5-15 [facility] Thin prep Papanicolaou smear with manual screening 5.2 mg/L NO RANGE EST. [facility] Urine creatinine measurement (mass/volume)Ordered By: Dr. Guerrero on 04-08-2022 Creatinine (U) [Mass/Vol] 67.30 mg/dL NO RANGE EST. [facility] Whole blood hemoglobin A1c/t otal hemoglobin ratio (mass fraction)Ordered By: Dr. Guerrero on 04-08-2022 HbA1c (Bld) [Mass fraction] 6.2 % 3.8-5.6 [facility] Comment on above: Normal < 5.7 % Predi abetic 5.7 - 6.4 % Diabetic >or= 6.5 % Please note range changes. CNOVon 02-24-2022 CNOV Office Visit ([facility] ) JONEL TERRELL ([id number]) 1960 M Date Time Provider Department 02/24/22 2:15 PM GERALDINE BOSE [facility] During your visit today, we recorded the following information about you: Temperature Pulse Respiration Blood pressure 98 degrees 73/minute 20/minute 140/76 Weight 121 kg Geraldine Bose APRN.CNP 02/24/2022 2:32 PM Signed ASSESSMENT/PLAN: 1. Sinusitis, unspecified chronicity, unspecified location - ICD9: 473.9, ICD10: J32.9 - Will begin treatment with as per antibiotic as written, see orders - DOXYCYCLINE MONOHYDRATE 100 MG TABLET - PREDNISONE 20 MG TABLET - CONSULT TO ENT - Follow-up with ENT if symptoms have not improved or sooner if symptoms worsen - Discussed red flags and need for immediate medical evaluation if any occur. - Discussed supportive care treatment with fluids, rest and analgesia. - Discussed expected course of illness TALIA Casper APRN.CNP 02/24/2022 2:48 PM Signed Subjective HPI Jonel Tejeda Xander is a 61 year old male who presents with left sided sinus pressure and congestion for the past 16 days. He was seen here on 02/15 and prescribed Augmentin and medrol dose pack. He then saw his dentist on 02/17 and he extended the Augmentin prescription and gave him Flagyl to take. He has a bad root canal on the right upper jaw and the tooth is being pulled on 02/27/22. He rates his sinus pain as "pretty severe" and has had some dizziness at times. He has not had a fever. He notes that the flagyl causes him to feel flushed and sweaty and makes the skin on the inside of his mouth peel. Review of Systems Constitutional: Positive for diaphoresis (after taking flagyl). Negative for chills and fever. HENT: Positive for congestion and sinus pain. Negative for ear pain and sore throat. Respiratory: Negative for cough. Cardiovascular: Negative. Neurological: Positive for dizziness and headaches. BP 140/76 Pulse 73 Temp 36.7 ?C (98 ?F) Resp 20 Wt 121 kg (266 lb 12.8 oz) SpO2 96% PAST MEDICAL HISTORY Diagnosis Date Abdominal pain, other specified site LLQ,RLQ Anal or rectal pain Other and unspecified hyperlipidemia Other constipation PAST SURGICAL HISTORY Procedure Laterality Date COLONOSCOPY FLX DX W/COLLJ SPEC WHEN PFRMD 10/12/2007 Colonoscopy PAST SURGICAL HISTORY OF umb hernia ALLERGIES Lisinopril and Peanut Butter [Other] MEDICATIONS doxycycline monohydrate 100 mg tablet Take 1 tablet by mouth twice daily for 7 days. predniSONE (DELTASONE) 20 mg tablet Take 2 tablets by mouth once daily for 5 days. Take daily with food. metoprolol succinate ER (TOPROL XL) 25 mg 24 hr tablet Take 25 mg by mouth once daily. mometasone-formoterol (DULERA) 200-5 mcg/actuation inhaler Inhale as instructed twice daily. betamethasone valerate 0.1 % cream Apply to affected area twice daily. lancets (ONETOUCH DELICA PLUS LANCET [facility]) albuterol HFA (PROVENTIL HFA, VENTOLIN HFA) 90 mcg/actuation inhaler Inhale 2 Puffs as instructed every 6 hours as needed for wheezing/shortness of breath. metFORMIN (GLUCOPHAGE) 500 mg tablet Take 1,000 mg by mouth twice daily with meals. atorvastatin (LIPITOR) 20 mg tablet Take 40 mg by mouth once daily. aspirin, enteric coated (ASPIRIN, ENTERIC COATED) 81 mg EC tablet Take 81 mg by mouth once daily. fluticasone-salmetero l (ADVAIR DISKUS) 250-50 mcg/dose dsdv Inhale 1 Puff as instructed twice daily. (Patient not taking: Reported on 06/27/2021 ) TRIAMCINOLONE ACETONIDE (NASACORT NASAL) Use in the nose. FAMILY HISTORY Problem Relation Age of Onset Asthma Mother Rheumatologic disease Mother Asthma Maternal Grandmother Breast Cancer Maternal Grandmother Emphysema Maternal Grandfather Coronary Artery Disease Paternal Grandmother Coronary Artery Disease Paternal Grandfather Cancer Paternal Grandfather trhroat Social History Tobacco Use Smoking status: Former Packs/day: 1.00 Years: 8.00 Pack years: 8.00 Types: Cigarettes, Cigars Smokeless tobacco: Former Types: Snuff Vaping Use Vaping Use: Never used Substance Use Topics Alcohol use: Yes Comment: social Drug use: No Objective Physical Exam Vitals and nursing note reviewed. Constitutional: Appearance: Normal appearance. HENT: Head: Right Ear: Tympanic membrane, ear canal and external ear normal. Left Ear: Tympanic membrane, ear canal and external ear normal. Nose: Nasal tenderness, mucosal edema and congestion present. Mouth/Throat: Mouth: Mucous membranes are moist. Pharynx: Oropharynx is clear. No oropharyngeal exudate or posterior oropharyngeal erythema. Cardiovascular: Rate and Rhythm: Normal rate and regular rhythm. Heart sounds: Normal heart sounds. Pulmonary: Effort: Pulmonary effort is normal. No respiratory distress. Breath sounds: Normal chano (more content not included)... [facility] JONEL TERRELL ([id number]) 1960 M Date Time Provider Department 02/15/22 1:30 PM [facility] During your visit today, we recorded the following information about you: Temperature Pulse Respiration Blood pressure 98.1 degrees 65/minute 21/minute 148/82 Weight 124.1 kg Thuy Godwin APRN.RONALDO 02/15/2022 1:50 PM Signed This note was created using NoteWriter. Subjective Jonel Terrell is a 61 year old male. 61 year old male with PMH HTN, DM, sleep apnea, asthma, and hyperlipidemia presents for illness. Acute onset over one week ago +sinus pressure +headache +ringing in ears + pain in ears +eye pressure + sinus pressure +cough +post nasal drainage. Denies SOB or dyspnea. Denies CP Denies N/V/D Has used neti pot Has used hydrogen peroxide for a rinse as well with no relief. Denies tobacco usage. The history is provided by the patient. No supervisor modern languages was used. Sinus Problem This is a new problem. The current episode started 1 to 4 weeks ago. The problem occurs constantly. The problem has been gradually worsening. Associated symptoms include congestion, coughing, headaches and a sore throat. Pertinent negatives include no abdominal pain, anorexia, arthralgias, change in bowel habit, chest pain, chills, diaphoresis, fatigue, fever, joint swelling, myalgias, nausea, neck pain, numbness, rash, swollen glands, urinary symptoms, vertigo, visual change, vomiting or weakness. Nothing aggravates the symptoms. Treatments tried: neti pot and hydrogen peroxide. The treatment provided mild relief. PAST MEDICAL HISTORY Diagnosis Date - Abdominal pain, other specified site LLQ,RLQ - Anal or rectal pain - Other and unspecified hyperlipidemia - Other constipation PAST SURGICAL HISTORY Procedure Laterality Date - COLONOSCOPY FLX DX W/COLLJ SPEC WHEN PFRMD 10/12/2007 Colonoscopy - PAST SURGICAL HISTORY OF umb hernia ALLERGIES Lisinopril and Peanut Butter [Other] MEDICATIONS - metoprolol succinate ER (TOPROL XL) 25 mg 24 hr tablet Take 25 mg by mouth once daily. - mometasone-formoterol (DULERA) 200-5 mcg/actuation inhaler Inhale as instructed twice daily. - betamethasone valerate 0.1 % cream Apply to affected area twice daily. - lancets (ONETOUCH DELICA PLUS LANCET MISC) - albuterol HFA (PROVENTIL HFA, VENTOLIN HFA) 90 mcg/actuation inhaler Inhale 2 Puffs as instructed every 6 hours as needed for wheezing/shortness of breath. - metFORMIN (GLUCOPHAGE) 500 mg tablet Take 1,000 mg by mouth twice daily with meals. - atorvastatin (LIPITOR) 20 mg tablet Take 40 mg by mouth once daily. - aspirin, enteric coated (ASPIRIN, ENTERIC COATED) 81 mg EC tablet Take 81 mg by mouth once daily. - TRIAMCINOLONE ACETONIDE (NASACORT NASAL) Use in the nose. - amoxicillin-clavulani c acid (AUGMENTIN) 875-125 mg per tablet Take 1 tablet by mouth twice daily for 5 days. - methylPREDNISolone (MEDROL, RAVI,) 4 mg Dose-Pack Follow dosing instructions, take with food. - fluticasone-salmetero l (ADVAIR DISKUS) 250-50 mcg/dose dsdv Inhale 1 Puff as instructed twice daily. (Patient not taking: Reported on 06/27/2021 ) FAMILY HISTORY Problem Relation Age of Onset - Asthma Mother - Rheumatologic disease Mother - Asthma Maternal Grandmother - Breast Cancer Maternal Grandmother - Emphysema Maternal Grandfather - Coronary Artery Disease Paternal Grandmother - Coronary Artery Disease Paternal Grandfather - Cancer Paternal Grandfather trhroat Social History Tobacco Use - Smoking status: Former Packs/day: 1.00 Years: 8.00 Pack years: 8.00 Types: Cigarettes, Cigars - Smokeless tobacco: Former Types: Snuff Vaping Use - Vaping Use: Never used Substance Use Topics - Alcohol use: Yes Comment: social - Drug use: No Review of Systems Constitutional: Negative for chills, diaphoresis, fatigue and fever. HENT: Positive for congestion, ear pain, postnasal drip, sinus pressure, sinus pain and sore throat. Eyes: Negative for pain, discharge and itching. Respiratory: Positive for cough. Negative for apnea, choking and chest tightness. Cardiovascular: Negative for chest pain. Gastrointestinal: Negative for abdominal pain, anorexia, change in bowel habit, nausea and vomiting. Musculoskeletal: Negative for arthralgias, joint swelling, myalgias and neck pain. Skin: Negative for color change, pallor and rash. Allergic/Immunologic: Negative for environmental allergies, food allergies and immunocompromised state. Neurological: Positive for headaches. Negative for dizziness, vertigo, facial asymmetry, weakness and numbness. Hematological: Negative for adenopathy. Does not bruise/bleed easily. Psychiatric/Behaviora l: Negative for agitation and behavioral problems. Objective BP 148/82 Pulse 65 Temp 36.7 ?C (98.1 ?F) Resp 21 Wt 124.1 kg (more content not included)... Normal [facility] Absolute lymphocyte counton 12-09-2021 Lymphocytes Auto (Unsp spec) [#/Vol] 2.13 10*3/uL 0.83-4.51 [facility] Work Phone: Basophil percentageon 2021 Basophils/100 WBC (Bld) 0.6 % 0-1 [facility] Work Phone: [phone] Bilirubin [Mass/Vol] 0.30 mg/dL 0.20-1.00 [facility] Work Phone: Comment on above: For patients on eltr ombopag therapy, use of Dimension [place] Star TBIL is not recommended. Chloride [Moles/Vol] 108 mmol/L 98-107 [facility] Work Phone: Cholesterol [Mass/Vol] 169 mg/dL <200 [facility] Work Phone: Comment on above: <200 mg/dL Desirable 200-240 mg/dL Borderline >240 mg/dL High Risk Eosinophils/100 WBC (Bld) 7.4 % 0-5 [facility] Work Phone: Glucose [Mass/Vol] 133 mg/dL 74-106 [facility] Work Phone: Comment on above: Fasting Glucose resu lt greater than or equal to 126 mg/dL suggests DIABETES MELLITUS per A.D.A. criteria. Neutrophils (Bld) [#/Vol] 5.1 10*3/uL 2.0-7.7 [facility] Work Phone: Neutrophils/100 WBC (Bld) 59.2 % 47-70 [facility] Work Phone: Potassium [Moles/Vol] 4.0 mmol/L 3.5-5.1 [facility] Work Phone: Protein [Mass/Vol] 7.0 g/dL 6.4-8.2 [facility] Work Phone: Sodium [Moles/Vol] 142 mmol/L 136-145 [facility] Work Phone: Triglyceride [Mass/Vol] 126 mg/dL <199 [facility] Work Phone: Comment on above: The drugs N-Acetylcy steine and Metamizole may falsely depress this assay.Serum Triglycerides Reference Interval Normal <150 mg/dL Borderline high 150 - 199 mg/dL High 200 - 499 mg/dL Very High > or = 500 mg/dL WBC (Bld) [#/Vol] 8.7 10*3/uL 4.4-11.0 [facility] Work Phone: Blood erythrocytes count (nu mber/volume)on 12-09-2021 RBC (Bld) [#/Vol] 4.63 10*6/uL 4.6-6.2 [facility] Work Phone: Blood hemoglobin measurement (mass/volume)on 12-09-2021 Hemoglobin (Bld) [Mass/Vol] 14.2 g/dL 13.0-16.5 [facility] Work Phone: Blood lymphocytes/100 leukoc yteson 12-09-2021 Lymphocytes/100 WBC (Bld) 24.6 % 19-41 [facility] Work Phone: Blood monocytes/100 leukocyt eson 12-09-2021 Monocytes/100 WBC (Bld) 7.9 % 0-10 [facility] Work Phone: Blood platelet mean volumeon 12-09-2021 Platelet mean volume (Bld) [Entitic vol] 10.4 fL 6.2-12.0 [facility] Work Phone: Determination of erythrocyte mean corpuscular volume (MCV)on 12-09-2021 MCV (RBC) [Entitic vol] 96.5 fL 80-94 [facility] Work Phone: Hematocrit Auto (Bld) [Volum e fraction]on 12-09-2021 Hematocrit (Bld) [Volume fraction] 44.7 % 40-54 [facility] Work Phone: Laboratory - Chemistry and C hemistry - challengeon 12-09-2021 ALP [Catalytic activity/Vol] 45 U/L 45-117 [facility] Work Phone: ALT [Catalytic activity/Vol] 28 U/L 16-61 [facility] Work Phone: CO2 [Moles/Vol] 25.0 mmol/L 21.0-32.0 [facility] Work Phone: Globulin (S) [Mass/Vol] 3.5 g/dL 2.2-4.2 [facility] Work Phone: Urea nitrogen/Creatinine [Mass ratio] 17.9 mg/mg 10-20 [facility] Work Phone: Laboratory - Hematology and Cell countson 12-09-2021 Erythrocyte distribution width (RBC) [Entitic vol] 46.1 fL 35.1-43.9 [facility] Work Phone: Erythrocyte distribution width (RBC) [Ratio] 12.9 % 11.6-14.6 [facility] Work Phone: Immature granulocytes/100 WBC (Bld) 0.300 % 0.0-0.9 [facility] Work Phone: Comment on above: IG% - Immature Granu locytes (promyelocytes, myelocytes and metamyelocytes) > 1% indicates that a LEFT SHIFT is Present. MCH (RBC) [Entitic mass] 30.7 pg 27.0-32.0 [facility] Work Phone: Nucleated RBC/100 WBC (Bld) [Ratio] 0 % 0-5 [facility] Work Phone: MCHC Auto (RBC) [Mass/Vol]on 12-09-2021 MCHC (RBC) [Mass/Vol] 31.8 g/dL 32-36 [facility] Work [facility]: No Panel Informationon 10-10 -2022 Estimated GFR (MDRD) Amer 91 mL/min >60 [facility] Work Phone: Comment on above: GFR Calc Estimated GFR (MDRD) Non-Af Amer 75 mL/min >60 [facility] Work Phone: Comment on above: Non- GFR Calc Platelets bldon 12-09-2021 Platelets (Bld) [#/Vol] 252 10*3/uL 150-450 [facility] Work Phone: Serum or plasma albumin ruchi urement (mass/volume)on 12-09-2021 Albumin [Mass/Vol] 3.5 g/dL 3.2-5.0 [facility] Work Phone: Serum or plasma albumin/glob ulin mass ratioon 12-09-2021 Albumin/Globulin [Mass ratio] 1.0 {ratio} 0.9-2.4 [facility] Work Phone: Serum or plasma calcium ruchi urement (mass/volume)on 12-09-2021 Calcium [Mass/Vol] 8.9 mg/dL 8.5-10.1 [facility] Work Phone: Serum or plasma cholesterol in HDL measurement (mass/volume)on 12-09-2021 Cholesterol in HDL [Mass/Vol] 50 mg/dL >40 [facility] Work Phone: Comment on above: The drugs N-Acetylcy steine and Metamizole may falsely depress this assay. Reference Range HDL <40 mg/dL Low HDL Cholesterol HDL >or= 60 mg/dL High HDL Cholesterol Serum or plasma cholesterol in VLDL measurement (mass/volume)on 12-09-2021 Cholesterol in VLDL [Mass/Vol] 25 mg/dL 5-40 [facility] Work Phone: Serum or plasma creatinine m easurement (mass/volume)on 12-09-2021 Creatinine [Mass/Vol] 1.06 mg/dL 0.70-1.30 [facility] Work Phone: Comment on above: The validity of the calculated GFR & GFRAA in patients over 70 years has not been determined. Clinical correlation is essential. Serum or plasma low density lipoprotein (LDL) cholesterol measurement (mass/volume)on 12-09-2021 Cholesterol in LDL [Mass/Vol] 94 mg/dL 0-130 [facility] Work Phone: Serum or plasma urea nitroge n measurement (mass/volume)on 12-09-2021 Urea nitrogen [Mass/Vol] 19 mg/dL 7-18 [facility] Work Phone: Thin prep Papanicolaou smear with manual screeningon 12-09-2021 Thin prep Papanicolaou smear with manual screening 17 U/L 15-37 [facility] Work Phone: Thin prep Papanicolaou smear with manual screening 9 5-15 [facility] Work Phone: Whole blood hemoglobin A1c/t otal hemoglobin ratio (mass fraction)on 12-09-2021 HbA1c (Bld) [Mass fraction] 6.2 % 3.8-5.6 [facility] Work Phone: Comment on above: Normal < 5.7 % Predi abetic 5.7 - 6.4 % Diabetic >or= 6.5 % Please note range changes. Absolute lymphocyte counton 08-01-2021 Lymphocytes Auto (Unsp spec) [#/Vol] 1.74 10*3/uL 0.83-4.51 [facility] Work Phone: Basophil percentageon 2021 Basophils/100 WBC (Bld) 0.7 % 0-1 [facility] Work Phone: Bilirubin [Mass/Vol] 0.30 mg/dL 0.20-1.00 [facility] Work Phone: Comment on above: For patients on eltr ombopag therapy, use of Dimension [place] Star TBIL is not recommended. Chloride [Moles/Vol] 109 mmol/L 98-107 [facility] Work Phone: Cholesterol [Mass/Vol] 148 mg/dL <200 [facility] Work Phone: Comment on above: <200 mg/dL Desirable 200-240 mg/dL Borderline >240 mg/dL High Risk Eosinophils/100 WBC (Bld) 7.8 % 0-5 [facility] Work Phone: Glucose [Mass/Vol] 127 mg/dL 74-106 [facility] Work Phone: Comment on above: Fasting Glucose resu lt greater than or equal to 126 mg/dL suggests DIABETES MELLITUS per A.D.A. criteria. Neutrophils (Bld) [#/Vol] 4.1 10*3/uL 2.0-7.7 [facility] Work Phone: Neutrophils/100 WBC (Bld) 57.6 % 47-70 [facility] Work Phone: Potassium [Moles/Vol] 3.7 mmol/L 3.5-5.1 [facility] Work Phone: Protein [Mass/Vol] 6.8 g/dL 6.4-8.2 [facility] Work Phone: Sodium [Moles/Vol] 139 mmol/L 136-145 [facility] Work Phone: Triglyceride [Mass/Vol] 61 mg/dL <199 [facility] Work Phone: Comment on above: The drugs N-Acetylcy steine and Metamizole may falsely depress this assay.Serum Triglycerides Reference Interval Normal <150 mg/dL Borderline high 150 - 199 mg/dL High 200 - 499 mg/dL Very High > or = 500 mg/dL WBC (Bld) [#/Vol] 7.2 10*3/uL 4.4-11.0 [facility] Work Phone: Blood erythrocytes count (nu mber/volume)on 08-01-2021 RBC (Bld) [#/Vol] 4.34 10*6/uL 4.6-6.2 [facility] Work Phone: Blood hemoglobin measurement (mass/volume)on 08-01-2021 Hemoglobin (Bld) [Mass/Vol] 13.3 g/dL 13.0-16.5 [facility] Work Phone: Blood lymphocytes/100 leukoc yteson 08-01-2021 Lymphocytes/100 WBC (Bld) 24.3 % 19-41 [facility] Work Phone: Blood monocytes/100 leukocyt eson 08-01-2021 Monocytes/100 WBC (Bld) 9.3 % 0-10 [facility] Work Phone: Blood platelet mean volumeon 08-01-2021 Platelet mean volume (Bld) [Entitic vol] 10.0 fL 6.2-12.0 [facility] Work Phone: Determination of erythrocyte mean corpuscular volume (MCV)on 08-01-2021 MCV (RBC) [Entitic vol] 94.5 fL 80-94 [facility] Work Phone: Hematocrit Auto (Bld) [Volum e fraction]on 08-01-2021 Hematocrit (Bld) [Volume fraction] 41.0 % 40-54 [facility] Work Phone: Laboratory - Chemistry and C hemistry - challengeon 08-01-2021 ALP [Catalytic activity/Vol] 41 U/L 45-117 [facility] Work Phone: ALT [Catalytic activity/Vol] 27 U/L 16-61 [facility] Work Phone: CO2 [Moles/Vol] 24.0 mmol/L 21.0-32.0 [facility] Work Phone: Globulin (S) [Mass/Vol] 3.4 g/dL 2.2-4.2 [facility] Work Phone: Urea nitrogen/Creatinine [Mass ratio] 21.4 mg/mg 10-20 [facility] Work Phone: Laboratory - Hematology and Cell countson 08-01-2021 Erythrocyte distribution width (RBC) [Entitic vol] 45.5 fL 35.1-43.9 [facility] Work Phone: Erythrocyte distribution width (RBC) [Ratio] 13.2 % 11.6-14.6 [facility] Work Phone: Immature granulocytes/100 WBC (Bld) 0.300 % 0.0-0.9 [facility] Work Phone: Comment on above: IG% - Immature Granu locytes (promyelocytes, myelocytes and metamyelocytes) > 1% indicates that a LEFT SHIFT is Present. MCH (RBC) [Entitic mass] 30.6 pg 27.0-32.0 [facility] Work Phone: Nucleated RBC/100 WBC (Bld) [Ratio] 0 % 0-5 [facility] Work Phone: MCHC Auto (RBC) [Mass/Vol]on 08-01-2021 MCHC (RBC) [Mass/Vol] 32.4 g/dL 32-36 [facility] Work Phone: No Panel Informationon 08-01 Estimated GFR (MDRD) Amer 127 mL/min >60 [facility] Work Phone: Comment on above: GFR Calc Estimated GFR (MDRD) Non-Af Amer 105 mL/min >60 [facility] Work Phone: Comment on above: Non- GFR Calc Urine Microalbumin/Creatinine Ratio TNP [facility] Work Phone: Comment on above: Test not performed Platelets bldon 08-01-2021 Platelets (Bld) [#/Vol] 248 10*3/uL 150-450 [facility] Work Phone: Serum or plasma albumin ruchi urement (mass/volume)on 08-01-2021 Albumin [Mass/Vol] 3.4 g/dL 3.2-5.0 [facility] Work Phone: Serum or plasma albumin/glob ulin mass ratioon 08-01-2021 Albumin/Globulin [Mass ratio] 1.0 {ratio} 0.9-2.4 [facility] Work Phone: Serum or plasma calcium ruchi urement (mass/volume)on 08-01-2021 Calcium [Mass/Vol] 8.8 mg/dL 8.5-10.1 [facility] Work Phone: Serum or plasma cholesterol in HDL measurement (mass/volume)on 08-01-2021 Cholesterol in HDL [Mass/Vol] 52 mg/dL >40 [facility] Work Phone: Comment on above: The drugs N-Acetylcy steine and Metamizole may falsely depress this assay. Reference Range HDL <40 mg/dL Low HDL Cholesterol HDL >or= 60 mg/dL High HDL Cholesterol Serum or plasma cholesterol in VLDL measurement (mass/volume)on 08-01-2021 Cholesterol in VLDL [Mass/Vol] 12 mg/dL 5-40 [facility] Work Phone: Serum or plasma creatinine m easurement (mass/volume)on 08-01-2021 Creatinine [Mass/Vol] 0.80 mg/dL 0.70-1.30 [facility] Work Phone: Comment on above: The validity of the calculated GFR & GFRAA in patients over 70 years has not been determined. Clinical correlation is essential. Serum or plasma low density lipoprotein (LDL) cholesterol measurement (mass/volume)on 08-01-2021 Cholesterol in LDL [Mass/Vol] 84 mg/dL 0-130 [facility] Work Phone: Serum or plasma urea nitroge n measurement (mass/volume)on 08-01-2021 Urea nitrogen [Mass/Vol] 17 mg/dL 7-18 [facility] Work Phone: Thin prep Papanicolaou smear with manual screeningon 08-01-2021 Thin prep Papanicolaou smear with manual screening 15 U/L 15-37 [facility] Work Phone: Thin prep Papanicolaou smear with manual screening 6 5-15 [facility] Work Phone: Thin prep Papanicolaou smear with manual screening < 5.0 mg/L NO RANGE EST. [facility] Work Phone: Urine creatinine measurement (mass/volume)on 08-01-2021 Creatinine (U) [Mass/Vol] 73.90 mg/dL NO RANGE EST. [facility] Work Phone: Whole blood hemoglobin A1c/t otal hemoglobin ratio (mass fraction)on 08-01-2021 HbA1c (Bld) [Mass fraction] 6.2 % 3.8-5.6 [facility] Work Phone: Comment on above: Normal < 5.7 % Predi abetic 5.7 - 6.4 % Diabetic >or= 6.5 % Please note range changes. No Panel Informationon 05-03 Prostate Specific Antigen Screen 1.47 ng/mL 0.00-4.00 [facility] Work Phone: Comment on above: This test was perfor med using the TPSA assay method for [employer] chemistry system. Values obtained with differentassay methods cannot be used interchangably.When changing PSA assays in the course of monitoring apatient, additional sequential testing should be carriedout to confirm baseline values. Vital Signs Date Time Vital Sign Value Performing Clinician Facility 06-15-2024 08:47-0400 Body mass index (BMI) [Ratio] 38.1 kg/m2 Dr. Zahra Guerrero MD Work Phone: [facility] 06-15-2024 08:47-0400 Body weight 127.[address] Zahra Guerrero MD Work Phone: [facility] 06-15-2024 08:47-0400 Diastolic blood pressure 80 mm[Hg] Dr. Zahra Guerrero MD Work Phone: [facility] 06-15-2024 08:47-0400 Heart rate 66 /min Dr. Zahra Guerrero MD Work Phone: [facility] 06-15-2024 08:47-0400 Respiratory rate 16 /min Dr. Zahra Guerrero MD Work Phone: [facility] 06-15-2024 08:47-0400 Systolic blood pressure 128 mm[Hg] Dr. Zahra Guerrero MD Work Phone: [facility] 03-14-2024 15:09-0500 Diastolic blood pressure 76 mm[Hg] Sharron Toribio MD Work Phone: [facility] 03-14-2024 15:09-0500 Heart rate 72 /min Sharron Toribio MD Work Phone: [facility] 03-14-2024 15:09-0500 Respiratory rate 13 /min Sharron Toribio MD Work Phone: [facility] 03-14-2024 15:09-0500 Systolic blood pressure 128 mm[Hg] Sharron Toribio MD Work Phone: [facility] 04-20-2023 09:37-0500 Body height 177.8 cm Sharron Toribio MD Work Phone: [facility] 04-20-2023 09:37-0500 Body temperature 98.01 [degF] Sharron Toribio MD Work Phone: [facility] 04-20-2023 09:37-0500 Body weight 124.74 kg Sharron Toribio MD Work Phone: [facility] 04-20-2023 09:37-0500 Diastolic blood pressure 67 mm[Hg] Sharron Toribio MD Work Phone: [facility] 04-20-2023 09:37-0500 Heart rate 65 /min Sharron Toribio MD Work Phone: [facility] 04-20-2023 09:37-0500 Respiratory rate 10 /min Sharron Toribio MD Work Phone: [facility] 04-20-2023 09:37-0500 Systolic blood pressure 125 mm[Hg] Sharron Toribio MD Work Phone: [facility] 04-16-2023 08:32-0500 Body height 182.[address] Zahra Guerrero Work Phone: [facility] 04-16-2023 08:32-0500 Body mass index (BMI) [Ratio] 37.1 kg/m2 Dr. Zahra Guerrero Work Phone: [facility] 04-16-2023 08:32-0500 Body weight 124.[address] Zahra Guerrero Work Phone: [facility] 04-16-2023 08:32-0500 Diastolic blood pressure 73 mm[Hg] Dr. Zahra Guerrero Work Phone: [facility] 04-16-2023 08:32-0500 Heart rate 66 /min Dr. Zahra Guerrero Work Phone: [facility] 04-16-2023 08:32-0500 Respiratory rate 18 /min Dr. Zahra Guerrero Work Phone: [facility] 04-16-2023 08:32-0500 Systolic blood pressure 132 mm[Hg] Dr. Zahra Guerrero Work Phone: [facility] 12-17-2022 07:51-0400 Body height 182.[address] Zahra Guerrero Work Phone: [facility] 12-17-2022 07:51-0400 Body mass index (BMI) [Ratio] 35.1 kg/m2 Dr. Zahra Guerrero Work Phone: [facility] 12-17-2022 07:51-0400 Body temperature 97.4 [degF] Dr. Zahra Guerrero Work Phone: [facility] 12-17-2022 07:51-0400 Body weight 117.[address] Zahra Guerrero Work Phone: [facility] 12-17-2022 07:51-0400 Diastolic blood pressure 72 mm[Hg] Dr. Zahra Guerrero Work Phone: [facility] 12-17-2022 07:51-0400 Heart rate 61 /min Dr. Zahra Guerrero Work Phone: [facility] 12-17-2022 07:51-0400 Respiratory rate 18 /min Dr. Zahra Guerrero Work Phone: [facility] 12-17-2022 07:51-0400 SaO2% (BldA) [Mass fraction] 95 % Dr. Zahra Guerrero Work Phone: [facility] 12-17-2022 07:51-0400 Systolic blood pressure 125 mm[Hg] Dr. Zahra Guerrero Work Phone: [facility] 12-01-2022 11:56-0400 Body temperature 98.4 [degF] Sharron Toribio MD Work Phone: [facility] 12-01-2022 11:56-0400 Diastolic blood pressure 61 mm[Hg] Sharron Toribio MD Work Phone: [facility] 12-01-2022 11:56-0400 Heart rate 57 /min Sharron Toribio MD Work Phone: [facility] 12-01-2022 11:56-0400 Respiratory rate 11 /min Sharron Toribio MD Work Phone: [facility] 12-01-2022 11:56-0400 Systolic blood pressure 124 mm[Hg] Sharron Toribio MD Work Phone: [facility] 10-20-2022 01:52-0400 Diastolic blood pressure 72 mm[Hg] Dr. Zahra Guerrero Work Phone: [facility] 10-20-2022 01:52-0400 Systolic blood pressure 152 mm[Hg] Dr. Zahra Guerrero Work Phone: [facility] 10-20-2022 01:48-0400 Body height 182.[address] Zahra Guerrero Work Phone: [facility] 10-20-2022 01:48-0400 Body mass index (BMI) [Ratio] 37.3 kg/m2 Dr. Zahra Guerrero Work Phone: [facility] 10-20-2022 01:48-0400 Body temperature 97.9 [degF] Dr. Zahra Guerrero Work Phone: [facility] 10-20-2022 01:48-0400 Body weight 124.[address] Zahra Guerrero Work Phone: [facility] 10-20-2022 01:48-0400 Heart rate 60 /min Dr. Zahra Guerrero Work Phone: [facility] 10-20-2022 01:48-0400 Respiratory rate 20 /min Dr. Zahra Guerrero Work Phone: [facility] 10-20-2022 01:48-0400 SaO2% (BldA) [Mass fraction] 97 % Dr. Zahra Guerrero Work Phone: [facility] 09-12-2022 11:18-0400 Body height 182.[address] Zahra Guerrero Work Phone: [facility] 09-12-2022 11:18-0400 Body mass index (BMI) [Ratio] 36.2 kg/m2 Dr. Zahra Guerrero Work Phone: [facility] 09-12-2022 11:18-0400 Body weight 121.[address] Zahra Guerrero Work Phone: [facility] 09-12-2022 11:18-0400 Diastolic blood pressure 71 mm[Hg] Dr. Zahra Guerrero Work Phone: [facility] 09-12-2022 11:18-0400 Heart rate 62 /min Dr. Zahra Guerrero Work Phone: [facility] 09-12-2022 11:18-0400 Respiratory rate 18 /min Dr. Zahra Guerrero Work Phone: [facility] 09-12-2022 11:18-0400 Systolic blood pressure 126 mm[Hg] Dr. Zahra Guerrero Work Phone: [facility] 09-04-2022 20:30-0400 Diastolic blood pressure 78 mm[Hg] [facility] 09-04-2022 20:30-0400 Heart rate 78 /min [facility] 09-04-2022 20:30-0400 Respiratory rate 16 /min [facility] 09-04-2022 20:30-0400 SaO2% (BldA) [Mass fraction] 99 % [facility] 09-04-2022 20:30-0400 Systolic blood pressure 138 mm[Hg] [facility] 09-04-2022 17:38-0400 Body height 182.88 cm [facility] 09-04-2022 17:38-0400 Body mass index (BMI) [Ratio] 36.3 kg/m2 [facility] 09-04-2022 17:38-0400 Body temperature 98 [degF] [facility] 09-04-2022 17:38-0400 Body weight 121.65 kg [facility] 07-31-2022 09:39-0400 Body height 180.3 cm Sharron Toribio MD Work Phone: [facility] 07-31-2022 09:39-0400 Body temperature 97.9 [degF] Sharron Toribio MD Work Phone: [facility] 07-31-2022 09:39-0400 Body weight 122.92 kg Sharron Toribio MD Work Phone: [facility] 07-31-2022 09:39-0400 Diastolic blood pressure 67 mm[Hg] Sharron Toribio MD Work Phone: [facility] 07-31-2022 09:39-0400 Heart rate 63 /min Sharron Toribio MD Work Phone: [facility] 07-31-2022 09:39-0400 SaO2% (BldA) [Mass fraction] 95 % Sharron Toribio MD Work Phone: [facility] 07-31-2022 09:39-0400 Systolic blood pressure 122 mm[Hg] Sharron Toribio MD Work Phone: [facility] 02-24-2022 14:18-0500 Body temperature 98.01 [degF] Geraldine Bose APRN.CLOSING MACHINE OPERATOR Work Phone: [facility] 02-24-2022 14:18-0500 Body weight 121.02 kg Geraldine Bose APRN.CLOSING MACHINE OPERATOR Work Phone: [facility] 02-24-2022 14:18-0500 Diastolic blood pressure 76 mm[Hg] Gerladine Praisler-Wood GRANITE CUTTER APPRENTICE.CLOSING MACHINE OPERATOR Work Phone: [facility] 02-24-2022 14:18-0500 Heart rate 73 /min Geraldine Praisler-Wood GRANITE CUTTER APPRENTICE.CLOSING MACHINE OPERATOR Work Phone: [facility] 02-24-2022 14:18-0500 Respiratory rate 20 /min Geraldine Praisler-Wood GRANITE CUTTER APPRENTICE.CLOSING MACHINE OPERATOR Work Phone: [facility] 02-24-2022 14:18-0500 SaO2% (BldA) [Mass fraction] 96 % Geraldine Praisler-Wood GRANITE CUTTER APPRENTICE.CLOSING MACHINE OPERATOR Work Phone: [facility] 02-24-2022 14:18-0500 Systolic blood pressure 140 mm[Hg] Geraldine Praisler-Wood GRANITE CUTTER APPRENTICE.CLOSING MACHINE OPERATOR Work Phone: [facility] 02-19-2022 00:18-0500 Body height 182.88 cm [facility] 02-19-2022 00:18-0500 Body mass index (BMI) [Ratio] 37.3 kg/m2 [facility] 02-19-2022 00:18-0500 Body temperature 96.8 [degF] [facility] 02-19-2022 00:18-0500 Body weight 124.73 kg [facility] 02-19-2022 00:18-0500 Diastolic blood pressure 126 mm[Hg] [facility] 02-19-2022 00:18-0500 Heart rate 85 /min [facility] 02-19-2022 00:18-0500 Respiratory rate 18 /min [facility] 02-19-2022 00:18-0500 SaO2% (BldA) [Mass fraction] 98 % [facility] 02-19-2022 00:18-0500 Systolic blood pressure 141 mm[Hg] [facility] 02-15-2022 13:32-0500 Body temperature 98.1 [degF] Thuy Godwin GRANITE CUTTER APPRENTICE.CLOSING MACHINE OPERATOR Work Phone: [facility] 02-15-2022 13:32-0500 Body weight 124.1 kg Thuy Godwin GRANITE CUTTER APPRENTICE.CLOSING MACHINE OPERATOR Work Phone: [facility] 02-15-2022 13:32-0500 Diastolic blood pressure 82 mm[Hg] Tuhy Godwin GRANITE CUTTER APPRENTICE.CLOSING MACHINE OPERATOR Work Phone: [facility] 02-15-2022 13:32-0500 Heart rate 65 /min Thuy Godwin GRANITE CUTTER APPRENTICE.CLOSING MACHINE OPERATOR Work Phone: [facility] 02-15-2022 13:32-0500 Respiratory rate 21 /min Thuy Godwin GRANITE CUTTER APPRENTICE.CLOSING MACHINE OPERATOR Work Phone: [facility] 02-15-2022 13:32-0500 SaO2% (BldA) [Mass fraction] 99 % Thuy Godwin GRANITE CUTTER APPRENTICE.CLOSING MACHINE OPERATOR Work Phone: [facility] 02-15-2022 13:32-0500 Systolic blood pressure 148 mm[Hg] Thuy Godwin GRANITE CUTTER APPRENTICE.CLOSING MACHINE OPERATOR Work Phone: [facility] 10-17-2021 06:29-0400 Body height 182.[address] Zahra Guerrero Work Phone: [facility] Work Phone: 10-17-2021 06:29-0400 Body mass index (BMI) [Ratio] 37.5 kg/m2 Dr. Zahra Guerrero Work Phone: [facility] Work Phone: 10-17-2021 06:29-0400 Body temperature 98.6 [degF] Dr. Zahra Guerrero Work Phone: [facility] Work Phone: 10-17-2021 06:29-0400 Body weight 125.[address] Zahra Guerrero Work Phone: [facility] Work Phone: 10-17-2021 06:29-0400 Diastolic blood pressure 81 mm[Hg] Dr. Zahra Guerrero Work Phone: [facility] Work Phone: 10-17-2021 06:29-0400 Heart rate 66 /min Dr. Zahra Guerrero Work Phone: [facility] Work Phone: 10-17-2021 06:29-0400 Respiratory rate 17 /min Dr. Zahra Guerrero Work Phone: [facility] Work Phone: 10-17-2021 06:29-0400 SaO2% (BldA) [Mass fraction] 97 % Dr. Zahra Guerrero Work Phone: [facility] Work Phone: 10-17-2021 06:29-0400 Systolic blood pressure 138 mm[Hg] Dr. Zahra Guerrero Work Phone: [facility] Work Phone: 06-27-2021 10:12-0400 Body temperature 96.21 [degF] Sharron Toribio MD Work Phone: [facility] 06-27-2021 10:12-0400 Diastolic blood pressure 88 mm[Hg] Sharron Toribio MD Work Phone: [facility] 06-27-2021 10:12-0400 Heart rate 78 /min Sharron Toribio MD Work Phone: [facility] 06-27-2021 10:12-0400 Respiratory rate 18 /min Sharron Toribio MD Work Phone: [facility] 06-27-2021 10:12-0400 Systolic blood pressure 142 mm[Hg] Sharron Toribio MD Work Phone: [facility] Encounters Encounter Date Encounter Type Care Provider Facility Start: 10-17-2024 ambulatory Yusuf Keller Facility:[facility] Start: 07-12-2024 End: 07-12-[address] Zahra Guerrero MD Work Phone: [facility] Work Phone: Start: 07-12-2024 End: 07-12-[address] Heber Keller MD -Cat Scan [facility] Work Phone: Start: 07-12-2024 End: 07-12-2024 ambulatory Heber Keller Facility:[facility] Start: 06-16-2024 End: 06-16-[address] Heber Keller MD -Laboratory Specimen Work Phone: Start: 06-15-2024 End: 06-15-[address] Lu Styles MD -[facility] Work Phone: Start: 06-15-2024 End: 06-16-2024 ambulatory Heber Keller Facility:[facility] Start: 06-14-2024 End: 06-14-2024 Patient encounter procedure Sharron Toribio MD Work Phone: [facility]ology [facility] Comment on above: Pain in joint, multi ple sites (Primary Dx) Start: 06-14-2024 End: 06-14-2024 Telemedicine consultation with patient Sharron Toribio MD Work Phone: [facility] [place] [facility] Start: 06-14-2024 End: 06-14-2024 ambulatory SHARRON TORIBIO Facility:[facility] Start: 06-02-2024 End: 06-02-[address] Zahra Guerrero MD Work Phone: [facility] Work Phone: Start: 06-02-2024 End: 06-02-[address] Zahra Guerrero MD -Radiology, [place] Work Phone: Start: 06-02-2024 End: 06-02-2024 ambulatory Zahra Guerrero Facility:[facility] Start: 03-25-2024 End: 03-25-[address] [facility] Start: 03-25-2024 End: 03-25-2024 ambulatory Zahra Guerrero Facility:[facility] Start: 03-24-2024 End: 03-24-[address] Kayden Terrell MD -Laboratory, [facility] Start: 03-24-2024 End: 03-24-2024 ambulatory Zahra Guerrero Facility:[facility] Start: 03-14-2024 End: 03-14-2024 ambulatory SHARRON TORIBIO Facility:[facility] Start: 03-14-2024 End: 03-14-2024 Patient encounter procedure Sharron Toribio MD Work Phone: [facility]ology [facility] Comment on above: Psoriatic arthropath y (HCC) (Primary Dx); Primary osteoarthritis involving multiple joints Start: 02-18-2024 End: 02-18-[address] Heber Keller MD -Radiology, [facility] Work Phone: Start: 02-18-2024 End: 02-18-2024 ambulatory Zahra Guerrero Facility:[facility] Start: 01-20-2024 ambulatory Zahra Guerrero Facilit y:[facility] Start: 01-20-2024 End: 01-20-2024 ambulatory Zahra Guerrero Facility:[facility] Start: 12-29-2023 End: 12-29-2023 ambulatory Zahra Guerrero Facility[facility] Start: 12-21-2023 End: 12-22-2023 ambulatory Zahra Guerrero Facility:[facility] Start: 11-27-2023 End: 11-27-2023 ambulatory Sharron Troibio MD Work Phone: [facility] Start: 11-27-2023 End: 11-27-2023 Patient encounter procedure Sharron Toribio MD Work Phone: [facility] Comment on above: Still not up to par Start: 10-28-2023 End: 10-29-2023 Refill Sharron Toribio MD Work Phone: [facility] Comment on above: Refill Request Start: 10-19-2023 End: 10-19-2023 Telephone encounter Sharron Toribio MD Work Phone: [facility] Comment on above: Patient Update Start: 09-25-2023 Refill Sandra Infante PA-C Work Phone: [facility] Comment on above: Refill Request Start: 09-02-2023 End: 09-02-2023 Emergency department patient visit Zahra Guerrero Facility:[facility] Start: 08-26-2023 Refill Sharron conklin MD Work Phone: [facility] Comment on above: Refill Request Start: 08-19-2023 End: 08-19-2023 Patient encounter procedure Sharron Toribio MD Work Phone: [facility] Comment on above: Pain in joint, multi ple sites (Primary Dx); Vitamin D deficiency; Psoriatic arthropathy (HCC) Start: 08-19-2023 End: 08-19-2023 Telemedicine consultation with patient Sharron Toribio MD Work Phone: [facility] Start: 08-19-2023 End: 08-19-2023 ambulatory SHARRON TORIBIO Facility:[facility] Start: 05-18-2023 Refill Sharron conklin MD Work Phone: [facility] Comment on above: Refill Request Start: 04-20-2023 End: 04-20-2023 Patient encounter procedure Sharron Toribio MD Work Phone: [facility] Comment on above: Pain in joint, multi ple sites (Primary Dx); Vitamin D deficiency; Polyarticular psoriatic arthritis (HCC) Start: 04-16-2023 End: 04-16-[address] Zahra Guerrero Work Phone: [facility] Work Phone: Start: 04-15-2023 End: 04-15-[address] Zahra Guerrero Work Phone: [facility] Work Phone: Start: 04-15-2023 End: 04-15-[address] Zahra Guerrero Work Phone: [facility] Work Phone: Start: 04-14-2023 End: 04-14-[address] Zahra Guerrero Work Phone: [facility] Work Phone: Start: 04-14-2023 End: 04-14-[address] Zahra Guerrero Work Phone: [facility] Start: 12-31-2022 End: 12-31-[address] Zahra Guerrero Work Phone: [facility] Work Phone: Start: 12-31-2022 End: 12-31-[address] [facility]errero [facility] Work Phone: Start: 12-17-2022 End: 12-17-[address] Zahra Guerrero Work Phone: [facility] Work Phone: Start: 12-16-2022 End: 12-16-[address] Zahra Guerrero Work Phone: [facility] Work Phone: Start: 12-11-2022 End: 12-11-[address] Zahra Guerrero Work Phone: [facility] Start: 12-09-2022 End: 12-09-[address] Zahra Guerrero Work Phone: [facility] Work Phone: Start: 12-09-2022 End: 12-09-[address] Zah[facility] Guerrero [facility] Start: 12-01-2022 End: 12-01-2022 Patient encounter procedure Sharron Toribio MD Work Phone: [facility]ology [facility] Comment on above: Pain in joint, multi ple sites (Primary Dx); Primary osteoarthritis involving multiple joints; Inflammatory arthritis; Psoriatic arthropathy (HCC) Start: 10-20-2022 End: 10-20-2022 Emergency department patient visit Dr. Zahra Guerrero Work Phone: [facility]-Emergency Department Work Phone: Start: 09-29-2022 Refill Sharron conklin MD Work Phone: [facility]ology [facility] Comment on above: Refill Request; Refi ll Request Start: 09-26-2022 Non-patient / Non-visit Dr. Leila Guerrero Work Phone: [facility] Work Phone: Start: 09-26-2022 Non-patient / Non-visit Dr. Leila Guerrero Work Phone: [facility] Work Phone: Start: 09-26-2022 Non-patient / Non-visit Dr. Leila Guerrero Work Phone: [facility] Start: 09-26-2022 End: 09-26-[address] Zahra Guerrero Work Phone: [facility] Work Phone: Start: 09-26-2022 End: 09-26-[address] [facility]ah[facility]errero [facility] Work Phone: Start: 09-12-2022 End: 09-12-[address] Zahra Guerrero Work Phone: [facility] Work Phone: Start: 09-04-2022 End: 09-04-2022 Emergency department patient visit [facility] Work Phone: Start: 08-28-2022 Telephone encounter Sharron baptiste MD Work Phone: [facility]ology [facility] Comment on above: Patient Update Start: 08-19-2022 End: 08-19-2022 ambulatory [facility] Work Phone: Start: 08-19-2022 End: 08-19-2022 Patient encounter procedure [facility]-Cat Scan, [facility] Start: 08-04-2022 End: 08-04-2022 ambulatory [facility] Work Phone: Start: 08-04-2022 End: 08-04-2022 Patient encounter procedure [facility] Start: 07-31-2022 End: 07-31-2022 Patient encounter procedure Sharron Toribio MD Work Phone: [facility] Comment on above: Neck pain (Primary D x); Polyarticular psoriatic arthritis (HCC) Start: 05-30-2022 End: 05-30-2022 ambulatory [facility] Work Phone: Start: 05-30-2022 End: 05-30-2022 Patient encounter procedure [facility] Start: 04-08-2022 End: 04-08-2022 [facility] Start: 02-24-2022 End: 02-24-2022 ambulatory [facility] Facility:[facility] Start: 02-24-2022 End: 02-24-2022 Patient encounter procedure Geraldine Bose APRN.CNP Work Phone: [facility] Comment on above: Sinusitis, unspecifi ed chronicity, unspecified location (Primary Dx) Start: 02-19-2022 End: 02-19-2022 Emergency department patient visit [facility]Emergency Department Start: 02-15-2022 End: 02-15-2022 ambulatory ZAHRA GUERRERO Facility:[facility] Start: 02-15-2022 End: 02-15-2022 Patient encounter procedure Thuy Rik MELGAR Work Phone: [facility] Comment on above: Rhinosinusitis (Prim jimbo Dx); Acute otitis media, left Start: 12-10-2021 End: 12-10-[address] Zahra Guerrero Work Phone: [facility] Start: 12-09-2021 End: 12-09-[address] Zahra Guerrero Work Phone: [facility] Work Phone: Start: 12-09-2021 End: 12-09-[address] Zahra Guerrero Work Phone: [facility] Start: 10-17-2021 End: 10-17-[address] Zahra Guerrero Work Phone: [facility] Start: 08-20-2021 End: 08-20-2021 Patient encounter procedure [facility]-Cat Scan, [facility] Start: 08-01-2021 End: 08-01-2021 Patient encounter procedure [facility] Start: 07-31-2021 End: 07-31-2021 ambulatory Sharron Toribio MD Work Phone: [facility]ology [facility] Comment on above: Pain in joint, multi ple sites (Primary Dx); Primary osteoarthritis involving multiple joints Start: 07-31-2021 End: 07-31-2021 Telemedicine consultation with patient Sharron Toribio MD Work Phone: [facility] Start: 06-27-2021 End: 06-27-2021 Subsequent hospital visit by physician [facility] Comment on above: Pain in joint, multi ple sites [M25.50] Start: 06-27-2021 End: 06-27-2021 Patient encounter procedure Sharron Toribio MD Work Phone: [facility] [place] [facility] Comment on above: Pain in joint, multi ple sites (Primary Dx) Start: 05-03-2021 End: 05-03-2021 Patient encounter procedure [facility]-Laboratory, [facility] Procedures Date Procedure Procedure Detail Performing Clinician Start: 07-12-[address] Zahra phillip MD Work Phone: Start: 06-16-2024 Gram stain microscopy Ileana Guerrero MD Work Phone: Start: 06-16-2024 Res[address] micro[address] l culture Dr. Zahra Guerrero MD Work Phone: Start: 06-02-2024 X-ray of chest, PA a nd lateral views Dr. Zahra Guerrero MD Work Phone: Start: 03-25-2024 Measurement of renal function Dr. Zahra Guerrero MD Work Phone: Comment on above: GFR Calc Start: 03-25-[address] Zahra Guerrero MD Work Phone: Start: 03-25-2024 Urine microalbumin/creatinine ratio measurement Dr. Zahra Guerrero MD Work Phone: Comment on above: Test not performed Start: 03-25-2024 Urnls dip stick/tabl et reagent auto microscopy Dr. Zahra Guerrero MD Work Phone: Start: 02-18-2024 X-ray of esophagus w ith double contrast Dr. Zahra Guerrero MD Work Phone: Start: 04-15-2023 Plain chest X-ray Dr. Mitzy Guerrero Work Phone: Start: 12-31-2022 Computed tomography of abdomen and pelvis with intravenous contrast Dr. Zahra Guerrero Work Phone: Start: 12-16-2022 Diagnostic radiograp hy of abdomen Dr. Zahra Guerrero Work Phone: Start: 09-26-2022 Radionuclide imaging of perfusion of myocardium under exercise stress Dr. Zahra Guerrero Work Phone: Start: 08-19-2022 CT angiography of ch est with contrast Start: 05-30-2022 Plain chest X-ray Start: 12-10-2021 X-ray of cervical spine Dr. Zahra Guerrero Work Phone: Start: 08-20-2021 CT angiography of ch est with contrast Start: 06-27-2021 Radex spine cervical 2 or 3 views Sharron Toribio MD Work Phone: Start: 10-20-2018 Colonoscopy Sharron baptiste MD Work Phone: Plan of Treatment Date Care Activity Detail Author Start: 09-09-2028 Urine microalbumin profile DTaP,Tdap,Td Vaccine (2 - Td or Tdap) [facility] Start: 06-27-2024 DIABETES SCREEN DIABETES SCREEN [facility] Start: 06-27-2024 [facility] Start: 06-14-2024 End: 06-14-2024 Patient encounter procedure 06/14/2024 12:00 PM EDT [facility]ology [facility] [address] [place] [address] Sharron Toribio MD [address] [place], [place] [id number] 3 months virtual [facility] Comment on above: 3 months virtual Start: 11-01-2023 Influenza vaccination [facility] Start: 08-19-2023 End: 11-18-2023 25-hydroxyvitamin D3 [Mass/volume] in Serum or Plasma VITAMIN D 25 HYDROXY Lab Routine Pain in joint, multiple sites Vitamin D deficiency Expected: 08/19/2023, Expires: 11/18/2023 [facility] Comment on above: Expected: 08/19/2023 , Expires: 11/18/2023 Start: 08-19-2023 End: 11-18-2023 CBC W Auto Differential panel - Blood COMPLETE BLOOD COUNT AND DIFFERENTIAL Lab Routine Pain in joint, multiple sites Expected: 08/19/2023, Expires: 11/18/2023 [facility] Comment on above: Expected: 08/19/2023 , Expires: 11/18/2023 Start: 08-19-2023 End: 11-18-2023 Comprehensive metabolic 2000 panel - Serum or Plasma COMPREHENSIVE METABOLIC PANEL Lab Routine Pain in joint, multiple sites Expected: 08/19/2023, Expires: 11/18/2023 [facility] Work Phone: Comment on above: Expected: 08/19/2023 , Expires: 11/18/2023 Start: 03-02-2023 Behavioral Health Screening Behavioral Health Screening [facility] Start: 03-02-2023 Depression Assessment Depression Ass [facility] Start: 12-11-2022 Assay of prostate specific antigen total ASSAY OF PSA TOTAL [facility] Start: 10-31-2022 [facility] Start: 03-02-2022 DEPRESSION ASSESSMENT DEPRESSION ASS [facility] Start: 10-31-2021 [facility] Start: 06-27-2021 End: 08-27-2021 BLOOD TB SCREEN, INCUBATED [facility] Work Phone: Comment on above: Expected: 06/27/2021 , Expires: 08/27/2021 Start: 06-27-2021 End: 08-27-2021 C reactive protein [Mass/volume] in Serum or Plasma [facility] Work Phone: Comment on above: Expected: 06/27/2021 , Expires: 08/27/2021 Start: 06-27-2021 End: 08-27-2021 CBC W Auto Differential panel - Blood [facility] Work Phone: Comment on above: Expected: 06/27/2021 , Expires: 08/27/2021 Start: 06-27-2021 End: 08-27-2021 Comprehensive metabolic 2000 panel - Serum or Plasma [facility] Work Phone: Comment on above: Expected: 06/27/2021 , Expires: 08/27/2021 Start: 06-27-2021 End: 08-27-2021 Cyclic citrullinated peptide IgG Ab [Units/volume] in Serum or Plasma [facility] Work Phone: Comment on above: Expected: 06/27/2021 , Expires: 08/27/2021 Start: 06-27-2021 End: 08-27-2021 Erythrocyte sedimentation rate [facility] Work Phone: Comment on above: Expected: 06/27/2021 , Expires: 08/27/2021 Start: 06-27-2021 End: 06-27-2022 Hepatitis B virus core Ab [Presence] in Serum [facility] Work Phone: Comment on above: Expected: 06/27/2021 , Expires: 06/27/2022 Start: 06-27-2021 End: 06-27-2022 Hepatitis B virus surface Ab [Presence] in Serum by Immunoassay [facility] Work Phone: Comment on above: Expected: 06/27/2021 , Expires: 06/27/2022 Start: 06-27-2021 End: 06-27-2022 Hepatitis B virus surface Ab [Units/volume] in Serum [facility] Work Phone: Comment on above: Expected: 06/27/2021 , Expires: 06/27/2022 Start: 06-27-2021 End: 08-27-2021 Hepatitis C virus Ab [Presence] in Serum [facility] Work Phone: Comment on above: Expected: 06/27/2021 , Expires: 08/27/2021 Start: 06-27-2021 End: 08-27-2021 RHEUMATOID FACTOR BL [facility] Work Phone: Comment on above: Expected: 06/27/2021 , Expires: 08/27/2021 Start: 06-27-2021 End: 08-27-2021 VITAMIN D 25 HYDROXY [facility] Work Phone: Comment on above: Expected: 06/27/2021 , Expires: 08/27/2021 Start: 05-03-2021 Assay of prostate specific antigen total ASSAY OF PSA [facility] Work Phone: Start: 03-02-2021 DEPRESSION ASSESSMENT DEPRESSION ASS ESSMENT [facility] Start: 2020 RSV Vaccine (1 - 1-d ose 60+ series) RSV Vaccine (1 - 1-dose 60+ series) [facility] Start: 2020 RSV Vaccine (1 - Ris k 60-74 years 1-dose series) RSV Vaccine (1 - Risk 60-74 years 1-dose series) [facility] Start: 10-21-2019 Colonoscopy COLONOSCOPY [facility] Start: 10-21-2019 COLORECTAL CANCER SCREENING COLORECTAL CANCER SCREENING [facility] Start: 10-21-2019 Screening for malign ant neoplasm of colon [facility] Start: 08-06-2015 PROSTATE CANCER SCREENING DISCUSSION PROSTATE CANCER SCREENING DISCUSSION [facility] Start: 08-06-2015 Prostate specific antigen measurement Prostate Cancer Screening Discussion [facility] Start: 2010 SHINGRIX VACCINE (1 of 2) SHINGRIX VACCINE (1 of 2) [facility] Start: 2005 COLOGUARD (FIT-DNA) COLOGUARD (FIT-D NA) [facility] Start: 2005 Colonoscopy COLONOSCOPY [facility] Start: 2005 COLORECTAL CANCER SCREENING COLORECTAL CANCER SCREENING [facility] Start: [address] COLONOGRAPHY [facility] Start: 2005 DIABETES SCREEN DIABETES SCREEN [facility] Start: 2005 FECAL OCCULT BLOOD FECAL OCCULT BLOO D [facility] Start: 2005 Screening for malign ant neoplasm of colon [facility] Start: 2005 SIGMOIDOSCOPY SIGMOIDOSCOPY [facility] Start: 08-06-1995 Lipid 1996 panel - Serum or Plasma Lipid Screening [facility] Start: 08-06-1995 Lipid panel Lipid Screening [facility] Start: 08-06-1995 LIPID SCREEN LIPID SCREEN [facility] Start: 08-06-1979 ONE PNEUMOVAX PRIOR TO AGE 65 ONE PNEUMOVAX PRIOR TO AGE 65 [facility] Start: 08-06-1979 Pneumococcal Vaccine : 50+ (1 of 2 - PCV) Pneumococcal Vaccine: 50+ (1 of 2 - PCV) [facility] Start: 08-06-1979 SHINGRIX VACCINE (1 of 2) SHINGRIX VACCINE (1 of 2) [facility] Start: 08-06-1979 Urine microalbumin profile [facility] Start: 1978 Anxiety Screening Anxiety Screening [facility] Start: 1978 Depression Screening Depression Scre ening [facility] Start: 1978 HEPATITIS C SCREENING HEPATITIS C SC REENING [facility] Start: 1978 HIV SCREENING HIV SCREENING [facility] Start: 1978 HIV screening HIV Screening [facility] Start: 1972 Adult depression screening assessment DEPRESSION SCREENING [facility] Start: 1966 PNEUMOCOCCAL (1 - PCV) PNEUMOCOCCAL (1 - PCV) [facility] Start: 1966 Pneumococcal vaccination [facility] Start: 1965 COVID-19 VACCINE (#1) COVID-19 VACCI NE (#1) [facility] Start: 1965 COVID-19 VACCINE (1) COVID-19 VACCIN E (1) [facility] Start: 02-04-1961 COVID-19 VACCINE (#1) COVID-19 VACCI NE (#1) [facility] End: 07-31-2023 25-hydroxyvitamin D3 [Mass/volume] in Serum or Plasma VITAMIN D 25 HYDROXY Lab Routine Polyarticular psoriatic arthritis (HCC) 6 Occurrences starting 07/31/2022 until 07/31/2023 [facility] Work Phone: Comment on above: 6 Occurrences starti ng 07/31/2022 until 07/31/2023 End: 04-19-2024 25-hydroxyvitamin D3 [Mass/volume] in Serum or Plasma VITAMIN D 25 HYDROXY Lab Routine Pain in joint, multiple sites Vitamin D deficiency 3 Occurrences starting 04/20/2023 until 04/19/2024 [facility] Work Phone: Comment on above: 3 Occurrences starti ng 04/20/2023 until 04/19/2024 End: 07-31-2023 CBC W Auto Differential panel - Blood CBC + DIFF Lab Routine Polyarticular psoriatic arthritis (HCC) 6 Occurrences starting 07/31/2022 until 07/31/2023 [facility] Work Phone: Comment on above: 6 Occurrences starti ng 07/31/2022 until 07/31/2023 End: 04-19-2024 CBC W Auto Differential panel - Blood CBC + DIFF Lab Routine Pain in joint, multiple sites 3 Occurrences starting 04/20/2023 until 04/19/2024 [facility] Work Phone: Comment on above: 3 Occurrences starti ng 04/20/2023 until 04/19/2024 End: 07-31-2023 Comprehensive metabolic 2000 panel - Serum or Plasma COMP METABOLIC PANEL Lab Routine Polyarticular psoriatic arthritis (HCC) 6 Occurrences starting 07/31/2022 until 07/31/2023 [facility] Work Phone: Comment on above: 6 Occurrences starti ng 07/31/2022 until 07/31/2023 End: 04-19-2024 Comprehensive metabolic 2000 panel - Serum or Plasma COMP METABOLIC PANEL Lab Routine Pain in joint, multiple sites 3 Occurrences starting 04/20/2023 until 04/19/2024 [facility] Work Phone: Comment on above: 3 Occurrences starti ng 04/20/2023 until 04/19/2024 Patient Education [facility] Work Phone: Patient referral [facility] Work Phone: Radex spine cervical 2 or 3 views XR CERV GENERAL 2V AP/LAT Radiology Routine Pain in joint, multiple sites 06/27/2021 11:33 AM EDT [facility] Work Phone: [facility] Payers Date Payer Category Payer Self-pay [id number] 2021 Medicaid [id number] [address] [facility] MEDICAID [facility] [employer] MEDICAID [id number] 2020-Present [phone] [address] [place] [address] Medicaid [id number] 2021 Medicaid [id number] 2020 Unknown [id number] Unknown [facility] [id number] Unknown [id number] Unknown [id number] Unknown [id number] Unknown [id number] Unknown [id number] Unknown [id number] Unknown [id number] Unknown [id number] Unknown [id number] Unknown [id number] Unknown [id number] Unknown [id number] Unknown [id number] Unknown [id number] Social History Date Type Detail Facility Start: 06-27-2021 End: 03-14-2024 Tobacco smoking status NHIS Ex-smoker [facility] History of tobacco use Cigarette Smoker [facility] History of tobacco use Cigar Smoker [facility] Start: 06-27-2021 End: 03-19-2022 Cigarettes smoked current (pack per day) - Reported 1 [facility] Start: 06-27-2021 End: 03-14-2024 Tobacco use and exposure Former smokeless tobacco user [facility] History of tobacco use Snuff User [facility] Start: 06-27-2021 End: 03-14-2024 Alcohol intake Current drinker of alcohol (finding) [facility] Start: 06-27-2021 History SDOH Alcohol Comment social [facility] Start: 1960 Sex Assigned At Not on file [facility] Start: 06-17-2021 End: 06-27-2021 Exposure to SARS-CoV-2 (event) Not sure [facility] Start: 1960 Sex Assigned At Male [facility] Start: 07-21-2021 End: 07-31-2021 Exposure to SARS-CoV-2 (event) Unable to assess [facility] Start: 10-18-2020 End: 04-16-2023 Tobacco smoking status NHIS Unknown if ever smoked [facility] Start: 10-18-2018 Non-smoker [facility] History of tobacco use Current smoker [facility] Start: 02-24-2022 End: 03-19-2022 Tobacco use panel [facility] National Score (1-10 0), lower number is lower risk 70 [facility] Start: 07-31-2021 Gender identity Identifies as male gender (finding) [facility] Start: 07-31-2021 Sexual orientation Heterosexual (fin ding) [facility] Start: 09-02-2023 Tobacco smoking stat us NHIS Current some day smoker [facility] Start: 06-08-2024 Sex Male (finding) [facility] Medical Equipment Procedure Code Equipment Code Equipment Original Text Equi pment Identifier Dates [id number] Mental Status Date Assessment Result Facility 09-04-2022 Cognitive function Level Of Cons ciousness Awake;Alert;Appropriate;Follow s Commands [facility] Work Phone: Clinical Notes 06-27-2021 to 07-13-2024 Note Date & Type Note Facility 07-13-2024 Radiology Diagnostic study note [facility] Imaging Services [address] [place], [place] [address] Sinus/Facial Bone MR#: [id number] Acct: [id number] Name: JONEL TERRELL Rep #: [id number] : 1960 Dmitry 63 From: Jacobo Novak MD PCP: Dr. Zahra Guerrero MD Status: RE G CLI Study:Sinus/Facial Bone Date of Exam: Exam# [id number] Ordering Dr: Lisseth Keller MD PROCEDURE: SINUS/FACIAL BONE REASON FOR EXAM: SINUSITIS TECHNIQUE: CT of the paranasal sinuses without contrast. Coronal and Sagittal reconstruction series were provided. One or more dose reduction techniques were used (e.g., Automated exposure control, adjustment of the mA and/or kV according to patient size, use of iterative reconstruction technique). CT dL volume: 33.06 mGy. DLP: 899.96 COMPARISON: None. FINDINGS: Frontal: Opacification of the left frontal sinus. Ethmoid: Opacification of the ethmoid sinuses bilaterally worse on the right side with thinning of the bony septations. Sphenoid: Mucosal thickening of the sphenoid sinuses. Maxillary: Bilateral maxillary sinus opacification. There is compromise of the ostiomeatal complexes due to soft tissue prominence. Turbinates: Hypertrophy of the inferior turbinates bilaterally. Soft tissue prominence in the posterior aspect of the nasal passages. Nasal Septum: Nasal septal deviation towards the left side of the midline. Mastoids/Middle Ears: Unremarkable CT/Sinus/Facial Bone IMPRESSION: Pansinusitis. Reading Location: [id number] CC: Dr. Heber Keller MD; Dr. 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 Author Type: Physician Type: Progress Notes Filed: 06/14/2024 12:00 Note Text: VIRTUAL VISIT PROGRESS NOTE This is a virtual visit using [employer] Video Visit. It required patient-provider interaction for the medical decision making as documented below. I have communicated my name and active licensure. The patient's identity and physical location were verified at the time of this visit. Either the patient or their legal termite control representative has been informed of the risks and benefits of -- and alternatives to -- treatment through a remote evaluation and consents to proceed with the evaluation remotely. Jonel Terrell is a 63 year old male seen for joint pain Having flu symptoms. On pred and z pack. Which helped. But now has recurrence. Shoulder pain Spine pain. Somewhat better. not on SSZ. Brief Rheumatological history - He stopped SSZ in apr, 2023. Did not have any symptoms. Dark urine x 1 month. Went to PCP. Was told he was dehydrated. Resumed SSZ August 10. Thinks it helped with pain. He has been mowing. Shoulder and knee pain Brief Rheumatological history - Cold sweats and shaking when he started SSZ. He took for a week. Side effects subsided when he stopped SSZ. He went to ER HISTORY OF PRESENT ILLNESS Base of neck and b/w shoulder blades, Severe wrist pain, carpal tunnel ? 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 PCP prescribed prednisone which helped. Symptoms returned after he finished the pred course. Hot epsom salt water helps. Currently pain subsided. He had gout one time podagra. Not had a flare up of gout for sometimes. He tried several OTC tylenol, NSAIDs. h/o possible dactylitis HTN, DM2, HLP, asthma, gout, HASMUKH, obesity He may have psoriasis? Uses cream. "water in knees" did not seek treatment at that time. 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 Family h/o autoimmune disease - mother had PsA, brother with psorsis Smoking - ex smoker Interval Review of Systems CONSTITUTIONAL: Recent Weight change: YES losing unintentional Fever: No EYES: Dryness in nose: No Dryness of mouth: No Oral ulcers: No CARDIOVASCULAR: Pain in chest: No RESPIRATORY: Shortness of breath: No Cough: No GASTROINTESTINAL: Nausea: No Vomiting: No Changes in bowel movements: No Jaundice: No Heartburn: No MUSCULOSKELETAL: Per HPI INTEGUMENTARY: Rash: No HEMATOLOGIC/LYMPHATIC: Anemia: No NEUROLOGICAL SYSTEM: Headaches: No Sensitivity or pain of hands and/or feet: No PSYCHIATRIC: Anxiety: No Poor sleep: No . HISTORY REVIEWED (electronic chart updated): PAST MEDICAL HISTORY Diagnosis Date Abdominal pain, other specified site LLQ,RLQ Anal or rectal pain Other and unspecified hyperlipidemia Other constipation PAST SURGICAL HISTORY Procedure Laterality Date COLONOSCOPY FLX DX W/COLLJ SPEC WHEN PFRMD 10/12/2007 Colonoscopy PAST SURGICAL HISTORY OF umb hernia FAMILY HISTORY Problem Relation Age of Onset Asthma Mother Rheumatologic disease Mother Asthma Maternal Grandmother Breast Cancer Maternal Grandmother Emphysema Maternal Grandfather Coronary Artery Disease Paternal Grandmother Coronary Artery Disease Paternal Grandfather Cancer Paternal Grandfather trhroat Social History Tobacco Use Smoking status: Former Current packs/day: 1.00 Average packs/day: 1 pack/day for 8.0 years (8.0 ttl pk-yrs) Types: Cigarettes, Cigars Smokeless tobacco: Former Types: Snuff Vaping Use Vaping status: Never Used Substance Use Topics Alcohol use: Yes Comment: social Drug use: No Current Outpatient Medications Medication Sig pantoprazole DR (PROTONIX) 40 mg tablet Take 40 mg by mouth once daily. sulfaSALAzine (AZULFIDINE) 500 mg tablet take 1 tablet by mouth once daily (Patient not taking: Reported on 03/14/2024) metoprolol succinate ER (TOPROL XL) 25 mg 24 hr tablet Take 50 mg by mouth once daily. mometasone-formoterol (DULERA) 200-5 mcg/actuation inhaler Inhale as instructed twice daily. betamethasone valerate 0.1 % cream Apply to affected area twice daily. lancets (ONETOUCH DELICA PLUS LANCET MISC) albuterol HFA (PROVENTIL HFA, VENTOLIN HFA) 90 mcg/actuation inhaler Inhale 2 Puffs as instructed every 6 hours as needed for wheezing/shortnes (more content not included)...[facility]04-15-2025 History of Present illness Narrative* Sharron Toribio MD - 06/14/2024 11:49 AM EDT VIRTUAL VISIT PROGRESS NOTE This is a virtual visit using [employer] Video Visit. It required patient- provider interaction for the medical decision making as documented below. I have communicated my name and active licensure. The patient's identity and physical location wereverified at the time of this visit. Either the patient or their legal termite control representative has been informed of the risks and benefits of -- and alternatives to -- treatment through a remote evaluation andconsents to proceed with the evaluation remotely. Jonel Terrell is a 63 year old male seen for joint pain Having flu symptoms. On pred and z pack. Which helped. But now has recurrence. Shoulder pain Spine pain. Somewhat better. not on SSZ. Brief Rheumatological history - He stopped SSZ in apr, 2023. Did not have any symptoms. Dark urine x 1 month. Went to PCP. Was told he was dehydrated. Resumed SSZ August 10. Thinks it helped with pain. He has been mowing. Shoulder and knee pain Brief Rheumatological history - Cold sweats and shaking when he started SSZ. He took for a week. Side effects subsided when he stopped SSZ. He went to ER HISTORY OF PRESENT ILLNESS Base of neck and b/w shoulder blades, Severe wrist pain, carpal tunnel ? Xray : arthritis : somewhat 6 months ago Pain was tremendous Prednisone: 1 day and pain went away Mother : RA, psoriasis Brother : psoriasis Psoriasis : scalp: coltar, right hand, scalp, clinical diagnosis, never been to physical therapy nurse Morning stiffness : not much Had that for several days , whole hand swollen, by next day pain was completely gone Work : [employer], had fluid pockets on base of his knees, not employed right now Right big toe: long time ago 2 or 3 more episodes with it that were milder Diabetes well controlled No numbness and tingling No gi issues Brief Rheumatological history - Jan 2021 - Bilateral Hand, wrist swelling, pain, weakness. PCP prescribed prednisone which helped. Symptoms returned after he finished the pred course. Hot epsom salt water helps. Currently pain subsided. He had gout one time podagra. Not had a flare up of gout for sometimes. He tried several OTC tylenol, NSAIDs. h/o possible dactylitis HTN, DM2, HLP, asthma, gout, HASMUKH, obesity He may have psoriasis? Uses cream. "water in knees" did not seek treatment at that time. [place] Family h/o autoimmune disease - mother had PsA, brother with psorsis Smoking - ex smoker Interval Review of Systems CONSTITUTIONAL: Recent Weight change: YES losing unintentional Fever: No EYES: Dryness in nose: No Dryness of mouth: No Oral ulcers: No CARDIOVASCULAR: Pain in chest: No RESPIRATORY: Shortness of breath: No Cough: No GASTROINTESTINAL: Nausea: No Vomiting: No Changes in bowel movements: No Jaundice: No Heartburn: No MUSCULOSKELETAL: Per HPI INTEGUMENTARY: Rash: No HEMATOLOGIC/LYMPHATIC: Anemia: No NEUROLOGICAL SYSTEM: Headaches: No Sensitivity or pain of hands and/or feet: No PSYCHIATRIC: Anxiety: No Poor sleep: No . HISTORY REVIEWED (electronic chart updated): PAST MEDICAL HISTORY Diagnosis Date Abdominal pain, other specified site LLQ,RLQ Anal or rectal pain Other and unspecified hyperlipidemia Other constipation PAST SURGICAL HISTORY Procedure Laterality Date COLONOSCOPY FLX DX W/COLLJ SPEC WHEN PFRMD 10/12/2007 Colonoscopy PAST SURGICAL HISTORY OF umb hernia FAMILY HISTORY Problem Relation Age of Onset Asthma Mother Rheumatologic disease Mother Asthma Maternal Grandmother Breast Cancer Maternal Grandmother Emphysema Maternal Grandfather Coronary Artery Disease Paternal Grandmother Coronary Artery Disease Paternal Grandfather Cancer Paternal Grandfather trhroat Social History Tobacco Use Smoking status: Former Current packs/day: 1.00 Average packs/day: 1 pack/day for 8.0 years (8.0 ttl pk-yrs) Types: Cigarettes, Cigars Smokeless tobacco: Former Types: Snuff Vaping Use Vaping status: Never Used Substance Use Topics Alcohol use: Yes Comment: social Drug use: No Current Outpatient Medications Medication Sig pantoprazole DR (PROTONIX) 40 mg tablet Take 40 mg by mouth once daily. sulfaSALAzine (AZULFIDINE) 500 mg tablet take 1 tablet by mouth once daily (Patient not taking: Reported on 03/14/2024) metoprolol succinate ER (TOPROL XL) 25 mg 24 hr tablet Take 50 mg by mouth once daily. mometasone-formoterol (DULERA) 200-5 mcg/actuation inhaler Inhale as instructed twice daily. betamethasone valerate 0.1 % cream Apply to affected area twice daily. lancets (ONETOUCH DELICA PLUS LANCET MISC) albuterol HFA (PROVENTIL HFA, VENTOLIN HFA) 90 mcg/actuation inhaler Inhale 2 Puffs as instructed every 6 hours as needed for wheezing/shortness of breath. metFORMIN (GLUCOPHAGE) 500 mg tablet Take 1,000 mg by mouth twice daily with meals. atorvastatin (LIPITOR) 20 mg tablet Take 40 mg by mouth once daily. aspirin, enteric coated (ASPIRIN, ENTERIC COATED) 81 mg EC tablet Take 81 mg by mouth once daily. fluticasone-salmeterol (ADVAIR, WIXELA) 250-50 mcg/dose inhaler Inhale 1 Puff as instructed two times a day. TRIAMCINOLONE ACETONIDE (NASACORT NASAL) Use in the nose. No current facility-administered medications for this visit. ALLERGIES Allergen Reactions Flagyl [Metronidazo* Other: See Comments Feels flushed and sweaty and makes the skin on the inside of his mouth peel. Lisinopril Other: See Comments Lips and throat swelled Peanut Butter [Othe* Anaphylaxis REVIEW OF SYSTEMS: All other ROS: negative As noted in HPI PHYSICAL EXAMINATION: VIDEO EXAM: (if completed, performed via video enabled technology) GENERAL: alert and appropriate, in no distress, well-hydrated, well nourished, and happy, smiling, interactive Latest Reference Range & Units 06/27/21 11:46 CRP <0.9 mg/dL 0.4 Vitamin D 25 Hydroxy 30.0 - 100.0 ng/mL 53.7 Hep C Antibody IA Negative Negative Hep B Surf Ab Quant <10.00 mIU/mL <3.10 Hep B Surface Ag Negative Negative Hep B Core Ab, Total Negative Negative Rheumatoid Factor <16 IU/mL <10 CCP Antibody, IgG <20 Units <15 CCP Antibody IgG Qualitative Negative Negative TB Nil <=8.00 IU/mL 0.03 TB1 Ag minus Nil <0.35 IU/mL 0.06 TB2 Ag minus Nil <0.35 IU/mL 0.04 Mitogen minus Nil >=0.50 IU/mL >9.97 TB Result Negative TB Interpretation Infection with M. tuberculosis complex is unlikely. If latent tuberculosis infection is highly suspected, a negative result does not rule out the infection. Specimens from immunocompromised patients and those <5 years of age may show false negative results. In case of a contactinvestigation, please repeat 8-12 weeks after a known exposure. Most recent labs and imaging results. JOAQUIN negative, RF neg CCP neg, ESR 51 IMPRESSION: 3 views of the left shoulder have been obtained. No acute fracture or dislocation is seen. There is mild degenerative change of the acromioclavicular joint. Remaining joint spaces are maintained. No gross soft tissue abnormality is seen. IMPRESSION: Mild osteopenia with diffuse mild osteoarthritic changes. No acute abnormality, erosive changes, chondrocalcinosis or periostitis. Right wrist x ray - FINDINGS: Mild osteopenia. Mild arthrosis of the radiocarpal joint. Mild arthrosis of the radioulnar joint. Mild arthrosis of the radiocarpal row. Mild arthrosis of the first CMC joint. The soft tissue structures are unremarkable. Left shoulder - FINDINGS: Normal glenohumeral articulation. Degenerative hypertrophy at the acromioclavicular joint. Normal acromion. Normal humeral head and visualized proximal humerus. The soft tissue structures are unremarkable. Normal visualized pulmonary apex. Elbow = IMPRESSION: Soft tissue prominence of the biceps suggestive of a biceps tendon tear. IMPRESSION: Degenerative changes greatest at C5-C6. Radiology: FINDINGS: Slight anterolisthesis of C2 on C3 and C3 on C4. 4 mm retrolisthesis of C5 on C6. Degenerative endplate changes greatest at C5-C6. Slight anterolisthesis of C7 on T1. Degenerative changes of the facets. IMPRESSION: 3 views of the left shoulder have been obtained. No acute fracture or dislocation is seen. There is mild degenerative change of the acromioclavicular joint. Remaining joint spaces are maintained. No gross soft tissue abnormality is seen. ASSESSMENT: (M25.50) Pain in joint, multiple sites (primary encounter diagnosis) 63-year-old male is here for follow up. He had an acute onset of bilateral hand pain and swelling. This improved with prednisone. He reports history of gout and psoriasis. Psoriatic arthritis is possible. He was advised to notify us if he has recurrence of symptoms. Plan: Likely has PsA. Neck pain - inflammatory vs DJD. Neck pain likely due to DJD. May need to see pain management. Starting PT. Pain overall controlled. Doing ok on SSZ. He may resume once throat starts feeling better. Can consider other DMARDS Also has neck DJD PLAN: Planning to resume SSZ slowly. There are no Patient Instructions on file for this visit. I spent a total of 20 minutes on the date of the service which included preparing to see the patient, [id number] patient care, completing clinical documentation, obtaining and/or reviewing separately obtained history, performing a medically appropriate examination, counseling and educating the pat ient/family/caregiver, ordering medications, tests, or procedures, independently interpreting results (not separately reported), and communicating results to the patient/family/caregiver Sharron Toribio MD No orders found for this visit on 06/14/24. No orders of the defined types were placed in this encounter. [facility] Radiology Diagnostic study note [facility] Imaging Services [address] [place] [address] [id number] Chest PA and Lateral MR#: [id number] Acct: [id number] Name: JONEL TERRELL Rep #: [id number] : [id number] M 63 From: Kevin Barkley MD PCP: Dr. Zahra Guerrero MD Status: GUERLINE G CLI Study:Chest PA and Lateral Date of Exam: 06/02/24 Exam# [id number] Ordering Dr: Zahra Guerrero MD PROCEDURE: CHEST PA AND LATERAL 06/02/2024 REASON FOR EXAM: BRONCHITIS TECHNIQUE: Frontal and lateral views of the chest. 2 PA views to include the entire chest and lateral, 3 totalimages COMPARISON: None available FINDINGS: Small linear opacity at the peripheral left base on the frontal view may represent atelectasis or scar. The lungs otherwise appear clear. Pulmonary vascularity appears within limits. No pleural effusion. The cardiac and mediastinal contours appear within limits. The visualized osseous structures appear within limits. RAD/Chest PA and Lateral IMPRESSION: Small linear opacity at the peripheral left base on the frontal view may represent atelectasis or scar. The lungs otherwise appear clear. Pulmonary vascularity appears within limits. No pleural effusion. Reading Location: [id number] CC: Dr. Zahra Guerrero MD ~ Net Application Architect: Signed [facility]01-13-2025 NoteHNO ID: [id number] Author: SHARRON TORIBIO MD Service: ? Author Type: Physician Type: Progress Notes Filed: 03/14/2024 15:58 Note Text: RHEUMATOLOGY PROGRESS NOTE Patient is here for a follow up visit for Patient presents with: Joint Pain HPI: Jonel Terrell is a 63 year old male who presents joint pain He has not been on SSZ for a dental infection. Was on penicillin for 3 months. Having a lot of stomach issues, on PPI. Started taking Mag which has been helping with neck/shoulder pain. Sometimes takes tylenol. Brief Rheumatological history - He stopped SSZ in apr, 2023. Did not have any symptoms. Dark urine x 1 month. Went to PCP. Was told he was dehydrated. Resumed SSZ August 10. Thinks it helped with pain. He has been mowing. Shoulder and knee pain Brief Rheumatological history - Cold sweats and shaking when he started SSZ. He took for a week. Side effects subsided when he stopped SSZ. He went to ER HISTORY OF PRESENT ILLNESS Base of neck and b/w shoulder blades, Severe wrist pain, carpal tunnel ? Xray : arthritis : somewhat 6 months ago Pain was tremendous Prednisone: 1 day and pain went away Mother : RA, psoriasis Brother : psoriasis Psoriasis : scalp: coltar, right hand, scalp, clinical diagnosis, never been to physical therapy nurse Morning stiffness : not much Had that for several days , whole hand swollen, by next day pain was completely gone Work : [employer], had fluid pockets on base of his knees, not employed right now Right big toe: long time ago 2 or 3 more episodes with it that were milder Diabetes well controlled No numbness and tingling No gi issues Brief Rheumatological history - Jan 2021 - Bilateral Hand, wrist swelling, pain, weakness. PCP prescribed prednisone which helped. Symptoms returned after he finished the pred course. Hot epsom salt water helps. Currently pain subsided. He had gout one time podagra. Not had a flare up of gout for sometimes. He tried several OTC tylenol, NSAIDs. h/o possible dactylitis HTN, DM2, HLP, asthma, gout, HASMUKH, obesity He may have psoriasis? Uses cream. "water in knees" did not seek treatment at that time. [place] Family h/o autoimmune disease - mother had PsA, brother with psorsis Smoking - ex smoker Interval Review of Systems CONSTITUTIONAL: Recent Weight change: YES losing unintentional Fever: No EYES: Dryness in nose: No Dryness of mouth: No Oral ulcers: No CARDIOVASCULAR: Pain in chest: No RESPIRATORY: Shortness of breath: No Cough: No GASTROINTESTINAL: Nausea: No Vomiting: No Changes in bowel movements: No Jaundice: No Heartburn: No MUSCULOSKELETAL: Per HPI INTEGUMENTARY: Rash: No HEMATOLOGIC/LYMPHATIC: Anemia: No NEUROLOGICAL SYSTEM: Headaches: No Sensitivity or pain of hands and/or feet: No PSYCHIATRIC: Anxiety: No Poor sleep: No PAST MEDICAL HISTORY Diagnosis Date Abdominal pain, other specified site LLQ,RLQ Anal or rectal pain Other and unspecified hyperlipidemia Other constipation PAST SURGICAL HISTORY Procedure Laterality Date COLONOSCOPY FLX DX W/COLLJ SPEC WHEN PFRMD 10/12/2007 Colonoscopy PAST SURGICAL HISTORY OF umb hernia History Review: I have reviewed and modified as needed, the following during this visit: Allergies, Past Medical History, Past Surgical History, Past Family History, Past Social History. BP 128/76 Pulse 72 Resp 13 Physical Exam GENERAL: Well appearing, alert, comfortable, in no acute distress, well-hydrated, well nourished. HEENT: Negative for external ears normal. Canals are clear. Both TMs visualized and are normal. Eye Exam normal. External nose normal, no nasal ulcer or throat ulcer. NECK: NECK Supple, no adenopathy; thyroid symmetric, normal size, no bruits CARDIAC: regular rate and rhythm, No murmur asculated., and Equal peripheral pulses RESPIRATORY: Lungs clear to auscultation. No wheezing, rhonchi, rales VASCULAR: RRR without murmur, gallop, or rubs. No ectopy. NEURO: Motor and sensory exam normal MOTOR: Normal; including tone, gait, stressed gait, power and coordination. SKIN: Negative for alopecia, skin rash, malar rash, skin lesion, skin ulcer, pits, thickening, color changes, telangiectasias, nail changes, nail ridging, nail pitting, onycholysis MUSCULOSKELETAL: DIPS: Normal PIPS: Normal MCPs: Normal Wrists: Normal Elbows: Normal Shoulders: Normal C-Spine: Normal Hips: Normal Knees: Normal Ankles: Normal MTPs / Toes: Normal Arches: Normal Lab Results: Glucose 122 06/27/2021 ALT 20 06/27/2021 WBC 7.88 06/27/2021 Hemoglobin 13.8 06/27/2021 Platelet Count 267 06/27/2021 Sed Rate, Westergren 12 06/27/2021 CRP 0.4 06/27/2021 Serology: Radiology: Latest Reference Range AND Units 06/27/21 11:46 CRP <0.9 mg/dL 0.4 Vitamin D 25 Hydroxy 30.0 - 100.0 ng/mL 53.7 Hep C Antibody IA Negative Negative Hep B Surf Ab Quant <10.00 mIU/mL <3.10 Hep (more content not included)...[facility]01-13-2025 History of Present illness Narrative* Sharron Toribio MD - 03/14/2024 3:08 PM EST RHEUMATOLOGY PROGRESS NOTE Patient is here for a follow up visit for Patient presents with: Joint Pain HPI: Jonel Terrell is a 63 year old male who presents joint pain He has not been on SSZ for a dental infection. Was on penicillin for 3 months. Having a lot of stomach issues, on PPI. Started taking Mag which has been helping with neck/shoulder pain. Sometimes takes tylenol. Brief Rheumatological history - He stopped SSZ in apr, 2023. Did not have any symptoms. Dark urine x 1 month. Went to PCP. Was told he was dehydrated. Resumed SSZ August 10. Thinks it helped with pain. He has been mowing. Shoulder and knee pain Brief Rheumatological history - Cold sweats and shaking when he started SSZ. He took for a week. Side effects subsided when he stopped SSZ. He went to ER HISTORY OF PRESENT ILLNESS Base of neck and b/w shoulder blades, Severe wrist pain, carpal tunnel ? Xray : arthritis : somewhat 6 months ago Pain was tremendous Prednisone: 1 day and pain went away Mother : RA, psoriasis Brother : psoriasis Psoriasis : scalp: coltar, right hand, scalp, clinical diagnosis, never been to physical therapy nurse Morning stiffness : not much Had that for several days , whole hand swollen, by next day pain was completely gone Work : [employer], had fluid pockets on base of his knees, not employed right now Right big toe: long time ago 2 or 3 more episodes with it that were milder Diabetes well controlled No numbness and tingling No gi issues Brief Rheumatological history - Jan 2021 - Bilateral Hand, wrist swelling, pain, weakness. PCP prescribed prednisone which helped. Symptoms returned after he finished the pred course. Hot epsom salt water helps. Currently pain subsided. He had gout one time podagra. Not had a flare up of gout for sometimes. He tried several OTC tylenol, NSAIDs. h/o possible dactylitis HTN, DM2, HLP, asthma, gout, HASMUKH, obesity He may have psoriasis? Uses cream. "water in knees" did not seek treatment at that time. [place] Family h/o autoimmune disease - mother had PsA, brother with psorsis Smoking - ex smoker Interval Review of Systems CONSTITUTIONAL: Recent Weight change: YES losing unintentional Fever: No EYES: Dryness in nose: No Dryness of mouth: No Oral ulcers: No CARDIOVASCULAR: Pain in chest: No RESPIRATORY: Shortness of breath: No Cough: No GASTROINTESTINAL: Nausea: No Vomiting: No Changes in bowel movements: No Jaundice: No Heartburn: No MUSCULOSKELETAL: Per HPI INTEGUMENTARY: Rash: No HEMATOLOGIC/LYMPHATIC: Anemia: No NEUROLOGICAL SYSTEM: Headaches: No Sensitivity or pain of hands and/or feet: No PSYCHIATRIC: Anxiety: No Poor sleep: No PAST MEDICAL HISTORY Diagnosis Date Abdominal pain, other specified site LLQ,RLQ Anal or rectal pain Other and unspecified hyperlipidemia Other constipation PAST SURGICAL HISTORY Procedure Laterality Date COLONOSCOPY FLX DX W/COLLJ SPEC WHEN PFRMD 10/12/2007 Colonoscopy PAST SURGICAL HISTORY OF umb hernia History Review: I have reviewed and modified as needed, the following during this visit: Allergies,Past Medical History, Past Surgical History, Past Family History, Past Social History. BP 128/76 Pulse 72 Resp 13 Physical Exam GENERAL: Well appearing, alert, comfortable, in no acute distress, well- hydrated, well nourished. HEENT: Negative for external ears normal. Canals are clear. Both TMs visualized and are normal. EyeExam normal. External nose normal, no nasal ulcer or throat ulcer. NECK: NECK Supple, no adenopathy; thyroid symmetric, normal size, no bruits CARDIAC: regular rate and rhythm, No murmur asculated., and Equal peripheral pulses RESPIRATORY: Lungs clear to auscultation. No wheezing, rhonchi, rales VASCULAR: RRR without murmur, gallop, or rubs. No ectopy. NEURO: Motor and sensory exam normal MOTOR: Normal; including tone, gait, stressed gait, power and coordination. SKIN: Negative for alopecia, skin rash, malar rash, skin lesion, skin ulcer, pits, thickening, color changes, telangiectasias, nail changes, nail ridging, nail pitting, onycholysis MUSCULOSKELETAL: DIPS: Normal PIPS: Normal MCPs: Normal Wrists: Normal Elbows: Normal Shoulders: Normal C-Spine: Normal Hips: Normal Knees: Normal Ankles: Normal MTPs / Toes: Normal Arches: Normal Lab Results: Glucose 122 06/27/2021 ALT 20 06/27/2021 WBC 7.88 06/27/2021 Hemoglobin 13.8 06/27/2021 Platelet Count 267 06/27/2021 Sed Rate, Westergren 12 06/27/2021 CRP 0.4 06/27/2021 Serology: Radiology: Latest Reference Range & Units 06/27/21 11:46 CRP <0.9 mg/dL 0.4 Vitamin D 25 Hydroxy 30.0 - 100.0 ng/mL 53.7 Hep C Antibody IA Negative Negative Hep B Surf Ab Quant <10.00 mIU/mL <3.10 Hep B Surface Ag Negative Negative Hep B Core Ab, Total Negative Negative Rheumatoid Factor <16 IU/mL <10 CCP Antibody, IgG <20 Units <15 CCP Antibody IgG Qualitative Negative Negative TB Nil <=8.00 IU/mL 0.03 TB1 Ag minus Nil <0.35 IU/mL 0.06 TB2 Ag minus Nil <0.35 IU/mL 0.04 Mitogen minus Nil >=0.50 IU/mL >9.97 TB Result Negative TB Interpretation Infection with M. tuberculosis complex is unlikely. If latent tuberculosis infection is highly suspected, a negative result does not rule out the infection. Specimens from immunocompromised patients and those <5 years of age may show false negative results. In case of a contactinvestigation, please repeat 8-12 weeks after a known exposure. Most recent labs and imaging results. JOAUQIN negative, RF neg CCP neg, ESR 51 IMPRESSION: 3 views of the left shoulder have been obtained. No acute fracture or dislocation is seen. There is mild degenerative change of the acromioclavicular joint. Remaining joint spaces are maintained. No gross soft tissue abnormality is seen. IMPRESSION: Mild osteopenia with diffuse mild osteoarthritic changes. No acute abnormality, erosive changes, chondrocalcinosis or periostitis. Right wrist x ray - FINDINGS: Mild osteopenia. Mild arthrosis of the radiocarpal joint. Mild arthrosis of the radioulnar joint. Mild arthrosis of the radiocarpal row. Mild arthrosis of the first CMC joint. The soft tissue structures are unremarkable. Left shoulder - FINDINGS: Normal glenohumeral articulation. Degenerative hypertrophy at the acromioclavicular joint. Normal acromion. Normal humeral head and visualized proximal humerus. The soft tissue structures are unremarkable. Normal visualized pulmonary apex. Elbow = IMPRESSION: Soft tissue prominence of the biceps suggestive of a biceps tendon tear. IMPRESSION: Degenerative changes greatest at C5-C6. Radiology: FINDINGS: Slight anterolisthesis of C2 on C3 and C3 on C4. 4 mm retrolisthesis of C5 on C6. Degenerative endplate changes greatest at C5-C6. Slight anterolisthesis of C7 on T1. Degenerative changes of the facets. IMPRESSION: 3 views of the left shoulder have been obtained. No acute fracture or dislocation is seen. There is mild degenerative change of the acromioclavicular joint. Remaining joint spaces are maintained. No gross soft tissue abnormality is seen. 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 He had an acute onset of bilateral hand pain and swelling. This improved with prednisone. He reports history of gout and psoriasis. Psoriatic arthritis is possible. He was advised to notify us if he has recurrence of symptoms. Plan: Likely has PsA. Neck pain - inflammatory vs DJD. Neck pain likely due to DJD. May need to see pain management. Starting PT. Pain overall controlled. Doing ok on SSZ. He may resume once throat starts feeling better. Can consider other DMARDS Also has neck DJD No orders found for this visit on 03/14/24. No orders of the defined types were placed in this encounter. No follow-ups on file. Sharron Toribio MD I spent a total of 20 minutes on the date of the service which included preparing to see the patient, [id number] patient care, completing clinical documentation, obtaining and/or reviewing separately obtained history, performing a medically appropriate examination, counseling and educating the pat ient/family/caregiver, ordering medications, tests, or procedures, independently interpreting results (not separately reported), and communicating results to the patient/family/caregiver. documented [facility] Telephone encounter Note * Telephone Encounter - Jade Salazar LPN - 11/27/2023 10:17 AM EDT Patient does not have an upcoming appt. Jade Salazar LPN [facility]09-[facility] Miscellaneous Notes* Telephone Encounter - Jade Salazar LPN - 11/27/2023 10:17 AM EDT Patient does not have an upcoming appt. Jade Salazar LPN documented in this encounterEast [facility]08-28-[facility]24 Telephone encounter Note * Telephone Encounter - Damari Monahan MA - 10/28/2023 3:20 PM EDT Pharmacy faxed requesting the following refill. Requested Prescriptions Pending Prescriptions Disp Refills sulfaSALAzine (AZULFIDINE) 500 mg tablet [Pharmacy Med Name: SULFASALAZINE 500 MG TABLET] 30 tablet0 Sig: take 1 tablet by mouth once daily Patient last appointment: 08/19/2023 Next Appointment: no follow up appt Patient Phone numbers: [phone] (home) Request is for script(s) to be escript to pharmacy. Damari Monahan MA [facility]08-28-[facility] Miscellaneous Notes* Telephone Encounter - Damari Monahan MA - 10/28/2023 3:20 PM EDT Pharmacy faxed requesting the following refill. Requested Prescriptions Pending Prescriptions Disp Refills sulfaSALAzine (AZULFIDINE) 500 mg tablet [Pharmacy Med Name: SULFASALAZINE 500 MG TABLET] 30 tablet0 Sig: take 1 tablet by mouth once daily Patient last appointment: 08/19/2023 Next Appointment: no follow up appt Patient Phone numbers: [phone] (home) Request is for script(s) to be escript to pharmacy. Damari Monahan MA documented in this encounterEast [facility]08-19-2024 Telephone encounter Note * Telephone Encounter - Jade Salazar LPN - 10/19/2023 11:10 AM EDT Patient states he has been off sulfasalazine since 08/28/2023 because he has an abscessed wisdom tooth/dental infection. Pharmacist advised patient not to take sulfasalazine with antibiotics. Patient has completed the antibiotic, last dose was on 10/11/2023. The infection is not resolved. Patient is not sure if they are putting him on another antibiotic, he has been on three different antibiotics. Patient will call with update when he is able to go back on sulfasalazine. Left detailed voice message instructed patient to follow up with Dentist because an unresolved dental infection can be serious and can also be life-threatening. Jade Salazar LPN [facility]08-19-[facility] Miscellaneous Notes* Telephone Encounter - Jade Salazar LPN - 10/19/2023 11:10 AM EDT Patient states he has been off sulfasalazine since 08/28/2023 because he has an abscessed wisdom tooth/dental infection. Pharmacist advised patient not to take sulfasalazine with antibiotics. Patient has completed the antibiotic, last dose was on 10/11/2023. The infection is not resolved. Patient is not sure if they are putting him on another antibiotic, he has been on three different antibiotics. Patient will call with update when he is able to go back on sulfasalazine. Left detailed voice message instructed patient to follow up with Dentist because an unresolved dental infection can be serious and can also be life-threatening. Jade Salazar LPN documented in this encounterEast [facility]07-26-2024 Miscellaneous Notes* Telephone Encounter - Damari Monahan MA - 09/25/2023 10:33 AM EDT Pharmacy faxed requesting the following refill. Requested Prescriptions Pending Prescriptions Disp Refills sulfaSALAzine (AZULFIDINE) 500 mg tablet [Pharmacy Med Name: SULFASALAZINE 500 MG TABLET] 30 tablet0 Sig: take 1 tablet by mouth once daily Patient last appointment: 04/20/2023 Next Appointment: no follow up Patient Phone numbers: [phone] (home) Request is for script(s) to be escript to pharmacy. Damari Monahan MA documented in this encounterEast [facility]07-26-2024 Telephone encounter Note * Telephone Encounter - Damari Monahan MA - 09/25/2023 10:33 AM EDT Pharmacy faxed requesting the following refill. Requested Prescriptions Pending Prescriptions Disp Refills sulfaSALAzine (AZULFIDINE) 500 mg tablet [Pharmacy Med Name: SULFASALAZINE 500 MG TABLET] 30 tablet0 Sig: take 1 tablet by mouth once daily Patient last appointment: 04/20/2023 Next Appointment: no follow up Patient Phone numbers: [phone] (home) Request is for script(s) to be escript to pharmacy. Damari Monahan MA [facility] Telephone encounter Note* Telephone Encounter - Sandra Infante PA-C - 08/26/2023 3:14 PM EDT Please call patient to see if he had his labs done yet - Dr. Toribio ordered at his last appt. [facility] Miscellaneous Notes* Telephone Encounter - Sandra Infante PA-C - 08/26/2023 3:14 PM EDT Please call patient to see if he had his labs done yet - Dr. Toribio ordered at his last appt. * Telephone Encounter - Jade Salazar LPN - 08/26/2023 11:26 AM EDT Pharmacy requesting the following refill. Veronika, Please reach out and schedule an appointment. Thanks. Requested Prescriptions Pending Prescriptions Disp Refills sulfaSALAzine (AZULFIDINE) 500 mg tablet [Pharmacy Med Name: SULFASALAZINE 500 MG TABLET] 90 tablet0 Sig: take 1 tablet by mouth once daily Patient last appointment: 08/19/2023 Next Appointment: Visit date not found Patient Phone numbers: [phone] (home) Request is for script(s) to be escript to pharmacy.[id number] [place] [id number] - [address] [facility] [phone] [id number] Jade Salazar LPN documented in this encounterEast [facility]06-26-2024 Telephone encounter Note * Telephone Encounter - Jade Salazar LPN - 08/26/2023 11:26 AM EDT Pharmacy requesting the following refill. Veronika, Please reach out and schedule an appointment. Thanks. Requested Prescriptions Pending Prescriptions Disp Refills sulfaSALAzine (AZULFIDINE) 500 mg tablet [Pharmacy Med Name: SULFASALAZINE 500 MG TABLET] 90 tablet0 Sig: take 1 tablet by mouth once daily Patient last appointment: 08/19/2023 Next Appointment: Visit date not found Patient Phone numbers: [phone] (home) Request is for script(s) to be escript to pharmacy.[id number] [place] [address] - [address] [facility] [phone] [id number] Jade Salazar LPN [facility]06-19-[facility]24 NoteHNO ID: [id number] Author: SHARRON TORIBIO MD Service: ? Author Type: Physician Type: Progress Notes Filed: 09/09/2023 13:06 Note Text: RHEUMATOLOGY PROGRESS NOTE Patient is here for a follow up visit for No chief complaint on file. HPI: Jonel Terrell is a 63 year old male who presents joint pain This visit was conducted as a virtual visit. He stopped SSZ in apr, 2023. Did not have any symptoms. Dark urine x 1 month. Went to PCP. Was told he was dehydrated. Resumed SSZ August 10. Thinks it helped with pain. He has been mowing. Shoulder and knee pain Brief Rheumatological history - Cold sweats and shaking when he started SSZ. He took for a week. Side effects subsided when he stopped SSZ. He went to ER HISTORY OF PRESENT ILLNESS Base of neck and b/w shoulder blades, Severe wrist pain, carpal tunnel ? 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 PCP prescribed prednisone which helped. Symptoms returned after he finished the pred course. Hot epsom salt water helps. Currently pain subsided. He had gout one time podagra. Not had a flare up of gout for sometimes. He tried several OTC tylenol, NSAIDs. h/o possible dactylitis HTN, DM2, HLP, asthma, gout, HASMUKH, obesity He may have psoriasis? Uses cream. "water in knees" did not seek treatment at that time. [place] Family h/o autoimmune disease - mother had PsA, brother with psorsis Smoking - ex smoker Interval Review of Systems CONSTITUTIONAL: Recent Weight change: YES losing unintentional Fever: No EYES: Dryness in nose: No Dryness of mouth: No Oral ulcers: No CARDIOVASCULAR: Pain in chest: No RESPIRATORY: Shortness of breath: No Cough: No GASTROINTESTINAL: Nausea: No Vomiting: No Changes in bowel movements: No Jaundice: No Heartburn: No MUSCULOSKELETAL: Per HPI INTEGUMENTARY: Rash: No HEMATOLOGIC/LYMPHATIC: Anemia: No NEUROLOGICAL SYSTEM: Headaches: No Sensitivity or pain of hands and/or feet: No PSYCHIATRIC: Anxiety: No Poor sleep: No PAST MEDICAL HISTORY Diagnosis Date Abdominal pain, other specified site LLQ,RLQ Anal or rectal pain Other and unspecified hyperlipidemia Other constipation PAST SURGICAL HISTORY Procedure Laterality Date COLONOSCOPY FLX DX W/COLLJ SPEC WHEN PFRMD 10/12/2007 Colonoscopy PAST SURGICAL HISTORY OF umb hernia History Review: I have reviewed and modified as needed, the following during this visit: Allergies, Past Medical History, Past Surgical History, Past Family History, Past Social History. There were no vitals taken for this visit. Physical Exam GENERAL: Well appearing, alert, comfortable, in no acute distress, well-hydrated, well nourished. HEENT: Negative for external ears normal. Canals are clear. Both TMs visualized and are normal. Eye Exam normal. External nose normal, no nasal ulcer or throat ulcer. NECK: NECK Supple, no adenopathy; thyroid symmetric, normal size, no bruits CARDIAC: regular rate and rhythm, No murmur asculated., and Equal peripheral pulses RESPIRATORY: Lungs clear to auscultation. No wheezing, rhonchi, rales VASCULAR: RRR without murmur, gallop, or rubs. No ectopy. NEURO: Motor and sensory exam normal MOTOR: Normal; including tone, gait, stressed gait, power and coordination. SKIN: Negative for alopecia, skin rash, malar rash, skin lesion, skin ulcer, pits, thickening, color changes, telangiectasias, nail changes, nail ridging, nail pitting, onycholysis MUSCULOSKELETAL: DIPS: Normal PIPS: Normal MCPs: Normal Wrists: Normal Elbows: Normal Shoulders: Normal C-Spine: Normal Hips: Normal Knees: Normal Ankles: Normal MTPs / Toes: Normal Arches: Normal Lab Results: Glucose 122 06/27/2021 ALT 20 06/27/2021 WBC 7.88 06/27/2021 Hemoglobin 13.8 06/27/2021 Platelet Count 267 06/27/2021 Sed Rate, Westergren 12 06/27/2021 CRP 0.4 06/27/2021 Serology: Latest Reference Range AND Units 06/27/21 11:46 CRP <0.9 mg/dL 0.4 Vitamin D 25 Hydroxy 30.0 - 100.0 ng/mL 53.7 Hep C Antibody IA Negative Negative Hep B Surf Ab Quant <10.00 mIU/mL <3.10 Hep B Surface Ag Negative Negative Hep B Core Ab, Total Negative Negative Rheumatoid Factor <16 IU/mL <10 CCP Antibody, IgG <20 Units <15 CCP Antibody IgG Qualitative Negative Negative TB Nil <=8.00 IU/mL 0.0 (more content not included)...[facility]06-19-2024 History of Present illness Narrative* Sharron Toribio MD - 08/19/2023 10:08 AM EDT RHEUMATOLOGY PROGRESS NOTE Patient is here for a follow up visit for No chief complaint on file. HPI: Jonel Terrell is a 63 year old male who presents joint pain He stopped SSZ in apr, 2023. Did not have any symptoms. Dark urine x 1 month. Went to PCP. Was told he was dehydrated. Resumed SSZ August 10. Thinks it helped with pain. He has been mowing. Shoulder and knee pain Brief Rheumatological history - Cold sweats and shaking when he started SSZ. He took for a week. Side effects subsided when he stopped SSZ. He went to ER HISTORY OF PRESENT ILLNESS Base of neck and b/w shoulder blades, Severe wrist pain, carpal tunnel ? Xray : arthritis : somewhat 6 months ago Pain was tremendous Prednisone: 1 day and pain went away Mother : RA, psoriasis Brother : psoriasis Psoriasis : scalp: coltar, right hand, scalp, clinical diagnosis, never been to physical therapy nurse Morning stiffness : not much Had that for several days , whole hand swollen, by next day pain was completely gone Work : [employer], had fluid pockets on base of his knees, not employed right now Right big toe: long time ago 2 or 3 more episodes with it that were milder Diabetes well controlled No numbness and tingling No gi issues Brief Rheumatological history - Jan 2021 - Bilateral Hand, wrist swelling, pain, weakness. PCP prescribed prednisone which helped. Symptoms returned after he finished the pred course. Hot epsom salt water helps. Currently pain subsided. He had gout one time podagra. Not had a flare up of gout for sometimes. He tried several OTC tylenol, NSAIDs. h/o possible dactylitis HTN, DM2, HLP, asthma, gout, HASMUKH, obesity He may have psoriasis? Uses cream. "water in knees" did not seek treatment at that time. [place] Family h/o autoimmune disease - mother had PsA, brother with psorsis Smoking - ex smoker Interval Review of Systems CONSTITUTIONAL: Recent Weight change: YES losing unintentional Fever: No EYES: Dryness in nose: No Dryness of mouth: No Oral ulcers: No CARDIOVASCULAR: Pain in chest: No RESPIRATORY: Shortness of breath: No Cough: No GASTROINTESTINAL: Nausea: No Vomiting: No Changes in bowel movements: No Jaundice: No Heartburn: No MUSCULOSKELETAL: Per HPI INTEGUMENTARY: Rash: No HEMATOLOGIC/LYMPHATIC: Anemia: No NEUROLOGICAL SYSTEM: Headaches: No Sensitivity or pain of hands and/or feet: No PSYCHIATRIC: Anxiety: No Poor sleep: No PAST MEDICAL HISTORY Diagnosis Date Abdominal pain, other specified site LLQ,RLQ Anal or rectal pain Other and unspecified hyperlipidemia Other constipation PAST SURGICAL HISTORY Procedure Laterality Date COLONOSCOPY FLX DX W/COLLJ SPEC WHEN PFRMD 10/12/2007 Colonoscopy PAST SURGICAL HISTORY OF umb hernia History Review: I have reviewed and modified as needed, the following during this visit: Allergies,Past Medical History, Past Surgical History, Past Family History, Past Social History. There were no vitals taken for this visit. Physical Exam GENERAL: Well appearing, alert, comfortable, in no acute distress, well- hydrated, well nourished. HEENT: Negative for external ears normal. Canals are clear. Both TMs visualized and are normal. EyeExam normal. External nose normal, no nasal ulcer or throat ulcer. NECK: NECK Supple, no adenopathy; thyroid symmetric, normal size, no bruits CARDIAC: regular rate and rhythm, No murmur asculated., and Equal peripheral pulses RESPIRATORY: Lungs clear to auscultation. No wheezing, rhonchi, rales VASCULAR: RRR without murmur, gallop, or rubs. No ectopy. NEURO: Motor and sensory exam normal MOTOR: Normal; including tone, gait, stressed gait, power and coordination. SKIN: Negative for alopecia, skin rash, malar rash, skin lesion, skin ulcer, pits, thickening, color changes, telangiectasias, nail changes, nail ridging, nail pitting, onycholysis MUSCULOSKELETAL: DIPS: Normal PIPS: Normal MCPs: Normal Wrists: Normal Elbows: Normal Shoulders: Normal C-Spine: Normal Hips: Normal Knees: Normal Ankles: Normal MTPs / Toes: Normal Arches: Normal Lab Results: Glucose 122 06/27/2021 ALT 20 06/27/2021 WBC 7.88 06/27/2021 Hemoglobin 13.8 06/27/2021 Platelet Count 267 06/27/2021 Sed Rate, Westergren 12 06/27/2021 CRP 0.4 06/27/2021 Serology: Latest Reference Range & Units 06/27/21 11:46 CRP <0.9 mg/dL 0.4 Vitamin D 25 Hydroxy 30.0 - 100.0 ng/mL 53.7 Hep C Antibody IA Negative Negative Hep B Surf Ab Quant <10.00 mIU/mL <3.10 Hep B Surface Ag Negative Negative Hep B Core Ab, Total Negative Negative Rheumatoid Factor <16 IU/mL <10 CCP Antibody, IgG <20 Units <15 CCP Antibody IgG Qualitative Negative Negative TB Nil <=8.00 IU/mL 0.03 TB1 Ag minus Nil <0.35 IU/mL 0.06 TB2 Ag minus Nil <0.35 IU/mL 0.04 Mitogen minus Nil >=0.50 IU/mL >9.97 TB Result Negative TB Interpretation Infection with M. tuberculosis complex is unlikely. If latent tuberculosis infection is highly suspected, a negative result does not rule out the infection. Specimens from immunocompromised patients and those <5 years of age may show false negative results. In case of a contactinvestigation, please repeat 8-12 weeks after a known exposure. Most recent labs and imaging results. JOAQUIN negative, RF neg CCP neg, ESR 51 IMPRESSION: 3 views of the left shoulder have been obtained. No acute fracture or dislocation is seen. There is mild degenerative change of the acromioclavicular joint. Remaining joint spaces are maintained. No gross soft tissue abnormality is seen. IMPRESSION: Mild osteopenia with diffuse mild osteoarthritic changes. No acute abnormality, erosive changes, chondrocalcinosis or periostitis. Right wrist x ray - FINDINGS: Mild osteopenia. Mild arthrosis of the radiocarpal joint. Mild arthrosis of the radioulnar joint. Mild arthrosis of the radiocarpal row. Mild arthrosis of the first CMC joint. The soft tissue structures are unremarkable. Left shoulder - FINDINGS: Normal glenohumeral articulation. Degenerative hypertrophy at the acromioclavicular joint. Normal acromion. Normal humeral head and visualized proximal humerus. The soft tissue structures are unremarkable. Normal visualized pulmonary apex. Elbow = IMPRESSION: Soft tissue prominence of the biceps suggestive of a biceps tendon tear. IMPRESSION: Degenerative changes greatest at C5-C6. Radiology: Assessment and Plan (M25.50) Pain in joint, multiple sites (primary encounter diagnosis) (E55.9) Vitamin D deficiency (L40.50) Psoriatic arthropathy (HCC) 63-year-old male is here for follow up. He had an acute onset of bilateral hand pain and swelling. This improved with prednisone. He reports history of gout and psoriasis. Psoriatic arthritis is possible. He was advised to notify us if he has recurrence of symptoms. Plan: Likely has PsA. Neck pain - inflammatory vs DJD. Neck pain likely due to DJD. May need to see pain management. Starting PT. Pain overall controlled. on SSZ at 500 mg daily. [facility] on 06/19/24 COMPREHENSIVE METABOLIC PANEL COMPLETE BLOOD COUNT AND DIFFERENTIAL VITAMIN D 25 HYDROXY No orders of the defined types were placed in this encounter. No follow-ups on file. Sharron Toribio MD I spent a total of 20 minutes on the date of the service which included preparing to see the patient, [id number] patient care, completing clinical documentation, obtaining and/or reviewing separately obtained history, performing a medically appropriate examination, counseling and educating the pat ient/family/caregiver, ordering medications, tests, or procedures, and communicating results to thepatient/family/caregiver. documented in this encounterEast [facility]03-[facility]24 Miscellaneous Notes* Telephone Encounter - Jade Salazar LPN - 05/18/2023 11:59 AM EDT Pharmacy requesting the following refill. Requested Prescriptions Pending Prescriptions Disp Refills sulfaSALAzine (AZULFIDINE) 500 mg tablet [Pharmacy Med Name: SULFASALAZINE 500 MG TABLET] 60 tablet1 Sig: take 1 tablet by mouth twice a day Patient last appointment: 04/20/2023 Next Appointment: 08/19/2023 Patient Phone numbers: [phone] (home) Request is for script(s) to be escript to pharmacy.[id number] [place] [address] - [address] [facility] [phone] [id number] Jade Salazar LPN documented in this encounterEast [facility]02-19-2024 History of Present illness Narrative* Sharron Toribio MD - 04/20/2023 9:35 AM EST RHEUMATOLOGY PROGRESS NOTE Patient is here for a follow up visit for Patient presents with: Joint Pain HPI: Jonel Terrell is a 60 year old male who presents joint pain Cold sweats and shaking when he started SSZ. He took fot a week. Side effects subsided when he stopped SSZ. He went to ER HISTORY OF PRESENT ILLNESS Base of neck and b/w shoulder blades, Severe wrist pain, carpal tunnel ? Xray : arthritis : somewhat 6 months ago Pain was tremendous Prednisone: 1 day and pain went away Mother : RA, psoriasis Brother : psoriasis Psoriasis : scalp: coltar, right hand, scalp, clinical diagnosis, never been to physical therapy nurse Morning stiffness : not much Had that for several days , whole hand swollen, by next day pain was completely gone Work : [employer], had fluid pockets on base of his knees, not employed right now Right big toe: long time ago 2 or 3 more episodes with it that were milder Diabetes well controlled No numbness and tingling No gi issues Brief Rheumatological history - Jan 2021 - Bilateral Hand, wrist swelling, pain, weakness. PCP prescribed prednisone which helped. Symptoms returned after he finished the pred course. Hot epsom salt water helps. Currently pain subsided. He had gout one time podagra. Not had a flare up of gout for sometimes. He tried several OTC tylenol, NSAIDs. h/o possible dactylitis HTN, DM2, HLP, asthma, gout, HASMUKH, obesity He may have psoriasis? Uses cream. "water in knees" did not seek treatment at that time. [place] Family h/o autoimmune disease - mother had PsA, brother with psorsis Smoking - ex smoker Interval Review of Systems CONSTITUTIONAL: Recent Weight change: YES losing unintentional Fever: No EYES: Dryness in nose: No Dryness of mouth: No Oral ulcers: No CARDIOVASCULAR: Pain in chest: No RESPIRATORY: Shortness of breath: No Cough: No GASTROINTESTINAL: Nausea: No Vomiting: No Changes in bowel movements: No Jaundice: No Heartburn: No MUSCULOSKELETAL: Per HPI INTEGUMENTARY: Rash: No HEMATOLOGIC/LYMPHATIC: Anemia: No NEUROLOGICAL SYSTEM: Headaches: No Sensitivity or pain of hands and/or feet: No PSYCHIATRIC: Anxiety: No Poor sleep: No PAST MEDICAL HISTORY Diagnosis Date Abdominal pain, other specified site LLQ,RLQ Anal or rectal pain Other and unspecified hyperlipidemia Other constipation PAST SURGICAL HISTORY Procedure Laterality Date COLONOSCOPY FLX DX W/COLLJ SPEC WHEN PFRMD 10/12/2007 Colonoscopy PAST SURGICAL HISTORY OF umb hernia History Review: I have reviewed and modified as needed, the following during this visit: Allergies,Past Medical History, Past Surgical History, Past Family History, Past Social History. BP 125/67 Pulse 65 Temp 36.7 C (98 F) (Temporal) Resp 10 Ht 177.8 cm (5' 10") Wt 124.7 kg(275 lb) BMI 39.46 kg/m Physical Exam GENERAL: Well appearing, alert, comfortable, in no acute distress, well- hydrated, well nourished. HEENT: Negative for external ears normal. Canals are clear. Both TMs visualized and are normal. EyeExam normal. External nose normal, no nasal ulcer or throat ulcer. NECK: NECK Supple, no adenopathy; thyroid symmetric, normal size, no bruits CARDIAC: regular rate and rhythm, No murmur asculated. and Equal peripheral pulses RESPIRATORY: Lungs clear to auscultation. No wheezing, rhonchi, rales VASCULAR: RRR without murmur, gallop, or rubs. No ectopy. NEURO: Motor and sensory exam normal MOTOR: Normal; including tone, gait, stressed gait, power and coordination. SKIN: Negative for alopecia, skin rash, malar rash, skin lesion, skin ulcer, pits, thickening, color changes, telangiectasias, nail changes, nail ridging, nail pitting, onycholysis Small psoriatic patches over scalp and dorsum of hands MUSCULOSKELETAL: DIPS: Normal PIPS: Normal MCPs: Normal Wrists: Normal Elbows: Normal Shoulders: Normal C-Spine: Normal Hips: Normal Knees: Normal Ankles: Normal MTPs / Toes: Normal Arches: Normal Lab Results: No results found for this basename: gluc, K, NA, CHLOR, CO2, CREAT, BUN, ANION, CA, TPROT, ALB, TBILI, ALKPHOS, AST,ALT,WBC,HB,PLT,wsr,crp Serology: Most recent labs and imaging results. JOAQUIN negative, RF neg CCP neg, ESR 51 IMPRESSION: 3 views of the left shoulder have been obtained. No acute fracture or dislocation is seen. There is mild degenerative change of the acromioclavicular joint. Remaining joint spaces are maintained. No gross soft tissue abnormality is seen. IMPRESSION: Mild osteopenia with diffuse mild osteoarthritic changes. No acute abnormality, erosive changes, chondrocalcinosis or periostitis. Right wrist x ray - FINDINGS: Mild osteopenia. Mild arthrosis of the radiocarpal joint. Mild arthrosis of the radioulnar joint. Mild arthrosis of the radiocarpal row. Mild arthrosis of the first CMC joint. The soft tissue structures are unremarkable. Left shoulder - FINDINGS: Normal glenohumeral articulation. Degenerative hypertrophy at the acromioclavicular joint. Normal acromion. Normal humeral head and visualized proximal humerus. The soft tissue structures are unremarkable. Normal visualized pulmonary apex. Elbow = IMPRESSION: Soft tissue prominence of the biceps suggestive of a biceps tendon tear. IMPRESSION: Degenerative changes greatest at C5-C6. Assessment and Plan (M25.50) Pain in joint, multiple sites (primary encounter diagnosis) (E55.9) Vitamin D deficiency 62-year-old male is here for follow up. He had an acute onset of bilateral hand pain and swelling. This improved with prednisone. He reports history of gout and psoriasis. Psoriatic arthritis is possible. He was advised to notify us if he has recurrence of symptoms. Plan: Likely has PsA. Neck pain - inflammatory vs DJD. May need SSZ or MTX. He is willing to start SSZ. Risks and benefits discussed. Neck pain likely due to DJD. May need to see pain management. Staring PT. Pain overall controlled. May attempt to resume SSZ at 500 mg daily. Office Visit on 04/20/23 CBC + DIFF COMP METABOLIC PANEL VITAMIN D 25 HYDROXY No orders of the defined types were placed in this encounter. No follow-ups on file. Sharron Toribio MD documented in this encounterEast [facility]10-02-2023 History of Present illness Narrative* Sharron Toribio MD - 12/01/2022 12:06 PM EDT RHEUMATOLOGY PROGRESS NOTE Patient is here for a follow up visit for Patient presents with: Joint Pain HPI: Jonelalan Terrell is a 60 year old male who presents joint pain Cold sweats and shaking when he started SSZ. He took fot a week. Side effects subsided when he stopped SSZ. He went to ER HISTORY OF PRESENT ILLNESS Base of neck and b/w shoulder blades, Severe wrist pain, carpal tunnel ? Xray : arthritis : somewhat 6 months ago Pain was tremendous Prednisone: 1 day and pain went away Mother : RA, psoriasis Brother : psoriasis Psoriasis : scalp: coltar, right hand, scalp, clinical diagnosis, never been to physical therapy nurse Morning stiffness : not much Had that for several days , whole hand swollen, by next day pain was completely gone Work : [employer], had fluid pockets on base of his knees, not employed right now Right big toe: long time ago 2 or 3 more episodes with it that were milder Diabetes well controlled No numbness and tingling No gi issues Brief Rheumatological history - Jan 2021 - Bilateral Hand, wrist swelling, pain, weakness. PCP prescribed prednisone which helped. Symptoms returned after he finished the pred course. Hot epsom salt water helps. Currently pain subsided. He had gout one time podagra. Not had a flare up of gout for sometimes. He tried several OTC tylenol, NSAIDs. h/o possible dactylitis HTN, DM2, HLP, asthma, gout, HASMUKH, obesity He may have psoriasis? Uses cream. "water in knees" did not seek treatment at that time. [place] Family h/o autoimmune disease - mother had PsA, brother with psorsis Smoking - ex smoker Interval Review of Systems CONSTITUTIONAL: Recent Weight change: YES losing unintentional Fever: No EYES: Dryness in nose: No Dryness of mouth: No Oral ulcers: No CARDIOVASCULAR: Pain in chest: No RESPIRATORY: Shortness of breath: No Cough: No GASTROINTESTINAL: Nausea: No Vomiting: No Changes in bowel movements: No Jaundice: No Heartburn: No MUSCULOSKELETAL: Per HPI INTEGUMENTARY: Rash: No HEMATOLOGIC/LYMPHATIC: Anemia: No NEUROLOGICAL SYSTEM: Headaches: No Sensitivity or pain of hands and/or feet: No PSYCHIATRIC: Anxiety: No Poor sleep: No PAST MEDICAL HISTORY Diagnosis Date Abdominal pain, other specified site LLQ,RLQ Anal or rectal pain Other and unspecified hyperlipidemia Other constipation PAST SURGICAL HISTORY Procedure Laterality Date COLONOSCOPY FLX DX W/COLLJ SPEC WHEN PFRMD 10/12/2007 Colonoscopy PAST SURGICAL HISTORY OF umb hernia History Review: I have reviewed and modified as needed, the following during this visit: Allergies,Past Medical History, Past Surgical History, Past Family History, Past Social History. BP 124/61 Pulse (!) 57 Temp 36.9 C (98.4 F) (Temporal) Resp 11 Physical Exam GENERAL: Well appearing, alert, comfortable, in no acute distress, well- hydrated, well nourished. HEENT: Negative for external ears normal. Canals are clear. Both TMs visualized and are normal. EyeExam normal. External nose normal, no nasal ulcer or throat ulcer. NECK: NECK Supple, no adenopathy; thyroid symmetric, normal size, no bruits CARDIAC: regular rate and rhythm, No murmur asculated. and Equal peripheral pulses RESPIRATORY: Lungs clear to auscultation. No wheezing, rhonchi, rales VASCULAR: RRR without murmur, gallop, or rubs. No ectopy. NEURO: Motor and sensory exam normal MOTOR: Normal; including tone, gait, stressed gait, power and coordination. SKIN: Negative for alopecia, skin rash, malar rash, skin lesion, skin ulcer, pits, thickening, color changes, telangiectasias, nail changes, nail ridging, nail pitting, onycholysis Small psoriatic patches over scalp and dorsum of hands MUSCULOSKELETAL: DIPS: Normal PIPS: Normal MCPs: Normal Wrists: Normal Elbows: Normal Shoulders: Normal C-Spine: Normal Hips: Normal Knees: Normal Ankles: Normal MTPs / Toes: Normal Arches: Normal Lab Results: No results found for this basename: gluc, K, NA, CHLOR, CO2, CREAT, BUN, ANION, CA, TPROT, ALB, TBILI, ALKPHOS, AST,ALT,WBC,HB,PLT,wsr,crp Serology: Most recent labs and imaging results. JOAQUIN negative, RF neg CCP neg, ESR 51 IMPRESSION: 3 views of the left shoulder have been obtained. No acute fracture or dislocation is seen. There is mild degenerative change of the acromioclavicular joint. Remaining joint spaces are maintained. No gross soft tissue abnormality is seen. IMPRESSION: Mild osteopenia with diffuse mild osteoarthritic changes. No acute abnormality, erosive changes, chondrocalcinosis or periostitis. Right wrist x ray - FINDINGS: Mild osteopenia. Mild arthrosis of the radiocarpal joint. Mild arthrosis of the radioulnar joint. Mild arthrosis of the radiocarpal row. Mild arthrosis of the first CMC joint. The soft tissue structures are unremarkable. Left shoulder - FINDINGS: Normal glenohumeral articulation. Degenerative hypertrophy at the acromioclavicular joint. Normal acromion. Normal humeral head and visualized proximal humerus. The soft tissue structures are unremarkable. Normal visualized pulmonary apex. Elbow = IMPRESSION: Soft tissue prominence of the biceps suggestive of a biceps tendon tear. IMPRESSION: Degenerative changes greatest at C5-C6. 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 He had an acute onset of bilateral hand pain and swelling. This improved with prednisone. He reports history of gout and psoriasis. Psoriatic arthritis is possible. He was advised to notify us if he has recurrence of symptoms. Plan: Likely has PsA. Neck pain - inflammatory vs DJD. Labs and x rays as below. He would like to hold off on treatment. May need SSZ or MTX. He is willing to start SSZ. Risks and benefits discussed. Neck pain likely due to DJD. May need to see pain management. Staring PT. Pain overall controlled. May attempt to resume SSZ at 500 mg daily. No orders found for this visit on 12/01/22. No orders of the defined types were placed in this encounter. No follow-ups on file. Sharron Toribio MD documented in this encounterEast [facility]07-31-2023 Miscellaneous Notes* Telephone Encounter - Mi Forbes LPN - 09/29/2022 3:41 PM EDT See telephone encounter dated 08/28/2022. Patient stopped this medication on 09/04/2022 due to side effects. Mi Forbes LPN documented in this encounterEast [facility]07-11-2023 Miscellaneous Notes* Telephone Encounter - Mi Forbes LPN - 09/09/2022 2:20 PM EDT Patient calling to notify you that he has stopped the sulfasalazine on 09/04/2022 due to having GI discomfort. He states he was having vertigo, ringing in the ears, balance was off and just not feelingwell. He went to [facility] ER (09/04/2022) and was given Meclizine. He just wanted to keep youupdated. Mi Forbes LPN * Telephone Encounter - Mi Forbes LPN - 08/28/2022 2:42 PM EDT Patient just wanted to let you know that he was not able to start the sulfasalazine until 08/22/22 due to unforseen circumstances. It was prescribed on 07-31-2022. Mi Forbes LPN documented in this encounterEast [facility] Hospital07-06-2023 Discharge summary Author Floyd Vickers [facility] September 04, 2022 8:06pm Note Date/Time September 04, 2022 6:26p [facility] Medical Records Department [address] [place] [address] Emergency Department Summary 09/04/22 MR#: [id number] Acct: [id number] Name: JONEL TERRELL Rep #:[id number] : [id number] 62 From: Floyd Vickers MD PCP: Dr. Zahra Guerrero MD Status:RE G ER Location: ED HPI History of Present Illness Chief Complaint: Dizziness Informant: patient Onset/Context/Timing Onset: Days (2-3) Context: Gradual Onset Timing: Intermittent Quality: "dizzy" Location: head Current Severity: Gone Maximum Severity: Moderate Narrative Narrative: Patient states he has started sulfasalazine about 2 weeks ago because of arthritis in his neck and back, with radicular versus neuropathic symptoms goingdown his right upper extremity, and he has been increasingly feeling lightheadedat times, especially in the last couple days where he has been feeling very fatigued with it. He states his neck feels better, but he feels poorly everywhere else. He has had some headaches. He has some occasional blurry vision but no diplopia or vision loss. He states his dizziness feels like lightheadedness, he has been experiencing intermittent tinnitus bilaterally, andstates "this feels different than vertigo" suggesting that he had vertigo from his CPAP machine exerting pressure on his inner ear in the past. He denies any focal neurologic symptoms or confusions or fever/chills but he felt very cold the day and laid inside all day. He admits he has been working outside lately it is been very hot and humid and he thinks he has been drinking water, but he is urinating less, and it is orange. [facility] Medical History (Updated 09/04/22 @ 20:[address] Floyd Vickers MD) Acid reflux Allergic rhinitis Aortic root aneurysm Arthritis Asthma Diabetes Gout Hemorrhoids Hyperlipemia Hypertension LVH (left ventricular hypertrophy) Mild intermittent asthma Morbid obesity HASMUKH (obstructive sleep apnea) Tobacco dependence in remission Home Medications aspirin 81 mg tablet,delayed release (Adult Low Dose Aspirin) 81 mg PO QDAY heart 04/02/17 [History Last Taken 08/25/17] atorvastatin 40 mg tablet 40 mg PO QHS cholesterol 04/02/17 [History Last Taken 08/24/17] metformin 500 mg tablet 1,000 mg PO BID blood sugar 04/02/17 [History Last Taken 08/24/17] metoprolol tartrate 25 mg tablet 25 mg PO DAILY 10/18/18 [History Last Taken Unknown] mometasone-formoterol HFA 200 mcg-5 mcg/actuation aerosol inhaler (Dulera) 2 puff inhalation BID #13 grams 10/17/21 [Rx Last Taken Unknown] albuterol sulfate 90 mcg/actuation aerosol inhaler 2 puff inhalation Q4H PRN shortness of breath or wheezing #8.5 grams 12/09/21 [Rx Last Taken Unknown] amoxicillin 875 mg-potassium clavulanate 125 mg tablet 1 tab PO BID 02/19/22 [History Last Taken Unknown] betamethasone valerate 0.1 % topical cream 1 applic topical BID 02/19/22 [History Last Taken Unknown] hydrocodone-acetaminophen 5-325mg 5mg-325mg 1 tab PO Q6H PRN PRN Pain 3 days #10TABLETS 02/19/22 [Rx Last Taken Unknown] metronidazole 500 mg tablet 500 mg PO BID 02/19/22 [History Last Taken Unknown] prednisolone 5 mg tablet 4 mg PO BID 02/19/22 [History Last Taken Unknown] triamcinolone acetonide 55 mcg nasal spray aerosol (Nasacort) 2 spray intranasalDAILY #16.9 mL 05/13/22 [Rx Last Taken Unknown] montelukast 10 mg tablet 10 mg PO QPM #30 tabs 07/01/22 [Rx Last Taken Unknown] meclizine 25 mg tablet 25 mg PO Q8H PRN PRN Dizziness #20 tabs 09/04/22 [Rx Last Taken Unknown] Allergy/AdvReac Type Severity Reaction Status Date / Time peanut Allergy Severe Anaphylaxis Verified 09/04/22 17:37 lisinopril Allergy Mild Unknown Verified 09/04/22 17:37 amlodipine AdvReac Mild Rash Verified 09/04/22 17:37 Family History Mother Asthma Surgical History Hx of colonoscopy Hx of umbilical hernia repair Social History Smoking Status: Never smoker how long ago did patient quit smokin, 2p/day second hand exposure: Yes alcohol intake: current alcohol intake frequency: a few times a week substance use type: does not use caffeine: Yes what type of physical activity do you participate in: none frequency: does not exercise seatbelt use: always ROS ROS ED Constitutional Constitutional ED: Reports other Details: "felt cold all day today" ; Denies chills or fever(s) Eyes Eyes: Denies change in vision or diplopia ENT ENT ED: Reports as per HPI, tinnitus and other Details: hearing disturbance intermittently ; Denies ear discharge, ear pain, hearing loss, rhinorrhea or sore throat Cardiovascular Cardiovascular: Denies chest pain or palpitations Respiratory/Chest Respiratory/Chest: Denies cough or dyspnea Gastrointestinal Gastrointestinal: Denies abdominal pain, diarrhea, nausea or vomiting Genitourinary Genitourinary ED: Denies dysuria or hematuria Musculoskeletal Musculoskeletal: Denies back pain or neck pain Integumentary Denies abscess or rash Neurologic Neurologic: Reports as per HPI and dizziness; Denies abnormal gait, headache(s),paresthesias or weakness Psychiatric Psychiatric: Denies anxiety or suicidal thoughts EXAM Physical Exam Const Vital Signs: 09/04/22 17:38 09/04/22 18:41 09/04/22 19:25 Temperature 98 F Temperature Source Temporal Pulse Rate 86 69 Respiratory Rate 17 16 Respiratory Effort Normal Non-Labored Respiratory Pattern Normal Blood Pressure 121/70 H 135/64 H Blood Pressure Mean 87 87 Pulse Ox 99 98 Oxygen Delivery Method Room Air Room Air Positive well nourished and well developed General Appearance ED: well developed and NAD HEENT Reports TM's clear and moist mucous membranes normocephalic and atraumatic Tympanic Membrane ED: Yes TM's clear Eyes PERRL and EOMs intact bilaterally Neck full ROM and supple Resp normal respiratory effort and clear to auscultation bilaterally Cardio regular rate, regular rhythm and no murmurs GI non-tender and non-distended Auscultation: normoactive bowel sounds Palpation: soft Back/Spine no CVA tenderness General Back: other FROM Extremity normal to inspection General Extremety ED: Negative for edema, pulses abnormal or tenderness General Extremity: Negative for edema or pulses abnormal Neuro oriented x3, CN's II-XII intact bilaterally and no sensory deficits noted Neuro Narrative: Normal [id number] and [id number] bilaterally Sensorium / Orientation: awake and alert Motor Exam: strength 5/5 throughout Psych mental status grossly normal Skin no rashes or lesions noted and no wounds MDM MDM MDM Narrative Medical decision making narrative: Labs are unremarkable, he does not have prerenal azotemia, he was given a liter of fluids he thinks he feels a little better, but he is not feeling dizzy right now. His blood pressure has been stable, 120-130, and he only seems to have symptoms when he gets up he states. He does not have jorge spinning. He stateson reevaluation after reporting test results that every time he gets the "dizziness", he gets a whooshing type of feeling in his ears. I think this is more disequilibrium/vertiginous than it is low-flow/lightheaded, he has never been near syncopal or syncopal, I reassured him I think he stable to be discharged home, whether this is a side effect of his new arthritis medication or not is unknown, I think he should talk to his doctor about whether he should continue that or not, he states that the pharmacy told him he needs to taper offof it and cannot to stop it cold turkey. I am putting him on meclizine to use as needed and have him follow-up he is comfortable with that plan. Lab Data Attestation: I reviewed the patient's lab results. Labs: Laboratory Results - last 24 hr 09/04/22 09/04/22 18:43 19:15 WBC 7.2 RBC 4.41 L Hgb 14.0 Hct 40.9 MCV 92.7 MCH 31.7 MCHC 34.2 RDW Std Deviation 44.3 H RDW Coeff of Clotilde 13.0 Plt Count 218 MPV 9.7 Immature Gran % (Auto) 0.300 Neut % (Auto) 68.3 Lymph % (Auto) 11.5 L [place] % (Auto) 11.9 H Eos % (Auto) 7.4 H Baso % (Auto) 0.6 Absolute Neuts (auto) 4.9 Absolute Lymphs (auto) 0.83 Nucleated RBC % 0 Sodium 136 Potassium 3.7 Chloride 103 Carbon Dioxide 26.0 Anion Gap 7 BUN 11 Creatinine 1.04 Estim Creat Clear Calc 80.83 Est GFR (MDRD) Af Amer 93 Est GFR (MDRD) Non-Af 77 BUN/Creatinine Ratio 10.6 Glucose 118 H Calcium 9.1 Urine Color Yellow Urine Clarity Clear Urine pH 7.0 Ur Specific [place] 1.010 Urine Protein Negative Urine Glucose (UA) Normal Urine Ketones 15 H Urine Occult Blood 10 H Urine Nitrite Negative Urine Bilirubin Negative Urine Urobilinogen Normal Ur Leukocyte Esterase Negative Urine RBC 0 SEEN Urine WBC 0 SEEN Ur Squamous Epith Cells 0 SEEN Urine Bacteria 0 SEEN Urine Mucus 0 SEEN EKG Initial EKG: Attestation: I personally reviewed and interpreted this EKG as follows: Interpretation: Sinus Rhythm, No Acute Injury Pattern, RBBB and LAFB Prior EKG tracings: available for review (2018) Prior: Changed Discharge Plan Triage Chief Complaint: Dizziness ED Provider: Floyd Vickers Dx/Rx/DC Orders Clinical Impression: Nonspecific dizziness Instructions: Vertigo Disequilibrium Syncope Prescriptions: New meclizine [meclizine] 25 mg tablet 25 mg PO Q8H PRN PRN (Reason: Dizziness) Qty: 20 0RF No Action metformin 500 mg tablet 1,000 mg PO BID atorvastatin 40 mg tablet 40 mg PO QHS aspirin [Adult Low Dose Aspirin] 81 mg tablet,delayed release (DR/EC) 81 mg PO QDAY Dulera 200-5 mcg/actuation HFA aerosol inhaler 2 puff INHALATION BID Qty: 13 11RF metoprolol tartrate 25 MG tablet 25 mg PO DAILY betamethasone valerate 0.1 % cream 1 applic TOPICAL BID metronidazole [Flagyl] 500 mg Tablet 500 mg PO BID prednisolone 5 mg Tablet 4 mg PO BID amoxicillin-pot clavulanate 875-125 mg tablet 1 tab PO BID hydrocodone-acetaminophen [hydrocodone-acetaminophen] 5-325 mg tablet 1 tab PO Q6H PRN PRN (Reason: Pain) 3 Days Qty: 10 0RF albuterol sulfate 90 mcg/actuation HFA aerosol inhaler 2 puff inhalation Q4H PRN (Reason: shortness of breath or wheezing) Qty: 8.5 6RF Rx Instructions: administer with spacer triamcinolone acetonide [Nasacort] 55 mcg aerosol,spray 2 spray INTRANASAL DAILY Qty: 16.9 11RF Rx Instructions: administer into each nostril montelukast 10 mg tablet 10 mg PO QPM Qty: 30 11RF Primary Care Provider: Zahra Guerrero Referrals: Zahra Guerrero MD [Primary Care Provider] - Yusuf Keller MD [Med Staff - Active Staff] - 1 Week if not improving Disposition Disposition: Home, Self Care What to do if you have Problems For any increased pain, shortness of breath, bleeding, nausea or vomiting, chestpain, or any unexpected problems, contact your Primary Care Provider. Call [facility] ([phone]) or report to the closest Emergency Room. Call 911 if necessary. 09/04/222005 <Electronically signed by Floyd Vickers MD> Cosigner Signature (if applicable): CC: Dr. Zahra Guerrero MD ~ Signed [facility] Work Phone: [phone] History of Present illness Narrative* Sharron Toribio MD - 07/31/2022 9:27 AM EDT RHEUMATOLOGY PROGRESS NOTE Patient is here for a follow up visit for Patient presents with: Joint Pain: Spine, right shoulder, hips HPI: Jonel Terrell is a 60 year old male who presents joint pain HISTORY OF PRESENT ILLNESS Base of neck and b/w shoulder blades, Severe wrist pain, carpal tunnel ? Xray : arthritis : somewhat 6 months ago Pain was tremendous Prednisone: 1 day and pain went away Mother : RA, psoriasis Brother : psoriasis Psoriasis : scalp: coltar, right hand, scalp, clinical diagnosis, never been to physical therapy nurse Morning stiffness : not much Had that for several days , whole hand swollen, by next day pain was completely gone Work : [employer], had fluid pockets on base of his knees, not employed right now Right big toe: long time ago 2 or 3 more episodes with it that were milder Diabetes well controlled No numbness and tingling No gi issues Brief Rheumatological history - Jan 2021 - Bilateral Hand, wrist swelling, pain, weakness. PCP prescribed prednisone which helped. Symptoms returned after he finished the pred course. Hot epsom salt water helps. Currently pain subsided. He had gout one time podagra. Not had a flare up of gout for sometimes. He tried several OTC tylenol, NSAIDs. h/o possible dactylitis HTN, DM2, HLP, asthma, gout, HASMUKH, obesity He may have psoriasis? Uses cream. "water in knees" did not seek treatment at that time. [place] Family h/o autoimmune disease - mother had PsA, brother with psorsis Smoking - ex smoker Interval Review of Systems CONSTITUTIONAL: Recent Weight change: YES losing unintentional Fever: No EYES: Dryness in nose: No Dryness of mouth: No Oral ulcers: No CARDIOVASCULAR: Pain in chest: No RESPIRATORY: Shortness of breath: No Cough: No GASTROINTESTINAL: Nausea: No Vomiting: No Changes in bowel movements: No Jaundice: No Heartburn: No MUSCULOSKELETAL: Per HPI INTEGUMENTARY: Rash: No HEMATOLOGIC/LYMPHATIC: Anemia: No NEUROLOGICAL SYSTEM: Headaches: No Sensitivity or pain of hands and/or feet: No PSYCHIATRIC: Anxiety: No Poor sleep: No PAST MEDICAL HISTORY Diagnosis Date Abdominal pain, other specified site LLQ,RLQ Anal or rectal pain Other and unspecified hyperlipidemia Other constipation PAST SURGICAL HISTORY Procedure Laterality Date COLONOSCOPY FLX DX W/COLLJ SPEC WHEN PFRMD 10/12/2007 Colonoscopy PAST SURGICAL HISTORY OF umb hernia History Review: I have reviewed and modified as needed, the following during this visit: Allergies,Past Medical History, Past Surgical History, Past Family History, Past Social History. BP 122/67 Pulse 63 Temp 36.6 C (97.9 F) (Temporal) Ht 180.3 cm (5' 11") Wt 122.9 kg (271 lb) SpO2 95% BMI 37.80 kg/m Physical Exam GENERAL: Well appearing, alert, comfortable, in no acute distress, well- hydrated, well nourished. HEENT: Negative for external ears normal. Canals are clear. Both TMs visualized and are normal. EyeExam normal. External nose normal, no nasal ulcer or throat ulcer. NECK: NECK Supple, no adenopathy; thyroid symmetric, normal size, no bruits CARDIAC: regular rate and rhythm, No murmur asculated. and Equal peripheral pulses RESPIRATORY: Lungs clear to auscultation. No wheezing, rhonchi, rales VASCULAR: RRR without murmur, gallop, or rubs. No ectopy. NEURO: Motor and sensory exam normal MOTOR: Normal; including tone, gait, stressed gait, power and coordination. SKIN: Negative for alopecia, skin rash, malar rash, skin lesion, skin ulcer, pits, thickening, color changes, telangiectasias, nail changes, nail ridging, nail pitting, onycholysis Small psoriatic patches over scalp and dorsum of hands MUSCULOSKELETAL: DIPS: Normal PIPS: Normal MCPs: Normal Wrists: Normal Elbows: Normal Shoulders: Normal C-Spine: Normal Hips: Normal Knees: Normal Ankles: Normal MTPs / Toes: Normal Arches: Normal Lab Results: No results found for this basename: gluc, K, NA, CHLOR, CO2, CREAT, BUN, ANION, CA, TPROT, ALB, TBILI, ALKPHOS, AST,ALT,WBC,HB,PLT,wsr,crp Serology: Most recent labs and imaging results. JOAQUIN negative, RF neg CCP neg, ESR 51 IMPRESSION: 3 views of the left shoulder have been obtained. No acute fracture or dislocation is seen. There is mild degenerative change of the acromioclavicular joint. Remaining joint spaces are maintained. No gross soft tissue abnormality is seen. IMPRESSION: Mild osteopenia with diffuse mild osteoarthritic changes. No acute abnormality, erosive changes, chondrocalcinosis or periostitis. Right wrist x ray - FINDINGS: Mild osteopenia. Mild arthrosis of the radiocarpal joint. Mild arthrosis of the radioulnar joint. Mild arthrosis of the radiocarpal row. Mild arthrosis of the first CMC joint. The soft tissue structures are unremarkable. Left shoulder - FINDINGS: Normal glenohumeral articulation. Degenerative hypertrophy at the acromioclavicular joint. Normal acromion. Normal humeral head and visualized proximal humerus. The soft tissue structures are unremarkable. Normal visualized pulmonary apex. Elbow = IMPRESSION: Soft tissue prominence of the biceps suggestive of a biceps tendon tear. IMPRESSION: Degenerative changes greatest at C5-C6. Assessment and Plan (M54.2) Neck pain (primary encounter diagnosis) (L40.59) Polyarticular psoriatic arthritis (HCC) 61-year-old male is here for follow up. He had an acute onset of bilateral hand pain and swelling. This improved with prednisone. He reports history of gout and psoriasis. Psoriatic arthritis is possible. He was advised to notify us if he has recurrence of symptoms. Plan: Likely has PsA. Neck pain - inflammatory vs DJD. Labs and x rays as below. He would like to hold off on treatment. May need SSZ or MTX. He is willing to start SSZ. Risks and benefits discussed. Neck pain likely due to DJD. May need to see pain management. Staring PT. Office Visit on 07/31/22 CBC + DIFF COMP METABOLIC PANEL VITAMIN D 25 HYDROXY CONSULT TO PHYSICAL THERAPY (AG) Medication orders placed this encounter sulfaSALAzine (AZULFIDINE) 500 mg tablet Sig: Take 1 tablet by mouth twice daily. Dispense: 60 tablet Refill: 1 No follow-ups on file. Sharron Toribio MD [facility] NoteHNO ID: [id number] Author: Geraldine Bose APRN.CLOSING MACHINE OPERATOR Service: ? Author Type: Nurse Practitioner Type: Progress Notes Filed: 02/24/2022 2:48 PM Note Text: Subjective HPI Jonel Terrell is a 61 year old male who presents with left sided sinus pressure and congestion for the past 16 days. He was seen here on 02/15 and prescribed Augmentin and medrol dose pack. He then saw his dentist on 02/17 and he extended the Augmentin prescription and gave him Flagyl to take. He has a bad root canal on the right upper jaw and the tooth is being pulled on 02/27/22. He rates his sinus pain as "pretty severe" and has had some dizziness at times. He has not had a fever. He notes that the flagyl causes him to feel flushed and sweaty and makes the skin on the inside of his mouth peel. Review of Systems Constitutional: Positive for diaphoresis (after taking flagyl). Negative for chills and fever. HENT: Positive for congestion and sinus pain. Negative for ear pain and sore throat. Respiratory: Negative for cough. Cardiovascular: Negative. Neurological: Positive for dizziness and headaches. BP 140/76 Pulse 73 Temp 36.7 ?C (98 ?F) Resp 20 Wt 121 kg (266 lb 12.8 oz) SpO2 96% PAST MEDICAL HISTORY Diagnosis Date Abdominal pain, other specified site LLQ,RLQ Anal or rectal pain Other and unspecified hyperlipidemia Other constipation PAST SURGICAL HISTORY Procedure Laterality Date COLONOSCOPY FLX DX W/COLLJ SPEC WHEN PFRMD 10/12/2007 Colonoscopy PAST SURGICAL HISTORY OF umb hernia ALLERGIES Lisinopril and Peanut Butter [Other] MEDICATIONS doxycycline monohydrate 100 mg tablet Take 1 tablet by mouth twice daily for 7 days. predniSONE (DELTASONE) 20 mg tablet Take 2 tablets by mouth once daily for 5 days. Take daily with food. metoprolol succinate ER (TOPROL XL) 25 mg 24 hr tablet Take 25 mg by mouth once daily. mometasone-formoterol (DULERA) 200-5 mcg/actuation inhaler Inhale as instructed twice daily. betamethasone valerate 0.1 % cream Apply to affected area twice daily. lancets (ONETOUCH DELICA PLUS LANCET MISC) albuterol HFA (PROVENTIL HFA, VENTOLIN HFA) 90 mcg/actuation inhaler Inhale 2 Puffs as instructed every 6 hours as needed for wheezing/shortness of breath. metFORMIN (GLUCOPHAGE) 500 mg tablet Take 1,000 mg by mouth twice daily with meals. atorvastatin (LIPITOR) 20 mg tablet Take 40 mg by mouth once daily. aspirin, enteric coated (ASPIRIN, ENTERIC COATED) 81 mg EC tablet Take 81 mg by mouth once daily. fluticasone-salmeterol (ADVAIR DISKUS) 250-50 mcg/dose dsdv Inhale 1 Puff as instructed twice daily. (Patient not taking: Reported on 06/27/2021 ) TRIAMCINOLONE ACETONIDE (NASACORT NASAL) Use in the nose. FAMILY HISTORY Problem Relation Age of Onset Asthma Mother Rheumatologic disease Mother Asthma Maternal Grandmother Breast Cancer Maternal Grandmother Emphysema Maternal Grandfather Coronary Artery Disease Paternal Grandmother Coronary Artery Disease Paternal Grandfather Cancer Paternal Grandfather trhroat Social History Tobacco Use Smoking status: Former Packs/day: 1.00 Years: 8.00 Pack years: 8.00 Types: Cigarettes, Cigars Smokeless tobacco: Former Types: Snuff Vaping Use Vaping Use: Never used Substance Use Topics Alcohol use: Yes Comment: social Drug use: No Objective Physical Exam Vitals and nursing note reviewed. Constitutional: Appearance: Normal appearance. HENT: Head: Right Ear: Tympanic membrane, ear canal and external ear normal. Left Ear: Tympanic membrane, ear canal and external ear normal. Nose: Nasal tenderness, mucosal edema and congestion present. Mouth/Throat: Mouth: Mucous membranes are moist. Pharynx: Oropharynx is clear. No oropharyngeal exudate or posterior oropharyngeal erythema. Cardiovascular: Rate and Rhythm: Normal rate and regular rhythm. Heart sounds: Normal heart sounds. Pulmonary: Effort: Pulmonary effort is normal. No respiratory distress. Breath sounds: Normal breath sounds. No wheezing or rales. Lymphadenopathy: Cervical: No cervical adenopathy. Skin: General: Skin is warm and dry. Capillary Refill: Capillary refill takes less than 2 seconds. Findings: No erythema or rash. Neurological: Mental Status: He is alert. ASSESSMENT/PLAN: 1. Sinusitis, unspecified chronicity, unspecified location - ICD9: 473.9, ICD10: J32.9 - Will begin treatment with as per antibiotic as written, see orders - DOXYCYCLINE MONOHYDRATE 100 MG TABLET - PREDNISONE 20 MG TABLET - CONSULT TO ENT - Follow-up with ENT if symptoms have not improved or sooner if symptoms worsen - Discussed red flags and need for immediate medical evaluation if any occur. - Discussed supportive care treatment with fluids, rest and analgesia. - Discussed expected course of illness Geraldine Bose APRN.[facility] History of Present illness Narrative* Geraldine Bose APRN.RONALDO - 02/24/2022 2:32 PM EST Images from the original note were not included. Subjective HPI Jonel Terrell is a 61 year old male who presents with left sided sinus pressure and congestionfor the past 16 days. He was seen here on 12/17 and prescribed Augmentin and medrol dose pack. He then saw his dentist on 02/17 and he extended the Augmentin prescription and gave him Flagyl to take.He has a bad root canal on the right upper jaw and the tooth is being pulled on 02/27/22. He rates his sinus pain as "pretty severe" and has had some dizziness at times. He has not had a fever. He notes that the flagyl causes him to feel flushed and sweaty and makes the skin on the inside of his mouth peel. Review of Systems Constitutional: Positive for diaphoresis (after taking flagyl). Negative for chills and fever. HENT: Positive for congestion and sinus pain. Negative for ear pain and sore throat. Respiratory: Negative for cough. Cardiovascular: Negative. Neurological: Positive for dizziness and headaches. BP 140/76 Pulse 73 Temp 36.7 C (98 F) Resp 20 Wt 121 kg (266 lb 12.8 oz) SpO2 96% PAST MEDICAL HISTORY Diagnosis Date Abdominal pain, other specified site LLQ,RLQ Anal or rectal pain Other and unspecified hyperlipidemia Other constipation PAST SURGICAL HISTORY Procedure Laterality Date COLONOSCOPY FLX DX W/COLLJ SPEC WHEN PFRMD 10/12/2007 Colonoscopy PAST SURGICAL HISTORY OF umb hernia ALLERGIES Lisinopril and Peanut Butter [Other] MEDICATIONS doxycycline monohydrate 100 mg tablet Take 1 tablet by mouth twice daily for 7 days. predniSONE (DELTASONE) 20 mg tablet Take 2 tablets by mouth once daily for 5 days. Take daily with food. metoprolol succinate ER (TOPROL XL) 25 mg 24 hr tablet Take 25 mg by mouth once daily. mometasone-formoterol (DULERA) 200-5 mcg/actuation inhaler Inhale as instructed twice daily. betamethasone valerate 0.1 % cream Apply to affected area twice daily. lancets (ONETOUCH DELICA PLUS LANCET [facility]) albuterol HFA (PROVENTIL HFA, VENTOLIN HFA) 90 mcg/actuation inhaler Inhale 2 Puffs as instructed every 6 hours as needed for wheezing/shortness of breath. metFORMIN (GLUCOPHAGE) 500 mg tablet Take 1,000 mg by mouth twice daily with meals. atorvastatin (LIPITOR) 20 mg tablet Take 40 mg by mouth once daily. aspirin, enteric coated (ASPIRIN, ENTERIC COATED) 81 mg EC tablet Take 81 mg by mouth once daily. fluticasone-salmeterol (ADVAIR DISKUS) 250-50 mcg/dose dsdv Inhale 1 Puff as instructed twice daily. (Patient not taking: Reported on 06/27/2021 ) TRIAMCINOLONE ACETONIDE (NASACORT NASAL) Use in the nose. FAMILY HISTORY Problem Relation Age of Onset Asthma Mother Rheumatologic disease Mother Asthma Maternal Grandmother Breast Cancer Maternal Grandmother Emphysema Maternal Grandfather Coronary Artery Disease Paternal Grandmother Coronary Artery Disease Paternal Grandfather Cancer Paternal Grandfather trhroat Social History Tobacco Use Smoking status: Former Packs/day: 1.00 Years: 8.00 Pack years: 8.00 Types: Cigarettes, Cigars Smokeless tobacco: Former Types: Snuff Vaping Use Vaping Use: Never used Substance Use Topics Alcohol use: Yes Comment: social Drug use: No Objective Physical Exam Vitals and nursing note reviewed. Constitutional: Appearance: Normal appearance. HENT: Head: Right Ear: Tympanic membrane, ear canal and external ear normal. Left Ear: Tympanic membrane, ear canal and external ear normal. Nose: Nasal tenderness, mucosal edema and congestion present. Mouth/Throat: Mouth: Mucous membranes are moist. Pharynx: Oropharynx is clear. No oropharyngeal exudate or posterior oropharyngeal erythema. Cardiovascular: Rate and Rhythm: Normal rate and regular rhythm. Heart sounds: Normal heart sounds. Pulmonary: Effort: Pulmonary effort is normal. No respiratory distress. Breath sounds: Normal breath sounds. No wheezing or rales. Lymphadenopathy: Cervical: No cervical adenopathy. Skin: General: Skin is warm and dry. Capillary Refill: Capillary refill takes less than 2 seconds. Findings: No erythema or rash. Neurological: Mental Status: He is alert. ASSESSMENT/PLAN: 1. Sinusitis, unspecified chronicity, unspecified location - ICD9: 473.9, ICD10: J32.9 - Will begin treatment with as per antibiotic as written, see orders - DOXYCYCLINE MONOHYDRATE 100 MG TABLET - PREDNISONE 20 MG TABLET - CONSULT TO ENT - Follow-up with ENT if symptoms have not improved or sooner if symptoms worsen - Discussed red flags and need for immediate medical evaluation if any occur. - Discussed supportive care treatment with fluids, rest and analgesia. - Discussed expected course of illness Geraldine Bose APRN.CLOSING MACHINE OPERATOR [facility] Instructions* Patient Instructions* Geraldine Bose APRN.CNP - 02/24/2022 2:31 PM EST ASSESSMENT/PLAN: 1. Sinusitis, unspecified chronicity, unspecified location - ICD9: 473.9, ICD10: J32.9 - Will begin treatment with as per antibiotic as written, see orders - DOXYCYCLINE MONOHYDRATE 100 MG TABLET - PREDNISONE 20 MG TABLET - CONSULT TO ENT - Follow-up with ENT if symptoms have not improved or sooner if symptoms worsen - Discussed red flags and need for immediate medical evaluation if any occur. - Discussed supportive care treatment with fluids, rest and analgesia. - Discussed expected course of illness Geraldine Bose APRN.CNP documented [facility] NoteHNO ID: [id number] Author: Thuy Godwin APRN.CNP Service: ? Author Type: Nurse Practitioner Type: Progress Notes Filed: 02/15/2022 1:50 PM Note Text: This note was created using Getourguideriter. Subjective Jonel Terrell is a 61 year old male. 61 year old male with PMH HTN, DM, sleep apnea, asthma, and hyperlipidemia presents for illness. Acute onset over one week ago +sinus pressure +headache +ringing in ears + pain in ears +eye pressure + sinus pressure +cough +post nasal drainage. Denies SOB or dyspnea. Denies CP Denies N/V/D Has used neti pot Has used hydrogen peroxide for a rinse as well with no relief. Denies tobacco usage. The history is provided by the patient. No supervisor modern languages was used. Sinus Problem This is a new problem. The current episode started 1 to 4 weeks ago. The problem occurs constantly. The problem has been gradually worsening. Associated symptoms include congestion, coughing, headaches and a sore throat. Pertinent negatives include no abdominal pain, anorexia, arthralgias, change in bowel habit, chest pain, chills, diaphoresis, fatigue, fever, joint swelling, myalgias, nausea, neck pain, numbness, rash, swollen glands, urinary symptoms, vertigo, visual change, vomiting or weakness. Nothing aggravates the symptoms. Treatments tried: neti pot and hydrogen peroxide. The treatment provided mild relief. PAST MEDICAL HISTORY Diagnosis Date - Abdominal pain, other specified site LLQ,RLQ - Anal or rectal pain - Other and unspecified hyperlipidemia - Other constipation PAST SURGICAL HISTORY Procedure Laterality Date - COLONOSCOPY FLX DX W/COLLJ SPEC WHEN PFRMD 10/12/2007 Colonoscopy - PAST SURGICAL HISTORY OF umb hernia ALLERGIES Lisinopril and Peanut Butter [Other] MEDICATIONS - metoprolol succinate ER (TOPROL XL) 25 mg 24 hr tablet Take 25 mg by mouth once daily. - mometasone-formoterol (DULERA) 200-5 mcg/actuation inhaler Inhale as instructed twice daily. - betamethasone valerate 0.1 % cream Apply to affected area twice daily. - lancets (ONETOUCH DELICA PLUS LANCET MISC) - albuterol HFA (PROVENTIL HFA, VENTOLIN HFA) 90 mcg/actuation inhaler Inhale 2 Puffs as instructed every 6 hours as needed for wheezing/shortness of breath. - metFORMIN (GLUCOPHAGE) 500 mg tablet Take 1,000 mg by mouth twice daily with meals. - atorvastatin (LIPITOR) 20 mg tablet Take 40 mg by mouth once daily. - aspirin, enteric coated (ASPIRIN, ENTERIC COATED) 81 mg EC tablet Take 81 mg by mouth once daily. - TRIAMCINOLONE ACETONIDE (NASACORT NASAL) Use in the nose. - amoxicillin-clavulanic acid (AUGMENTIN) 875-125 mg per tablet Take 1 tablet by mouth twice daily for 5 days. - methylPREDNISolone (MEDROL, RAVI,) 4 mg Dose-Pack Follow dosing instructions, take with food. - fluticasone-salmeterol (ADVAIR DISKUS) 250-50 mcg/dose dsdv Inhale 1 Puff as instructed twice daily. (Patient not taking: Reported on 06/27/2021 ) FAMILY HISTORY Problem Relation Age of Onset - Asthma Mother - Rheumatologic disease Mother - Asthma Maternal Grandmother - Breast Cancer Maternal Grandmother - Emphysema Maternal Grandfather - Coronary Artery Disease Paternal Grandmother - Coronary Artery Disease Paternal Grandfather - Cancer Paternal Grandfather trhroat Social History Tobacco Use - Smoking status: Former Packs/day: 1.00 Years: 8.00 Pack years: 8.00 Types: Cigarettes, Cigars - Smokeless tobacco: Former Types: Snuff Vaping Use - Vaping Use: Never used Substance Use Topics - Alcohol use: Yes Comment: social - Drug use: No Review of Systems Constitutional: Negative for chills, diaphoresis, fatigue and fever. HENT: Positive for congestion, ear pain, postnasal drip, sinus pressure, sinus pain and sore throat. Eyes: Negative for pain, discharge and itching. Respiratory: Positive for cough. Negative for apnea, choking and chest tightness. Cardiovascular: Negative for chest pain. Gastrointestinal: Negative for abdominal pain, anorexia, change in bowel habit, nausea and vomiting. Musculoskeletal: Negative for arthralgias, joint swelling, myalgias and neck pain. Skin: Negative for color change, pallor and rash. Allergic/Immunologic: Negative for environmental allergies, food allergies and immunocompromised state. Neurological: Positive for headaches. Negative for dizziness, vertigo, facial asymmetry, weakness and numbness. Hematological: Negative for adenopathy. Does not bruise/bleed easily. Psychiatric/Behavioral: Negative for agitation and behavioral problems. Objective BP 148/82 Pulse 65 Temp 36.7 ?C (98.1 ?F) Resp 21 Wt 124.1 kg (273 lb 9.6 oz) SpO2 99% Physical Exam Vitals and nursing note reviewed. Constitutional: General: He is not in acute distress. Appearance: Normal appearance. He is not ill-appearing, toxic-appearing or diaphoretic. HENT: Head: Normocephalic and atraumatic. Right Ear: (more content not included)...[facility]12-17-2022 History of Present illness Narrative* Thuy Godwin, GRANITE CUTTER APPRENTICE.CLOSING MACHINE OPERATOR - 02/15/2022 1:38 PM EST This note was created using NoteWriter. Subjective Jonel Terrell is a 61 year old male. 61 year old male with PMH HTN, DM, sleep apnea, asthma, and hyperlipidemia presents for illness. Acute onset over one week ago +sinus pressure +headache +ringing in ears + pain in ears +eye pressure + sinus pressure +cough +post nasal drainage. Denies SOB or dyspnea. Denies CP Denies N/V/D Has used neti pot Has used hydrogen peroxide for a rinse as well with no relief. Denies tobacco usage. The history is provided by the patient. No supervisor modern languages was used. Sinus Problem This is a new problem. The current episode started 1 to 4 weeks ago. The problem occurs constantly.The problem has been gradually worsening. Associated symptoms include congestion, coughing, headaches and a sore throat. Pertinent negatives include no abdominal pain, anorexia, arthralgias, change in bowel habit, chest pain, chills, diaphoresis, fatigue, fever, joint swelling, myalgias, nausea, nec k pain, numbness, rash, swollen glands, urinary symptoms, vertigo, visual change, vomiting or weakness. Nothing aggravates the symptoms. Treatments tried: neti pot and hydrogen peroxide. The treatment provided mild relief. PAST MEDICAL HISTORY Diagnosis Date Abdominal pain, other specified site LLQ,RLQ Anal or rectal pain Other and unspecified hyperlipidemia Other constipation PAST SURGICAL HISTORY Procedure Laterality Date COLONOSCOPY FLX DX W/COLLJ SPEC WHEN PFRMD 10/12/2007 Colonoscopy PAST SURGICAL HISTORY OF umb hernia ALLERGIES Lisinopril and Peanut Butter [Other] MEDICATIONS metoprolol succinate ER (TOPROL XL) 25 mg 24 hr tablet Take 25 mg by mouth once daily. mometasone-formoterol (DULERA) 200-5 mcg/actuation inhaler Inhale as instructed twice daily. betamethasone valerate 0.1 % cream Apply to affected area twice daily. lancets (ONETOUCH DELICA PLUS LANCET MISC) albuterol HFA (PROVENTIL HFA, VENTOLIN HFA) 90 mcg/actuation inhaler Inhale 2 Puffs as instructed every 6 hours as needed for wheezing/shortness of breath. metFORMIN (GLUCOPHAGE) 500 mg tablet Take 1,000 mg by mouth twice daily with meals. atorvastatin (LIPITOR) 20 mg tablet Take 40 mg by mouth once daily. aspirin, enteric coated (ASPIRIN, ENTERIC COATED) 81 mg EC tablet Take 81 mg by mouth once daily. TRIAMCINOLONE ACETONIDE (NASACORT NASAL) Use in the nose. amoxicillin-clavulanic acid (AUGMENTIN) 875-125 mg per tablet Take 1 tablet by mouth twice daily for 5 days. methylPREDNISolone (MEDROL, RAVI,) 4 mg Dose-Pack Follow dosing instructions, take with food. fluticasone-salmeterol (ADVAIR DISKUS) 250-50 mcg/dose dsdv Inhale 1 Puff as instructed twice daily. (Patient not taking: Reported on 06/27/2021 ) FAMILY HISTORY Problem Relation Age of Onset Asthma Mother Rheumatologic disease Mother Asthma Maternal Grandmother Breast Cancer Maternal Grandmother Emphysema Maternal Grandfather Coronary Artery Disease Paternal Grandmother Coronary Artery Disease Paternal Grandfather Cancer Paternal Grandfather trhroat Social History Tobacco Use Smoking status: Former Packs/day: 1.00 Years: 8.00 Pack years: 8.00 Types: Cigarettes, Cigars Smokeless tobacco: Former Types: Snuff Vaping Use Vaping Use: Never used Substance Use Topics Alcohol use: Yes Comment: social Drug use: No Review of Systems Constitutional: Negative for chills, diaphoresis, fatigue and fever. HENT: Positive for congestion, ear pain, postnasal drip, sinus pressure, sinus pain and sore throat. Eyes: Negative for pain, discharge and itching. Respiratory: Positive for cough. Negative for apnea, choking and chest tightness. Cardiovascular: Negative for chest pain. Gastrointestinal: Negative for abdominal pain, anorexia, change in bowel habit, nausea and vomiting. Musculoskeletal: Negative for arthralgias, joint swelling, myalgias and neck pain. Skin: Negative for color change, pallor and rash. Allergic/Immunologic: Negative for environmental allergies, food allergies and immunocompromised state. Neurological: Positive for headaches. Negative for dizziness, vertigo, facial asymmetry, weakness and numbness. Hematological: Negative for adenopathy. Does not bruise/bleed easily. Psychiatric/Behavioral: Negative for agitation and behavioral problems. Objective BP 148/82 Pulse 65 Temp 36.7 C (98.1 F) Resp 21 Wt 124.1 kg (273 lb 9.6 oz) SpO2 99% Physical Exam Vitals and nursing note reviewed. Constitutional: General: He is not in acute distress. Appearance: Normal appearance. He is not ill-appearing, toxic-appearing or diaphoretic. HENT: Head: Normocephalic and atraumatic. Right Ear: External ear normal. Left Ear: External ear normal. Ears: Comments: Left TM erythematous and bulging. +maxillary sinus pressure Nose: Nose normal. No congestion or rhinorrhea. Mouth/Throat: Mouth: Mucous membranes are moist. Pharynx: Oropharynx is clear. No oropharyngeal exudate or posterior oropharyngeal erythema. Eyes: General: Right eye: No discharge. Left eye: No discharge. Extraocular Movements: Extraocular movements intact. Conjunctiva/sclera: Conjunctivae normal. Pupils: Pupils are equal, round, and reactive to light. Cardiovascular: Rate and Rhythm: Normal rate and regular rhythm. Pulses: Normal pulses. Heart sounds: Normal heart sounds. No murmur heard. No friction rub. No gallop. Pulmonary: Effort: Pulmonary effort is normal. No respiratory distress. Breath sounds: Normal breath sounds. No stridor. No wheezing, rhonchi or rales. Chest: Chest wall: No tenderness. Abdominal: General: Abdomen is flat. There is no distension. Palpations: Abdomen is soft. There is no mass. Tenderness: There is no abdominal tenderness. There is no guarding or rebound. Hernia: No hernia is present. Musculoskeletal: General: No swelling, tenderness, deformity or signs of injury. Normal range of motion. Cervical back: Normal range of motion and neck supple. No rigidity or tenderness. Right lower leg: No edema. Left lower leg: No edema. Lymphadenopathy: Cervical: No cervical adenopathy. Skin: General: Skin is warm and dry. Capillary Refill: Capillary refill takes less than 2 seconds. Coloration: Skin is not jaundiced or pale. Findings: No bruising, lesion or rash. Neurological: General: No focal deficit present. Mental Status: He is alert and oriented to person, place, and time. Cranial Nerves: No cranial nerve deficit. Sensory: No sensory deficit. Motor: No weakness. Coordination: Coordination normal. Gait: Gait normal. Deep Tendon Reflexes: Reflexes normal. Psychiatric: Mood and Affect: Mood normal. Behavior: Behavior normal. Thought Content: Thought content normal. Assessment and Plan ASSESSMENT/PLAN: 1. Rhinosinusitis - ICD9: 473.9, ICD10: J31.0, J32.9 (primary diagnosis) - Will begin treatment with as per antibiotic as written, see orders - The patient should also be given OTC cough and cold meds as needed, warm salt water gargles, throat lozenges and/or OTC throat spray as needed, and nasal saline gtts and suction prn for the first 5-7 days of treatment. - Supportive care with plenty of fluids, rest, and analgesia prn. - Follow up in 3-5 days if symptoms persist or worsen. 2. Acute otitis media, left - ICD9: 382.9, ICD10: H66.92 - Will begin treatment with as per antibiotic as written, see orders - The patient should also be given OTC cough and cold meds as needed and warm salt water gargles, throat lozenges and/or OTC throat spray as needed for the first 5-7 days of treatment. - Supportive care with plenty of fluids, rest, and analgesia prn. - Follow up in 3-5 days if symptoms persist or worsen. Thuy Godwin APRN.RONALDO [facility] History of Present illness Narrative* Sharron Toribio MD - 07/31/2021 9:10 AM EDT RHEUMATOLOGY PROGRESS NOTE Patient is here for a follow up visit for Patient presents with: Joint Pain HPI: Jonelalan Terrell is a 60 year old male who presents joint pain Neck stiffness off and on, overactivity causes hand swelling. No recent flares. No paresthesia in hands. Full ROM neck. HISTORY OF PRESENT ILLNESS Base of neck and b/w shoulder blades, Severe wrist pain, carpal tunnel ? 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 PCP prescribed prednisone which helped. Symptoms returned after he finished the pred course. Hot epsom salt water helps. Currently pain subsided. He had gout one time podagra. Not had a flare up of gout for sometimes. He tried several OTC tylenol, NSAIDs. h/o possible dactylitis HTN, DM2, HLP, asthma, gout, HASMUKH, obesity He may have psoriasis? Uses cream. "water in knees" did not seek treatment at that time. 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 Family h/o autoimmune disease - mother had PsA, brother with psorsis Smoking - ex smoker Interval Review of Systems CONSTITUTIONAL: Recent Weight change: YES losing unintentional Fever: No EYES: Dryness in nose: No Dryness of mouth: No Oral ulcers: No CARDIOVASCULAR: Pain in chest: No RESPIRATORY: Shortness of breath: No Cough: No GASTROINTESTINAL: Nausea: No Vomiting: No Changes in bowel movements: No Jaundice: No Heartburn: No MUSCULOSKELETAL: Per HPI INTEGUMENTARY: Rash: No HEMATOLOGIC/LYMPHATIC: Anemia: No NEUROLOGICAL SYSTEM: Headaches: No Sensitivity or pain of hands and/or feet: No PSYCHIATRIC: Anxiety: No Poor sleep: No PAST MEDICAL HISTORY Diagnosis Date Abdominal pain, other specified site LLQ,RLQ Anal or rectal pain Other and unspecified hyperlipidemia Other constipation PAST SURGICAL HISTORY Procedure Laterality Date COLONOSCOPY FLX DX W/COLLJ SPEC WHEN PFRMD 10/12/2007 Colonoscopy PAST SURGICAL HISTORY OF umb hernia History Review: I have reviewed and modified as needed, the following during this visit: Allergies,Past Medical History, Past Surgical History, Past Family History, Past Social History. There were no vitals taken for this visit. Physical Exam GENERAL: Well appearing, alert, comfortable, in no acute distress, well- hydrated, well nourished. HEENT: Negative for external ears normal. Canals are clear. Both TMs visualized and are normal. EyeExam normal. External nose normal, no nasal ulcer or throat ulcer. NECK: NECK Supple, no adenopathy; thyroid symmetric, normal size, no bruits CARDIAC: regular rate and rhythm, No murmur asculated. and Equal peripheral pulses RESPIRATORY: Lungs clear to auscultation. No wheezing, rhonchi, rales VASCULAR: RRR without murmur, gallop, or rubs. No ectopy. NEURO: Motor and sensory exam normal MOTOR: Normal; including tone, gait, stressed gait, power and coordination. SKIN: Negative for alopecia, skin rash, malar rash, skin lesion, skin ulcer, pits, thickening, color changes, telangiectasias, nail changes, nail ridging, nail pitting, onycholysis Small psoriatic patches over scalp and dorsum of hands MUSCULOSKELETAL: DIPS: Normal PIPS: Normal MCPs: Normal Wrists: Normal Elbows: Normal Shoulders: Normal C-Spine: Normal Hips: Normal Knees: Normal Ankles: Normal MTPs / Toes: Normal Arches: Normal Lab Results: No results found for this basename: gluc, K, NA, CHLOR, CO2, CREAT, BUN, ANION, CA, TPROT, ALB, TBILI, ALKPHOS, AST,ALT,WBC,HB,PLT,wsr,crp Serology: Most recent labs and imaging results. JOAQUIN negative, RF neg CCP neg, ESR 51 IMPRESSION: 3 views of the left shoulder have been obtained. No acute fracture or dislocation is seen. There is mild degenerative change of the acromioclavicular joint. Remaining joint spaces are maintained. No gross soft tissue abnormality is seen. IMPRESSION: Mild osteopenia with diffuse mild osteoarthritic changes. No acute abnormality, erosive changes, chondrocalcinosis or periostitis. Right wrist x ray - FINDINGS: Mild osteopenia. Mild arthrosis of the radiocarpal joint. Mild arthrosis of the radioulnar joint. Mild arthrosis of the radiocarpal row. Mild arthrosis of the first CMC joint. The soft tissue structures are unremarkable. Left shoulder - FINDINGS: Normal glenohumeral articulation. Degenerative hypertrophy at the acromioclavicular joint. Normal acromion. Normal humeral head and visualized proximal humerus. The soft tissue structures are unremarkable. Normal visualized pulmonary apex. Elbow = IMPRESSION: Soft tissue prominence of the biceps suggestive of a biceps tendon tear. Results for JONEL TERRELL ( ) as of 07/31/2021 09:17 Ref. Range 06/27/2021 11:46 Hep C Antibody IA Latest Ref Range: Negative Negative Hep B Surf Ab Quant Latest Ref Range: <10.00 mIU/mL <3.10 Hep B Surface Ag Latest Ref Range: Negative Negative Hep B Core Ab, Total Latest Ref Range: Negative Negative Rheumatoid Factor Latest Ref Range: <16 IU/mL <10 CCP Antibody, IgG Latest Ref Range: <20 Units <15 CCP Antibody IgG Qualitative Latest Ref Range: Negative Negative FINDINGS: Slight anterolisthesis of C2 on C3 and C3 on C4. 4 mm retrolisthesis of C5 on C6. Degenerative endplate changes greatest at C5-C6. Slight anterolisthesis of C7 on T1. Degenerative changes of the facets. Assessment and Plan (M25.50) Pain in joint, multiple sites (primary encounter diagnosis) (M15.9) Primary osteoarthritis involving multiple joints 60-year-old male is here for follow up. He had an acute onset of bilateral hand pain and swelling. This improved with prednisone. He reports history of gout and psoriasis. Psoriatic arthritis is possible. He was advised to notify us if he has recurrence of symptoms. Plan: Likely has PsA. Neck pain from DJD. PsA cannot be ruled out. Needs periodic monitoring Pain is overall manageable. May need PT or pain management. No orders found for this visit on 07/31/21. No orders of the defined types were placed in this encounter. Return in about 1 year (around 07/31/2022). Sharron Toribio MD documented [facility]04[facility] History of Present illness Narrative* RT Eduardo(R) - 06/27/2021 11:30 AM EDT Radiology Service Progress Note PATIENT NAME: Jonel Terrell DATE OF SERVICE: June 27, 2021 TIME: 11:28 AM PATIENT IDENTITY VERIFICATION COMPLETED USING TWO (2) IDENTIFIERS: Name and Date of confirmedby patient verbally and Name and Date of confirmed by identification band. FALL SCREENING: Has the patient had 2 falls in the last year or 1 fall with injury or currently using an Ambulatory Assistive Device (Walker, Cane, Wheelchair, Crutches, etc.)? No PATIENT GENDER DATA: Male PATIENT RELEVANT IMPLANT DATA REVIEWED: Not Applicable RADIOLOGY DEPARTMENT: General X-ray: Exam(s) Completed: Spine X-Ray(s): Cervical AP / LAT PERIPHERAL IV DATA: Not applicable SIGNED BY: RT Eduardo(Phil) June 27, 2021 11:28 AM documented in this encounter[facility]04-28-[facility]22 History of Present illness Narrative* Sharron Toribio MD - 06/27/2021 10:26 AM EDT RHEUMATOLOGY PROGRESS NOTE Patient is here for a follow up visit for Patient presents with: Joint Pain HPI: Jonel Terrell is a 60 year old male who presents joint pain HISTORY OF PRESENT ILLNESS Base of neck and b/w shoulder blades, Severe wrist pain, carpal tunnel ? 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 PCP prescribed prednisone which helped. Symptoms returned after he finished the pred course. Hot epsom salt water helps. Currently pain subsided. He had gout one time podagra. Not had a flare up of gout for sometimes. He tried several OTC tylenol, NSAIDs. h/o possible dactylitis HTN, DM2, HLP, asthma, gout, HASMUKH, obesity He may have psoriasis? Uses cream. "water in knees" did not seek treatment at that time. [place] Family h/o autoimmune disease - mother had PsA, brother with psorsis Smoking - ex smoker Interval Review of Systems CONSTITUTIONAL: Recent Weight change: YES losing unintentional Fever: No EYES: Dryness in nose: No Dryness of mouth: No Oral ulcers: No CARDIOVASCULAR: Pain in chest: No RESPIRATORY: Shortness of breath: No Cough: No GASTROINTESTINAL: Nausea: No Vomiting: No Changes in bowel movements: No Jaundice: No Heartburn: No MUSCULOSKELETAL: Per HPI INTEGUMENTARY: Rash: No HEMATOLOGIC/LYMPHATIC: Anemia: No NEUROLOGICAL SYSTEM: Headaches: No Sensitivity or pain of hands and/or feet: No PSYCHIATRIC: Anxiety: No Poor sleep: No PAST MEDICAL HISTORY Diagnosis Date Abdominal pain, other specified site LLQ,RLQ Anal or rectal pain Other and unspecified hyperlipidemia Other constipation PAST SURGICAL HISTORY Procedure Laterality Date COLONOSCOPY FLX DX W/COLLJ SPEC WHEN PFRMD 10/12/2007 Colonoscopy PAST SURGICAL HISTORY OF umb hernia History Review: I have reviewed and modified as needed, the following during this visit: Allergies,Past Medical History, Past Surgical History, Past Family History, Past Social History. BP 142/88 Pulse 78 Temp (!) 35.7 C (96.2 F) (Temporal) Resp 18 Physical Exam GENERAL: Well appearing, alert, comfortable, in no acute distress, well- hydrated, well nourished. HEENT: Negative for external ears normal. Canals are clear. Both TMs visualized and are normal. EyeExam normal. External nose normal, no nasal ulcer or throat ulcer. NECK: NECK Supple, no adenopathy; thyroid symmetric, normal size, no bruits CARDIAC: regular rate and rhythm, No murmur asculated. and Equal peripheral pulses RESPIRATORY: Lungs clear to auscultation. No wheezing, rhonchi, rales VASCULAR: RRR without murmur, gallop, or rubs. No ectopy. NEURO: Motor and sensory exam normal MOTOR: Normal; including tone, gait, stressed gait, power and coordination. SKIN: Negative for alopecia, skin rash, malar rash, skin lesion, skin ulcer, pits, thickening, color changes, telangiectasias, nail changes, nail ridging, nail pitting, onycholysis Small psoriatic patches over scalp and dorsum of hands MUSCULOSKELETAL: DIPS: Normal PIPS: Normal MCPs: Normal Wrists: Normal Elbows: Normal Shoulders: Normal C-Spine: Normal Hips: Normal Knees: Normal Ankles: Normal MTPs / Toes: Normal Arches: Normal Lab Results: No results found for this basename: gluc, K, NA, CHLOR, CO2, CREAT, BUN, ANION, CA, TPROT, ALB, TBILI, ALKPHOS, AST,ALT,WBC,HB,PLT,wsr,crp Serology: Most recent labs and imaging results. JOAQUIN negative, RF neg CCP neg, ESR 51 IMPRESSION: 3 views of the left shoulder have been obtained. No acute fracture or dislocation is seen. There is mild degenerative change of the acromioclavicular joint. Remaining joint spaces are maintained. No gross soft tissue abnormality is seen. IMPRESSION: Mild osteopenia with diffuse mild osteoarthritic changes. No acute abnormality, erosive changes, chondrocalcinosis or periostitis. Right wrist x ray - FINDINGS: Mild osteopenia. Mild arthrosis of the radiocarpal joint. Mild arthrosis of the radioulnar joint. Mild arthrosis of the radiocarpal row. Mild arthrosis of the first CMC joint. The soft tissue structures are unremarkable. Left shoulder - FINDINGS: Normal glenohumeral articulation. Degenerative hypertrophy at the acromioclavicular joint. Normal acromion. Normal humeral head and visualized proximal humerus. The soft tissue structures are unremarkable. Normal visualized pulmonary apex. Elbow = IMPRESSION: Soft tissue prominence of the biceps suggestive of a biceps tendon tear. Assessment and Plan (M25.50) Pain in joint, multiple sites (primary encounter diagnosis) 60-year-old male is here for follow up. He had an acute onset of bilateral hand pain and swelling. This improved with prednisone. He reports history of gout and psoriasis. Psoriatic arthritis is possible. He was advised to notify us if he has recurrence of symptoms. Plan: Likely has PsA. Neck pain - inflammatory vs DJD. Labs and x rays as below. He would like to hold off on treatment. May need SSZ or MTX. Office Visit on 06/27/21 XR CERV GENERAL 2V AP/LAT HEP B SURF AG SCRN HEP B SURF AB QUANT HEP C AB IA W/CONF SCRN HEP B CORE AB TOTAL BLOOD TB SCREEN, INCUBATED C-REACTIVE PROTEIN (CRP) SED RATE WESTERGREN CBC + DIFF COMP METABOLIC PANEL VITAMIN D 25 HYDROXY RHEUMATOID FACTOR BL CCP ANTIBODY IGG No orders of the defined types were placed in this encounter. No follow-ups on file. Sharron Toribio MD [facility] Diagnosis Pain in joint, multiple sites- Primary [facility] Diagnosis Pain in joint, multiple sites [facility]* Diagnosis Pain in joint, multiple sites- Primary Primary osteoarthritis involving multiple joints [facility] noteNo assessment information availableWTri[facility] Work Phone: Evaluation note* Diagnosis Onset Date Resolution Status Asthma chronic [facility] Work Phone: Evaluation note* Diagnosis Rhinosinusitis- Primary Unspecified sinusitis (chronic) Acute otitis media, left Unspecified otitis media [facility]* Diagnosis Sinusitis, unspecified chronicity, unspecified location- Primary [facility]* Diagnosis Neck pain- Primary Cervicalgia 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 documented in this encounter [facility] note* Diagnosis Onset Date Resolution Status Aortic root aneurysm chronic Asthma chronic CAD (coronary artery disease) chronic Hyperlipemia chronic Hypertension chronic Morbid obesity chronic HASMUKH (obstructive sleep apnea) chronic [facility] Work Phone: Evaluation note* Diagnosis 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 documented in this encounter [facility] note* Diagnosis Pain in joint, multiple sites- Primary Primary osteoarthritis involving multiple joints Inflammatory arthritis Unspecified inflammatory polyarthropathy Psoriatic arthropathy (HCC) Psoriatic arthropathy documented in this encounter [facility] note* Diagnosis Onset Date Resolution Status Aortic root aneurysm chronic Asthma chronic CAD (coronary artery disease) chronic Hyperlipemia chronic Hypertension chronic Morbid obesity chronic HASMUKH (obstructive sleep apnea) chronic Asthma chronic [facility] Work Phone: Evaluation note* Diagnosis Pain in joint, multiple sites- Primary Vitamin D deficiency Unspecified vitamin D deficiency 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 documented in this encounter [facility] note* Diagnosis 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 [facility]* Diagnosis Pain in joint, multiple sites- Primary Vitamin D deficiency Unspecified vitamin D deficiency Psoriatic arthropathy (HCC) Psoriatic arthropathy documented in this encounter [facility] note* Diagnosis 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 Follow-up with your dentist as scheduled.[facility] Work Phone: Reason for referral (narrative)* Diagnostic Procedure Only (Routine) - Closed Specialty Diagnoses / Procedures Referred By Contac t Referred To Contact XR IMAGING Diagnoses Pain in joint, multiple sites Procedures XR CERV GENERAL 2V AP/LAT RADEX SPINE CERVICAL 2 OR 3 VIEWS Sharron Toribio MD [address] [place] [address] Xr Imaging Referral ID Status Reason Start Date Expiration Date V isits Requested Visits Authorized [id number] Closed Auto-Generate d Referral 06/27/2021 07/27/2022 [address] [facility] for referral (narrative)* Diagnostic Procedure Only (Routine) - Closed Specialty Diagnoses / Procedures Referred By Contac t Referred To Contact XR IMAGING Diagnoses Pain in joint, multiple sites Procedures XR CERV GENERAL 2V AP/LAT RADEX SPINE CERVICAL 2 OR 3 VIEWS Sharron Toribio MD [address] [place] [address] Xr Imaging Referral ID Status Reason Start Date Expiration Date V isits Requested Visits Authorized [id number] Closed Auto-Generate d Referral 06/27/2021 07/27/2022 [address] [facility] for referral (narrative)No reason for referral information availableWTriHealth [facility] Work Phone: Rexeem for visit Narrative* Diagnostic Procedure Only (Routine) - Closed Specialty Diagnoses / Procedures Referred By Contac t Referred To Contact XR IMAGING Diagnoses Pain in joint, multiple sites Procedures XR CERV GENERAL 2V AP/LAT RADEX SPINE CERVICAL 2 OR 3 VIEWS Sharron Toribio MD [address] [place] [address] Xr Imaging Referral ID Status Reason Start Date Expiration Date V isits Requested Visits Authorized [id number] Closed Auto-Generate d Referral 06/27/2021 07/27/2022 1 1 [facility] Advance Directives No Advanced Directives Records Found Advance Directive Response Recorded Date/ Time Living Will No October 18 9 10:53am Power of Band Singer No October 18, 2 019 10:53am Advance Directive Response Recorded Date/ Time Living Will No February 19, 2 022 12:22am Power of Band Singer No February 19, 2022 12:22am Advance Directive Response Recorded Date/ Time Living Will No February 19, 2 022 1:22am Power of Band Singer No February 19, 2022 1:22am Advance Directive Response Recorded Date/ Time Living Will No September 04, 2022 6 :41pm Power of Band Singer No September 04, 2022 6:41pm Advance Directive Response Recorded Date/ Time Living Will No October 20 3 1:50am Power of Band Singer No October 20, 2 023 1:50am Advance Directive Response Recorded Date/ Time Living Will No October 20 3 12:50am Power of Band Singer No October 20, 2 023 12:50am Chief Complaint and Reason for Visit Chief Complaint AORTIC ROOT ANEURYSM Chief Complaint AORTIC ROOT ANEURYSM 1 Y FU Reason for Visit Asthma Chief Complaint dental infection Chief Complaint AORTIC ROOT ENLARGEM ENT, PULM NODULES *W/WO* Chief Complaint AORTIC ROOT ENLARGEM ENT, PULM NODULES *W/WO* DIZZY Chief Complaint AORTIC ROOT ENLARGEM ENT, PULM NODULES *W/WO* DIZZY ABN CHEST CTA (SCHINNER) ATHEROSCLEROTIC HEART DISEASE Amb Documentation Amb Documentation Reason for Visit Aortic root aneurysm Asthma CAD (coronary artery disease) Hyperlipemia Hypertension Morbid obesity HASMUKH (obstructive sleep apnea) Chief Complaint AORTIC ROOT ENLARGEM ENT, PULM NODULES *W/WO* DIZZY ABN CHEST CTA (SCHINNER) ATHEROSCLEROTIC HEART DISEASE Amb Documentation Amb Documentation dental Reason for Visit Aortic root aneurysm Asthma CAD (coronary artery disease) Hyperlipemia Hypertension Morbid obesity HASMUKH (obstructive sleep apnea) Chief Complaint ABN CHEST CTA ([facility]) ATHEROSCLEROTIC HEART DISEASE Amb Documentation Amb Documentation dental swolled foreing body swollowed foreign body 1 Y FU ABD PAIN Reason for Visit Aortic root aneurysm Asthma CAD (coronary artery disease) Hyperlipemia Hypertension Morbid obesity HASMUKH (obstructive sleep apnea) Asthma Chief Complaint ABD PAIN 6 M FU Reason for Visit Aortic root aneurysm Asthma CAD (coronary artery disease) Hyperlipemia Hypertension Morbid obesity HASMUKH (obstructive sleep apnea) Chief Complaint Admit Date DYSPHAGIA, GERD February 18, 2024 8:55am Chief Complaint Admit Date 6 M FU June 15, 2024 1:4 5pm SINUSITIS July 12, 2024 3:39p m Reason for Visit Admit Date Aortic root aneurysm Mayi 16th, 2025 1: 45pm Asthma June 15, 2024 1:4 5pm CAD (coronary artery disease) May 1:45pm Hyperlipemia June 15, 2024 1:4 5pm Hypertension June 15, 2024 1:4 5pm Morbid obesity June 15, 2024 1:4 5pm HASMUKH (obstructive sleep apnea) May 1:45pm Reason for Referral Specialty Diagnoses / Procedures Referred By Shaw t Referred To Contact Ent - Otolaryngology Diagnoses Sinusitis, unspecified chronicity, unspecified location Procedures CONSULT TO ENT OFFICE/OUTPATIENT [facility] 60-74 MINUTES Geraldine Bose APRN.CLOSING MACHINE OPERATOR [address] [place] [address] Referral ID Status Reason Start Date Expiration Date Visits Requested Visits Authorized [id number] Authorized PCP Requested Referral 2 02/24/2023 1 1 Summary Purpose Family History No Family History Records Found Additional Source Comments Source Comments (unrecognize d section and content) In the event this informatio n is protected by the Federal Confidentiality of Alcohol and Drug Abuse Patient Records regulations: The Federal rules restrict any use of the information to criminally investigate or prosecute any alcohol or drug abuse patient.[facility] the event this information is protected by the Federal Confidentiality of Alcohol and Drug Abuse Patient Records regulations: The Federal rules restrict any use of the information to criminally investigate or prosecute any alcohol or drug abuse patient.[facility] Hospital[facility] the event this information is protected by the Federal Confidentiality of Alcohol and Drug Abuse Patient Records regulations: The Federal rules restrict any use of the information to criminally investigate or prosecute any alcohol or drug abuse patient.[facility] HospitalIn the event this information is protected by the Federal Confidentiality of Alcohol and Drug Abuse Patient Records regulations: The Federal rules restrict any use of the information to criminally investigate or prosecute any alcohol or drug abuse patient.[facility] Hospital[facility] the event this information is protected by the Federal Confidentiality of Alcohol and Drug Abuse Patient Records regulations: The Federal rules restrict any use of the information to criminally investigate or prosecute any alcohol or drug abuse patient.[facility] HospitalIn the event this information is protected by the Federal Confidentiality of Alcohol and Drug Abuse Patient Records regulations: The Federal rules restrict any use of the information to criminally investigate or prosecute any alcohol or drug abuse patient.[facility] HospitalIn the event this information is protected by the Federal Confidentiality of Alcohol and Drug Abuse Patient Records regulations: The Federal rules restrict any use of the information to criminally investigate or prosecute any alcohol or drug abuse patient.[facility] HospitalIn the event this information is protected by the Federal Confidentiality of Alcohol and Drug Abuse Patient Records regulations: The Federal rules restrict any use of the information to criminally investigate or prosecute any alcohol or drug abuse patient.[facility] HospitalIn the event this information is protected by the Federal Confidentiality of Alcohol and Drug Abuse Patient Records regulations: The Federal rules restrict any use of the information to criminally investigate or prosecute any alcohol or drug abuse patient.[facility] Hospital[facility] the event this information is protected by the Federal Confidentiality of Alcohol and Drug Abuse Patient Records regulations: The Federal rules restrict any use of the information to criminally investigate or prosecute any alcohol or drug abuse patient.[facility] HospitalIn the event this information is protected by the Federal Confidentiality of Alcohol and Drug Abuse Patient Records regulations: The Federal rules restrict any use of the information to criminally investigate or prosecute any alcohol or drug abuse patient.[facility] HospitalIn the event this information is protected by the Federal Confidentiality of Alcohol and Drug Abuse Patient Records regulations: The Federal rules restrict any use of the information to criminally investigate or prosecute any alcohol or drug abuse patient.[facility]In the event this information is protected by the Federal Confidentiality of Alcohol and Drug Abuse Patient Records regulations: The Federal rules restrict any use of the information to criminally investigate or prosecute any alcohol or drug abuse patient.[facility] HospitalIn the event this information is protected by the Federal Confidentiality of Alcohol and Drug Abuse Patient Records regulations: The Federal rules restrict any use of the information to criminally investigate or prosecute any alcohol or drug abuse patient.[facility] HospitalIn the event this information is protected by the Federal Confidentiality of Alcohol and Drug Abuse Patient Records regulations: The Federal rules restrict any use of the information to criminally investigate or prosecute any alcohol or drug abuse patient.[facility] HospitalIn the event this information is protected by the Federal Confidentiality of Alcohol and Drug Abuse Patient Records regulations: The Federal rules restrict any use of the information to criminally investigate or prosecute any alcohol or drug abuse patient.[facility]In the event this information is protected by the Federal Confidentiality of Alcohol and Drug Abuse Patient Records regulations: The Federal rules restrict any use of the information to criminally investigate or prosecute any alcohol or drug abuse patient.[facility]In the event this information is protected by the Federal Confidentiality of Alcohol and Drug Abuse Patient Records regulations: The Federal rules restrict any use of the information to criminally investigate or prosecute any alcohol or drug abuse patient.[facility] HospitalIn the event this information is protected by the Federal Confidentiality of Alcohol and Drug Abuse Patient Records regulations: The Federal rules restrict any use of the information to criminally investigate or prosecute any alcohol or drug abuse patient.[facility] Reason for Visit (unrecogniz ed section and content) Reason Comments Joint Pain Reason Comments Joint Pain Reason Comments Sinus Problem Ringing in ears, eye s sore, HELTON x 1 week Reason Comments Sinus Infection,frequent/recurring X16 d ays Reason Comments Joint Pain Spine, right shoulde r, hips Reason Comments Patient Update Reason Onset Date Comments Refill Request Refill Request 10/24/2022 Reason Comments Refill Request Care Teams (unrecognized sec tion and content) Legal Intern Relationship Specialty Start Date End Date Zahra Guerrero [address] [facility] [address] [place] [address] PCP - General Family Practice 06/27/21 Legal Intern Relationship Specialty Start Date End Date Zahra Guerrero [address] [facility] [address] [place] [address] PCP - General Family Practice 06/27/21 Legal Intern Relationship Specialty Start Date End Date Zahra Guerrero [address] [facility] [address] [place] [address] PCP - General Family Practice 06/27/21 Legal Intern Relationship Specialty Start Date End Date Zahra Guerrero [address] [facility] [address] [place] [address] PCP - General Family Medicine 06/27/21 Legal Intern Relationship Specialty Start Date End Date Zahra Guerrero [address] [facility] [address] [place] [address] PCP - [facility] Medicine 06/27/21 Team Status: Active Member Role Status Dates Dr. Zahra Guerrero MD Family Provider Active Dr. Zahra Guerrero MD Primary Care Provider Active Team Status: Inactive Member Role Status Dates Dr. Zahra Guerrero MD Primary Care Provider Active Dr. Kayden Agee DO Attending Provider, Emergency P humberto Active Team Status: Inactive Member Role Status Dates Dr. Zahra Guerrero MD Primary Care Pr ovider, Attending Provider, Referring Provider Active Legal Intern Relationship Specialty Start Date End Date JoseZahra lynch Manas [address] [facility] [address] [place] [address] [facility] 06/27/21 Team Status: Inactive Member Role Status Dates Dr. Zahra Guerrero MD Primary Care Provider, Attend ing Provider Active Team Status: Inactive Member Role Status Dates Dr. Zahra Guerrero MD Primary Care Provider Active Dr. Floyd Vickers MD Emergency Provider Active Team Status: Inactive Member Role Status Dates Dr. Zahra Guerrero MD Primary Care Provider, Referr ing Provider Active Dr. Lu Styles MD Attending Provider Active Team Status: Active Member Role Status Dates Dr. Zahra Guerrero MD Primary Care Provider Active Dr. Cody Sherwood MD Attending Provider Active Team Status: Active Member Role Status Dates Dr. Zahra Guerrero MD Primary Care Provider Active Zahra Graham DIRECTOR OF INVESTIGATIONS, DIRECTOR OF INVESTIGATIONS-C Attending Provider Active Team Status: Inactive Member Role Status Dates Dr. Zahra Guerrero MD Primary Care Provider Active Dr. uL Styles MD Attending Provider, Referring Pr ovider Active Team Status: Inactive Member Role Status Dates Dr. Zahra Guerrero MD Primary Care Provider Active Dr. Floyd Vickers MD Attending Provider, Emergency Provider Active Team Status: Inactive Member Role Status Dates Dr. Zahra Guerrero MD Primary Care Provider Active Dr. Latonia Mann MD Emergency Provider Active Legal Intern Relationship Specialty Start Date End Date Zahra Guerrero MD [address] [place] [address] PCP - General Family Medicine 06/27/21 Legal Intern Relationship Specialty Start Date End Date Zahra Guerrero MD [address] [place] [address] PCP - General Family Medicine 06/27/21 Legal Intern Relationship Specialty Start Date End Date Zahra Guerrero MD [address] [facility] [address] [place] [address] PCP - General Family Medicine 06/27/21 Team Status: Inactive Member Role Status Dates Dr. Zahra Guerrero MD Primary Care Provider Active Dr. Latonia Mann MD Attending Provider, Emergency Provider Active Team Status: Active Member Role Status Dates Dr. Zahra Guerrero MD Primary Care Provider, Attend ing Provider Active Team Status: Inactive Member Role Status Dates Dr. Zahra Guerrero MD Primary Care Provider, Referr ing Provider Active Dr. Suman Hanley DO Attending Provider Active Team Status: Inactive Member Role Status Dates Dr. Anjelica Pate MD Attending Provider, Referring P humberto Active Dr. Zahra Guerrero MD Primary Care Provider Active Team Status: Active Member Role Status Dates Dr. Zahra Guerrero MD Primary Care Pr ovider, Attending Provider, Referring Provider Active Legal Intern Relationship Specialty Start Date End Date Zahra Guerrero MD [address] [place] [address] PCP - General Family Medicine 06/27/21 Legal Intern Relationship Specialty Start Date End Date Zahra Guerrero MD [address] [place] [address] PCP - General Family Medicine 06/27/21 Legal Intern Relationship Specialty Start Date End Date Zahra Guerrero MD [address] [facility] [address] [place] [address] PCP - General Family Medicine 06/27/21 Legal Intern Relationship Specialty Start Date End Date Zahra Guerrero MD [address] [facility] [address] [place], [place] [address] PCP - General Family Medicine 06/27/21 Team Status: Inactive Member Role Status Dates Dr. Zahra Guerrero MD Primary Care Provider Active Start: February 18, 2024 End: February 18, 2024 Dr. Heber Keller MD Attending Provider Active Start: February 18, 2024 End: February 18, 2024 Dr. Heber Keller MD Referring Provider Active Start: February 18, 2024 End: February 18, 2024 Team Status: Inactive Member Role Status Dates Dr. Zahra Guerrero MD Primary Care Provider Active Start: March 24, 2024 End: March 24, 2024 Dr. Kayden Terrell MD Attending Provider Active St art: March 24, 2024 End: March 24, 2024 Team Status: Inactive Member Role Status Dates Dr. Zahra Guerrero MD Primary Care Provider Active Start: March 25, 2024 End: March 25, 2024 Dr. Zahra Guerrero MD Attending Provider Active Start: March 25, 2024 End: March 25, 2024 Dr. Zahra Guerrero MD Referring Provider Active Start: March 25, 2024 End: March 25, 2024 Team Status: Inactive Member Role Status Dates Dr. Zahra Guerrero MD Primary Care Provider Active Start: June 02, 2024 End: June 02, 2024 Dr. Zahra Guerrero MD Attending Provider Active Start: June 02, 2024 End: June 02, 2024 Dr. Zahra Guerrero MD Referring Provider Active Start: June 02, 2024 End: June 02, 2024 Legal Intern Relationship Specialty Start Date End Date Zahra Guerrero MD [address] [place] [address] PCP - General Family Medicine 06/27/21 Team Status: Active Member Role Status Dates Dr. Zahra Guerrero MD Primary Care Provider Active Team Status: Inactive Member Role Status Dates Dr. Zahra Guerrero MD Primary Care Provider Active Start: June 15, 2024 End: June 15, 2024 Dr. Zahra Guerrero MD Referring Provider Active Start: June 15, 2024 End: June 15, 2024 Dr. Lu Styles MD Attending Provider Active Start: June 15, 2024 End: June 15, 2024 Team Status: Inactive Member Role Status Dates Dr. Zahra Guerrero MD Primary Care Provider Active Start: June 16, 2024 End: June 16, 2024 Dr. Heber Keller MD Attending Provider Active Start: June 16, 2024 End: June 16, 2024 Dr. Heber Keller MD Referring Provider Active Start: June 16, 2024 End: June 16, 2024 Team Status: Inactive Member Role Status Dates Dr. Zahra Guerrero MD Primary Care Provider Active Start: July 12, 2024 End: July 12, 2024 Dr. Heber Keller MD Attending Provider Active Start: July 12, 2024 End: July 12, 2024 Dr. Heber Keller MD Referring Provider Active Start: July 12, 2024 End: July 12, 2024 Goals (unrecognized section and content) Goals may be documented in a n alternate sectionGoals may be documented in an alternate sectionGoals may be documented in an alternate sectionGoals may be documented in an alternate sectionGoals may be documented in an alternate sectionGoals may be documented in an alternate sectionGoals may be documented in an alternate sectionGoals may be documented in an alternate sectionGoals may be documented in an alternate sectionGoals may be documented in an alternate sectionGoals may be documented in an alternate sectionGoals may be documented in an alternate sectionGoals may be documented in an alternate sectionGoals may be documented in an alternate sectionGoals may be documented in an alternate sectionGoals may be documented in an alternate section (unrecognized sect ion and content) No Status Records FoundNo Status Records FoundNo Status Records Found INFORMATION SOURCE (unrecogn ized section and content) DATE CREATED AUTHOR 08/12/2022 [facility] DATE CREATED AUTHOR AUTHOR'S ORGANIZ ATION 06/16/2024 [facility] DATE CREATED AUTHOR AUTHOR'S ORGANIZ ATION 08/30/2024 [facility] FOR RECORDS PERTAINING TO PATIENTS WHO ARE OR HAVE BEEN ENROLLED IN A CHEMICAL DEPENDENCY/SUBSTANCEABUSE PROGRAM, SOME INFORMATION MAY BE OMITTED. This clinical summary was aggregated from multiple sources. Caution should be exercised in using it in the provision of clinical care. This summary normalizes information from multiple sources, and as a consequence, information in this document may materially change the coding, format and clinical context of patient data. In addition, data may be omitted in some cases. CLINICAL DECISIONS SHOULD BE BASED ON THE PRIMARY CLINICAL RECORDS. [employer] provides no warranty or guarantee of the accuracy or completeness of information in this document.
== END | disposition home or self-care (01) ==
LOC: MFPLAB 09:33
PROVIDERS: PCP Family Medicine; Referring Provider Family Medicine; Visit Provider Family Medicine
DX: E11.69 Type 2 diabetes mellitus with other specified complication (principal); E11.59 Type 2 diabetes mellitus with other circulatory complications
CPT/HCPCS: 36415; 80053; 80061; 81001; 82043; 82570; 83036; 85025

== ENCOUNTER 2024-10-17 06:44 | Day surgery (SDC) | payer MEDICAID, SELFPAY ==
--- NOTE | 2024-10-04 10:00 | EKG12_ITS ---
Test Reason : PREOP Blood Pressure : */* mmHG Vent. Rate : 60 BPM Atrial Rate : 60 BPM P-R Int : 190 ms QRS Dur : 150 ms QT Int : 468 ms P-R-T Axes : 4 237 -6 degrees QTcB Int : 468 ms Normal sinus rhythm Right bundle branch block Abnormal ECG Confirmed by ALESSANDRA CUEVA, ANUP ([id number]), editor in chief newspaper BERNARD GAVIRIA ([id number]) on 10/05/2024 6:50:23 AM Referred By: Yusuf Keller Confirmed By: ANUP APARICIO MD
--- NOTE | 2024-10-04 16:49 | PAT.ANE_ITS ---
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 When Was Last Pacemaker Check QUESTION #4 FULL TEXT: You/Your Family Experience fever (hyperthermia) with Anesthesia Last Oral Intake Last Oral intake: Last Oral Intake NPO since Meds taken in AM with sips of water? 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 machine operator repairer Female No 10/03/24 15:54 HX of Motion Sickness No 10/03/24 15:54 HX of N/V After Surgery No 10/03/24 15:54 Non-Smoker Yes 10/03/24 15:54 Duration of Surgery greater Yes 10/03/24 15:54 than 60 minutes Number of Risk Factors 2 10/03/24 15:54 PONV Score Moderate Risk 10/03/24 15:54 Height & Weight Height & Weight: Anesthesia: Height & Weight Height 6 ft 06/15/24 08:47 Respiratory Assessment Respiratory Assessment - track machine operator repairer: Respiratory Tract Infection Hx - track machine operator repairer Hx Respiratory Tract Infection Yes: SINUS INFECTIONS 10/03/24 15:54 ONGOING STOP Sleep Apnea STOP Sleep Apnea - track machine operator repairer: STOP Sleep Apnea - track machine operator repairer Hx Hypertension Yes: CONTROLLED WITH MEDS 10/03/24 15:54 Hx Sleep Apnea Yes: DOES NOT WEAR 10/03/24 15:54 CPAP No 10/03/24 15:54 BIPAP No 10/03/24 15:54 Do you snore loudly (louder than talking or can be heard Do you often feel tired/ fatigued/ sleepy during daytime? Has anyone observed you stop breathing during sleep? STOP Results Positive 10/03/24 15:54 QUESTION #5 FULL TEXT : Do you snore loudly (louder than talking or can be heard through closed doors)? 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 Specify any problems Hx of Preganancy in last 3 N/A 10/03/24 15:54 Months Nurse Filling Out Transfusion [id number] 10/03/24 15:54 & Questions: Date: 10/03/24 10/03/24 15:54 Time: 15:58 10/03/24 15:54 Patient unable to answer at this time (ie. confused, unrespo /Reproduction History /Reproductive History - track machine operator repairer: /Reproductive Hx- track machine operator repairer Hx Now Gestational Age (in weeks): EDC: Hx Hx Para Hx Section SAB PFSH Medical History (Updated 10/03/24 @ 16:10 by Nikita Patel) Rheumatoid arthritis Former smoker Sleep apnea Leg cramps History of echocardiogram History of stress test Cardiology follow-up encounter Dental abscess Polyarticular psoriatic arthritis BPPV (benign paroxysmal positional vertigo) Tear of biceps muscle Neck pain Cervical radiculopathy DDD (degenerative disc disease), cervical Hand pain Pulmonary nodules CAD (coronary artery disease) Lightheadedness Nonspecific dizziness Allergic rhinitis Tobacco dependence in remission Morbid obesity Asthma Hemorrhoids Acid reflux Arthritis Gout Diabetes Hypertension HASMUKH (obstructive sleep apnea) Mild intermittent asthma Aortic root aneurysm Hyperlipemia LVH (left ventricular hypertrophy) Home Medications ?Medication ?Instructions ?Recorded ?Last Taken ?Type aspirin 81 mg tablet,delayed 81 mg PO QDAY heart 04/0208/25/17 History release (Adult Low Dose Aspirin) metformin 1,000 mg tablet 1,000 mg PO BIDWMEAL 3 Unknown History metoprolol succinate 50 mg 50 mg PO DAILY 09/11/22 Unk nown History tablet,extended release 24 hr albuterol sulfate 90 mcg/actuation 2 puff inhalation Q 6H PRN 12/21/23 Unknown Rx aerosol inhaler shortness of breath or wheez ing #8.5 grams hydrochlorothiazide 25 mg tablet 25 mg PO QDAY #90 tab s 12/29/23 Unknown Rx mometasone-formoterol HFA 200 2 puff inhalation BID #3 ea 09/20/24 Unknown Rx mcg-5 mcg/actuation aerosol inhaler (Dulera) cetirizine 10 mg tablet (24Hour 10 mg PO DAILY 5 Unknown History Allergy) fluticasone propionate 50 1 - 2 spray intranasal DAILY PRN 10/03/24 Unknown History mcg/actuation nasal allergy symptoms spray,suspension Allergy/AdvReac Type Severity Reaction Status Date / Time peanut Allergy Severe Anaphylaxis Verified 10/03/24 15:51 lisinopril Allergy Intermediate Angioedema Verified 10/03/24 15:51 metronidazole (From Flagyl) Allergy Hives Verified 10/03/24 15:51 amlodipine AdvReac Mild Rash Verified 10/03/24 15:51 Family History Mother Asthma Surgical History (Updated 10/03/24 @ 16:10 by Nikita Patel) [place] teeth removed Hx of colonoscopy Hx of umbilical hernia repair Social History Smoking Status: Former smoker Smokeless tobacco user: chewing tobacco how long ago did patient quit smokin, 2p/day second hand exposure: Yes alcohol intake: current alcohol intake frequency: a few times a month substance use type: does not use caffeine: Yes Type: coffee Number of servings: 10 what type of physical activity do you participate in: none frequency: does not exercise seatbelt use: always Audit: Pertinent Findings Pertinent Findings Stress test pertinent findings: Stress test 09/26/2022. Gated EF 64%. Normal exercise myocardial perfusion stress test at a moderate to high workload Consult pertinent findings: Cardiology note 06/15/2024. Coronary calcification noted as an incidental finding on CT scan of the chest. Stress Myoview negative for ischemia. Recommendation Anesthesia Recommendation Anesthesia recommendation: OPTIMIZED for anesthesia
[2024-10-17] VITALS (12 sets, daily range): BP systolic 117–144; BP diastolic 63–87; PULSE 55–70; RESP 14–16; TEMP 35.9–36.1; O2SAT 93–96; BMI 37.7
--- OUTSIDE RECORDS SUMMARY | 2024-10-17 07:06 | XMS RPT_ITS | CCD ---
Author Organization [facility] CliniSymn Care Team Providers Care Third Mate Name Role Phone Zahra Guerrero Primary Care Provider [phone] Dr. Zahra Guerrero Primary Care Provider Dr. Zahra Guerrero Referring Provider Dr. Suman Hanley Attending Provider 1([facility])[phone] Zahra Guerrero Primary Care Provider ZAHRA GUERRERO Primary Care ZAHRA Aldrich Primary Care Dr. Zahra Aldrich Primary Care Provider Dr. Zahra Guerrero Referring Provider Dr. Lu Styles Attending Provider Dr. Cody Sherwood Attending Provider [phone]([phone] Roof BEHAVIORAL INSTRUCTOR, BEHAVIORAL INSTRUCTOR-Brett Lugo Attending Provider 1([facility])[phone] Zahra Guerrero MD Primary Care Provider Dr. Zahra Guerrero Primary Care Provider Dr. Zahra Guerrero Referring Provider Dr. Lu Styles Attending Provider Dr. Cody Sherwood Attending Provider 1([facility])[phone] Roof BEHAVIORAL INSTRUCTOR, BEHAVIORAL INSTRUCTOR-C Zahra Lugo Attending Provider Dr. Suman Hanley Attending Provider 1([facility])[phone] Zahra Guerrero Primary Care Provider Dr. Zahra Guerrero Referring Provider 1([facility])[phone] Dr. Lu Styles Attending Provider Zahra Guerrero MD Primary Care Provider Suha CUEVA, Dr. Zahra Fabian Primary Care Provider Arianna CUEVA, Dr. Heber Reyes Attending Provider Arianna CUEVA, Dr. Heber Reyes Referring Provider Xander CUEVA, Dr. Monique Attending Provider Suha CUEVA, Dr. Zahra Fabian Attending Provider [phone] Suha CUEVA, Dr. Zahra Fabian Referring Provider [phone] SHARRON TORIBIO Attending Unavailable ZAHRA GUERRERO Primary Care Unavailable SHARRON TORIBIO Attending Unavailable ZAHRA GUERRERO Primary Care Unavailable SHARRON TORIBIO Attending Unavailable ZAHRA GUERRERO Primary Care Unavailable Suha CUEVA, Dr. Zahra Fabian Primary Care Provider [phone] Jensen CUEVA, Dr. Leigh Attending Provider Arianna CUEVA, Dr. Heber Reyes Attending Provider [phone] Arianna CUEVA, Dr. Heber Reyes Referring Provider Suha CUEVA, Dr. Zahra Fabian Primary Care Provider Suha CUEVA, Dr. Zahra Fabian Attending Provider Suha CUEVA, Dr. Zahra Fabian Referring Provider [phone] Zahra Guerrero Primary Care Unavailable SchZahra lynch Referring Unavailable Schmiguelina, Zahra Fabian Attending Unavailable Schmiguelina, Zahra E Primary Care Unavailable Arianna, Yusuf Referring Unavailable Arianna, Yusuf Attending Unavailable SchZahra lynch E Primary Care Unavailable Kayden Terrell Attending Unavailable Zahra Guerrero Primary Care Unavailable SchZahra lynch Referring Unavailable SchinnerZahra Attending Unavailable Schinreese, Zahra E Primary Care Unavailable Schinner, Zahra E Referring Unavailable Schinner, Zahra E Attending Unavailable Schinreese, Zahra E Primary Care Unavailable Heber Keller Referring Unavailable AriannaHeber gallardo K Attending Unavailable Schinner, Zahra E Primary Care Unavailable Heber Keller K Referring Unavailable Heber Keller K Attending Unavailable Schmiguelina, Zahra E Primary Care Unavailable Marily Javier Attending Unavailable Schinner, Zahra E Primary Care Unavailable Schinner, Zahra E Referring Unavailable Jensen, Lu Attending Unavailable Schinner, Zahra E Primary Care Unavailable Schinner, Zhara E Referring Unavailable Jensen, Lu Attending Unavailable Schinner, Zahra E Primary Care Unavailable Schinner, Zahra E Referring Unavailable Schinner, Zahra E Attending Unavailable Schinner, Zahra E Primary Care Unavailable Jensen, Lu Referring Unavailable Jensen, Lu Attending Unavailable Schinner, Zahra E Primary Care Unavailable Arianna, Heber K Referring Unavailable Arianna, Heber K Attending Unavailable Schinner, Zahra E Primary Care Unavailable Lance Kellerin Referring Unavailable Cody Sherwood Attending Unavailable Jsoeinner, Zahra E Primary Care Unavailable Schinner, Zahra E Referring Unavailable Tamiko Modi NP Attending Unavailable Allergies Allergy Classification Reported Allergen(s) Allergy Type Date of Onset Reaction(s) Facility Angiotensin Converting Enzyme (LEO) Inhibitors (1 source) Lisinopril Drug Allergy 11-23-19 17 Other: See Comments [facility] Nitroimidazoles (antibiotic) (1 source) metroNIDAZOLE Drug Allergy 02-25-20 Other: See Comments [facility] Work Phone: (20 sources) Lisinopril; Translations: [LISINOPRIL] Drug Allergy 11-23-19 17 Other: See Comments [facility] (19 sources) peanut butter [Other] Propensity to adverse reactions 10-07-19 08 Anaphylaxis [facility] (2 sources) peanut Allergy to substance 07-01-19 Anaphylaxis [facility] Work Phone: (15 sources) peanut allergenic extract Drug Allergy 10-18-19 22 Anaphylaxis [facility] (20 sources) metroNIDAZOLE; Translations: [METRONIDAZOLE] Drug Allergy 02-25-20 Other: See Comments [facility] Work Phone: (2 sources) OTHER; Translations: [OTHER] Propensity to adverse reactions (disorder) 10-07-[address] [facility] (10 sources) amLODIPine Drug Allergy 09-05-19 23 Rash [facility] (1 source) amLODIPine Drug Allergy 10-04-19 [facility] Repository (1 source) Lisinopril Drug Allergy 10-04-19 25 [facility] Repository (1 source) metroNIDAZOLE Drug Allergy 10-04-19 [facility] Repository (1 source) peanut allergenic extract Drug Allergy 10-04-19 [facility] Repository Medications Current Medications Medication Drug Class(es) Dates Sig (Normalized) Sig (Original) aspirin 81 mg delayed release oral tablet (20 sources) Platelet Aggregation Inhibitor, Nonsteroidal Anti-inflammatory Drug Start: 04-02-2017 Aspirin (Adult Low Dose Aspirin) 81 mg tablet,delayed release (DR/EC) Active 81 mg PO daily April 02, 2017 1:00am heart Comment on above: Take 81 mg by mouth once daily. atorvastatin 40 mg oral tablet (20 sources) HMG-CoA Reductase Inhibitor Start: 04-02-2017 take 1 tablet by mouth at bedtime Atorvastatin 40 mg tablet Active 40 mg PO AT BEDTIME April 02, 2017 1:00am cholesterol take 2 tablets by mouth once ilene [...] 1 tablet by matilde twice daily for 7 days. hydroCHLOROthiazide 25 mg oral tablet (20 sources) Thiazide Diuretic Start: 024 take 1 tablet by mouth once daily Hydrochlorothiazide 25 mg tablet Active 25 mg PO daily December 29, 2023 12:00am Start: 04-02-2017 End: 10-17-2021 take 1 tablet by mouth once daily Hydrochlorothiazide 25 mg tablet Discontinued 25 mg PO daily April 02, 2017 1:00am October 17, 2021 8:46am BP metFORMIN hydrochloride 1000 mg oral tablet (20 [...] 02, 2017 1:00am September 11, 2022 5:55pm blood sugar Start: 04-02-2017 End: 09-11-2022 take 1000 mg [...] mcg/actuation HFA aerosol inhaler (20 sources) Start: 09-20-2024 Mometasone-Formoterol (Dulera) 200-5 mcg/actuation HFA aerosol inhaler Active 2 NMA INHALATION TWICE A DAY 3 September 20, 2024 8:43am Start: 12-21-2023 End: 09-20-2024 Mometasone-Formoterol (Duler a) 200-5 mcg/actuation HFA aerosol inhaler Discontinued 2 NMA INHALATION TWICE A DAY 3 December 21, 2023 11:31am September 20, 2024 8:43am Start: 12-21-2023 Mometasone-For moterol (Dulera) 200-5 mcg/actuation HFA aerosol inhaler Active 2 NMA INHALATION TWICE A DAY December 21, 2023 11:31am Start: 11-04-2022 End: 12-21-2023 Mometasone-Formoterol (Duler a) 200-5 mcg/actuation HFA aerosol inhaler Discontinued 2 NMA INHALATION TWICE A DAY 13 November 04, 2022 9:04am December 21, 2023 11:31am Start: 11-04-2022 End: [...] Discontinued 2 NMA INHALATION TWICE A DAY 12 01October 17, 2021 9:10am November 04, 2022 9:04am [...] Start: 07-31-2022 take 1 tablet by matilde twice daily sulfaSALAzine (AZULFIDINE) 500 mg tablet Indications: Polyarticular psoriatic arthritis (HCC) Take 1 tablet by mouth twice daily. 60 tablet 1 07/31/2022 Active Comment on above: Take 1 tablet by matilde th twice daily. Take 1 tablet by matilde two times a day. Take 1 tablet [...] mcg aerosol,spray Active 2 NMA INTRANASAL DAILY 16.9 December 21, 2023 11:29am administer into each nostril Start: 05-13-2022 End: 10-20-2022 Triamcinolone Acetonide (Dwayne acort) 55 mcg aerosol,spray Discontinued 2 NMA INTRANASAL DAILY 16.9 11 May 13, 2022 11:27am October 20, 2022 1:54am administer into each nostril Start: 05-09-2021 End: 05-13-2022 Triamcinolone Acetonide (Dwayne acort) 55 mcg aerosol,spray Discontinued 2 NMA INTRANASAL DAILY 16.9 11 May 09, 2021 3:56pm May 13, 2022 11:28am administer into each nostril Start: 05-03-2020 End: 05-09-2021 Triamcinolone Acetonide (Dwayne acort) 55 mcg aerosol,spray Discontinued 2 NMA INTRANASAL DAILY 16.9 11 May 03, 2020 4:09pm May 09, 2021 3:56pm administer into each nostril Start: 03-15-2019 End: 05-03-2020 Triamcinolone Acetonide (Dwayne acort) 55 mcg aerosol,spray Discontinued 2 NMA INTRANASAL DAILY 16.9 11 March 15, 2019 1:00am May 03, 2020 4:10pm administer into each nostril Start: 03-15-2019 End: 10-20-2022 take 1 spray(s) nasal route once daily Triamcinolone Acetonide (Nasacort) 55 mcg aerosol,spray Discontinued 2 SPRAY INTRANASAL DAILY 16.9 May 13, 2022 10:27am October 20, 2022 12:54am [...] HOURS NEEDED as needed for Pain 10 3 0 October 20, 2022 December 21, 2023 11:31am Toothache Other specified disorders of teeth and supporting structures Start: 10-20-2022 take 1 tablet by matilde th every six hours as needed Hydrocodone-Acetaminophen Active 1 TABLE T PO EVERY 6 HOURS NEEDED 10 3 October 20, 2022 Start: 02-19-2022 End: 09-11-2022 Hydrocodone-Acetaminophen 5- 325 mg tablet Discontinued 1 {tbl} PO EVERY 6 HOURS NEEDED as needed for Pain 10 3 0 February 19, 2022 September 11, 2022 5:57pm Infected dental caries Dental caries, unspecified Periapical abscess without sinus Start: 02-19-2022 End: 09-11-2022 take 1 tablet by mouth every six hours as needed Hydrocodone-Acetaminophen Discontinued 1 TABLET PO EVERY 6 HOURS NEEDED 10 3 February 19, 2022 September 11, 2022 4:57pm acetaminophen 325 mg / oxyCODONE hydrochloride 5 mg oral tablet (17 sources) Opioid Agonist Start: 10-29-2013 End: 04-02-2017 Oxycodone-Acetaminophen 1 TABLET tablet Discontinued 1 {tbl} PO EVERY 6 HOURS NEEDED as needed for Pain 10 0 October 29, 2013 12:00am April 02, 2017 10:15am Start: 10-29-2013 End: 04-02-2017 take 1 tablet by mouth every six hours as needed Oxycodone-Acetaminophen Discontinued 1 TABLET PO EVERY 6 HOURS NEEDED October 28, 2013 11:00pm April 02, 2017 9:15am [id number] 200 actuat albuterol 0.09 mg/actuat metered dose inhaler (20 sources) beta2-Adrenergic Agonist Start: 09-11-2022 End: 12-21-2023 Albuterol Sulfate 90 mcg/actuation HFA aerosol inhaler Discontinued 2 NMA INHALATION EVERY 6 HOURS as needed for shortness of breath or wheezing 8.5 11 June 04, 2023 7:21am December 21, 2023 [...] for shortness of breath or wheezing 8.5 6 December 09, 2021 10:56am September 11, 2022 5:58pm administer with spacer Start: 10-18-2020 End: 09-11-2022 take 1 puff(s) by inhalation every four hours Albuterol Sulfate Discontinued 2 PUFF INHALATION Q4H 8.5 December 09, 2021 9:56am September 11, 2022 4:58pm administer with spacer Start: 01-11-2019 End: 04-02-2020 Albuterol Sulfate (Ventolin Hfa) 90 mcg/actuation HFA aerosol inhaler Discontinued 2 NMA INHALATION EVERY 6 HOURS as needed for Shortness Of Breath 18 11 October 06, 2019 9:29am April 02, 2020 [...] HOURS as needed for Shortness Of Breath 18 6 April 16, 2018 5:10pm January 11, 2019 [...] of breath. amLODIPine 5 mg oral tablet (17 sources) Dihydropyridine Calcium Channel David Start: 08-26-19 18 End: 10-18-19 22 take 2 tablets by mouth once daily Amlodipine 5 MG tablet Discontinued 10 mg PO DAILY August 25, 2017 12:00am October 17, 2021 8:46am Blood Pressure Start: 08-25-2017 End: 10-17-2021 take 10 mg by mouth once daily Amlodipine Discontinued 10 MG PO DAILY August 24, 2017 11:00pm October 17, 2021 7:46am amoxicillin 875 mg / clavulanate 125 mg oral tablet (15 sources) Penicillin-class Antibacterial Start: 02-19-2022 End: 09-11-2022 [...] 5 days. azithromycin 250 mg oral tablet (5 sources) Macrolide Antimicrobial Start: 024 End: Azithromycin (Zithromax) 250 mg tablet Discontinued 0 [...] daily. cyclobenzaprine hydrochloride 10 mg oral tablet (17 sources) Muscle Relaxant Start: 014 End: 018 take 1 tablet by mouth three times daily as needed for pain Cyclobenzaprine 10 MG tablet Discontinued 10 mg PO THREE TIMES A DAY as needed for Pain 21 0 October 29, 2013 12:12am April 02, 2017 10:15am 60 actuat fluticasone propionate 0.232 mg/actuat / salmeterol xinafoate 0.014 mg/actuat dry powder inhaler (20 sources) Corticosteroid, beta2-Adrenergic Agonist Start: End: 020 Fluticasone Propion-Salmeterol (Airduo Respiclick) 232-14 mcg/actuation aerosol powdr breath activated Discontinued 1 INH INHALATION TWICE A DAY 1 October 06, 2019 8:30am February 16, 2020 8:10am Start: 02-24-2018 End: 02-16-2020 Fluticasone Propion-Salmeter ol (Airduo Respiclick) 232-14 mcg/actuation aerosol powdr breath activated Discontinued 1 NMA INHALATION TWICE A DAY 03 07March 10, 2019 7:32am October 06, 2019 9:30am [...] 07, 2018 4:01pm March 04, 2018 8:25am breathing after inhalation, rinse mouth with water and spit out; do not swallow Start: 01-07-2018 End: 03-04-2018 Fluticasone Furoate-Vilanter ol 200-25 mcg/dose blister with device Discontinued 1 [...] 25, 2017 10:11am January 07, 2018 4:08pm breathing after inhalation, rinse mouth with water and [...] device Discontinued 1 NMA INHALATION daily 60 6 May 14, 2017 12:00am August 25, 2017 [...] Discontinued 2 NMA INHALATION TWICE A DAY 12 01October 18, 2020 9:18am October 17, 2021 9:10am [...] daily. meclizine hydrochloride 25 mg oral tablet (13 sources) Antiemetic Start: 09-05-19 End: 10-21-19 take [...] 2017 12:00am metroNIDAZOLE 500 mg oral tablet (14 sources) Nitroimidazole Antimicrobial Start: 02-19-2022 End: 09-11-2022 [...] tablet Discontinued 10 mg PO EVERY EVENING 29 01June 04, 2023 7:21am December 21, 2023 11:31am penicillin v potassium 500 mg oral tablet (11 sources) Start: 09-02-2023 End: 12-21-2023 take 1 tablet by mouth four times daily Penicillin V Potassium 500 mg tablet Discontinued 500 mg PO 4 TIMES DAILY 40 0 September 02, 2023 12:00am December 21, 2023 11:30am Start: 10-20-2022 End: 04-16-2023 take 1 tablet by mouth four times daily Penicillin V Potassium 500 mg tablet Discontinued 500 mg PO 4 TIMES DAILY 40 0 October 20, 2022 12:00am April 16, 2023 12:53pm prednisoLONE 5 mg oral tablet (14 sources) Corticosteroid Start: 02-19-2022 End: 09-11-2022 take [...] mg tablet Discontinued 60 mg PO daily 15 March 15, 2019 1:00am July 01, 2019 9:14am administer with food or milk Start: 03-15-2019 End: 07-01-2019 take 60 mg by mouth once daily at mealtime Prednisone Discontinued 60 MG PO daily March 15, 2019 12:00am July 01, 2019 8:14am administer with food or milk Comment on above: Take 2 tablets by mo [facility] once daily for 5 days. Take daily with food. Triamcinolone Acetonide 55 mcg/actuation aerosol (3 sources) Start: 04-02-2017 End: 03-15-2019 Triamcinolone Acetonide 55 mcg/actuation aerosol Discontinued 1 NMA INTRANASAL DAILY 0 April 02, 2017 1:00am March 15, 2019 10:54am allergies Start: 04-02-2017 End: 03-15-2019 Triamcinolone Acetonide 55 m cg/actuation aerosol Discontinued 1 NMA INTRANASAL DAILY April [...] Problem Classification Problem Date Documented Date Episodic/Chronic Aortic; peripheral; and visceral artery aneurysms (20 sources) Aneurysm of aortic root; Translations: [Aortic aneurysm of unspecified site, without rupture] Onset: 12-29-2023 04-02-2017 Chronic Comment on above: 4.2 cm per echo 09/26; Asthma (20 sources) Mild intermittent asthma; Translations: [Mild intermittent asthma, uncomplicated] Onset: 12-29-2023 Chronic Coronary atherosclerosis and other heart disease (18 sources) Coronary arteriosclerosis; Translations: [Atherosclerotic heart disease of robinson coronary artery without angina pectoris] Onset: 12-29-2023 09-12-2022 Chronic Diabetes mellitus with complications (3 sources) Type 2 diabetes mellitus with other specified complication; Translations: [Type 2 diabetes mellitus with other circulatory complications] Onset: 04-13-2024 Chronic Diabetes mellitus without complication (17 sources) Diabetes mellitus; Translations: [Type 2 diabetes mellitus without complications] 04-02-2017 Chronic Disorders of lipid metabolism (20 sources) Hyperlipidemia; Translations: [Hyperlipidemia, unspecified] Onset: 12-29-2023 04-02-2017 Chronic Disorders of teeth and jaw (20 sources) Dental caries; Translations: [Dental caries, unspecified] 02-27-2022 Episodic Esophageal disorders (17 sources) Gastroesophageal reflux disease; Translations: [Gastro-esophageal reflux disease without esophagitis] 04-02-2017 Chronic Essential hypertension (20 sources) Hypertensive disorder; Translations: [Essential (primary) hypertension] Onset: 12-29-2023 04-02-2017 Chronic Gout and other crystal arthropathies (17 sources) Gout; Translations: [Gout, unspecified] 04-02-2017 Chronic Hemorrhoids (17 sources) Hemorrhoids; Translations: [Unspecified hemorrhoids] 04-02-2017 Episodic Nutritional deficiencies (3 sources) Vitamin D deficiency; Translations: [Vitamin D deficiency, unspecified] Onset: 06-19-2024 02-19-2024 Chronic Osteoarthritis (20 sources) Degenerative joint disease involving multiple joints; Translations: [Polyosteoarthritis, unspecified] Onset: 12-01-2022 Chronic Other and ill-defined heart disease (17 sources) Left ventricular hypertrophy; Translations: [Cardiomegaly] 04-02-2017 Chronic Other inflammatory condition of skin (20 sources) Psoriatic arthritis; Translations: [Other psoriatic arthropathy] Onset: 12-01-2022 Chronic Other non-traumatic joint disorders (7 sources) Multiple joint pain; Translations: [Pain in unspecified joint] Episodic Other non-traumatic joint disorders (1 source) Joint pain Onset: 06-14-2024 Episodic Other nutritional; endocrine; and metabolic disorders (19 sources) Morbid obesity; Translations: [Morbid (severe) obesity due to excess calories] 04-08-2017 Chronic Other nutritional; endocrine; and metabolic disorders (7 sources) Morbid (severe) obesity due to excess calories; Translations: [Morbid obesity] Onset: 12-29-2023 09-12-2022 Chronic Other upper respiratory disease (17 sources) Allergic rhinitis; Translations: [Allergic rhinitis, unspecified] 03-15-2019 Chronic Other upper respiratory disease (1 source) Chronic rhinitis; Translations: [Unspecified sinusitis (chronic)] Chronic Other upper respiratory infections (2 sources) Sinusitis; Translations: [Chronic sinusitis, unspecified] Onset: 07-18-2024 Chronic Otitis media and related conditions (1 source) Acute left otitis media; Translations: [Otitis media, unspecified, left ear] Episodic Residual codes; unclassified (19 sources) Obstructive sleep apnea syndrome; Translations: [Obstructive sleep apnea (adult) (pediatric)] 05-14-2017 Chronic Comment on above: 12/11 cmH20 Residual codes; unclassified (7 sources) Obstructive sleep apnea (adult) (pediatric); Translations: [Obstructive sleep apnea (adult)(pediatric)] Onset: 12-29-2023 09-12-2022 Chronic Residual codes; unclassified (17 sources) History of repair of umbilical hernia; Translations: [Other specified postprocedural states] 04-02-2017 Episodic Residual codes; unclassified (17 sources) History of colonoscopy; Translations: [Other specified postprocedural states] 11-09-2018 Episodic Comment on above: 10/20/2018 Spondylosis; intervertebral disc disorders; other back problems (1 source) Neck pain; Translations: [Cervicalgia] Episodic Substance-related disorders (17 sources) Tobacco dependence in remission; Translations: [Nicotine dependence, unspecified, in remission] 04-08-2017 Chronic Past or Other Problems Problem Classification Problem Date Documented Da te Episodic/Chronic Acute bronchitis (1 source) Acute bronchitis, unspecified; Translations: [Acute bronchitis, unspecified] Onset: 06-08-2024 Episodic Conditions associated with dizziness or vertigo (20 sources) Dizziness; Translations: [Dizziness and giddiness] Onset: 01-21-2024 09-04-2022 Episodic Other gastrointestinal disorders (19 sources) Constipation; [...] Test Name Value Interpretation Reference Range Facility 12 Lead EKGon 10-04-2024 12 Lead EKG [facility] Cardiovascular Services [address] [place] [address] 12 Lead EKG 10/04/24 1004 MR#: [id number] Acct: [id number] Name: JONEL TERRELL Rep #: [id number] : [id number] 64 From: Cody Sherwood MD Attending Dr: Dr. Yusuf Keller MD Status: [place] [facility] [place]: Viral Berumen MD Date: 10/04/24 [place] [facility] [place] Sex: M C Admitted: Test Reason : PREOP Blood Pressure : */* mmHG Vent. Rate : 60 BPM Atrial Rate : 60 BPM P-R Int : 190 ms QRS Dur : 150 ms QT Int : 468 ms P-R-T Axes : 4 237 -6 degrees QTcB Int : 468 ms Normal sinus rhythm Right bundle branch block Abnormal ECG Confirmed by ALESSANDRA CUEVA, CODY ([id number]), digital editor BERNARD GAVIRIA ([id number]) on 10/05/2024 6:50:23 AM Referred By: Yusuf Keller Confirmed By: CODY SHERWOOD MD 10/05/24 0650 Date Cody Sherwood MD CC: Dr. Viral Berumen MD; Dr. Zahra Guerrero MD; Dr. Yusuf Keller MD Signed [facility] MR/PAT.[facility] 10-04-2024 MR/PAT.[facility] Medical Records Department [address] [place] [address] PAT - Anesthesia 10/04/24 1649 MR#: [id number] Acct: [id number] Name: JONEL TERRELL Rep #: [id number] : 1960 64 From: Marvin Montero MD PCP: Dr. Zahra Guerrero MD Status:PRE [facility] [place] Race: C [place] [facility] [place] Pre[place]Assessment Diagnosis/Proposed Procedure Planned Operative Procedure(s): FUNCTIONAL SINUS SURGERY Anesthesia History Anesthesia History - pricing supervisor: Anesthesia History - pricing supervisor Hx Hospitalization No 10/03/24 15:54 Any Problems With Anesthesia No 10/03/24 15:54 Cholinesterase deficiency No 10/03/24 15:54 You/Your Family Experience No 10/03/24 15:54 fever (hyperthermia) with Relationship Recent Exposure to Contagious No 10/20/18 07:18 Disease Does patient have nerve No 10/03/24 15:54 stimulator Patient instructed to have device shut off --Does patient have Pacemaker or ICD? When Was Last Pacemaker Check QUESTION #4 FULL TEXT: You/Your Family Experience fever (hyperthermia) with Anesthesia Last Oral Intake Last Oral intake: Last Oral Intake NPO since Meds taken in AM with sips of water? Meds patient instructed to take am of surgery PONV PONV - pricing supervisor: PONV - pricing supervisor Female No 10/03/24 15:54 HX of Motion Sickness No 10/03/24 15:54 HX of N/V After Surgery No 10/03/24 15:54 Non-Smoker Yes 10/03/24 15:54 Duration of Surgery greater Yes 10/03/24 15:54 than 60 minutes Number of Risk Factors 2 10/03/24 15:54 PONV Score Moderate Risk 10/03/24 15:54 Height Weight Height Weight: Anesthesia: Height Weight Height 6 ft 06/15/24 08:47 Respiratory Assessment Respiratory Assessment - pricing supervisor: Respiratory Tract Infection Hx - pricing supervisor Hx Respiratory Tract Infection Yes: SINUS INFECTIONS 10/03/24 15:54 ONGOING STOP Sleep Apnea STOP Sleep Apnea - pricing supervisor: STOP Sleep Apnea - pricing supervisor Hx Hypertension Yes: CONTROLLED WITH MEDS 10/03/24 15:54 Hx Sleep Apnea Yes: DOES NOT WEAR 10/03/24 15:54 CPAP No 10/03/24 15:54 BIPAP No 10/03/24 15:54 Do you snore loudly (louder than talking or can be heard Do you often feel tired/ fatigued/ sleepy during daytime? Has anyone observed you stop breathing during sleep? STOP Results Positive 10/03/24 15:54 QUESTION #5 FULL TEXT : Do you snore loudly (louder than talking or can be heard through closed doors)? 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 Specify any problems Hx of Preganancy in last 3 N/A 10/03/24 15:54 Months Nurse Filling Out Transfusion [email or web address] 10/03/24 15:54 Questions: Date: 10/03/24 10/03/24 15:54 Time: 15:58 10/03/24 15:54 Patient unable to answer at this time (ie. 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 Normal [facility] Absolute lymphocyte countOrd ered By: Zahra Guerrero on 09-22-2024 Lymphocytes Auto (Unsp spec) [#/Vol] 2.00 10*3/uL 0.83-4.51 [facility] Absolute neutrophil countOrd ered By: Zahra Guerrero on 09-22-2024 Neutrophils (Bld) [#/Vol] 4.5 10*3/uL 2.0-7.7 [facility] Anion gap in Serum or Plasma Ordered By: Zahra Guerrero on 09-22-2024 Anion gap [Moles/Vol] 14 mmol/L 5-15 [facility] Automated lymphocyte count a s percentage of total leukocytesOrdered By: Zahra Guerrero on 09-22-2024 Lymphocytes/100 WBC Auto (Unsp spec) 22.8 % 19-41 [facility] BUN/creatinine ratioOrdered By: Zahra Guerrero on 09-22-2024 Urea nitrogen/Creatinine [Mass ratio] 21.0 mg/mg High 10-20 [facility] Basophil percentageOrdered B y: Zahra Guerrero on 09-22-2024 Basophils/100 WBC (Bld) 0.7 % 0-1 [facility] Bilirubin Test strip Ql (U)O rdered By: Zahra Guerrero on 09-22-2024 Bilirubin Ql (U) Negative Negative [facility] Bilirubin, totalOrdered By: Zahra Guerrero on 09-22-2024 Bilirubin [Mass/Vol] 0.25 mg/dL 0.00-1.30 [facility] CBC W/Diff, Automatedon 08-31 Absolute Lymph 2.00 X10 3/uL Normal 0.83-4.51 [facility] Comment on above: Order Comment: Order Date: 09/22/24Order Info: [id number] - CBCD Performed By: #### L 100.0100, L500.4050, L501.9985, L500.4100 ####[facility] [address] [place], [address] Absolute Neut 4.5 X10 3/uL Normal 2.0-7.7 [facility] Comment on above: Order Comment: Order Date: 09/22/24Order Info: [id number] - CBCD Performed By: #### L 100.0100, L500.4050, L501.9985, L500.4100 ####[facility] [address] [place], [address] Basophils/100 WBC (Bld) 0.7 % Normal 0-1 [facility] Comment on above: Order Comment: Order Date: 09/22/24Order Info: [id number] - CBCD Performed By: #### L 100.0100, L500.4050, L501.9985, L500.4100 ####[facility] [address] [place], [address] Eosinophils/100 WBC (Bld) 15.1 % High 0-5 [facility] Comment on above: Order Comment: Order Date: 09/22/24Order Info: [id number] - CBCD Performed By: #### L 100.0100, L500.4050, L501.9985, L500.4100 ####[facility] [address] [place], [address] Erythrocyte distribution width (RBC) [Ratio] 13.1 % Normal 11.6-14.6 [facility] Comment on above: Order Comment: Order Date: 09/22/24Order Info: [id number] - CBCD Performed By: #### L 100.0100, L500.4050, L501.9985, L500.4100 ####[facility] [address] [place], [address] Hematocrit (Bld) [Volume fraction] 42.4 % Normal 40-54 [facility] Comment on above: Order Comment: Order Date: 09/22/24Order Info: [id number] - CBCD Performed By: #### L 100.0100, L500.4050, L501.9985, L500.4100 ####[facility] [address] [place], [address] Hemoglobin (Bld) [Mass/Vol] 13.9 g/dL Normal 13.0-16.5 [facility] Comment on above: Order Comment: Order Date: 09/22/24Order Info: [id number] - CBCD Performed By: #### L 100.0100, L500.4050, L501.9985, L500.4100 ####[facility] [address] [place], [address] IG% 0.700 Normal 0.0-0.9 [facility] Comment on above: Order Comment: Order Date: 09/22/24Order Info: [id number] - CBCD Result Comment: IG% - Immature Granulocytes (promyelocytes, myelocytes and metamyelocytes) > 1% indicates that a LEFT SHIFT is Present. Performed By: #### L 100.0100, L500.4050, L501.9985, L500.4100 ####[facility] [address] [place], [address] Lymphocytes/100 WBC (Bld) 22.8 % Normal 19-41 [facility] Comment on above: Order Comment: Order Date: 09/22/24Order Info: [id number] - CBCD Performed By: #### L 100.0100, L500.4050, L501.9985, L500.4100 ####[facility] [address] [place], [address] MCH (RBC) [Entitic mass] 30.2 pg Normal 27.0-32.0 [facility] Comment on above: Order Comment: Order Date: 09/22/24Order Info: [id number] - CBCD Performed By: #### L 100.0100, L500.4050, L501.9985, L500.4100 ####[facility] [address] [place], [address] MCHC (RBC) [Mass/Vol] 32.8 g/dL Normal 32-36 [facility] Comment on above: Order Comment: Order Date: 09/22/24Order Info: [id number]- - CBCD Performed By: #### L 100.0100, L500.4050, L501.9985, L500.4100 ####[facility] [address] [place], [address] MCV (RBC) [Entitic vol] 92.2 fL Normal 80-94 [facility] Comment on above: Order Comment: Order Date: 09/22/24Order Info: [id number]- - CBCD Performed By: #### L 100.0100, L500.4050, L501.9985, L500.4100 ####[facility] [address] [place], [address] Monocytes/100 WBC (Bld) 9.1 % Normal 0-10 [facility] Comment on above: Order Comment: Order Date: 09/22/24Order Info: [id number] - CBCD Performed By: #### L 100.0100, L500.4050, L501.9985, L500.4100 ####[facility] [address] [place], [address] Neutrophils/100 WBC (Bld) 51.6 % Normal 47-70 [facility] Comment on above: Order Comment: Order Date: 09/22/24Order Info: [id number] - CBCD Performed By: #### L 100.0100, L500.4050, L501.9985, L500.4100 ####[facility] [address] [place], [address] Nucleated RBC (Bld) [#/Vol] 0 10*3/uL Normal 0-5 [facility] Comment on above: Order Comment: Order Date: 09/22/24Order Info: [id number] - CBCD Performed By: #### L 100.0100, L500.4050, L501.9985, L500.4100 ####[facility] [address] [place], [address] Platelet mean volume (Bld) [Entitic vol] 10.1 fL Normal 6.2-12.0 [facility] Comment on above: Order Comment: Order Date: 09/22/24Order Info: [id number]- - CBCD Performed By: #### L 100.0100, L500.4050, L501.9985, L500.4100 ####[facility] [address] [place], [address] Platelets (Bld) [#/Vol] 286 10*3/uL Normal 150-450 [facility] Comment on above: Order Comment: Order Date: 09/22/24Order Info: [id number] - CBCD Performed By: #### L 100.0100, L500.4050, L501.9985, L500.4100 ####[facility] [address] [place], [address] RBC (Bld) [#/Vol] 4.60 10*6/uL Normal 4.6-6.2 [facility] Comment on above: Order Comment: Order Date: 09/22/24Order Info: [id number] - CBCD Performed By: #### L 100.0100, L500.4050, L501.9985, L500.4100 ####[facility] [address] [place], [address] RDW SD 43.7 fl Normal 35.1-43.9 [facility] Comment on above: Order Comment: Order Date: 09/22/24Order Info: [id number] - CBCD Performed By: #### L 100.0100, L500.4050, L501.9985, L500.4100 ####[facility] [address] [place], [address] WBC (Bld) [#/Vol] 8.8 10*3/uL Normal 4.4-11.0 [facility] Comment on above: Order Comment: Order Date: 09/22/24Order Info: [id number] - CBCD Performed By: #### L 100.0100, L500.4050, L501.9985, L500.4100 ####[facility] [address] [place], [address] Calculated very low density lipoprotein (VLDL) cholesterol measurementOrdered By: Zahra Guerrero on 09-22-2024 Calculated very low density lipoprotein (VLDL) cholesterol measurement 25 mg/dL 5-40 [facility] Carbon dioxide, total [Moles /volume] in Central venous bloodOrdered By: Zahra Guerrero on 09-22-2024 CO2 [Moles/Vol] 24.5 mmol/L 21.0-32.0 [facility] Chloride assayOrdered By: Leila Guerrero on 09-22-2024 Chloride [Moles/Vol] 100 mmol/L 98-108 [facility] Comprehensive Metabolic Prof ilon 09-22-2024 Albumin [Mass/Vol] 4.2 g/dL Normal 3.4-4.8 [facility] Comment on above: Order Comment: Order Date: 09/22/24Order Info: [id number] - CMPOrder Info: [id number] - LIPID Performed By: #### L 100.0100, L500.4050, L501.9985, L500.4100 ####[facility] [address] [place], [address] Albumin/Globulin [Mass ratio] 1.4 {ratio} Normal 0.9-2.4 [facility] Comment on above: Order Comment: Order Date: 09/22/24Order Info: [id number] - CMPOrder Info: [id number] - LIPID Performed By: #### L 100.0100, L500.4050, L501.9985, L500.4100 ####[facility] [address] [place], [address] ALK PHOS 46 U/L Normal 40-129 [facility] Comment on above: Order Comment: Order Date: 09/22/24Order Info: [id number]- - CMPOrder Info: [id number] - LIPID Performed By: #### L 100.0100, L500.4050, L501.9985, L500.4100 ####[facility] [address] [place], [address] ALT [Catalytic activity/Vol] 24 U/L Normal <=46 [facility] Comment on above: Order Comment: Order Date: 09/22/24Order Info: [id number]- - CMPOrder Info: [id number] - LIPID Performed By: #### L 100.0100, L500.4050, L501.9985, L500.4100 ####[facility] [address] [place], [address] AST [Catalytic activity/Vol] 22 U/L Normal <=37 [facility] Comment on above: Order Comment: Order Date: 09/22/24Order Info: [id number] - CMPOrder Info: [id number] - LIPID Performed By: #### L 100.0100, L500.4050, L501.9985, L500.4100 ####[facility] [address] [place], [address] Bilirubin [Mass/Vol] 0.25 mg/dL Normal 0.00-1.30 [facility] Comment on above: Order Comment: Order Date: 09/22/24Order Info: [id number] - CMPOrder Info: [id number] - LIPID Performed By: #### L 100.0100, L500.4050, L501.9985, L500.4100 ####[facility] [address] [place], [address] BUN/CRE 21.0 RATIO High 10-20 [facility] Comment on above: Order Comment: Order Date: 09/22/24Order Info: [id number] - CMPOrder Info: [id number] - LIPID Performed By: #### L 100.0100, L500.4050, L501.9985, L500.4100 ####[facility] [address] [place], [address] Calcium [Mass/Vol] 9.8 mg/dL Normal 7.6-11.0 [facility] Comment on above: Order Comment: Order Date: 09/22/24Order Info: [id number] - CMPOrder Info: [id number] - LIPID Performed By: #### L 100.0100, L500.4050, L501.9985, L500.4100 ####[facility] [address] [place], [address] Chloride [Moles/Vol] 100 mmol/L Normal 98-108 [facility] Comment on above: Order Comment: Order Date: 09/22/24Order Info: [id number] - CMPOrder Info: [id number] - LIPID Performed By: #### L 100.0100, L500.4050, L501.9985, L500.4100 ####[facility] [address] [place], [address] CO2 [Moles/Vol] 24.5 mmol/L Normal 21.0-32.0 [facility] Comment on above: Order Comment: Order Date: 09/22/24Order Info: [id number] - CMPOrder Info: [id number] - LIPID Performed By: #### L 100.0100, L500.4050, L501.9985, L500.4100 ####[facility] [address] [place], [address] Creatinine [Mass/Vol] 0.96 mg/dL Normal 0.70-1.20 [facility] Comment on above: Order Comment: Order Date: 09/22/24Order Info: [id number]- - CMPOrder Info: [id number] - LIPID Performed By: #### L 100.0100, L500.4050, L501.9985, L500.4100 ####[facility] [address] [place], [address] GAP 14 Normal 5-15 [facility] Comment on above: Order Comment: Order Date: 09/22/24Order Info: [id number]- - CMPOrder Info: [id number] - LIPID Performed By: #### L 100.0100, L500.4050, L501.9985, L500.4100 ####[facility] [address] [place], [address] GFR/1.73 sq M.predicted among non-blacks MDRD (S/P/Bld) [Vol rate/Area] 89 mL/min/{1.73_m2} Normal >60 [facility] Comment on above: Order Comment: Order Date: 09/22/24Order Info: [id number]- - CMPOrder Info: [id number] - LIPID Result Comment: mL/m in/1.73m2 CKD-EPI Creatinine Equation (2020) Performed By: #### L 100.0100, L500.4050, L501.9985, L500.4100 ####[facility] [address] [place], [address] Globulin (S) [Mass/Vol] 3.0 g/dL Normal 2.2-4.2 [facility] Comment on above: Order Comment: Order Date: 09/22/24Order Info: [id number] - CMPOrder Info: [id number] - LIPID Performed By: #### L 100.0100, L500.4050, L501.9985, L500.4100 ####[facility] [address] [place], [address] Glucose [Mass/Vol] 124 mg/dL High 70-99 [facility] Comment on above: Order Comment: Order Date: 09/22/24Order Info: 07-1 - CMPOrder Info: [id number] - LIPID Performed By: #### L 100.0100, L500.4050, L501.9985, L500.4100 ####[facility] [address] [place], [address] Potassium [Moles/Vol] 3.7 mmol/L Normal 3.3-5.1 [facility] Comment on above: Order Comment: Order Date: 09/22/24Order Info: [id number]- - CMPOrder Info: [id number] - LIPID Performed By: #### L 100.0100, L500.4050, L501.9985, L500.4100 ####[facility] [address] [place], [address] Sodium [Moles/Vol] 138 mmol/L Normal 133-145 [facility] Comment on above: Order Comment: Order Date: 09/22/24Order Info: [id number] - CMPOrder Info: [id number] - LIPID Performed By: #### L 100.0100, L500.4050, L501.9985, L500.4100 ####[facility] [address] [place], [address] T PROT 7.1 g/dL Normal 5.9-8.4 [facility] Comment on above: Order Comment: Order Date: 09/22/24Order Info: [id number] - CMPOrder Info: [id number] - LIPID Performed By: #### L 100.0100, L500.4050, L501.9985, L500.4100 ####[facility] [address] [place], [place], [address] Urea nitrogen [Mass/Vol] 20 mg/dL High 4-19 [facility] Comment on above: Order Comment: Order Date: 09/22/24Order Info: [id number] - CMPOrder Info: [id number] - LIPID Performed By: #### L 100.0100, L500.4050, L501.9985, L500.4100 ####[facility] [address] [place], [place], [address] Eosinophil percentageOrdered By: Zahra Guerrero on 09-22-2024 Eosinophils/100 WBC (Bld) 15.1 % High 0-5 [facility] Erythrocyte distribution wid th ratioOrdered By: Zahra Guerrero on 09-22-2024 Erythrocyte distribution width (RBC) [Ratio] 13.1 % 11.6-14.6 [facility] Erythrocyte distribution wid th standard deviationOrdered By: Zahra Guerrero on 09-22-2024 Erythrocyte distribution width (RBC) [Ratio] 43.7 fl 35.1-43.9 [facility] Glomerular filtration rate ( GFR) estimation/1.73 sq m using serum, plasma, or whole bOrdered By: Zahra Guerrero on 09-22-2024 GFR/1.73 sq M.predicted among non-blacks MDRD (S/P/Bld) [Vol rate/Area] 89 mL/min/{1.73_m2} >60 [facility] Comment on above: mL/min/1.73m2 CKD-EP I Creatinine Equation (2020) Hematocrit Auto (Bld) [Volum e fraction]Ordered By: Zahra Guerrero on 09-22-2024 Hematocrit (Bld) [Volume fraction] 42.4 % 40-54 [facility] Hemoglobin A1con 09-22-2024 HbA1c (Bld) [Mass fraction] 6.5 % High <=5.6 [facility] Comment on above: Order Comment: Order Date: 09/22/24Order Info: [id number] - A1C Result Comment: Norm al < 5.7 % Prediabetic 5.7 - 6.4 % Diabetic >or= 6.5 % Please note range changes. Performed By: #### L 100.0100, L500.4050, L501.9985, L500.4100 ####[facility] [address] [place], [address] Hemoglobin A1c percentageOrd ered By: Zahra Guerrero on 09-22-2024 HbA1c (Bld) [Mass fraction] 6.5 % High <5.7 [facility] Comment on above: Normal < 5.7 % Predi abetic 5.7 - 6.4 % Diabetic >or= 6.5 % Please note range changes. Hemoglobin measurementOrdere d By: Zahra Guerrero on 09-22-2024 Hemoglobin (Bld) [Mass/Vol] 13.9 g/dL 13.0-16.5 [facility] Immature granulocytes/100 WB C Auto (Bld)Ordered By: Zahra Guerrero on 09-22-2024 Immature granulocytes/100 WBC (Bld) 0.700 % 0.0-0.9 [facility] Comment on above: IG% - Immature Granu locytes (promyelocytes, myelocytes and metamyelocytes) > 1% indicates that a LEFT SHIFT is Present. Ketones Test strip Ql (U)Ord ered By: Zahra Guerrero on 09-22-2024 Ketones Ql (U) Negative Negative [facility] LDL calc ser/plasOrdered By: Zahra Guerrero on 09-22-2024 Cholesterol in LDL [Mass/Vol] 160 mg/dL [facility] Comment on above: Khjkyyezpv=165-551 m g/dL & Higher Shco=612 mg/dL or greater Laboratory - Chemistry and C hemistry - challengeOrdered By: Zahra Guerrero on 09-22-2024 AST [Catalytic activity/Vol] 22 U/L <38 [facility] Lipid Profileon 09-22-2024 CHOL:HDL 4.67 Normal [facility] Comment on above: Order Comment: Order Date: 09/22/24Order Info: [id number] - CMPOrder Info: [id number] - LIPID Performed By: #### L 100.0100, L500.4050, L501.9985, L500.4100 ####[facility] [address] [place], [address] Cholesterol [Mass/Vol] 235 mg/dL High <=200 [facility] Comment on above: Order Comment: Order Date: 09/22/24Order Info: [id number] - CMPOrder Info: [id number] - LIPID Result Comment: Chol esterol level, Desirable <200 mg/dL Borderline high cholesterol 200-239 mg/dL High cholesterol >=240 mg/dL Recommendations of the NCEP Adult Treatment Panel for the following risk-cutoff thresholds for the [place] population. Performed By: #### L 100.0100, L500.4050, L501.9985, L500.4100 ####[facility] [address] [place], [address] Cholesterol in HDL [Mass/Vol] 50 mg/dL Normal [facility] Comment on above: Order Comment: Order Date: 09/22/24Order Info: [id number] - CMPOrder Info: [id number] - LIPID Result Comment: Mireya onal Cholesterol Education Program (NCEP) guidelines: <40 mg/dL: Low HDL-cholesterol (major risk factor for CHD) >= 60 mg/dL: High HDL-cholesterol (negative risk factor for CHD) HDL-cholesterol is affected by a number of factors, e.g. smoking, exercise, hormones, sex and age. Performed By: #### L 100.0100, L500.4050, L501.9985, L500.4100 ####[facility] [address] [place], [address] Cholesterol in LDL [Mass/Vol] 160 mg/dL Normal [facility] Comment on above: Order Comment: Order Date: 09/22/24Order Info: [id number] - CMPOrder Info: [id number] - LIPID Result Comment: Bord dhvpqh=326-382 mg/dL Higher Useu=007 mg/dL or greater Performed By: #### L 100.0100, L500.4050, L501.9985, L500.4100 ####[facility] [address] [place], [address] Cholesterol in VLDL [Mass/Vol] 25 mg/dL Normal 5-40 [facility] Comment on above: Order Comment: Order Date: 09/22/24Order Info: [id number] - CMPOrder Info: [id number] - LIPID Performed By: #### L 100.0100, L500.4050, L501.9985, L500.4100 ####[facility] [address] [place], [address] Triglyceride [Mass/Vol] 126 mg/dL Normal [facility] Comment on above: Order Comment: Order Date: 09/22/24Order Info: [id number] - CMPOrder Info: [id number] - LIPID Result Comment: The drugs N-Acetylcysteine and Metamizole may falsely depress this assay. Normal range: <150 mg/dL Borderline High: 150-199 mg/dL High: 200-499 mg/dL Very High: >500 mg/dL Performed By: #### L 100.0100, L500.4050, L501.9985, L500.4100 ####[facility] [address] [place], [address] MCV (mean corpuscular volume ) determinationOrdered By: Zahra Guerrero on 09-22-2024 MCV (RBC) [Entitic vol] 92.2 fL 80-94 [facility] Mean corpuscular hemoglobin (MCH) determinationOrdered By: Zahra Guerrero on 09-22-2024 MCH (RBC) [Entitic mass] 30.2 pg 27.0-32.0 [facility] Mean corpuscular hemoglobin concentration (MCHC) determinationOrdered By: Zahra Guerrero on 09-22-2024 MCHC (RBC) [Mass/Vol] 32.8 g/dL 32-36 [facility] Mean platelet volume determi nationOrdered By: Zahra Guerrero on 09-22-2024 Platelet mean volume (Bld) [Entitic vol] 10.1 fL 6.2-12.0 [facility] Microalb:Creat Ratio,Random URon 09-22-2024 Creatinine [Mass/Vol] 67.90 mg/dL Normal 39.00-259.00 [facility] Comment on above: Order Comment: Order Date: 09/22/24Order Info: [id number] - MIALB Performed By: #### L 502.0250, L400.0001 ####[facility] [address] [place], [address] MALB:CREAT UNABLE TO CALCULATE Normal <30 mg/g CRE [facility] Comment on above: Order Comment: Order Date: 09/22/24Order Info: [id number] - MIALB Performed By: #### L 502.0250, L400.0001 ####[facility] [address] [place], [address] MICROALBUMIN,UR < 12.0 Normal <20 mg/L [facility] Comment on above: Order Comment: Order Date: 09/22/24Order Info: [id number] - MIALB Performed By: #### L 502.0250, L400.0001 ####[facility] [address] [place], [address] Microalbumin/creat ratio urO rdered By: Zahra Guerrero on 09-22-2024 Urine microalbumin/creatinine ratio measurement UNABLE TO CALCULATE mg/g CRE <30 [facility] Microscopic analysis of urin e for red blood cells (RBC)Ordered By: Zahra Guerrero on 09-22-2024 Microscopic analysis of urine for red blood cells (RBC) 0 SEEN /hpf 0-5 [facility] Monocyte percentageOrdered B y: Zahra Guerrero on 09-22-2024 Monocytes/100 WBC (Bld) 9.1 % 0-10 [facility] Mucus LM Ql (Urine sed)Order ed By: Zahra Guerrero on 09-22-2024 Mucus Ql (Urine sed) 0 SEEN /hpf [facility] Neutrophil percentageOrdered By: Zahra Guerrero on 09-22-2024 Neutrophils/100 WBC (Bld) 51.6 % 47-70 [facility] Nitrite Test strip Ql (U)Ord ered By: Zahra Guerrero on 09-22-2024 Nitrite Ql (U) Negative Negative [facility] Nucleated red blood cell per centageOrdered By: Zahra Guerrero on 09-22-2024 Nucleated RBC/100 WBC (Bld) [Ratio] 0 % 0-5 [facility] Platelet countOrdered By: Leila Guerrero on 09-22-2024 Platelets (Bld) [#/Vol] 286 10*3/uL 150-450 [facility] Potassium measurement (mass/ volume)Ordered By: Zahra Guerrero on 09-22-2024 Potassium (Unsp spec) [Mass/Vol] 3.7 mmol/L 3.3-5.1 [facility] Protein Test strip Ql (U)Ord ered By: Zahra Guerrero on 09-22-2024 Protein Ql (U) Negative Negative [facility] RBC Auto (Bld) [#/Vol]Ordere d By: Zahra Guerrero on 09-22-2024 RBC (Bld) [#/Vol] 4.60 10*6/uL 4.6-6.2 [facility] Random urine creatinine ruchi urement (mass/volume)Ordered By: Zahra Guerrero on 09-22-2024 Creatinine Unsp time (U) [Mass/Vol] 67.90 mg/dL 39.00-259.00 [facility] Screening total cholesterol/ high density lipoprotein (HDL) cholesterol ratioOrdered By: Zahra Guerrero on 09-22-2024 Cholesterol.total/Choleste rol in HDL [Mass ratio] 4.67 {ratio} [facility] Serum creatinine measurement (mass/volume)Ordered By: Zahra Guerrero on 09-22-2024 Creatinine [Mass/Vol] 0.96 mg/dL 0.70-1.20 [facility] Serum globulin measurementOr dered By: Zahra Guerrero on 09-22-2024 Globulin (S) [Mass/Vol] 3.0 g/dL 2.2-4.2 [facility] Serum glucose measurement (m ass/volume)Ordered By: Zahra Guerrero on 09-22-2024 Glucose [Mass/Vol] 124 mg/dL High 70-99 [facility] Serum or plasma alanine fernández otransferase (ALT) measurementOrdered By: Zahra Guerrero on 09-22-2024 ALT [Catalytic activity/Vol] 24 U/L <47 [facility] Serum or plasma albumin ruchi urement (mass/volume)Ordered By: Zahra Guerrero on 09-22-2024 Albumin [Mass/Vol] 4.2 g/dL 3.4-4.8 [facility] Serum or plasma albumin/glob ulin mass ratioOrdered By: Zahra Guerrero on 09-22-2024 Albumin/Globulin [Mass ratio] 1.4 {ratio} 0.9-2.4 [facility] Serum or plasma alkaline elias sphatase measurementOrdered By: Zahra Guerrero on 09-22-2024 ALP [Catalytic activity/Vol] 46 U/L 40-129 [facility] Serum or plasma calcium ruchi urement (mass/volume)Ordered By: Zahra Guerrero on 09-22-2024 Calcium [Mass/Vol] 9.8 mg/dL 7.6-11.0 [facility] Serum or plasma cholesterol in HDL measurement (mass/volume)Ordered By: Zahra Guerrero on 09-22-2024 Cholesterol in HDL [Mass/Vol] 50 mg/dL >40 [facility] Comment on above: National Cholesterol Education Program (NCEP) guidelines:<40 mg/dL: Low HDL-cholesterol (major risk factor for CHD)>= 60 mg/dL: High HDL-cholesterol (negative risk factor for CHD)HDL-cholesterol is affected by a number of factors, e.g. smoking, exercise, hormones, sex and age. Serum or plasma cholesterol measurement (mass/volume)Ordered By: Zahra Guerrero on 09-22-2024 Cholesterol [Mass/Vol] 235 mg/dL High <201 [facility] Comment on above: Cholesterol level, D esirable <200 mg/dLBorderline high cholesterol 200-239 mg/dLHigh cholesterol >=240 mg/dLRecommendations of the NCEP Adult Treatment Panel for the following risk-cutoff thresholds for the [place] population. Serum or plasma urea nitroge n measurement (mass/volume)Ordered By: Zahra Guerrero on 09-22-2024 Urea nitrogen [Mass/Vol] 20 mg/dL High 4-19 [facility] Sodium levelOrdered By: Zahra Guerrero on 09-22-2024 Sodium [Moles/Vol] 138 mmol/L 133-145 [facility] Squamous epithelial cells de tection in urine sediment by light microscopyOrdered By: Zahra Guerrero on 09-22-2024 Epithelial cells.squamous LM Ql (Urine sed) 0 SEEN /hpf 0-5 [facility] Total proteinOrdered By: [place] Guerrero on 09-22-2024 Protein [Mass/Vol] 7.1 g/dL 5.9-8.4 [facility] Triglycerides measurementOrd ered By: Zahra Guerrero on 09-22-2024 Triglyceride [Mass/Vol] 126 mg/dL <199 [facility] Comment on above: The drugs N-Acetylcy steine and Metamizole may falsely depress this assay. Normal range: <150 mg/dLBorderline High: 150-199 mg/dLHigh: 200-499 mg/dLVery High: >500 mg/dL Urinalysis, Completeon 09-22 BACTERIA 0 SEEN Normal None Seen [facility] Comment on above: Order Comment: CLEAN CATCH Performed By: #### L 502.0250, L400.0001 ####[facility] [address] [place], [place], [id number] EPI,SQUAMOUS 0 SEEN Normal 0-5 [facility] Comment on above: Order Comment: CLEAN CATCH Performed By: #### L 502.0250, L400.0001 ####[facility] [address] [place], [address] Mucus Ql (Urine sed) 0 SEEN Normal [facility] Comment on above: Order Comment: CLEAN CATCH Performed By: #### L 502.0250, L400.0001 ####[facility] [address] [place], [address] RBC 0 SEEN Normal 0-5 [facility] Comment on above: Order Comment: CLEAN CATCH Performed By: #### L 502.0250, L400.0001 ####[facility] [address] [place], [place], [address] WBC 0 SEEN Normal 0-5 [facility] Comment on above: Order Comment: CLEAN CATCH Performed By: #### L 502.0250, L400.0001 ####[facility] [address] [place], [place], [id number] Urine albumin measurement wi detection limit of 20 mg/L or less (mass/volume)Ordered By: Zahra Guerrero on 09-22-2024 Albumin DL <= 20 mg/L (U) [Mass/Vol] < 12.0 mg/L <20 mg/L [facility] Urine clarityOrdered By: Montana Guerrero on 09-22-2024 Clarity (U) Clear Clear [facility] Urine color determinationOrd ered By: Zahar Guerrero on 09-22-2024 Color (U) Yellow Yellow [facility] Urine glucose detectionOrder ed By: Zahra Guerrero on 09-22-2024 Glucose Ql (U) Normal mg/dl Normal [facility] Urine leukocyte esterase det ection by dipstickOrdered By: Zahra Guerrero on 09-22-2024 Leukocyte esterase Test strip Ql (U) Negative Negative [facility] Urine pHOrdered By: Zahra lynch on 09-22-2024 pH (U) 5.0 [pH] 5.0 - 8.0 [facility] Urine sediment bacteria coun t by microscopy (number/high power field)Ordered By: Zahra Guerrero on 09-22-2024 Bacteria LM.HPF (Urine sed) [#/Area] 0 /[HPF] None Seen [facility] Urine specific gravity measu rementOrdered By: Zahra Guerrero on 09-22-2024 Specific gravity (U) [Rel density] 1.015 1.002-1.030 [facility] Urine urobilinogen measureme ntOrdered By: Zahra Guerrero on 09-22-2024 Urobilinogen Ql (U) Normal mg/dl Normal [facility] White blood cell (WBC) count Ordered By: Zahra Guerrero on 09-22-2024 WBC (Bld) [#/Vol] 8.8 10*3/uL 4.4-11.0 [facility] White blood cell countOrdere d By: Zahra Guerrero on 09-22-2024 White blood cell count 0 SEEN /hpf 0-5 [facility] Sinus/Facial Boneon 07-13-19 Sinus/Facial Bone [facility] Imaging Services [address] [place] [address] Sinus/Facial Bone MR#: [id number] Acct: [id number] Name: JONEL TERRELL Rep #: [id number] : 1960 M 63 From: Blayne whitney MD PCP: Dr. Zahra Guerrero MD Status: REG CLI Study: Sinus/Facial Bone Date of Exam: 07/12/24 Exam# [id number] Ordering Dr: Heber Keller MD PROCEDURE: SINUS/FACIAL [...] Unremarkable CT/Sinus/Facial Bone IMPRESSION: Pansinusitis. Reading Location: [facility] CC: Dr. Heber Keller MD; Dr. 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, [address] Gram Stainon 06-17-2024 GS Gram Stain Rare White Blood Cells No organisms seen Normal [facility] Comment on above: Performed By: #### M 100.1999, M100.2500 ####[facility] [address] [place], [address] Gram stainOrdered By: Heber escalante on 06-16-2024 Microscopic observation Gram stain Nom (Unsp spec) [facility] Nasopharyngeal cultureOrdere d By: Heber Keller on 06-16-2024 Respiratory microbial culture Staphylococcus lugdunensis Abnormal [facility] Cardiology Visit Reporton Cardiology Visit Report [facility] [address] [place], [place] [address] OFFICE VISIT Date of Service: 06/15/24 MR#: [id number] Acct: [id number] Name: JONEL TERRELL Rep #: [id number] : 1960 Provider: Dr. Lu Styles MD Age/Sex: 63/M Location: [facility] Status: Signed HPI HPI History of Present [...] him, he was just taking too many pills. 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 Normal [facility] Chest PA and Lateralon 06-02 Chest PA and Lateral [facility] Imaging Services [address] [place] [id number] Chest PA and Lateral MR#: [id number] Acct: [id number] Name: JONEL TERRELL Rep #: [id number] : 1960 M 63 From: Hector Barkley MD PCP: Dr. Zahra Guerrero MD Status: REG CLI Study: Chest PA and Lateral Date of Exam: 06/02/24 Exam# [id number] Ordering Dr: Zahra Guerrero MD PROCEDURE: CHEST [...] within limits. No pleural effusion. Reading Location: [facility] CC: Dr. 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: Signed Normal [facility] Absolute lymphocyte countOrd ered By: Zahra Guerrero on 03-25-2024 Lymphocytes Auto (Unsp spec) [#/Vol] 1.96 10*3/uL 0.83-4.51 [facility] Absolute neutrophil countOrd ered By: Zahra Guerrero on 03-25-2024 Neutrophils (Bld) [#/Vol] 5.5 10*3/uL 2.0-7.7 [facility] Albumin to globulin ratioOrd ered By: Zahra Guerrero on 03-25-2024 Albumin/Globulin [Mass ratio] 0.9 {ratio} 0.9-2.4 [facility] Automated lymphocyte count a s percentage of total leukocytesOrdered By: Zahra Guerrero on 03-25-2024 Lymphocytes/100 WBC Auto (Unsp spec) 20.3 % 19-41 [facility] Basophil percentageOrdered B y: Zahra Guerrero on 03-25-2024 Basophils/100 WBC (Bld) 0.8 % 0-1 [facility] Bilirubin Test strip Ql (U)O rdered By: Zahra Guerrero on 03-25-2024 Bilirubin Ql (U) Negative Negative [facility] Bilirubin, totalOrdered By: Zahra Guerrero on 03-25-2024 Bilirubin [Mass/Vol] 0.20 mg/dL 0.20-1.00 [facility] Comment on above: For patients on eltr ombopag therapy, use of Dimension Blackstone TBIL is not recommended. Blood urea nitrogen (BUN)/cr eatinine ratioOrdered By: Zahra Guerrero on 03-25-2024 Urea nitrogen/Creatinine [Mass ratio] 18.3 mg/mg - [facility] CBC W/Diff, Automatedon 03-03 Absolute Lymph 1.96 X10 3/uL Normal 0.83-4.51 [facility] Comment on above: Order Comment: Order Date: 03/25/24 Order Info: [id number] - CBCD Performed By: #### L 500.4050, L100.0100, L501.5200, L502.0250, L500.4100 #### [facility] Laboratory [address] [place], [place], [id number] Absolute Neut 5.5 X10 3/uL Normal 2.0-7.7 [facility] Comment on above: Order Comment: Order Date: 03/25/24 Order Info: [id number] - CBCD Performed By: #### L 500.4050, L100.0100, L501.5200, L502.0250, L500.4100 #### [facility] Laboratory [address] [place], [address] Basophils/100 WBC (Bld) 0.8 % Normal 0-1 [facility] Comment on above: Order Comment: Order Date: 03/25/24 Order Info: [id number] - CBCD Performed By: #### L 500.4050, L100.0100, L501.5200, L502.0250, L500.4100 #### [facility] Laboratory [address] [place], [address] Eosinophils/100 WBC (Bld) 14.0 % High 0-5 [facility] Comment on above: Order Comment: Order Date: 03/25/24 Order Info: [id number] - CBCD Performed By: #### L 500.4050, L100.0100, L501.5200, L502.0250, L500.4100 #### [facility] Laboratory [address] [place], [address] Erythrocyte distribution width (RBC) [Ratio] 13.4 % Normal 11.6-14.6 [facility] Comment on above: Order Comment: Order Date: 03/25/24 Order Info: [id number] - CBCD Performed By: #### L 500.4050, L100.0100, L501.5200, L502.0250, L500.4100 #### [facility] Laboratory [address] [place], [address] Hematocrit (Bld) [Volume fraction] 42.8 % Normal 40-54 [facility] Comment on above: Order Comment: Order Date: 03/25/24 Order Info: [id number] - CBCD Performed By: #### L 500.4050, L100.0100, L501.5200, L502.0250, L500.4100 #### [facility] Laboratory [address] [place], [address] Hemoglobin (Bld) [Mass/Vol] 13.6 g/dL Normal 13.0-16.5 [facility] Comment on above: Order Comment: Order Date: 03/25/24 Order Info: [id number] - CBCD Performed By: #### L 500.4050, L100.0100, L501.5200, L502.0250, L500.4100 #### [facility] [address] [place], [address] IG% 0.400 Normal 0.0-0.9 [facility] Comment on above: Order Comment: Order Date: 03/25/24 Order Info: [id number]- - CBCD Result Comment: IG% - Immature Granulocytes (promyelocytes, myelocytes and metamyelocytes) > 1% indicates that a LEFT SHIFT is Present. Performed By: #### L 500.4050, L100.0100, L501.5200, L502.0250, L500.4100 #### [facility] Laboratory [address] [place], [address] Lymphocytes/100 WBC (Bld) 20.3 % Normal 19-41 [facility] Comment on above: Order Comment: Order Date: 03/25/24 Order Info: [id number]- - CBCD Performed By: #### L 500.4050, L100.0100, L501.5200, L502.0250, L500.4100 #### [facility] Laboratory [address] [place], [address] MCH (RBC) [Entitic mass] 29.6 pg Normal 27.0-32.0 [facility] Comment on above: Order Comment: Order Date: 03/25/24 Order Info: [id number]- - CBCD Performed By: #### L 500.4050, L100.0100, L501.5200, L502.0250, L500.4100 #### [facility] Laboratory [address] [place], [address] MCHC (RBC) [Mass/Vol] 31.8 g/dL Low 32-36 [facility] Comment on above: Order Comment: Order Date: 03/25/24 Order Info: [id number] - CBCD Performed By: #### L 500.4050, L100.0100, L501.5200, L502.0250, L500.4100 #### [facility] Laboratory [address] [place], [address] MCV (RBC) [Entitic vol] 93.0 fL Normal 80-94 [facility] Comment on above: Order Comment: Order Date: 03/25/24 Order Info: 0184-1 - CBCD Performed By: #### L 500.4050, L100.0100, L501.5200, L502.0250, L500.4100 #### [facility] Laboratory [address] [place], [address] Monocytes/100 WBC (Bld) 7.0 % Normal 0-10 [facility] Comment on above: Order Comment: Order Date: 03/25/24 Order Info: [id number] - CBCD Performed By: #### L 500.4050, L100.0100, L501.5200, L502.0250, L500.4100 #### [facility] Laboratory [address] [place], [address] Neutrophils/100 WBC (Bld) 57.5 % Normal 47-70 [facility] Comment on above: Order Comment: Order Date: 03/25/24 Order Info: [id number] - CBCD Performed By: #### L 500.4050, L100.0100, L501.5200, L502.0250, L500.4100 #### [facility] Laboratory [address] [place], [address] Nucleated RBC (Bld) [#/Vol] 0 10*3/uL Normal 0-5 [facility] Comment on above: Order Comment: Order Date: 03/25/24 Order Info: [id number] - CBCD Performed By: #### L 500.4050, L100.0100, L501.5200, L502.0250, L500.4100 #### [facility] Laboratory [address] [place], [address] Platelet mean volume (Bld) [Entitic vol] 9.9 fL Normal 6.2-12.0 [facility] Comment on above: Order Comment: Order Date: 03/25/24 Order Info: [id number] - CBCD Performed By: #### L 500.4050, L100.0100, L501.5200, L502.0250, L500.4100 #### [facility] Laboratory [address] [place], [address] Platelets (Bld) [#/Vol] 340 10*3/uL Normal 150-450 [facility] Comment on above: Order Comment: Order Date: 03/25/24 Order Info: [id number] - CBCD Performed By: #### L 500.4050, L100.0100, L501.5200, L502.0250, L500.4100 #### [facility] [address] [place], [address] RBC (Bld) [#/Vol] 4.60 10*6/uL Normal 4.6-6.2 [facility] Comment on above: Order Comment: Order Date: 03/25/24 Order Info: [id number] - CBCD Performed By: #### L 500.4050, L100.0100, L501.5200, L502.0250, L500.4100 #### [facility] Laboratory [address] [place] [place], [address] RDW SD 45.3 fl High 35.1-43.9 [facility] Comment on above: Order Comment: Order Date: 03/25/24 Order Info: [id number] - CBCD Performed By: #### L 500.4050, L100.0100, L501.5200, L502.0250, L500.4100 #### [facility] [address] [place], [address] WBC (Bld) [#/Vol] 9.6 10*3/uL Normal 4.4-11.0 [facility] Comment on above: Order Comment: Order Date: 03/25/24 Order Info: [id number] - CBCD Performed By: #### L 500.4050, L100.0100, L501.5200, L502.0250, L500.4100 #### [facility] Laboratory [address] [place], [place], [id number] Carbon dioxide measurementOr dered By: Zahra Guerrero on 03-25-2024 CO2 [Moles/Vol] 27.0 mmol/L 21.0-32.0 [facility] Chloride measurementOrdered By: Zahra Guerrero on 03-25-2024 Chloride [Moles/Vol] 103 mmol/L 98-107 [facility] Comprehensive Metabolic Prof ilon 03-25-2024 Albumin [Mass/Vol] 3.7 g/dL Normal 3.2-5.0 [facility] Comment on above: Order Comment: Order Date: 03/25/24 Order Info: [id number] - CMP Order Info: [id number] - LIPID Order Info: [id number] - MG Performed By: #### L 500.4050, L100.0100, L501.5200, L502.0250, L500.4100 #### [facility] Laboratory [address] [place], [address] Albumin/Globulin [Mass ratio] 0.9 {ratio} Normal 0.9-2.4 [facility] Comment on above: Order Comment: Order Date: 03/25/24 Order Info: [id number] - CMP Order Info: [id number] - LIPID Order Info: [id number] - MG Performed By: #### L 500.4050, L100.0100, L501.5200, L502.0250, L500.4100 #### [facility] Laboratory [address] [place], [address] ALK P 48 U/L Normal 45-117 [facility] Comment on above: Order Comment: Order Date: 03/25/24 Order Info: [id number] - CMP Order Info: [id number] - LIPID Order Info: [id number] - MG Performed By: #### L 500.4050, L100.0100, L501.5200, L502.0250, L500.4100 #### [facility] Laboratory [address] [place], [address] ALT [Catalytic activity/Vol] 28 U/L Normal 16-61 [facility] Comment on above: Order Comment: Order Date: 03/25/24 Order Info: [id number] - CMP Order Info: [id number] - LIPID Order Info: [id number] - MG Performed By: #### L 500.4050, L100.0100, L501.5200, L502.0250, L500.4100 #### [facility] [address] [place], [address] AST [Catalytic activity/Vol] 17 U/L Normal 15-37 [facility] Comment on above: Order Comment: Order Date: 03/25/24 Order Info: [id number] - CMP Order Info: [id number] - LIPID Order Info: [id number] - MG Performed By: #### L 500.4050, L100.0100, L501.5200, L502.0250, L500.4100 #### [facility] Laboratory [address] [place], [address] Bilirubin [Mass/Vol] 0.20 mg/dL Normal 0.20-1.00 [facility] Comment on above: Order Comment: Order Date: 03/25/24 Order Info: [id number] - CMP Order Info: [id number] - LIPID Order Info: [id number] - MG Result Comment: For patients on eltrombopag therapy, use of Dimension Blackstone TBIL is not recommended. Performed By: #### L 500.4050, L100.0100, L501.5200, L502.0250, L500.4100 #### [facility] [address] [place], [address] BUN/CRE 18.3 RATIO Normal 10-20 [facility] Comment on above: Order Comment: Order Date: 03/25/24 Order Info: [id number] - CMP Order Info: [id number] - LIPID Order Info: [id number] - MG Performed By: #### L 500.4050, L100.0100, L501.5200, L502.0250, L500.4100 #### [facility] [address] [place], [address] CA,Total 9.8 mg/dL Normal 8.5-10.1 [facility] Comment on above: Order Comment: Order Date: 03/25/24 Order Info: [id number] - CMP Order Info: [id number] - LIPID Order Info: [id number] - MG Performed By: #### L 500.4050, L100.0100, L501.5200, L502.0250, L500.4100 #### [facility] [address] [place], [address] Chloride [Moles/Vol] 103 mmol/L Normal 98-107 [facility] Comment on above: Order Comment: Order Date: 03/25/24 Order Info: [id number]- - CMP Order Info: [id number] - LIPID Order Info: [id number] - MG Performed By: #### L 500.4050, L100.0100, L501.5200, L502.0250, L500.4100 #### [facility] [address] [place], [address] CO2 [Moles/Vol] 27.0 mmol/L Normal 21.0-32.0 [facility] Comment on above: Order Comment: Order Date: 03/25/24 Order Info: [id number] - CMP Order Info: [id number] - LIPID Order Info: [id number] - MG Performed By: #### L 500.4050, L100.0100, L501.5200, L502.0250, L500.4100 #### [facility] [address] [place], [address] Creatinine [Mass/Vol] 1.04 mg/dL Normal 0.70-1.30 [facility] Comment on above: Order Comment: Order Date: 03/25/24 Order Info: [id number] - CMP Order Info: [id number] - LIPID Order Info: [id number] - MG Result Comment: The validity of the calculated GFR GFRAA in patients over 70 years has not been determined. Clinical correlation is essential. Performed By: #### L 500.4050, L100.0100, L501.5200, L502.0250, L500.4100 #### [facility] [address] [place], [place], [address] EST GFR - AA 93 mL/min Normal >60 [facility] Comment on above: Order Comment: Order Date: 03/25/24 Order Info: 07- - CMP Order Info: [id number] - LIPID Order Info: [id number] - MG Result Comment: Afri can [place] GFR Calc Performed By: #### L 500.4050, L100.0100, L501.5200, L502.0250, L500.4100 #### [facility] [address] [place], [address] GAP 9 Normal 5-15 [facility] Comment on above: Order Comment: Order Date: 03/25/24 Order Info: [id number] - CMP Order Info: [id number] - LIPID Order Info: [id number] - MG Performed By: #### L 500.4050, L100.0100, L501.5200, L502.0250, L500.4100 #### [facility] [address] [place], [address] GFR/1.73 sq M.predicted among non-blacks MDRD (S/P/Bld) [Vol rate/Area] 77 mL/min/{1.73_m2} Normal >60 [facility] Comment on above: Order Comment: Order Date: 03/25/24 Order Info: [id number] - CMP Order Info: [id number] - LIPID Order Info: [id number] - MG Result Comment: Non- GFR Calc Performed By: #### L 500.4050, L100.0100, L501.5200, L502.0250, L500.4100 #### [facility] [address] [place], [address] Globulin (S) [Mass/Vol] 3.9 g/dL Normal 2.2-4.2 [facility] Comment on above: Order Comment: Order Date: 03/25/24 Order Info: [id number] - CMP Order Info: [id number] - LIPID Order Info: [id number] - MG Performed By: #### L 500.4050, L100.0100, L501.5200, L502.0250, L500.4100 #### [facility] [address] [place], [address] Glucose [Mass/Vol] 107 mg/dL High 74-106 [facility] Comment on above: Order Comment: Order Date: 03/25/24 Order Info: 07-1 - CMP Order Info: [id number] - LIPID Order Info: [id number] - MG Result Comment: Fast ing Glucose result from 100 to 125 mg/dL suggests IMPAIRED HOMEOSTASIS per A.D.A. criteria. Performed By: #### L 500.4050, L100.0100, L501.5200, L502.0250, L500.4100 #### [facility] [address] [place], [address] Potassium [Moles/Vol] 4.1 mmol/L Normal 3.5-5.1 [facility] Comment on above: Order Comment: Order Date: 03/25/24 Order Info: [id number] - CMP Order Info: [id number] - LIPID Order Info: [id number] - MG Performed By: #### L 500.4050, L100.0100, L501.5200, L502.0250, L500.4100 #### [facility] [address] [place], [address] Sodium [Moles/Vol] 139 mmol/L Normal 136-145 [facility] Comment on above: Order Comment: Order Date: 03/25/24 Order Info: [id number] - CMP Order Info: [id number] - LIPID Order Info: [id number] - MG Performed By: #### L 500.4050, L100.0100, L501.5200, L502.0250, L500.4100 #### [facility] [address] [place], [place], [address] T PROT 7.6 g/dL Normal 6.4-8.2 [facility] Comment on above: Order Comment: Order Date: 03/25/24 Order Info: [id number] - CMP Order Info: [id number] - LIPID Order Info: [id number] - MG Performed By: #### L 500.4050, L100.0100, L501.5200, L502.0250, L500.4100 #### [facility] [address] [place], [address] Urea nitrogen [Mass/Vol] 19 mg/dL High 7-18 [facility] Comment on above: Order Comment: Order Date: 03/25/24 Order Info: [id number] - CMP Order Info: [id number] - LIPID Order Info: [id number] - MG Performed By: #### L 500.4050, L100.0100, L501.5200, L502.0250, L500.4100 #### [facility] [address] [place], [address] Eosinophil percentageOrdered By: Zahra Guerrero on 03-25-2024 Eosinophils/100 WBC (Bld) 14.0 % High 0-5 [facility] Epithelial cells.squamous LM Ql (Urine sed)Ordered By: Zahra Guerrero on 03-25-2024 Epithelial cells.squamous LM.HPF (Urine sed) [#/Area] 0 /[HPF] 0-5 [facility] Erythrocyte distribution wid th (RBC) [Ratio]Ordered By: Zahra Guerrero on 03-25-2024 Erythrocyte distribution width (RBC) [Entitic vol] 45.3 fL High 35.1-43.9 [facility] Erythrocyte distribution wid th ratioOrdered By: Zahra Guerrero on 03-25-2024 Erythrocyte distribution width (RBC) [Ratio] 13.4 % 11.6-14.6 [facility] Erythrocyte distribution wid th standard deviationOrdered By: Zahra Guerrero on 03-25-2024 Erythrocyte distribution width (RBC) [Ratio] 45.3 fl High 35.1-43.9 [facility] Estimated glomerular filtrat ion rate (GFR) AmericanOrdered By: Zahra Guerrero on 03-25-2024 Estimated GFR (MDRD) Amer 93 mL/min >60 [facility] Comment on above: GFR Calc Glomerular filtration rate ( GFR) estimationOrdered By: Zahra Guerrero on 03-25-2024 Estimated GFR (MDRD) Non-Af Amer 77 mL/min >60 [facility] Comment on above: Non- GFR Calc GFR/1.73 sq M.predicted among non-blacks MDRD (S/P/Bld) [Vol rate/Area] 77 mL/min/{1.73_m2} >60 [facility] Comment on above: Non- GFR Calc Glucose Ql (U)Ordered By: Leila Guerrero on 03-25-2024 Urine Glucose (UA) Normal mg/dl Normal [facility] Glucose measurementOrdered B y: Zahra Guerrero on 03-25-2024 Glucose [Mass/Vol] 107 mg/dL High 74-106 [facility] Comment on above: Fasting Glucose resu lt from 100 to 125 mg/dL suggests IMPAIRED HOMEOSTASIS per A.D.A. criteria. Hematocrit Auto (Bld) [Volum e fraction]Ordered By: Zahra Guerrero on 03-25-2024 Hematocrit (Bld) [Volume fraction] 42.8 % 40-54 [facility] Hemoglobin measurementOrdere d By: Zahra Guerrero on 03-25-2024 Hemoglobin (Bld) [Mass/Vol] 13.6 g/dL 13.0-16.5 [facility] High density lipoprotein (HD L) measurementOrdered By: Zahra Guerrero on 03-25-2024 Cholesterol in HDL [Mass/Vol] 53 mg/dL >40 [facility] Comment on above: The drugs N-Acetylcy steine and Metamizole may falsely depress this assay. Reference Range HDL <40 mg/dL Low HDL Cholesterol HDL >or= 60 mg/dL High HDL Cholesterol Immature granulocytes/100 WB C Auto (Bld)Ordered By: Zahra Guerrero on 03-25-2024 Immature granulocytes/100 WBC (Bld) 0.400 % 0.0-0.9 [facility] Comment on above: IG% - Immature Granu locytes (promyelocytes, myelocytes and metamyelocytes) > 1% indicates that a LEFT SHIFT is Present. Ketones Test strip Ql (U)Ord ered By: Zahra Guerrero on 03-25-2024 Ketones Ql (U) Negative Negative [facility] Laboratory - Chemistry and C hemistry - challengeOrdered By: Zahra Guerrero on 03-25-2024 AST [Catalytic activity/Vol] 17 U/L 15-37 [facility] Lipid Profileon 03-25-2024 Cholesterol [Mass/Vol] 242 mg/dL High 200 [facility] Comment on above: Order Comment: Order Date: 03/25/24 Order Info: [id number] - CMP Order Info: [id number] - LIPID Order Info: [id number] - MG Result Comment: <200 mg/dL Desirable 200-240 mg/dL Borderline >240 mg/dL High Risk Performed By: #### L 500.4050, L100.0100, L501.5200, L502.0250, L500.4100 #### [facility] [address] [place], [address] Cholesterol in HDL [Mass/Vol] 53 mg/dL Normal [facility] Comment on above: Order Comment: Order Date: 03/25/24 Order Info: [id number] - CMP Order Info: [id number] - LIPID Order Info: [id number] - MG Result Comment: The drugs N-Acetylcysteine and Metamizole may falsely depress this assay. Reference Range HDL <40 mg/dL Low HDL Cholesterol HDL >or= 60 mg/dL High HDL Cholesterol Performed By: #### L 500.4050, L100.0100, L501.5200, L502.0250, L500.4100 #### [facility] [address] [place], [address] Cholesterol in LDL [Mass/Vol] 158 mg/dL High 0-130 [facility] Comment on above: Order Comment: Order Date: 03/25/24 Order Info: [id number] - CMP Order Info: [id number] - LIPID Order Info: [id number] - MG Performed By: #### L 500.4050, L100.0100, L501.5200, L502.0250, L500.4100 #### [facility] [address] [place], [address] Cholesterol in VLDL [Mass/Vol] 31 mg/dL Normal 5-40 [facility] Comment on above: Order Comment: Order Date: 03/25/24 Order Info: [id number] - CMP Order Info: [id number] - LIPID Order Info: [id number] - MG Performed By: #### L 500.4050, L100.0100, L501.5200, L502.0250, L500.4100 #### [facility] [address] [place], [address] Triglyceride [Mass/Vol] 154 mg/dL Normal [facility] Comment on above: Order Comment: Order Date: 03/25/24 Order Info: [id number] - CMP Order Info: [id number] - LIPID Order Info: [id number] - MG Result Comment: The drugs N-Acetylcysteine and Metamizole may falsely depress this assay. Serum Triglycerides Reference Interval Normal <150 mg/dL Borderline high 150 - 199 mg/dL High 200 - 499 mg/dL Very High > or = 500 mg/dL Performed By: #### L 500.4050, L100.0100, L501.5200, L502.0250, L500.4100 #### [facility] [address] [place], [address] Low density lipoprotein (LDL ) cholesterol measurementOrdered By: Zahra Guerrero on 03-25-2024 Cholesterol in LDL [Mass/Vol] 158 mg/dL High 0-130 [facility] Lymphocytes Auto (Unsp spec) [#/Vol]Ordered By: Zahra Guerrero on 03-25-2024 Lymphocytes (Bld) [#/Vol] 1.96 10*3/uL 0.83-4.5 1 [facility] Lymphocytes/100 WBC Auto (Un sp spec)Ordered By: Zahra Guerrero on 03-25-2024 Lymphocytes/100 WBC (Bld) 20.3 % 19-41 [facility] MCV (mean corpuscular volume ) determinationOrdered By: Zahra Guerrero on 03-25-2024 MCV (RBC) [Entitic vol] 93.0 fL 80-94 [facility] Magnesiumon 03-25-2024 Magnesium [Mass/Vol] 2.2 mg/dL Normal 1.6-2.6 [facility] Comment on above: Order Comment: Order Date: 03/25/24Order Info: [id number] - CMPOrder Info: [id number] - LIPIDOrder Info: [id number] - MG Performed By: #### L 500.4050, L100.0100, L501.5200, L502.0250, L500.4100 ####[facility] [address] [facility] [place], [address] Magnesium measurementOrdered By: Zahra Guerrero on 03-25-2024 Magnesium [Mass/Vol] 2.2 mg/dL 1.6-2.6 [facility] Mean corpuscular hemoglobin (MCH) determinationOrdered By: Zahra Guerrero on 03-25-2024 MCH (RBC) [Entitic mass] 29.6 pg 27.0-32.0 [facility] Mean corpuscular hemoglobin concentration (MCHC) determinationOrdered By: Zahra Guerrero on 03-25-2024 MCHC (RBC) [Mass/Vol] 31.8 g/dL Low 32-36 [facility] Mean platelet volume determi nationOrdered By: Zahra Guerrero on 03-25-2024 Platelet mean volume (Bld) [Entitic vol] 9.9 fL 6.2-12.0 [facility] Microalb:Creat Ratio,Random URon 03-25-2024 Creatinine [Mass/Vol] 33.60 mg/dL Normal NO RAN GE EST. [facility] Comment on above: Order Comment: Order Date: 03/25/24Order Info: [id number] - MIACRE Performed By: #### L 500.4050, L100.0100, L501.5200, L502.0250, L500.4100 ####[facility] [address] [place], [place], [id number] MALB:CRE TNP Normal <30 mg/g CRE [facility] Comment on above: Order Comment: Order Date: 03/25/24Order Info: [id number] - MIACRE Performed By: #### L 500.4050, L100.0100, L501.5200, L502.0250, L500.4100 ####[facility] [address] [place], [address] MICROALBUMIN,UR < 5.0 Normal NO RANGE EST. [facility] Comment on above: Order Comment: Order Date: 03/25/24Order Info: [id number] - MIACRE Performed By: #### L 500.4050, L100.0100, L501.5200, L502.0250, L500.4100 ####[facility] [address] [place], [place], [id number] Microscopic analysis of urin e for red blood cells (RBC)Ordered By: Zahra Guerrero on 03-25-2024 Microscopic analysis of urine for red blood cells (RBC) 0 SEEN /hpf 0-5 [facility] Urine RBC 0 SEEN /hpf 0-5 [facility] Monocyte percentageOrdered B y: Zahra Guerrero on 03-25-2024 Monocytes/100 WBC (Bld) 7.0 % 0-10 [facility] Mucus LM Ql (Urine sed)Order ed By: Zahra Guerrero on 03-25-2024 Mucus Ql (Urine sed) 0 SEEN /hpf [facility] Neutrophil percentageOrdered By: Zahra Guerrero on 03-25-2024 Neutrophils/100 WBC (Bld) 57.5 % 47-70 [facility] Nitrite Test strip Ql (U)Ord ered By: Zahra Guerrero on 03-25-2024 Nitrite Ql (U) Negative Negative [facility] Nucleated red blood cell per centageOrdered By: Zahra Guerrero on 03-25-2024 Nucleated RBC/100 WBC (Bld) [Ratio] 0 % 0-5 [facility] Platelet countOrdered By: Leila Guerrero on 03-25-2024 Platelets (Bld) [#/Vol] 340 10*3/uL 150-450 [facility] Potassium measurementOrdered By: Zahra Guerrero on 03-25-2024 Potassium [Moles/Vol] 4.1 mmol/L 3.5-5.1 [facility] Protein Test strip Ql (U)Ord ered By: Zahra Guerrero on 03-25-2024 Protein Ql (U) Negative Negative [facility] RBC Auto (Bld) [#/Vol]Ordere d By: Zahra Guerrero on 03-25-2024 RBC (Bld) [#/Vol] 4.60 10*6/uL 4.6-6.2 [facility] Random urine microalbumin me asurementOrdered By: Zahra Guerrero on 03-25-2024 Urine Random Microalbumin < 5.0 mg/L NO RANGE EST. [facility] Serum anion gap measurementO rdered By: Zahra Guerrero on 03-25-2024 Anion gap [Moles/Vol] 9 mmol/L 5-15 [facility] Serum globulin measurementOr dered By: Zahra Guerrero on 03-25-2024 Globulin (S) [Mass/Vol] 3.9 g/dL 2.2-4.2 [facility] Serum or plasma alanine fernández otransferase (ALT) measurementOrdered By: Zahra Guerrero on 03-25-2024 ALT [Catalytic activity/Vol] 28 U/L 16-61 [facility] Serum or plasma albumin ruchi urement (mass/volume)Ordered By: Zahra Guerrero on 03-25-2024 Albumin [Mass/Vol] 3.7 g/dL 3.2-5.0 [facility] Serum or plasma alkaline elias sphatase measurementOrdered By: Zahra Guerrero on 03-25-2024 ALP [Catalytic activity/Vol] 48 U/L 45-117 [facility] Serum or plasma calcium ruchi urement (mass/volume)Ordered By: Zahra Guerrero on 03-25-2024 Calcium [Mass/Vol] 9.8 mg/dL 8.5-10.1 [facility] Serum or plasma cholesterol measurement (mass/volume)Ordered By: Zahra Guerrero on 03-25-2024 Cholesterol [Mass/Vol] 242 mg/dL High <200 [facility] Comment on above: <200 mg/dL Desirable 200-240 mg/dL Borderline >240 mg/dL High Risk Serum or plasma creatinine m easurement (mass/volume)Ordered By: Zahra Guerrero on 03-25-2024 Creatinine [Mass/Vol] 1.04 mg/dL 0.70-1.30 [facility] Comment on above: The validity of the calculated GFR & GFRAA in patients over 70 years has not been determined. Clinical correlation is essential. Serum or plasma urea nitroge n measurement (mass/volume)Ordered By: Zahra Guerrero on 03-25-2024 Urea nitrogen [Mass/Vol] 19 mg/dL High 7-18 [facility] Sodium levelOrdered By: Zahra Guerrero on 03-25-2024 Sodium [Moles/Vol] 139 mmol/L 136-145 [facility] Squamous epithelial cells de tection in urine sediment by light microscopyOrdered By: Zahra Guerrero on 03-25-2024 Epithelial cells.squamous LM Ql (Urine sed) 0 SEEN /hpf 0-5 [facility] Total proteinOrdered By: [place] Guerrero on 03-25-2024 Protein [Mass/Vol] 7.6 g/dL 6.4-8.2 [facility] Triglycerides measurementOrd ered By: Zahra Guerrero on 03-25-2024 Triglyceride [Mass/Vol] 154 mg/dL <199 [facility] Comment on above: The drugs N-Acetylcy steine and Metamizole may falsely depress this assay.Serum Triglycerides Reference Interval Normal <150 mg/dL Borderline high 150 - 199 mg/dL High 200 - 499 mg/dL Very High > or = 500 mg/dL Urinalysis, Completeon 03-25 WBC 0-5 SEEN Normal 0-5 [facility] Comment on above: Order Comment: CLEAN CATCH Performed By: #### L 400.0001 #### [facility] [address] [place], [address] BACTERIA 0 SEEN Normal None Seen [facility] Comment on above: Order Comment: CLEAN CATCH Performed By: #### L 400.0001 #### [facility] [address] [place], [address] EPI,SQUAMOUS 0 SEEN Normal 0-5 [facility] Comment on above: Order Comment: CLEAN CATCH Performed By: #### L 400.0001 #### [facility] [address] [place], [address] Mucus Ql (Urine sed) 0 SEEN Normal [facility] Comment on above: Order Comment: CLEAN CATCH Performed By: #### L 400.0001 #### [facility] [address] [place], [address] RBC 0 SEEN Normal 0-5 [facility] Comment on above: Order Comment: CLEAN CATCH Performed By: #### L 400.0001 #### [facility] [address] [place], [address] Urine albumin/creatinine rat io for detection of microalbuminuriaOrdered By: Zahra Guerrero on 03-25-2024 Urine Microalbumin/Creatinine Ratio TNP [facility] Comment on above: Test not performed Urine blood detectionOrdered By: Zahra Guerrero on 03-25-2024 Urine Occult Blood Negative Negative [facility] Urine clarityOrdered By: Montana Guerrero on 03-25-2024 Clarity (U) Clear Clear [facility] Urine color determinationOrd ered By: Zahra Guerrero on 03-25-2024 Color (U) Yellow Yellow [facility] Urine creatinine measurement (mass/volume)Ordered By: Zahra Guerrero on 03-25-2024 Creatinine (U) [Mass/Vol] 33.60 mg/dL NO RANGE EST. [facility] Urine glucose detectionOrder ed By: Zahra Guerrero on 03-25-2024 Glucose Ql (U) Normal mg/dl Normal [facility] Urine leukocyte esterase det ection by dipstickOrdered By: Zahra Guerrero on 03-25-2024 Leukocyte esterase Test strip Ql (U) 25 /ul High Negative [facility] Urine pHOrdered By: Zahra lynch on 03-25-2024 pH (U) 7.0 [pH] 5.0 - 8.0 [facility] Urine sediment bacteria coun t by microscopy (number/high power field)Ordered By: Zahra Guerrero on 03-25-2024 Bacteria LM.HPF (Urine sed) [#/Area] 0 /[HPF] None Seen [facility] Urine specific gravity measu rementOrdered By: Zahra Guerrero on 03-25-2024 Specific gravity (U) [Rel density] 1.010 1.002-1.030 [facility] Urine urobilinogen measureme ntOrdered By: Zahra Guerrero on 03-25-2024 Urobilinogen Ql (U) Normal mg/dl Normal [facility] Urobilinogen Ql (U)Ordered B y: Zahra Guerrero on 03-25-2024 Urine Urobilinogen Normal mg/dl Normal [facility] Very low density lipoprotein (VLDL) cholesterol measurementOrdered By: Zahra Guerrero on 03-25-2024 Very low density lipoprotein (VLDL) cholesterol measurement 31 mg/dL 5-40 [facility] VLDL Cholesterol 31 mg/dL 5-40 [facility] White blood cell (WBC) count Ordered By: Zahra Guerrero on 03-25-2024 WBC (Bld) [#/Vol] 9.6 10*3/uL 4.4-11.0 [facility] White blood cell countOrdere d By: Zahra Guerrero on 03-25-2024 Urine WBC 0-5 SEEN /hpf 0-5 [facility] White blood cell count 0-5 SEEN /hpf 0-5 [facility] Hemoglobin A1con 03-24-2024 HbA1c (Bld) [Mass fraction] 6.4 % High 3.8-5.6 [facility] Comment on above: Order Comment: Order Date: 03/24/24 Order Info: [id number] - A1C Result Comment: Norm al < 5.7 % Prediabetic 5.7 - 6.4 % Diabetic >or= 6.5 % Please note range changes. Performed By: #### L 501.9985 #### [facility] [address] [place], [address] Hemoglobin A1c percentageOrd ered By: Kayden Terrell on 03-24-2024 HbA1c (Bld) [Mass fraction] 6.4 % High 3.8-5.6 [facility] Comment on above: Normal < 5.7 % Predi abetic 5.7 - 6.4 % Diabetic >or= 6.5 % Please note range changes. 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 Uses cream. 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 [...] Count 267 06/27/2021 Sed Rate, Westergren 12 4 (more content not included)... Normal [facility] Esophagus Dual Contraston Esophagus Dual Contrast [facility] Imaging Services [address] [place] [address] [id number] Esophagus Dual Contrast MR#: [id number] Acct: [id number] Name: JONEL TERRELL Rep #: [id number] : 1960 M 63 From: Blayne whitney MD PCP: Dr. Zahra Guerrero MD Status: REG CLI Study: Esophagus Dual Contrast Date of Exam: 02/18/24 Exam# [id number] Ordering Dr: Heber Keller MD [id number] STUDY: X-RAY - ESOPHAGUS (BARIUM SWALLOW) WITH [...] Electronically Signed: Blayne Novak MD at 10:51 [facility] Reading Location ID and State: [address] [place] [address] , Service support , CC: Dr. Heber Keller MD; Dr. 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 [place], [place], [address] EGFR WB > 60.0000 Normal >60 [facility] Comment on above: Performed By: #### L 9100.0200 #### [facility] [address] [facility] [place], [place], [address] CTA Chest W/WO Contraston CTA Chest W/WO Contrast [facility] Imaging Services [address] [facility] [place], [place] [address] CTA Chest W/WO Contrast MR#: [id number] Acct: [id number] Name: JONEL TERRELL Rep #: [id number] : 1960 M 63 From: Mike Tejeda PCP: Dr. Zahra Guerrero MD Status: [facility] Study: CTA Chest W/WO Contrast Date of Exam: 01/20/24 Exam# [id number] Ordering Dr: Lu Styles MD [id number] STUDY: CTA CHEST REASON FOR EXAM: Male, [...] Lu Styles MD; Dr. 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 [place] [address] OFFICE VISIT Date of Service: 12/29/23 MR#: [id number] Acct: [id number] Name: JONEL TERRELL Rep #: [id number] : 1960 Provider: Dr. Lu Styles MD Age/Sex: 63/M Location: [facility] Status: Signed [facility] History of Present Illness Details: Mr. 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 Normal [facility] [facility] PSA,Total - Annual Screenon 12-22-2023 PSA,TOT SCREEN 1.10 ng/mL Normal 0.00-4.00 [facility] Comment on above: Order Comment: Order Date: 12/22/23 Order Info: [id number] - PSA Comments: screening Result Comment: This test was performed using the TPSA assay method for the [employer] chemistry system. Values obtained with different assay methods cannot be used interchangably. When changing PSA assays in the course of monitoring a patient, additional sequential testing should be carried out to confirm baseline values. Performed By: #### L [id number] #### [facility] [place] [place], [address] Pulmonary Visit Reporton Pulmonary Visit Report [facility] [address] [place] [address] OFFICE VISIT Date of Service: 12/21/23 MR#: [id number] Acct: [id number] Name: JONEL TERRELL Rep #: [id number] : 1960 Provider: RODRIGO Modi Age/Sex: 63/M Location: [facility].PM[facility] Status: Signed Assessment and Plan Assessment and [...] mg tablet 40 mg PO QHS cholesterol 02/01/18 10/21/24 History metformin 1,000 mg tablet 1,000 mg [...] 12/21/23 Rx nasal spray aerosol (Nasacort Allergy) PFSH Medical History (Re (more content not included)... [facility] 10[facility]19[facility]2023 [facility] JONEL TERRELL ([id number]) 1960 M Date Time Provider Department 10/19/23 [facility] During your visit today, we recorded [...] Status:Closed by JADE SALAZAR on 10/19/23 Normal [facility] Absolute lymphocyte countOrd ered By: Zahra Stevensonreese on 04-14-2023 Lymphocytes Auto (Unsp spec) [#/Vol] 1.94 10*3/uL 0.83-4.51 [facility] Automated lymphocyte count a s percentage of total leukocytesOrdered By: Zahra Stevensonreese on 04-14-2023 Lymphocytes/100 WBC Auto (Unsp spec) 24.3 % 19-41 [facility] Basophil percentageOrdered B y: Zahra Garciamiguelina on 04-14-2023 Basophils/100 WBC (Bld) 0.8 % 0-1 [facility] Bilirubin [Mass/Vol] 0.40 mg/dL 0.20-1.00 [facility] Comment on above: For patients on eltr ombopag therapy, use of Dimension Blackstone TBIL is not recommended. Chloride [Moles/Vol] 110 mmol/L 98-107 [facility] Cholesterol [Mass/Vol] 175 mg/dL <200 [facility] Comment on above: <200 mg/dL Desirable 200-240 mg/dL Borderline >240 mg/dL High Risk Eosinophils/100 WBC (Bld) 21.0 % 0-5 [facility] Glucose [Mass/Vol] 121 mg/dL 74-106 [facility] Comment on above: Fasting Glucose resu lt from 100 to 125 mg/dL suggests IMPAIRED HOMEOSTASIS per A.D.A. criteria. Hemoglobin (Bld) [Mass/Vol] 13.6 g/dL 13.0-16.5 [facility] Monocytes/100 WBC (Bld) 8.4 % 0-10 [facility] Neutrophils (Bld) [#/Vol] 3.6 10*3/uL 2.0-7.7 [facility] Neutrophils/100 WBC (Bld) 45.1 % 47-70 [facility] Potassium [Moles/Vol] 4.5 mmol/L 3.5-5.1 [facility] Protein [Mass/Vol] 7.0 g/dL 6.4-8.2 [facility] Sodium [Moles/Vol] 141 mmol/L 136-145 [facility] Triglyceride [Mass/Vol] 53 mg/dL <199 [facility] Comment on above: The drugs N-Acetylcy steine and Metamizole may falsely depress this assay.Serum Triglycerides Reference Interval Normal <150 mg/dL Borderline high 150 - 199 mg/dL High 200 - 499 mg/dL Very High > or = 500 mg/dL WBC (Bld) [#/Vol] 8.0 10*3/uL 4.4-11.0 [facility] Determination of erythrocyte mean corpuscular volume (MCV)Ordered By: Zahra Guerrero on 04-14-2023 MCV (RBC) [Entitic vol] 95.9 fL 80-94 [facility] Erythrocyte distribution wid th ratioOrdered By: Zahra Guerrero on 04-14-2023 Erythrocyte distribution width (RBC) [Ratio] 12.7 % 11.6-14.6 [facility] Erythrocyte distribution wid th standard deviationOrdered By: Zahra Guerrero on 04-14-2023 Erythrocyte distribution width (RBC) [Entitic vol] 44.5 fL 35.1-43.9 [facility] Hematocrit Auto (Bld) [Volum e fraction]Ordered By: Zahra Guerrero on 04-14-2023 Hematocrit (Bld) [Volume fraction] 42.0 % 40-54 [facility] Immature granulocytes/100 WB C Auto (Bld)Ordered By: Zahra Guerrero on 04-14-2023 Immature granulocytes/100 WBC (Bld) 0.400 % 0.0-0.9 [facility] Comment on above: IG% - Immature Granu locytes (promyelocytes, myelocytes and metamyelocytes) > 1% indicates that a LEFT SHIFT is Present. Laboratory - Chemistry and C hemistry - challengeOrdered By: Zahra Guerrero on 04-14-2023 Albumin/Globulin [Mass ratio] 1.0 {ratio} 0.9-2.4 [facility] ALP [Catalytic activity/Vol] 43 U/L 45-117 [facility] ALT [Catalytic activity/Vol] 26 U/L 16-61 [facility] Cholesterol in HDL [Mass/Vol] 56 mg/dL >40 [facility] Comment on above: The drugs N-Acetylcy steine and Metamizole may falsely depress this assay. Reference Range HDL <40 mg/dL Low HDL Cholesterol HDL >or= 60 mg/dL High HDL Cholesterol Cholesterol in LDL [Mass/Vol] 108 mg/dL 0-130 [facility] CO2 [Moles/Vol] 26.0 mmol/L 21.0-32.0 [facility] Globulin (S) [Mass/Vol] 3.5 g/dL 2.2-4.2 [facility] Urea nitrogen/Creatinine [Mass ratio] 18.3 mg/mg 10-20 [facility] Laboratory - Hematology and Cell countsOrdered By: Zahra Guerrero on 04-14-2023 MCH (RBC) [Entitic mass] 31.1 pg 27.0-32.0 [facility] MCHC (RBC) [Mass/Vol] 32.4 g/dL 32-36 [facility] Nucleated RBC/100 WBC (Bld) [Ratio] 0 % 0-5 [facility] Platelet mean volume (Bld) [Entitic vol] 10.1 fL 6.2-12.0 [facility] Platelets (Bld) [#/Vol] 253 10*3/uL 150-450 [facility] No Panel InformationOrdered By: Zahra Guerrero on 04-14-2023 Estimated GFR (MDRD) Amer 113 mL/min >60 [facility] Comment on above: GFR Calc Estimated GFR (MDRD) Non-Af Amer 94 mL/min >60 [facility] Comment on above: Non- GFR Calc VLDL Cholesterol 11 mg/dL 5-40 [facility] RBC Auto (Bld) [#/Vol]Ordere d By: Zahra Guerrero on 04-14-2023 RBC (Bld) [#/Vol] 4.38 10*6/uL 4.6-6.2 [facility] Serum or plasma calcium ruchi urement (mass/volume)Ordered By: Zahra Guerrero on 04-14-2023 Calcium [Mass/Vol] 9.5 mg/dL 8.5-10.1 [facility] Serum or plasma creatinine m easurement (mass/volume)Ordered By: Zahra Guerrero on 04-14-2023 Creatinine [Mass/Vol] 0.88 mg/dL 0.70-1.30 [facility] Comment on above: The validity of the calculated GFR & GFRAA in patients over 70 years has not been determined. Clinical correlation is essential. Serum or plasma thyroid stim ulating hormone (TSH) measurement (units/volume)Ordered By: Zahra Guerrero on 04-14-2023 TSH Qn 2.63 uIU/mL 0.358-3.74 [facility] Serum or plasma urea nitroge n measurement (mass/volume)Ordered By: Zahra Guerrero on 04-14-2023 Urea nitrogen [Mass/Vol] 16 mg/dL 7-18 [facility] Serum or plasma uric acid me asurement (mass/volume)Ordered By: Zahra Guerrero on 04-14-2023 Urate [Mass/Vol] 6.0 mg/dL 3.5-7.2 [facility] Comment on above: The drugs N-Acetylcy steine and Metamizole may falsely depress this assay. Thin prep Papanicolaou smear with manual screeningOrdered By: Zahra Guerrero on 04-14-2023 Thin prep Papanicolaou smear with manual screening 3.5 g/dL 3.2-5.0 [facility] Thin prep Papanicolaou smear with manual screening 22 U/L 15-37 [facility] Thin prep Papanicolaou smear with manual screening 5 5-15 [facility] Whole blood hemoglobin A1c/t otal hemoglobin ratio (mass fraction)Ordered By: Zahra Guerrero on 04-14-2023 HbA1c (Bld) [Mass fraction] 6.2 % 3.8-5.6 [facility] Comment on above: Normal < 5.7 % Predi abetic 5.7 - 6.4 % Diabetic >or= 6.5 % Please note range changes. No Panel InformationOrdered By: Zahra Guerrero on 12-11-2022 Prostate Specific Antigen Screen 1.10 ng/mL 0.00-4.00 [facility] Comment on above: This test was perfor med using the TPSA assay method for the[employer] chemistry system. Values obtained with differentassay methods cannot be used interchangably.When changing PSA assays in the course of monitoring apatient, additional sequential testing should be carriedout to confirm baseline values. Absolute lymphocyte countOrd ered By: Zahra Guerrero on 12-09-2022 Lymphocytes Auto (Unsp spec) [#/Vol] 1.82 10*3/uL 0.83-4.51 [facility] Basophil percentageOrdered B y: Zahra Guerrero on 12-09-2022 Basophils/100 WBC (Bld) 1.0 % 0-1 [facility] Bilirubin [Mass/Vol] 0.30 mg/dL 0.20-1.00 [facility] Comment on above: For patients on eltr ombopag therapy, use of Dimension [place]stone TBIL is not recommended. Chloride [Moles/Vol] 106 mmol/L 98-107 [facility] Cholesterol [Mass/Vol] 152 mg/dL <200 [facility] Comment on above: <200 mg/dL Desirable 200-240 mg/dL Borderline >240 mg/dL High Risk Eosinophils/100 WBC (Bld) 16.9 % 0-5 [facility] Glucose [Mass/Vol] 127 mg/dL 74-106 [facility] Comment on above: Fasting Glucose resu lt greater than or equal to 126 mg/dL suggests DIABETES MELLITUS per A.D.A. criteria. Neutrophils (Bld) [#/Vol] 4.1 10*3/uL 2.0-7.7 [facility] Neutrophils/100 WBC (Bld) 50.4 % 47-70 [facility] Potassium [Moles/Vol] 4.5 mmol/L 3.5-5.1 [facility] Protein [Mass/Vol] 6.8 g/dL 6.4-8.2 [facility] Sodium [Moles/Vol] 139 mmol/L 136-145 [facility] Triglyceride [Mass/Vol] 59 mg/dL <199 [facility] Comment on above: The drugs N-Acetylcy steine and Metamizole may falsely depress this assay.Serum Triglycerides Reference Interval Normal <150 mg/dL Borderline high 150 - 199 mg/dL High 200 - 499 mg/dL Very High > or = 500 mg/dL WBC (Bld) [#/Vol] 8.2 10*3/uL 4.4-11.0 [facility] Blood erythrocytes count (nu mber/volume)Ordered By: Zahra Guerrero on 12-09-2022 RBC (Bld) [#/Vol] 4.52 10*6/uL 4.6-6.2 [facility] Blood hemoglobin measurement (mass/volume)Ordered By: Zahra Guerrero on 12-09-2022 Hemoglobin (Bld) [Mass/Vol] 13.9 g/dL 13.0-16.5 [facility] Blood lymphocytes/100 leukoc ytesOrdered By: Zahra Guerrero on 12-09-2022 Lymphocytes/100 WBC (Bld) 22.3 % 19-41 [facility] Blood monocytes/100 leukocyt esOrdered By: Zahra Guerrero on 12-09-2022 Monocytes/100 WBC (Bld) 9.2 % 0-10 [facility] Blood platelet mean volumeOr dered By: Zahra Guerrero on 12-09-2022 Platelet mean volume (Bld) [Entitic vol] 10.2 fL 6.2-12.0 [facility] Determination of erythrocyte mean corpuscular volume (MCV)Ordered By: Zahra Guerrero on 12-09-2022 MCV (RBC) [Entitic vol] 97.1 fL 80-94 [facility] Hematocrit Auto (Bld) [Volum e fraction]Ordered By: Zahra Guerrero on 12-09-2022 Hematocrit (Bld) [Volume fraction] 43.9 % 40-54 [facility] Laboratory - Chemistry and C hemistry - challengeOrdered By: Zahra Guerrero on 12-09-2022 ALP [Catalytic activity/Vol] 46 U/L 45-117 [facility] ALT [Catalytic activity/Vol] 25 U/L 16-61 [facility] CO2 [Moles/Vol] 28.0 mmol/L 21.0-32.0 [facility] Globulin (S) [Mass/Vol] 3.5 g/dL 2.2-4.2 [facility] Urea nitrogen/Creatinine [Mass ratio] 17.4 mg/mg 10-20 [facility] Laboratory - Hematology and Cell countsOrdered By: Zahra Guerrero on 12-09-2022 Erythrocyte distribution width (RBC) [Entitic vol] 46.6 fL 35.1-43.9 [facility] Erythrocyte distribution width (RBC) [Ratio] 13.0 % 11.6-14.6 [facility] Immature granulocytes/100 WBC (Bld) 0.200 % 0.0-0.9 [facility] Comment on above: IG% - Immature Granu locytes (promyelocytes, myelocytes and metamyelocytes) > 1% indicates that a LEFT SHIFT is Present. MCH (RBC) [Entitic mass] 30.8 pg 27.0-32.0 [facility] Nucleated RBC/100 WBC (Bld) [Ratio] 0 % 0-5 [facility] MCHC Auto (RBC) [Mass/Vol]Or dered By: Zahra Guerrero on 12-09-2022 MCHC (RBC) [Mass/Vol] 31.7 g/dL 32-36 [facility] No Panel InformationOrdered By: Zahra Guerrero on 12-09-2022 Estimated GFR (MDRD) Amer 107 mL/min >60 [facility] Comment on above: GFR Calc Estimated GFR (MDRD) Non-Af Amer 89 mL/min >60 [facility] Comment on above: Non- GFR Calc Urine Microalbumin/Creatinine Ratio TNP [facility] Comment on above: Test not performed Platelets bldOrdered By: [place] Guerrero on 12-09-2022 Platelets (Bld) [#/Vol] 270 10*3/uL 150-450 [facility] Serum or plasma albumin ruchi urement (mass/volume)Ordered By: Zahra Guerrero on 12-09-2022 Albumin [Mass/Vol] 3.3 g/dL 3.2-5.0 [facility] Serum or plasma albumin/glob ulin mass ratioOrdered By: Zahra Guerrero on 12-09-2022 Albumin/Globulin [Mass ratio] 0.9 {ratio} 0.9-2.4 [facility] Serum or plasma calcium ruchi urement (mass/volume)Ordered By: Zahra Guerrero on 12-09-2022 Calcium [Mass/Vol] 8.8 mg/dL 8.5-10.1 [facility] Serum or plasma cholesterol in HDL measurement (mass/volume)Ordered By: Zahra Guerrero on 12-09-2022 Cholesterol in HDL [Mass/Vol] 52 mg/dL >40 [facility] Comment on above: The drugs N-Acetylcy steine and Metamizole may falsely depress this assay. Reference Range HDL <40 mg/dL Low HDL Cholesterol HDL >or= 60 mg/dL High HDL Cholesterol Serum or plasma cholesterol in VLDL measurement (mass/volume)Ordered By: Zahra Guerrero on 12-09-2022 Cholesterol in VLDL [Mass/Vol] 12 mg/dL 5-40 [facility] Serum or plasma creatinine m easurement (mass/volume)Ordered By: Zahra Guerrero on 12-09-2022 Creatinine [Mass/Vol] 0.92 mg/dL 0.70-1.30 [facility] Comment on above: The validity of the calculated GFR & GFRAA in patients over 70 years has not been determined. Clinical correlation is essential. Serum or plasma low density lipoprotein (LDL) cholesterol measurement (mass/volume)Ordered By: Zahra Guerrero on 12-09-2022 Cholesterol in LDL [Mass/Vol] 88 mg/dL 0-130 [facility] Serum or plasma urea nitroge n measurement (mass/volume)Ordered By: Zahra Guerrero on 12-09-2022 Urea nitrogen [Mass/Vol] 16 mg/dL 7-18 [facility] Thin prep Papanicolaou smear with manual screeningOrdered By: Zahra Guerrero on 12-09-2022 Thin prep Papanicolaou smear with manual screening 13 U/L 15-37 [facility] Thin prep Papanicolaou smear with manual screening 5 5-15 [facility] Thin prep Papanicolaou smear with manual screening < 5.0 mg/L NO RANGE EST. [facility] Urine creatinine measurement (mass/volume)Ordered By: Zahra Guerrero on 12-09-2022 Creatinine (U) [Mass/Vol] 71.20 mg/dL NO RANGE EST. [facility] Whole blood hemoglobin A1c/t otal hemoglobin ratio (mass fraction)Ordered By: Zahra Guerrero on 12-09-2022 HbA1c (Bld) [Mass fraction] 6.1 % 3.8-5.6 [facility] Comment on above: Normal < 5.7 % Predi abetic 5.7 - 6.4 % Diabetic >or= 6.5 % Please note range changes. Absolute lymphocyte countOrd ered By: Floyd Vickers on 09-04-2022 Lymphocytes Auto (Unsp spec) [#/Vol] 0.83 10*3/uL 0.83-4.51 [facility] Basophil percentageOrdered B y: Floyd Vickers on 09-04-2022 Basophil percentage 0 SEEN /hpf 0-5 [facility] Basophils/100 WBC (Bld) 0.6 % 0-1 [facility] Chloride [Moles/Vol] 103 mmol/L 98-107 [facility] Eosinophils/100 WBC (Bld) 7.4 % 0-5 [facility] Glucose [Mass/Vol] 118 mg/dL 74-106 [facility] Comment on above: Fasting Glucose resu lt from 100 to 125 mg/dL suggests IMPAIRED HOMEOSTASIS per A.D.A. criteria. Neutrophils (Bld) [#/Vol] 4.9 10*3/uL 2.0-7.7 [facility] Neutrophils/100 WBC (Bld) 68.3 % 47-70 [facility] Potassium [Moles/Vol] 3.7 mmol/L 3.5-5.1 [facility] Sodium [Moles/Vol] 136 mmol/L 136-145 [facility] WBC (Bld) [#/Vol] 7.2 10*3/uL 4.4-11.0 [facility] Bilirubin Test strip Ql (U)O rdered By: Floyd Vickers on 09-04-2022 Bilirubin Ql (U) Negative Negative [facility] Blood erythrocytes count (nu mber/volume)Ordered By: Floyd Vicekrs on 09-04-2022 RBC (Bld) [#/Vol] 4.41 10*6/uL 4.6-6.2 [facility] Blood hemoglobin measurement (mass/volume)Ordered By: Floyd Vickers on 09-04-2022 Hemoglobin (Bld) [Mass/Vol] 14.0 g/dL 13.0-16.5 [facility] Blood lymphocytes/100 leukoc ytesOrdered By: Floyd Vickers on 09-04-2022 Lymphocytes/100 WBC (Bld) 11.5 % 19-41 [facility] Blood monocytes/100 leukocyt esOrdered By: Floyd Vickers on 09-04-2022 Monocytes/100 WBC (Bld) 11.9 % 0-10 [facility] Blood platelet mean volumeOr dered By: Floyd Vickers on 09-04-2022 Platelet mean volume (Bld) [Entitic vol] 9.7 fL 6.2-12.0 [facility] Determination of erythrocyte mean corpuscular volume (MCV)Ordered By: Floyd Vickers on 09-04-2022 MCV (RBC) [Entitic vol] 92.7 fL 80-94 [facility] Hematocrit Auto (Bld) [Volum e fraction]Ordered By: Floyd Vickers on 09-04-2022 Hematocrit (Bld) [Volume fraction] 40.9 % 40-54 [facility] Ketones Test strip Ql (U)Ord ered By: Floyd Vickers on 09-04-2022 Ketones Ql (U) 15 mg/dl Negative [facility] Laboratory - Chemistry and C hemistry - challengeOrdered By: Floyd Vickers on 09-04-2022 CO2 [Moles/Vol] 26.0 mmol/L 21.0-32.0 [facility] Urea nitrogen/Creatinine [Mass ratio] 10.6 mg/mg 10-20 [facility] Laboratory - Hematology and Cell countsOrdered By: Floyd Vickers on 09-04-2022 Erythrocyte distribution width (RBC) [Entitic vol] 44.3 fL 35.1-43.9 [facility] Erythrocyte distribution width (RBC) [Ratio] 13.0 % 11.6-14.6 [facility] Immature granulocytes/100 WBC (Bld) 0.300 % 0.0-0.9 [facility] Comment on above: IG% - Immature Granu locytes (promyelocytes, myelocytes and metamyelocytes) > 1% indicates that a LEFT SHIFT is Present. MCH (RBC) [Entitic mass] 31.7 pg 27.0-32.0 [facility] Nucleated RBC/100 WBC (Bld) [Ratio] 0 % 0-5 [facility] MCHC Auto (RBC) [Mass/Vol]Or dered By: Floyd Vickers on 09-04-2022 MCHC (RBC) [Mass/Vol] 34.2 g/dL 32-36 [facility] Mucus LM Ql (Urine sed)Order ed By: Floyd Vickers on 09-04-2022 Mucus Ql (Urine sed) 0 SEEN /hpf [facility] Nitrite Test strip Ql (U)Ord ered By: Floyd Vickers on 07-06-2023 Nitrite Ql (U) Negative Negative [facility] No Panel InformationOrdered By: Floyd Vickers on 09-04-2022 Estimated Creatinine Clearance Calc 80.83 ml/min [facility] Estimated GFR (MDRD) Amer 93 mL/min >60 [facility] Comment on above: GFR Calc Estimated GFR (MDRD) Non-Af Amer 77 mL/min >60 [facility] Comment on above: Non- GFR Calc Platelets bldOrdered By: Brett Vickers on 09-04-2022 Platelets (Bld) [#/Vol] 218 10*3/uL 150-450 [facility] Protein Test strip Ql (U)Ord ered By: Floyd Vickers on 09-04-2022 Protein Ql (U) Negative Negative [facility] Serum or plasma calcium ruchi urement (mass/volume)Ordered By: Floyd Vickers on 09-04-2022 Calcium [Mass/Vol] 9.1 mg/dL 8.5-10.1 [facility] Serum or plasma creatinine m easurement (mass/volume)Ordered By: Floyd Vickers on 09-04-2022 Creatinine [Mass/Vol] 1.04 mg/dL 0.70-1.30 [facility] Comment on above: The validity of the calculated GFR & GFRAA in patients over 70 years has not been determined. Clinical correlation is essential. Serum or plasma urea nitroge n measurement (mass/volume)Ordered By: Floyd Vickers on 09-04-2022 Urea nitrogen [Mass/Vol] 11 mg/dL 7-18 [facility] Squamous epithelial cells de tection in urine sediment by light microscopyOrdered By: Floyd Vickers on 09-04-2022 Epithelial cells.squamous LM Ql (Urine sed) 0 SEEN /hpf 0-5 [facility] Thin prep Papanicolaou smear with manual screeningOrdered By: Floyd Vickers on 09-04-2022 Thin prep Papanicolaou smear with manual screening 7 5-15 [facility] Urine blood detectionOrdered By: Floyd Vickers on 09-04-2022 RBC Ql (U) 10 /ul Negative [facility] RBC Ql (U) 0 SEEN /hpf 0-5 [facility] Urine clarityOrdered By: Brett Vickers on 09-04-2022 Clarity (U) Clear Clear [facility] Urine color determinationOrd ered By: Floyd Vickers on 09-04-2022 Color (U) Yellow Yellow [facility] Urine glucose detectionOrder ed By: Floyd Vickers on 09-04-2022 Glucose Ql (U) Normal mg/dl Normal [facility] Urine leukocyte esterase det ection by dipstickOrdered By: Floyd Vickers on 09-04-2022 Leukocyte esterase Test strip Ql (U) Negative Negative [facility] Urine pHOrdered By: Floyd Vickers on 09-04-2022 pH (U) 7.0 [pH] 5.0 - 8.0 [facility] Urine sediment bacteria coun t by microscopy (number/high power field)Ordered By: Floyd Vickers on 09-04-2022 Bacteria LM.HPF (Urine sed) [#/Area] 0 /[HPF] None Seen [facility] Urine specific gravity measu rementOrdered By: Floyd Vickers on 09-04-2022 Specific gravity (U) [Rel density] 1.010 1.002-1.030 [facility] Urobilinogen Auto test strip Ql (U)Ordered By: Floyd Vickers on 09-04-2022 Urobilinogen Ql (U) Normal mg/dl Normal [facility] Absolute lymphocyte countOrd ered By: Dr. Guerrero on 08-04-2022 Lymphocytes Auto (Unsp spec) [#/Vol] 2.06 10*3/uL 0.83-4.51 [facility] Basophil percentageOrdered B y: Dr. Guerrero on 08-04-2022 Basophils/100 WBC (Bld) 0.8 % 0-1 [facility] Bilirubin [Mass/Vol] 0.40 mg/dL 0.20-1.00 [facility] Comment on above: For patients on eltr ombopag therapy, use of Dimension [employer] TBIL is not recommended. Chloride [Moles/Vol] 107 mmol/L 98-107 [facility] Cholesterol [Mass/Vol] 149 mg/dL <200 [facility] Comment on above: <200 mg/dL Desirable 200-240 mg/dL Borderline >240 mg/dL High Risk Eosinophils/100 WBC (Bld) 15.1 % 0-5 [facility] [facility] Glucose [Mass/Vol] 118 mg/dL 74-106 [facility] Comment on above: Fasting Glucose resu lt from 100 to 125 mg/dL suggests IMPAIRED HOMEOSTASIS per A.D.A. criteria. Neutrophils (Bld) [#/Vol] 4.3 10*3/uL 2.0-7.7 [facility] Neutrophils/100 WBC (Bld) 50.9 % 47-70 [facility] Potassium [Moles/Vol] 3.8 mmol/L 3.5-5.1 [facility] Protein [Mass/Vol] 6.8 g/dL 6.4-8.2 [facility] Sodium [Moles/Vol] 140 mmol/L 136-145 [facility] Triglyceride [Mass/Vol] 81 mg/dL <199 [facility] Comment on above: The drugs N-Acetylcy steine and Metamizole may falsely depress this assay.Serum Triglycerides Reference Interval Normal <150 mg/dL Borderline high 150 - 199 mg/dL High 200 - 499 mg/dL Very High > or = 500 mg/dL WBC (Bld) [#/Vol] 8.5 10*3/uL 4.4-11.0 [facility] Blood erythrocytes count (nu mber/volume)Ordered By: Dr. Guerrero on 08-04-2022 RBC (Bld) [#/Vol] 4.62 10*6/uL 4.6-6.2 [facility] Blood hemoglobin measurement (mass/volume)Ordered By: Dr. Gurerero on 08-04-2022 Hemoglobin (Bld) [Mass/Vol] 14.2 g/dL 13.0-16.5 [facility] Blood lymphocytes/100 leukoc ytesOrdered By: Dr. Guerrero on 08-04-2022 Lymphocytes/100 WBC (Bld) 24.4 % 19-41 [facility] Blood monocytes/100 leukocyt esOrdered By: Dr. Guerrero on 08-04-2022 Monocytes/100 WBC (Bld) 8.6 % 0-10 [facility] Blood platelet mean volumeOr dered By: Dr. Guerrero on 08-04-2022 Platelet mean volume (Bld) [Entitic vol] 10.1 fL 6.2-12.0 [facility] Determination of erythrocyte mean corpuscular volume (MCV)Ordered By: Dr. Guerrero on 08-04-2022 MCV (RBC) [Entitic vol] 95.2 fL 80-94 [facility] Hematocrit Auto (Bld) [Volum e fraction]Ordered By: Dr. Guerrero on 08-04-2022 Hematocrit (Bld) [Volume fraction] 44.0 % 40-54 [facility] Laboratory - Chemistry and C hemistry - challengeOrdered By: Dr. Guerrero on 08-04-2022 ALP [Catalytic activity/Vol] 42 U/L 45-117 [facility] ALT [Catalytic activity/Vol] 24 U/L 16-61 [facility] CO2 [Moles/Vol] 26.0 mmol/L 21.0-32.0 [facility] Globulin (S) [Mass/Vol] 3.4 g/dL 2.2-4.2 [facility] Urea nitrogen/Creatinine [Mass ratio] 21.4 mg/mg 10-20 [facility] Laboratory - Hematology and Cell countsOrdered By: Dr. Guerrero on 08-04-2022 Erythrocyte distribution width (RBC) [Entitic vol] 45.7 fL 35.1-43.9 [facility] Erythrocyte distribution width (RBC) [Ratio] 13.0 % 11.6-14.6 [facility] Immature granulocytes/100 WBC (Bld) 0.200 % 0.0-0.9 [facility] Comment on above: IG% - Immature Granu locytes (promyelocytes, myelocytes and metamyelocytes) > 1% indicates that a LEFT SHIFT is Present. MCH (RBC) [Entitic mass] 30.7 pg 27.0-32.0 [facility] Nucleated RBC/100 WBC (Bld) [Ratio] 0 % 0-5 [facility] MCHC Auto (RBC) [Mass/Vol]Or dered By: Dr. Guerrero on 08-04-2022 MCHC (RBC) [Mass/Vol] 32.3 g/dL 32-36 [facility] No Panel InformationOrdered By: Dr. Guerrero on 08-04-2022 Estimated GFR (MDRD) Amer 119 mL/min >60 [facility] Comment on above: GFR Calc Estimated GFR (MDRD) Non-Af Amer 98 mL/min >60 [facility] Comment on above: Non- GFR Calc Thyroid Stimulating Hormone (TSH) 3.44 uIU/mL 0.358-3.74 [facility] Urine Microalbumin/Creatinine Ratio 6.6 mg/g CRE <30 [facility] Platelets bldOrdered By: Dr. Guerrero on 08-04-2022 Platelets (Bld) [#/Vol] 262 10*3/uL 150-450 [facility] Serum or plasma albumin ruchi urement (mass/volume)Ordered By: Dr. Guerrero on 08-04-2022 Albumin [Mass/Vol] 3.4 g/dL 3.2-5.0 [facility] Serum or plasma albumin/glob ulin mass ratioOrdered By: Dr. Guerrero on 08-04-2022 Albumin/Globulin [Mass ratio] 1.0 {ratio} 0.9-2.4 [facility] Serum or plasma calcium ruchi urement (mass/volume)Ordered By: Dr. Guerrero on 08-04-2022 Calcium [Mass/Vol] 9.1 mg/dL 8.5-10.1 [facility] Serum or plasma cholesterol in HDL measurement (mass/volume)Ordered By: Dr. Guerrero on 08-04-2022 Cholesterol in HDL [Mass/Vol] 51 mg/dL >40 [facility] Comment on above: The drugs N-Acetylcy steine and Metamizole may falsely depress this assay. Reference Range HDL <40 mg/dL Low HDL Cholesterol HDL >or= 60 mg/dL High HDL Cholesterol Serum or plasma cholesterol in VLDL measurement (mass/volume)Ordered By: Dr. Guerrero on 08-04-2022 Cholesterol in VLDL [Mass/Vol] 16 mg/dL 5-40 [facility] Serum or plasma creatinine m easurement (mass/volume)Ordered By: Dr. Guerrero on 08-04-2022 Creatinine [Mass/Vol] 0.84 mg/dL 0.70-1.30 [facility] Comment on above: The validity of the calculated GFR & GFRAA in patients over 70 years has not been determined. Clinical correlation is essential. Serum or plasma low density lipoprotein (LDL) cholesterol measurement (mass/volume)Ordered By: Dr. Guerrero on 08-04-2022 Cholesterol in LDL [Mass/Vol] 82 mg/dL 0-130 [facility] Serum or plasma urea nitroge n measurement (mass/volume)Ordered By: Dr. Guerrero on 08-04-2022 Urea nitrogen [Mass/Vol] 18 mg/dL 7-18 [facility] Serum or plasma uric acid me asurement (mass/volume)Ordered By: Dr. Guerrero on 08-04-2022 Urate [Mass/Vol] 5.8 mg/dL 3.5-7.2 [facility] Comment on above: The drugs N-Acetylcy steine and Metamizole may falsely depress this assay. Thin prep Papanicolaou smear with manual screeningOrdered By: Dr. Guerrero on 08-04-2022 Thin prep Papanicolaou smear with manual screening 17 U/L 15-37 [facility] Thin prep Papanicolaou smear with manual screening 7 5-15 [facility] Thin prep Papanicolaou smear with manual screening 5.3 mg/L NO RANGE EST. [facility] Urine creatinine measurement (mass/volume)Ordered By: Dr. Guerrero on 08-04-2022 Creatinine (U) [Mass/Vol] 80.00 mg/dL NO RANGE EST. [facility] Whole blood hemoglobin A1c/t otal hemoglobin ratio (mass fraction)Ordered By: Dr. Guerrero on 08-04-2022 HbA1c (Bld) [Mass fraction] 6.3 % 3.8-5.6 [facility] Comment on above: Normal < 5.7 % Predi abetic 5.7 - 6.4 % Diabetic >or= 6.5 % Please note range changes. Absolute lymphocyte countOrd ered By: Dr. Guerrero on 04-08-2022 Lymphocytes Auto (Unsp spec) [#/Vol] 2.11 10*3/uL 0.83-4.51 [facility] Basophil percentageOrdered B y: Dr. Guerrero on 04-08-2022 Basophils/100 WBC (Bld) 0.7 % 0-1 [facility] Bilirubin [Mass/Vol] 0.40 mg/dL 0.20-1.00 [facility] Comment on above: For patients on eltr ombopag therapy, use of Dimension [place] TBIL is not recommended. Chloride [Moles/Vol] 107 mmol/L 98-107 [facility] Cholesterol [Mass/Vol] 199 mg/dL <200 [facility] Comment on above: <200 mg/dL Desirable 200-240 mg/dL Borderline >240 mg/dL High Risk Eosinophils/100 WBC (Bld) 8.8 % 0-5 [facility] Glucose [Mass/Vol] 126 mg/dL 74-106 [facility] Comment on above: Fasting Glucose resu lt greater than or equal to 126 mg/dL suggests DIABETES MELLITUS per A.D.A. criteria. Neutrophils (Bld) [#/Vol] 4.1 10*3/uL 2.0-7.7 [facility] Neutrophils/100 WBC (Bld) 53.9 % 47-70 [facility] Potassium [Moles/Vol] 4.3 mmol/L 3.5-5.1 [facility] Protein [Mass/Vol] 7.0 g/dL 6.4-8.2 [facility] Sodium [Moles/Vol] 141 mmol/L 136-145 [facility] Triglyceride [Mass/Vol] 60 mg/dL <199 [facility] Comment on above: The drugs N-Acetylcy steine and Metamizole may falsely depress this assay.Serum Triglycerides Reference Interval Normal <150 mg/dL Borderline high 150 - 199 mg/dL High 200 - 499 mg/dL Very High > or = 500 mg/dL WBC (Bld) [#/Vol] 7.5 10*3/uL 4.4-11.0 [facility] Blood erythrocytes count (nu mber/volume)Ordered By: Dr. Guerrero on 04-08-2022 RBC (Bld) [#/Vol] 4.53 10*6/uL 4.6-6.2 [facility] Blood hemoglobin measurement (mass/volume)Ordered By: Dr. Guerrero on 04-08-2022 Hemoglobin (Bld) [Mass/Vol] 13.4 g/dL 13.0-16.5 [facility] Blood lymphocytes/100 leukoc ytesOrdered By: Dr. Guerrero on 04-08-2022 Lymphocytes/100 WBC (Bld) 28.1 % 19-41 [facility] Blood monocytes/100 leukocyt esOrdered By: Dr. Guerrero on 04-08-2022 Monocytes/100 WBC (Bld) 8.1 % 0-10 [facility] Blood platelet mean volumeOr dered By: Dr. Guerrero on 04-08-2022 Platelet mean volume (Bld) [Entitic vol] 10.2 fL 6.2-12.0 [facility] Determination of erythrocyte mean corpuscular volume (MCV)Ordered By: Dr. Guerrero on 04-08-2022 MCV (RBC) [Entitic vol] 95.6 fL 80-94 [facility] Hematocrit Auto (Bld) [Volum e fraction]Ordered By: Dr. Guerrero on 04-08-2022 Hematocrit (Bld) [Volume fraction] 43.3 % 40-54 [facility] Laboratory - Chemistry and C hemistry - challengeOrdered By: Dr. Guerrero on 04-08-2022 ALP [Catalytic activity/Vol] 38 U/L 45-117 [facility] ALT [Catalytic activity/Vol] 23 U/L 16-61 [facility] CO2 [Moles/Vol] 26.0 mmol/L 21.0-32.0 [facility] Globulin (S) [Mass/Vol] 3.5 g/dL 2.2-4.2 [facility] Urea nitrogen/Creatinine [Mass ratio] 18.2 mg/mg 10-20 [facility] Laboratory - Hematology and Cell countsOrdered By: Dr. Guerrero on 04-08-2022 Erythrocyte distribution width (RBC) [Entitic vol] 48.0 fL 35.1-43.9 [facility] Erythrocyte distribution width (RBC) [Ratio] 13.6 % 11.6-14.6 [facility] Immature granulocytes/100 WBC (Bld) 0.400 % 0.0-0.9 [facility] Comment on above: IG% - Immature Granu locytes (promyelocytes, myelocytes and metamyelocytes) > 1% indicates that a LEFT SHIFT is Present. MCH (RBC) [Entitic mass] 29.6 pg 27.0-32.0 [facility] Nucleated RBC/100 [facility] (Bld) [Ratio] 0 % [facility]5 [facility] [Mass/Vol]Or dered By: Dr. Guerrero on 04-08-2022 MCHC (RBC) [Mass/Vol] 30.9 g/dL 32-36 [facility] No Panel InformationOrdered By: Dr. Guerrero on 04-08-2022 Estimated GFR (MDRD) Amer 105 mL/min >60 [facility] Comment on above: GFR Calc Estimated GFR (MDRD) Non-Af Amer 87 mL/min >60 [facility] Comment on above: Non- GFR Calc Thyroid Stimulating Hormone (TSH) 3.21 uIU/mL 0.358-3.74 [facility] Urine Microalbumin/Creatinine Ratio 7.8 mg/g CRE <30 [facility] Platelets bldOrdered By: Dr. Guerrero on 04-08-2022 Platelets (Bld) [#/Vol] 292 10*3/uL 150-450 [facility] Serum or plasma albumin ruchi urement (mass/volume)Ordered By: Dr. Guerrero on 04-08-2022 Albumin [Mass/Vol] 3.5 g/dL 3.2-5.0 [facility] Serum or plasma albumin/glob ulin mass ratioOrdered By: Dr. Guerrero on 04-08-2022 Albumin/Globulin [Mass ratio] 1.0 {ratio} 0.9-2.4 [facility] Serum or plasma calcium ruchi urement (mass/volume)Ordered By: Dr. Guerrero on 04-08-2022 Calcium [Mass/Vol] 9.2 mg/dL 8.5-10.1 [facility] Serum or plasma cholesterol in HDL measurement (mass/volume)Ordered By: Dr. Guerrero on 04-08-2022 Cholesterol in HDL [Mass/Vol] 66 mg/dL >40 [facility] Comment on above: The drugs N-Acetylcy steine and Metamizole may falsely depress this assay. Reference Range HDL <40 mg/dL Low HDL Cholesterol HDL >or= 60 mg/dL High HDL Cholesterol Serum or plasma cholesterol in VLDL measurement (mass/volume)Ordered By: Dr. Guerrero on 04-08-2022 Cholesterol in VLDL [Mass/Vol] 12 mg/dL 5-40 [facility] Serum or plasma creatinine m easurement (mass/volume)Ordered By: Dr. Guerrero on 04-08-2022 Creatinine [Mass/Vol] 0.94 mg/dL 0.70-1.30 [facility] Comment on above: The validity of the calculated GFR & GFRAA in patients over 70 years has not been determined. Clinical correlation is essential. Serum or plasma low density lipoprotein (LDL) cholesterol measurement (mass/volume)Ordered By: Dr. Guerrero on 04-08-2022 Cholesterol in LDL [Mass/Vol] 121 mg/dL 0-130 [facility] Serum or plasma urea nitroge n measurement (mass/volume)Ordered By: Dr. Guerrero on 04-08-2022 Urea nitrogen [Mass/Vol] 17 mg/dL 7-18 [facility] Thin prep Papanicolaou smear with manual screeningOrdered By: Dr. Guerrero on 04-08-2022 Thin prep Papanicolaou smear with manual screening 18 U/L 15-37 [facility] Thin prep Papanicolaou smear with manual screening 8 5-15 [facility] Thin prep Papanicolaou smear with manual screening 5.2 mg/L NO RANGE EST. [facility] Urine creatinine measurement (mass/volume)Ordered By: Dr. uGerrero on 04-08-2022 Creatinine (U) [Mass/Vol] 67.30 mg/dL NO RANGE EST. [facility] Whole blood hemoglobin A1c/t otal hemoglobin ratio (mass fraction)Ordered By: Dr. Guerrero on 04-08-2022 HbA1c (Bld) [Mass fraction] 6.2 % 3.8-5.6 [facility] Comment on above: Normal < 5.7 % Predi abetic 5.7 - 6.4 % Diabetic >or= 6.5 % Please note range changes. Alberto 02-24-2022 CNOV Office Visit ([facility]WSTR ) JONEL TERRELL ([id number]) 1960 M Date Time Provider Department 02/24/22 2:15 PM GERALDINE BOSE [facility]AN[facility] During your visit today, we recorded the [...] 02/24/2022 2:48 PM Signed Subjective HPI Jonel Ileana Terrell is a 61 year old male [...] 02/27/22. He rates his sinus pain as pretty severe and has had some dizziness at times. [...] Normal chano (more content not included)... Normal [facility] CNOVon 02-15-2022 CNOV Office Visit ([facility]WSTR ) JONEL TERRELL ([id number]) 1960 M Date Time Provider Department 02/15/22 1:30 PM THUY GODWIN [facility] During your visit today, we recorded the following information about you: Temperature Pulse Respiration Blood pressure 98.1 degrees 65/minute 21/minute 148/82 Weight 124.1 kg Thuy Godwin APRN.CNP 02/15/2022 1:50 PM Signed This note was created using NoteWriter. Subjective Jonel Tejeda Xander is a 61 year old male. 61 [...] history is provided by the patient. No lang interpreter was used. Sinus Problem This is a [...] 124.1 kg (more content not included)... Normal [facility] Absolute lymphocyte counton 12-09-2021 Lymphocytes Auto (Unsp spec) [#/Vol] 2.13 10*3/uL 0.83-4.51 [facility] Work Phone: Basophil percentageon 2021 Basophils/100 WBC (Bld) 0.6 % 0-1 [facility] Work Phone: Bilirubin [Mass/Vol] 0.30 mg/dL 0.20-1.00 [facility] Work Phone: Comment on above: For patients on eltr ombopag therapy, use of Dimension [place] TBIL is not recommended. Chloride [Moles/Vol] 108 mmol/L 98-107 [facility] Work Phone: Cholesterol [Mass/Vol] 169 mg/dL <200 [facility] Work Phone: Comment on above: <200 mg/dL Desirable 200-240 mg/dL Borderline >240 mg/dL High Risk Eosinophils/100 WBC (Bld) 7.4 % 0-5 [facility] Work Phone: Glucose [Mass/Vol] 133 mg/dL 74-106 [facility] Work Phone: Comment on above: Fasting Glucose resu lt greater than or equal to 126 mg/dL suggests DIABETES MELLITUS per A.D.A. criteria. Neutrophils (Bld) [#/Vol] 5.1 10*3/uL 2.0-7.7 [facility] Work Phone: Neutrophils/100 WBC (Bld) 59.2 % 47-70 [facility] Work Phone: Potassium [Moles/Vol] 4.0 mmol/L 3.5-5.1 [facility]: Protein [Mass/Vol] 7.0 g/dL 6.4-8.2 [facility] Work Phone: Sodium [Moles/Vol] 142 mmol/L 136-145 [facility] Work Phone: Triglyceride [Mass/Vol] 126 mg/dL <199 [facility] Work Phone: Comment on above: The drugs N-Acetylcy steine and Metamizole may falsely depress this assay.Serum Triglycerides Reference Interval Normal <150 mg/dL Borderline high 150 - 199 mg/dL High 200 - 499 mg/dL Very High > or = 500 mg/dL WBC (Bld) [#/Vol] 8.7 10*3/uL 4.4-11.0 [facility] Work Phone: Blood erythrocytes count (nu mber/volume)on 12-09-2021 RBC (Bld) [#/Vol] 4.63 10*6/uL 4.6-6.2 [facility] Work Phone: Blood hemoglobin measurement (mass/volume)on 12-09-2021 Hemoglobin (Bld) [Mass/Vol] 14.2 g/dL 13.0-16.5 [facility] Work Phone: Blood lymphocytes/100 leukoc yteson 12-09-2021 Lymphocytes/100 WBC (Bld) 24.6 % 19-41 [facility] Work Phone: Blood monocytes/100 leukocyt eson 12-09-2021 Monocytes/100 WBC (Bld) 7.9 % 0-10 [facility] Work Phone: Blood platelet mean volumeon 12-09-2021 Platelet mean volume (Bld) [Entitic vol] 10.4 fL 6.2-12.0 [facility] Work Phone: Determination of erythrocyte mean corpuscular volume (MCV)on 12-09-2021 MCV (RBC) [Entitic vol] 96.5 fL 80-94 [facility] Work Phone: Hematocrit Auto (Bld) [Volum e fraction]on 12-09-2021 Hematocrit (Bld) [Volume fraction] 44.7 % 40-54 [facility] Work Phone: Laboratory - Chemistry and C hemistry - challengeon 12-09-2021 ALP [Catalytic activity/Vol] 45 U/L 45-117 [facility] Work Phone: ALT [Catalytic activity/Vol] 28 U/L 16-61 [facility] Work Phone: CO2 [Moles/Vol] 25.0 mmol/L 21.0-32.0 [facility] Work Phone: Globulin (S) [Mass/Vol] 3.5 g/dL 2.2-4.2 [facility] Work Phone: Urea nitrogen/Creatinine [Mass ratio] 17.9 mg/mg 10-20 [facility] Work Phone: Laboratory - Hematology and Cell countson 12-09-2021 Erythrocyte distribution width (RBC) [Entitic vol] 46.1 fL 35.1-43.9 [facility] Work Phone: Erythrocyte distribution width (RBC) [Ratio] 12.9 % 11.6-14.6 [facility] Work Phone: Immature granulocytes/100 WBC (Bld) 0.300 % 0.0-0.9 [facility] Work Phone: Comment on above: IG% - Immature Granu locytes (promyelocytes, myelocytes and metamyelocytes) > 1% indicates that a LEFT SHIFT is Present. MCH (RBC) [Entitic mass] 30.7 pg 27.0-32.0 [facility] Work Phone: Nucleated RBC/100 WBC (Bld) [Ratio] 0 % 0-5 [facility] Work Phone: MCHC Auto (RBC) [Mass/Vol]on 12-09-2021 MCHC (RBC) [Mass/Vol] 31.8 g/dL 32-36 [facility] Work Phone: No Panel Informationon 12-09 Estimated GFR (MDRD) Amer 91 mL/min >60 [facility] Work Phone: Comment on above: GFR Calc Estimated GFR (MDRD) Non-Af Amer 75 mL/min >60 [facility] Work Phone: Comment on above: Non- GFR Calc Platelets bldon 12-09-2021 Platelets (Bld) [#/Vol] 252 10*3/uL 150-450 [facility] Work Phone: Serum or plasma albumin ruchi urement (mass/volume)on 12-09-2021 Albumin [Mass/Vol] 3.5 g/dL 3.2-5.0 [facility] Work Phone: Serum or plasma albumin/glob ulin mass ratioon 12-09-2021 Albumin/Globulin [Mass ratio] 1.0 {ratio} 0.9-2.4 [facility] Work Phone: Serum or plasma calcium ruchi urement (mass/volume)on 12-09-2021 Calcium [Mass/Vol] 8.9 mg/dL 8.5-10.1 [facility] Work Phone: Serum or plasma cholesterol in HDL measurement (mass/volume)on 12-09-2021 Cholesterol in HDL [Mass/Vol] 50 mg/dL >40 [facility] Work Phone: Comment on above: The drugs N-Acetylcy steine and Metamizole may falsely depress this assay. Reference Range HDL <40 mg/dL Low HDL Cholesterol HDL >or= 60 mg/dL High HDL Cholesterol Serum or plasma cholesterol in VLDL measurement (mass/volume)on 12-09-2021 Cholesterol in VLDL [Mass/Vol] 25 mg/dL 5-40 [facility] Work Phone: Serum or plasma creatinine m easurement (mass/volume)on 12-09-2021 Creatinine [Mass/Vol] 1.06 mg/dL 0.70-1.30 [facility] Work Phone: Comment on above: The validity of the calculated GFR & GFRAA in patients over 70 years has not been determined. Clinical correlation is essential. Serum or plasma low density lipoprotein (LDL) cholesterol measurement (mass/volume)on 12-09-2021 Cholesterol in LDL [Mass/Vol] 94 mg/dL 0-130 [facility] Work Phone: Serum or plasma urea nitroge n measurement (mass/volume)on 12-09-2021 Urea nitrogen [Mass/Vol] 19 mg/dL 7-18 [facility] Work Phone: Thin prep Papanicolaou smear with manual screeningon 12-09-2021 Thin prep Papanicolaou smear with manual screening 17 U/L 15-37 [facility] Work Phone: Thin prep Papanicolaou smear with manual screening 9 5-15 [facility] Work Phone: Whole blood hemoglobin A1c/t otal hemoglobin ratio (mass fraction)on 12-09-2021 HbA1c (Bld) [Mass fraction] 6.2 % 3.8-5.6 [facility] Work Phone: Comment on above: Normal < 5.7 % Predi abetic 5.7 - 6.4 % Diabetic >or= 6.5 % Please note range changes. Absolute lymphocyte counton 08-01-2021 Lymphocytes Auto (Unsp spec) [#/Vol] 1.74 10*3/uL 0.83-4.51 [facility] Work Phone: Basophil percentageon 2021 Basophils/100 WBC (Bld) 0.7 % 0-1 [facility] Work Phone: Bilirubin [Mass/Vol] 0.30 mg/dL 0.20-1.00 [facility] Work Phone: Comment on above: For patients on eltr ombopag therapy, use of Dimension [place] TBIL is not recommended. Chloride [Moles/Vol] 109 mmol/L 98-107 [facility] Work Phone: Cholesterol [Mass/Vol] 148 mg/dL <200 [facility] Work Phone: Comment on above: <200 mg/dL Desirable 200-240 mg/dL Borderline >240 mg/dL High Risk Eosinophils/100 WBC (Bld) 7.8 % 0-5 [facility] Work Phone: Glucose [Mass/Vol] 127 mg/dL 74-106 [facility] Work Phone: Comment on above: Fasting Glucose resu lt greater than or equal to 126 mg/dL suggests DIABETES MELLITUS per A.D.A. criteria. Neutrophils (Bld) [#/Vol] 4.1 10*3/uL 2.0-7.7 [facility] Work Phone: [phone] Neutrophils/100 WBC (Bld) 57.6 % 47-70 [facility] Work Phone: [phone] Potassium [Moles/Vol] 3.7 mmol/L 3.5-5.1 [facility] Work Phone: Protein [Mass/Vol] 6.8 g/dL 6.4-8.2 [facility] Work Phone: Sodium [Moles/Vol] 139 mmol/L 136-145 [facility] Work Phone: Triglyceride [Mass/Vol] 61 mg/dL <199 [facility] Work Phone: Comment on above: The drugs N-Acetylcy steine and Metamizole may falsely depress this assay.Serum Triglycerides Reference Interval Normal <150 mg/dL Borderline high 150 - 199 mg/dL High 200 - 499 mg/dL Very High > or = 500 mg/dL WBC (Bld) [#/Vol] 7.2 10*3/uL 4.4-11.0 [facility] [facility] Work Phone: Blood erythrocytes count (nu mber/volume)on 08-01-2021 RBC (Bld) [#/Vol] 4.34 10*6/uL 4.6-6.2 [facility] Work Phone: Blood hemoglobin measurement (mass/volume)on 08-01-2021 Hemoglobin (Bld) [Mass/Vol] 13.3 g/dL 13.0-16.5 [facility] Work Phone: Blood lymphocytes/100 leukoc yteson 08-01-2021 Lymphocytes/100 WBC (Bld) 24.3 % 19-41 [facility] Work Phone: Blood monocytes/100 leukocyt eson 08-01-2021 Monocytes/100 WBC (Bld) 9.3 % 0-10 [facility] Work Phone: Blood platelet mean volumeon 08-01-2021 Platelet mean volume (Bld) [Entitic vol] 10.0 fL 6.2-12.0 [facility] Work Phone: Determination of erythrocyte mean corpuscular volume (MCV)on 08-01-2021 MCV (RBC) [Entitic vol] 94.5 fL 80-94 [facility] Work Phone: Hematocrit Auto (Bld) [Volum e fraction]on 06-02-2022 Hematocrit (Bld) [Volume fraction] 41.0 % 40-54 [facility] Work Phone: Laboratory - Chemistry and C hemistry - challengeon 08-01-2021 ALP [Catalytic activity/Vol] 41 U/L 45-117 [facility] Work Phone: ALT [Catalytic activity/Vol] 27 U/L 16-61 [facility] Work Phone: CO2 [Moles/Vol] 24.0 mmol/L 21.0-32.0 [facility] Work Phone: Globulin (S) [Mass/Vol] 3.4 g/dL 2.2-4.2 [facility] Work Phone: Urea nitrogen/Creatinine [Mass ratio] 21.4 mg/mg 10-20 [facility] Work Phone: Laboratory - Hematology and Cell countson 08-01-2021 Erythrocyte distribution width (RBC) [Entitic vol] 45.5 fL 35.1-43.9 [facility] Work Phone: Erythrocyte distribution width (RBC) [Ratio] 13.2 % 11.6-14.6 [facility] Work Phone: Immature granulocytes/100 WBC (Bld) 0.300 % 0.0-0.9 [facility] Work Phone: Comment on above: IG% - Immature Granu locytes (promyelocytes, myelocytes and metamyelocytes) > 1% indicates that a LEFT SHIFT is Present. MCH (RBC) [Entitic mass] 30.6 pg 27.0-32.0 [facility] Work Phone: Nucleated RBC/100 WBC (Bld) [Ratio] 0 % 0-5 [facility] Work Phone: MCHC Auto (RBC) [Mass/Vol]on 08-01-2021 MCHC (RBC) [Mass/Vol] 32.4 g/dL 32-36 [facility] Work Phone: No Panel Informationon 08-01 Estimated GFR (MDRD) Amer 127 mL/min >60 [facility] Work Phone: Comment on above: GFR Calc Estimated GFR (MDRD) Non-Af Amer 105 mL/min >60 [facility] Work Phone: Comment on above: Non- GFR Calc Urine Microalbumin/Creatinine Ratio TNP [facility] Work Phone: Comment on above: Test not performed Platelets bldon 08-01-2021 Platelets (Bld) [#/Vol] 248 10*3/uL 150-450 [facility] Work Phone: Serum or plasma albumin ruchi urement (mass/volume)on 08-01-2021 Albumin [Mass/Vol] 3.4 g/dL 3.2-5.0 [facility] Work Phone: Serum or plasma albumin/glob ulin mass ratioon 08-01-2021 Albumin/Globulin [Mass ratio] 1.0 {ratio} 0.9-2.4 [facility] Work Phone: Serum or plasma calcium ruchi urement (mass/volume)on 08-01-2021 Calcium [Mass/Vol] 8.8 mg/dL 8.5-10.1 [facility] Work Phone: Serum or plasma cholesterol in HDL measurement (mass/volume)on 08-01-2021 Cholesterol in HDL [Mass/Vol] 52 mg/dL >40 [facility] Work Phone: Comment on above: The drugs N-Acetylcy steine and Metamizole may falsely depress this assay. Reference Range HDL <40 mg/dL Low HDL Cholesterol HDL >or= 60 mg/dL High HDL Cholesterol Serum or plasma cholesterol in VLDL measurement (mass/volume)on 08-01-2021 Cholesterol in VLDL [Mass/Vol] 12 mg/dL 5-40 [facility] Work Phone: Serum or plasma creatinine m easurement (mass/volume)on 08-01-2021 Creatinine [Mass/Vol] 0.80 mg/dL 0.70-1.30 [facility] Work Phone: Comment on above: The validity of the calculated GFR & GFRAA in patients over 70 years has not been determined. Clinical correlation is essential. Serum or plasma low density lipoprotein (LDL) cholesterol measurement (mass/volume)on 08-01-2021 Cholesterol in LDL [Mass/Vol] 84 mg/dL 0-130 [facility] Work Phone: Serum or plasma urea nitroge n measurement (mass/volume)on 08-01-2021 Urea nitrogen [Mass/Vol] 17 mg/dL 7-18 [facility] Work Phone: Thin prep Papanicolaou smear with manual screeningon 08-01-2021 Thin prep Papanicolaou smear with manual screening 15 U/L 15-37 [facility] Work Phone: Thin prep Papanicolaou smear with manual screening 6 5-15 [facility] Work Phone: Thin prep Papanicolaou smear with manual screening < 5.0 mg/L NO RANGE EST. [facility] Work Phone: Urine creatinine measurement (mass/volume)on 08-01-2021 Creatinine (U) [Mass/Vol] 73.90 mg/dL NO RANGE EST. [facility] Work Phone: Whole blood hemoglobin A1c/t otal hemoglobin ratio (mass fraction)on 08-01-2021 HbA1c (Bld) [Mass fraction] 6.2 % 3.8-5.6 [facility] Work Phone: Comment on above: Normal < 5.7 % Predi abetic 5.7 - 6.4 % Diabetic >or= 6.5 % Please note range changes. No Panel Informationon 05-03 Prostate Specific Antigen Screen 1.47 ng/mL 0.00-4.00 [facility] Work Phone: Comment on above: This test was perfor med using the TPSA assay method for the[employer] chemistry system. Values obtained with differentassay methods cannot be used interchangably.When changing PSA assays in the course of monitoring apatient, additional sequential testing should be carriedout to confirm baseline values. Vital Signs Date Time Vital Sign Value Performing Clinician Facility 06-15-2024 08:47-0400 Body mass index (BMI) [Ratio] 38.1 kg/m2 Dr. Zahra Guerrero MD Work Phone: [facility] 06-15-2024 08:47-0400 Body weight 127.[address] Zahra Guerrero MD Work Phone: [facility] 06-15-2024 08:47-0400 Diastolic blood pressure 80 mm[Hg] Dr. Zahra Guerrero MD Work Phone: [facility] 06-15-2024 08:47-0400 Heart rate 66 /min Dr. Zahra Guerrero MD Work Phone: [facility] 06-15-2024 08:47-0400 Respiratory rate 16 /min Dr. Zahra Guerrero MD Work Phone: [facility] 06-15-2024 08:47-0400 Systolic blood pressure 128 mm[Hg] Dr. Zahra Guerrero MD Work Phone: [facility] 03-14-2024 15:09-0500 Diastolic blood pressure 76 mm[Hg] Sharron Toribio MD Work Phone: [facility] 03-14-2024 15:09-0500 Heart rate 72 /min Sharron Toribio MD Work Phone: [facility] 03-14-2024 15:09-0500 Respiratory rate 13 /min Sharron Toribio MD Work Phone: [facility] 03-14-2024 15:09-0500 Systolic blood pressure 128 mm[Hg] Sharron Toribio MD Work Phone: [facility] 04-20-2023 09:37-0500 Body height 177.8 cm Sharron Toribio MD Work Phone: [facility] 04-20-2023 09:37-0500 Body temperature 98.01 [degF] Sharron Toribio MD Work Phone: [facility] 04-20-2023 09:37-0500 Body weight 124.74 kg Sharron Toribio MD Work Phone: [facility] 04-20-2023 09:37-0500 Diastolic blood pressure 67 mm[Hg] Sharron Toribio MD Work Phone: [facility] 04-20-2023 09:37-0500 Heart rate 65 /min Sharron Toribio MD Work Phone: [facility] 04-20-2023 09:37-0500 Respiratory rate 10 /min Sharron Toribio MD Work Phone: [facility] 04-20-2023 09:37-0500 Systolic blood pressure 125 mm[Hg] Sharron Toribio MD Work Phone: [facility] 04-16-2023 08:32-0500 Body height 182.[address] Zahra Guerrero Work Phone: [facility] 04-16-2023 08:32-0500 Body mass index (BMI) [Ratio] 37.1 kg/m2 Dr. Zahra Guerrero Work Phone: [facility] 04-16-2023 08:32-0500 Body weight 124.[address] Zahra Guerrero Work Phone: [facility] 04-16-2023 08:32-0500 Diastolic blood pressure 73 mm[Hg] Dr. Zahra Guerrero Work Phone: [facility] 04-16-2023 08:32-0500 Heart rate 66 /min Dr. Zahra Guerrero Work Phone: [facility] 04-16-2023 08:32-0500 Respiratory rate 18 /min Dr. Zahra Guerrero Work Phone: [facility] 04-16-2023 08:32-0500 Systolic blood pressure 132 mm[Hg] Dr. Zahra Guerrero Work Phone: [facility] 12-17-2022 07:51-0400 Body height 182.[address] Zahra Guerrero Work Phone: [facility] 12-17-2022 07:51-0400 Body mass index (BMI) [Ratio] 35.1 kg/m2 Dr. Zahra Guerrero Work Phone: [facility] 12-17-2022 07:51-0400 Body temperature 97.4 [degF] Dr. Zahra Guerrero Work Phone: [facility] 12-17-2022 07:51-0400 Body weight 117.[address] Zahra Guerrero Work Phone: [facility] 12-17-2022 07:51-0400 Diastolic blood pressure 72 mm[Hg] Dr. Zahra Guerrero Work Phone: [facility] 12-17-2022 07:51-0400 Heart rate 61 /min Dr. Zahra Guerrero Work Phone: [facility] 12-17-2022 07:51-0400 Respiratory rate 18 /min Dr. Zahra Guerrero Work Phone: [facility] 12-17-2022 07:51-0400 SaO2% (BldA) [Mass fraction] 95 % Dr. Zahra Guerrero Work Phone: [facility] 12-17-2022 07:51-0400 Systolic blood pressure 125 mm[Hg] Dr. Zahra Guerrero Work Phone: [facility] 12-01-2022 11:56-0400 Body temperature 98.4 [degF] Sharron Toribio MD Work Phone: [facility] 12-01-2022 11:56-0400 Diastolic blood pressure 61 mm[Hg] Sharron Toribio MD Work Phone: [facility] 12-01-2022 11:56-0400 Heart rate 57 /min Sharron Toribio MD Work Phone: [facility] 12-01-2022 11:56-0400 Respiratory rate 11 /min Sharron Toribio MD Work Phone: [facility] 12-01-2022 11:56-0400 Systolic blood pressure 124 mm[Hg] Sharron Toribio MD Work Phone: [facility] 10-20-2022 01:52-0400 Diastolic blood pressure 72 mm[Hg] Dr. Zahra Guerrero Work Phone: [facility] 10-20-2022 01:52-0400 Systolic blood pressure 152 mm[Hg] Dr. Zahra Guerrero Work Phone: [facility] 10-20-2022 01:48-0400 Body height 182.[address] Zahra Guerrero Work Phone: [facility] 10-20-2022 01:48-0400 Body mass index (BMI) [Ratio] 37.3 kg/m2 Dr. Zahra Guerrero Work Phone: [facility] 10-20-2022 01:48-0400 Body temperature 97.9 [degF] Dr. Zahra Guerrero Work Phone: [facility] 10-20-2022 01:48-0400 Body weight 124.[address] Zahra Guerrero Work Phone: [facility] 10-20-2022 01:48-0400 Heart rate 60 /min Dr. Zahra Guerrero Work Phone: [facility] 10-20-2022 01:48-0400 Respiratory rate 20 /min Dr. Zahra Guerrero Work Phone: [facility] 10-20-2022 01:48-0400 SaO2% (BldA) [Mass fraction] 97 % Dr. Zahra Guerrero Work Phone: [facility] 09-12-2022 11:18-0400 Body height 182.[address] Zahra Guerrero Work Phone: [facility] 09-12-2022 11:18-0400 Body mass index (BMI) [Ratio] 36.2 kg/m2 Dr. Zahra Guerrero Work Phone: [facility] 09-12-2022 11:18-0400 Body weight 121.[address] Zahra Guerrero Work Phone: [facility] 09-12-2022 11:18-0400 Diastolic blood pressure 71 mm[Hg] Dr. Zahra Guerrero Work Phone: [facility] 09-12-2022 11:18-0400 Heart rate 62 /min Dr. Zahra Guerrero Work Phone: [facility] 09-12-2022 11:18-0400 Respiratory rate 18 /min Dr. Zahra Guerrero Work Phone: [facility] 09-12-2022 11:18-0400 Systolic blood pressure 126 mm[Hg] Dr. Zahra Guerrero Work Phone: [facility] 09-04-2022 20:30-0400 Diastolic blood pressure 78 mm[Hg] [facility] 09-04-2022 20:30-0400 Heart rate 78 /min [facility] 09-04-2022 20:30-0400 Respiratory rate 16 /min [facility] 09-04-2022 20:30-0400 SaO2% (BldA) [Mass fraction] 99 % [facility] 09-04-2022 20:30-0400 Systolic blood pressure 138 mm[Hg] [facility] 09-04-2022 17:38-0400 Body height 182.88 cm [facility] 09-04-2022 17:38-0400 Body mass index (BMI) [Ratio] 36.3 kg/m2 [facility] 09-04-2022 17:38-0400 Body temperature 98 [degF] [facility] 09-04-2022 17:38-0400 Body weight 121.65 kg [facility] 07-31-2022 09:39-0400 Body height 180.3 cm Sharron Toribio MD Work Phone: [facility] 07-31-2022 09:39-0400 Body temperature 97.9 [degF] Sharron Toribio MD Work Phone: [facility] 07-31-2022 09:39-0400 Body weight 122.92 kg Sharron Toribio MD Work Phone: [facility] 07-31-2022 09:39-0400 Diastolic blood pressure 67 mm[Hg] Sharron Toribio MD Work Phone: [facility] 07-31-2022 09:39-0400 Heart rate 63 /min Sharron Toribio MD Work Phone: [facility] 07-31-2022 09:39-0400 SaO2% (BldA) [Mass fraction] 95 % Sharron Toribio MD Work Phone: [facility] 07-31-2022 09:39-0400 Systolic blood pressure 122 mm[Hg] Sharron Toribio MD Work Phone: [facility] 02-24-2022 14:18-0500 Body temperature 98.01 [degF] Geraldine Praisler-Wood [employer] Work Phone: [facility] 02-24-2022 14:18-0500 Body weight 121.02 kg Geraldine Praisler-Wood GAMING ASSOCIATE.[employer] Work Phone: [facility] 02-24-2022 14:18-0500 Diastolic blood pressure 76 mm[Hg] Geraldine Praisler-Wood GAMING ASSOCIATE.[employer] Work Phone: [facility] 02-24-2022 14:18-0500 Heart rate 73 /min Geraldine Praisler-Wood GAMING ASSOCIATE.[employer] Work Phone: [facility] 02-24-2022 14:18-0500 Respiratory rate 20 /min Geraldine Praisler-Wood GAMING ASSOCIATE.[employer] Work Phone: [facility] 02-24-2022 14:18-0500 SaO2% (BldA) [Mass fraction] 96 % Geraldine Praisler-Wood GAMING ASSOCIATE.[employer] Work Phone: [facility] 02-24-2022 14:18-0500 Systolic blood pressure 140 mm[Hg] Geraldine Praisler-Wood GAMING ASSOCIATE.[employer] Work Phone: [facility] 02-19-2022 00:18-0500 Body height 182.88 cm [facility] 02-19-2022 00:18-0500 Body mass index (BMI) [Ratio] 37.3 kg/m2 [facility] 02-19-2022 00:18-0500 Body temperature 96.8 [degF] [facility] 02-19-2022 00:18-0500 Body weight 124.73 kg [facility] 02-19-2022 00:18-0500 Diastolic blood pressure 126 mm[Hg] [facility] 02-19-2022 00:18-0500 Heart rate 85 /min [facility] 02-19-2022 00:18-0500 Respiratory rate 18 /min [facility] 02-19-2022 00:18-0500 SaO2% (BldA) [Mass fraction] 98 % [facility] 02-19-2022 00:18-0500 Systolic blood pressure 141 mm[Hg] [facility] 02-15-2022 13:32-0500 Body temperature 98.1 [degF] Thuy Godwin GAMING ASSOCIATE.[employer] Work Phone: [facility] 02-15-2022 13:32-0500 Body weight 124.1 kg Thuy Godwin GAMING ASSOCIATE.[employer] Work Phone: [facility] 02-15-2022 13:32-0500 Diastolic blood pressure 82 mm[Hg] Thuy Godwin GAMING ASSOCIATE.[employer] Work Phone: [facility] 02-15-2022 13:32-0500 Heart rate 65 /min Thuy Godwin GAMING ASSOCIATE.[employer]ESSION[employer] Work Phone: [facility] 02-15-2022 13:32-0500 Respiratory rate 21 /min Thuy Godwin GAMING ASSOCIATE.[employer]ESSION[employer] Work Phone: [facility] 02-15-2022 13:32-0500 SaO2% (BldA) [Mass fraction] 99 % Thuy Godwin GAMING ASSOCIATE.[employer]ESSION[employer] Work Phone: [facility] 02-15-2022 13:32-0500 Systolic blood pressure 148 mm[Hg] Thuy Godwin [employer]ESSION[employer] Work Phone: [facility] 10-17-2021 06:29-0400 Body height 182.[address] Zahra Guerrero Work Phone: [facility] Work Phone: 10-17-2021 06:29-0400 Body mass index (BMI) [Ratio] 37.5 kg/m2 Dr. Zahra Guerrero Work Phone: [facility] Work Phone: 10-17-2021 06:29-0400 Body temperature 98.6 [degF] Dr. Zahra Guerrero Work Phone: [facility] Work Phone: 10-17-2021 06:29-0400 Body weight 125.[address] Zahra Guerrero Work Phone: [facility] Work Phone: 10-17-2021 06:29-0400 Diastolic blood pressure 81 mm[Hg] Dr. Zahra Guerrero Work Phone: [facility] Work Phone: 10-17-2021 06:29-0400 Heart rate 66 /min Dr. Zahra Guerrero Work Phone: [facility] Work Phone: 10-17-2021 06:29-0400 Respiratory rate 17 /min Dr. Zahra Guerrero Work Phone: [facility] Work Phone: 10-17-2021 06:29-0400 SaO2% (BldA) [Mass fraction] 97 % Dr. Zahra Guerrero Work Phone: [facility] Work Phone: 10-17-2021 06:29-0400 Systolic blood pressure 138 mm[Hg] Dr. Zahra Guerrero Work Phone: [facility] Work Phone: 06-27-2021 10:12-0400 Body temperature 96.21 [degF] Sharron Toribio MD Work Phone: [facility] 06-27-2021 10:12-0400 Diastolic blood pressure 88 mm[Hg] Sharron Toribio MD Work Phone: [facility] 06-27-2021 10:12-0400 Heart rate 78 /min Sharron Toribio MD Work Phone: [facility] 06-27-2021 10:12-0400 Respiratory rate 18 /min Sharron Toribio MD Work Phone: [facility] 06-27-2021 10:12-0400 Systolic blood pressure 142 mm[Hg] Sharron Toribio MD Work Phone: [facility] Encounters Encounter Date Encounter Type Care Provider Facility Start: 10-17-2024 ambulatory Zahra Guerrero [facility] [place] y:[facility] Start: 10-04-2024 End: 10-04-2024 ambulatory Zahra Guerrero Facility:[facility] Start: 09-22-2024 End: 09-22-[address] Zahra Guerrero MD Work Phone: -Laboratory [facility] Start: 09-22-2024 End: 09-22-[address] Zahra Guerrero MD -[facility] Start: 09-22-2024 End: 09-22-2024 ambulatory Zahra Guerrero Facility:[facility] Start: 07-12-2024 End: 07-12-[address] Zahra Guerrero MD Work Phone: [facility] Work Phone: Start: 07-12-2024 End: 07-12-[address] Heber Keller MD -[facility] Work Phone: Start: 07-12-2024 End: 07-12-2024 ambulatory Zahra Guerrero Facility:[facility] Start: 06-16-2024 End: 06-16-[address] Heber Kelelr MD -Laboratory [facility] Work Phone: Start: 06-15-2024 End: 06-15-[address] Lu Styles MD -[facility] Work Phone: Start: 06-15-2024 End: 06-16-2024 ambulatory Zahra Guerrero Facility:[facility] Start: 06-14-2024 End: 06-14-2024 Patient encounter procedure Sharron Toribio MD Work Phone: [facility] Comment on above: Pain in joint, multi ple sites (Primary Dx) Start: 06-14-2024 End: 06-14-2024 Telemedicine consultation with patient Sharron Toribio MD Work Phone: [facility] Start: 06-14-2024 End: 06-14-2024 ambulatory SHARRON TORIBIO Facility:[facility] Start: 06-02-2024 End: 06-02-[address] Zahra Guerrero MD Work Phone: [facility] Work Phone: Start: 06-02-2024 End: 06-02-[address] Zahra Guerrero MD -Radiology, [place] Work Phone: Start: 06-02-2024 End: 06-02-2024 ambulatory Zahra Guerrero Facility:[facility] Start: 03-25-2024 End: 03-25-[address] Zahra Guerrero MD -Laboratory, [facility] Start: 03-25-2024 End: 03-25-2024 ambulatory Zahra Guerrero Facility:[facility] Start: 03-24-2024 End: 03-24-[address] Kayden Terrell MD -Laboratory, [facility] Start: 03-24-2024 End: 03-24-2024 ambulatory Zahra Guerrero Facility:[facility] Start: 03-14-2024 End: 03-14-2024 ambulatory SHARRON TORIBIO Facility:[facility] Start: 03-14-2024 End: 03-14-2024 Patient encounter procedure Sharron Toribio MD Work Phone: [facility] Comment on above: Psoriatic arthropath y (HCC) (Primary Dx); Primary osteoarthritis involving multiple joints Start: 02-18-2024 End: 02-18-[address] Heber Keller MD -Radiology, [facility] Work Phone: Start: 02-18-2024 End: 02-18-2024 ambulatory Zahra Guerrero Facility:[facility] Start: 01-20-2024 ambulatory Zahra Guerrero Facilit y:[facility] Start: 01-20-2024 End: 01-20-2024 ambulatory Zahra Guerrero Facility:[facility] Start: 12-29-2023 End: 12-29-2023 ambulatory Zahra Guerrero Facility:[facility] Start: 12-21-2023 End: 12-22-2023 ambulatory Zahra Guerrero Facility:[facility] Start: 11-27-2023 End: 11-27-2023 ambulatory Sharron Toribio MD Work Phone: [facility] Start: 11-27-2023 End: 11-27-2023 Patient encounter procedure Sharron Toribio MD Work Phone: [facility] Comment on above: Still not up to par Start: 10-28-2023 End: 10-29-2023 Refill Sharron Toribio MD Work Phone: [facility] Comment on above: Refill Request Start: 10-19-2023 End: 10-19-2023 Telephone encounter Sharron Toribio MD Work Phone: [facility] Comment on above: Patient Update Start: 09-25-2023 Refill Sandra Infante PA-C Work Phone: [facility] Comment on above: Refill Request Start: 08-26-2023 Refill Sharron conklin MD Work Phone: [facility] Comment on above: Refill Request Start: 08-19-2023 End: 08-19-2023 Patient encounter procedure Sharron Toribio MD Work Phone: [facility] Comment on above: Pain in joint, multi ple sites (Primary Dx); Vitamin D deficiency; Psoriatic arthropathy (HCC) Start: 08-19-2023 End: 08-19-2023 Telemedicine consultation with patient Sharron Toribio MD Work Phone: [facility] Start: 08-19-2023 End: 08-19-2023 ambulatory SHARRON TORIBIO Facility:[facility] Start: 05-18-2023 Refill Sharron conklin MD Work Phone: [facility] Comment on above: Refill Request Start: 04-20-2023 End: 04-20-2023 Patient encounter procedure Sharron Toribio MD Work Phone: [facility] Comment on above: Pain in joint, multi ple sites (Primary Dx); Vitamin D deficiency; Polyarticular psoriatic arthritis (HCC) Start: 04-16-2023 End: 04-16-2023 Patient encounter procedure Dr. Zahra Guerrero Work Phone: [facility] Work Phone: Start: 04-15-2023 End: 04-15-[address] Zahra Guerrero Work Phone: [facility] Work Phone: Start: 04-15-2023 End: 04-15-[address] Zahra Guerrero Work Phone: [facility] Work Phone: Start: 04-14-2023 End: 04-14-[address] aZhra Guerrero Work Phone: [facility] Work Phone: Start: 04-14-2023 End: 04-14-[address] Zahra Guerrero Work Phone: [facility] Start: 12-31-2022 End: 12-31-[address] Zahra Guerrero Work Phone: [facility] Work Phone: Start: 12-31-2022 End: 12-31-[address] Zahra Guerrero Work Phone: [facility]-Cat Scan, [facility] Work Phone: Start: 12-17-2022 End: 12-17-[address] Zahra Guerrero Work Phone: [facility]-Pulmonary Medicine [facility] Work Phone: Start: 12-16-2022 End: 12-16-[address] Zahra Guerrero Work Phone: [facility] Work Phone: Start: 12-11-2022 End: 12-11-[address] Zahra Guerrero Work Phone: [facility] Start: 12-09-2022 End: 12-09-[address] Zahra Guerrero Work Phone: [facility] Work Phone: Start: 12-09-2022 End: 12-09-[address] Zahra Guerrero Work Phone: [facility] Start: 12-01-2022 End: 12-01-2022 Patient encounter procedure Sharron Toribio MD Work Phone: [facility] Comment on above: Pain in joint, multi ple sites (Primary Dx); Primary osteoarthritis involving multiple joints; Inflammatory arthritis; Psoriatic arthropathy (HCC) Start: 10-20-2022 End: 10-20-2022 Emergency department patient visit Dr. Zahra Guerrero Work Phone: [facility]-Emergency Department Work Phone: Start: 09-29-2022 Refill Sharron conklin MD Work Phone: [facility] Comment on above: Refill Request; Refi ll Request Start: 09-26-2022 Non-patient / Non-visit Dr. Leila Guerrero Work Phone: [facility] Work Phone: Start: 09-26-2022 Non-patient / Non-visit Dr. Leila Guerrero Work Phone: [facility] Work Phone: Start: 09-26-2022 Non-patient / Non-visit Dr. Leila Guerrero Work Phone: [facility] Start: 09-26-2022 End: 09-26-[address] Zahra Guerrero Work Phone: [facility] Work Phone: Start: 09-26-2022 End: 09-26-[address] Zah[facility]errero [facility] Phone[facility] Work Phone: Start: 09-12-2022 End: 09-12-[address] Zahra Guerrero Work Phone: [facility] Work Phone: Start: 09-04-2022 End: 09-04-2022 [facility]: Start: 08-28-2022 Telephone encounter Sharron baptiste MD Work Phone: [facility] Comment on above: Patient Update Start: 08-19-2022 End: 08-19-2022 ambulatory [facility] Work Phone: Start: 08-19-2022 End: 08-19-2022 Patient encounter procedure [facility]-Cat Scan, [facility] Start: 08-04-2022 End: 08-04-2022 ambulatory [facility] Work Phone: Start: 08-04-2022 End: 08-04-2022 Patient encounter procedure [facility] Start: 07-31-2022 End: 07-31-2022 Patient encounter procedure Sharron Toribio MD Work Phone: [facility] Comment on above: Neck pain (Primary D x); Polyarticular psoriatic arthritis (HCC) Start: 05-30-2022 End: 05-30-2022 ambulatory [facility] Work Phone: Start: 05-30-2022 End: 05-30-2022 Patient encounter procedure [facility] Start: 04-08-2022 End: 04-08-2022 Patient encounter procedure [facility] Start: 02-24-2022 End: 02-24-2022 [facility] Start: 02-24-2022 End: 02-24-2022 Patient encounter procedure Geraldine Bose APRN.MONTESSORI PARAPROFESSIONAL Work Phone: [facility] Comment on above: Sinusitis, unspecifi ed chronicity, unspecified location (Primary Dx) Start: 02-19-2022 End: 02-19-2022 Emergency department patient visit [facility]-Emergency Department Start: 02-15-2022 End: 02-15-2022 [facility] Start: 02-15-2022 End: 02-15-2022 Patient encounter procedure Thuy Godwin GAMING ASSOCIATE.MONTESSORI PARAPROFESSIONAL Work Phone: [facility] Comment on above: Rhinosinusitis (Prim jimbo Dx); Acute otitis media, left Start: 12-10-2021 End: 12-10-[address] Zahra Guerrero Work Phone: [facility] Start: 12-09-2021 End: 12-09-[address] Zahra Guerrero Work Phone: [facility] Work Phone: Start: 12-09-2021 End: 12-09-[address] Zahra Guerrero Work Phone: [facility] Start: 10-17-2021 End: 10-17-[address] Zahra Guerrero Work Phone: [facility]-Pulmonary Medicine [facility] Start: 08-20-2021 End: 08-20-2021 Patient encounter procedure [facility]-Cat Scan, [facility] Start: 08-01-2021 End: 08-01-2021 Patient encounter procedure [facility] Start: 07-31-2021 End: 07-31-2021 ambulatory Sharron Toribio MD Work Phone: [facility] Comment on above: Pain in joint, multi ple sites (Primary Dx); Primary osteoarthritis involving multiple joints Start: 07-31-2021 End: 07-31-2021 Telemedicine consultation with patient Sharron Toribio MD Work Phone: [facility] Start: 06-27-2021 End: 06-27-2021 Subsequent hospital visit by physician [facility] Comment on above: Pain in joint, multi ple sites [M25.50] Start: 06-27-2021 End: 06-27-2021 Patient encounter procedure Sharron Toribio MD Work Phone: [facility] Comment on above: Pain in joint, multi ple sites (Primary Dx) Start: 05-03-2021 End: 05-03-2021 Patient encounter procedure [facility] Procedures Date Procedure Procedure Detail Performing Clinician Start: 09-22-2024 Urnls dip stick/tabl et reagent auto microscopy Dr. Zahra Guerrero MD Work Phone: Start: 07-12-[address] Zahra [...] DTaP,Tdap,Td Vaccine (2 - Td or Tdap) [facility] Start: 06-27-2024 DIABETES SCREEN DIABETES SCREEN [facility] Start: 06-27-2024 [facility] Start: 06-14-2024 End: 06-14-2024 Patient encounter procedure 06/14/2024 12:00 PM EDT [facility] [address] [place] [address] Sharron Toribio MD [address] [place], [place] [id number] 3 months virtual [facility] Comment on above: 3 months virtual Start: 11-01-2023 Influenza vaccination C [facility] Start: 08-19-2023 End: 11-18-2023 25-hydroxyvitamin D3 [Mass/volume] in Serum or Plasma VITAMIN D 25 HYDROXY Lab Routine Pain in joint, multiple sites Vitamin D deficiency Expected: 08/19/2023, Expires: 11/18/2023 [facility] Comment on above: Expected: 08/19/2023 , Expires: 11/18/2023 Start: 08-19-2023 End: 11-18-2023 CBC W Auto Differential panel - Blood COMPLETE BLOOD COUNT AND DIFFERENTIAL Lab Routine Pain in joint, multiple sites Expected: 08/19/2023, Expires: 11/18/2023 [facility] Comment on above: Expected: 08/19/2023 , Expires: 11/18/2023 Start: 08-19-2023 End: 11-18-2023 Comprehensive metabolic 2000 panel - Serum or Plasma COMPREHENSIVE METABOLIC PANEL Lab Routine Pain in joint, multiple sites Expected: 08/19/2023, Expires: 11/18/2023 [facility] Work Phone: Comment on above: Expected: 08/19/2023 , Expires: 11/18/2023 Start: 03-02-2023 Behavioral Health Screening Behavioral Health Screening [facility] Start: 03-02-2023 Depression Assessment Depression Ass [facility] Start: 12-11-2022 Assay of prostate specific antigen total ASSAY OF PSA TOTAL [facility] Start: 10-31-2022 Influenza vaccination C [facility] Start: 03-02-2022 DEPRESSION ASSESSMENT DEPRESSION ASS [facility] Start: 10-31-2021 Influenza vaccination C [facility] Start: 06-27-2021 End: 08-27-2021 BLOOD TB SCREEN, INCUBATED [facility] Work Phone: Comment on above: Expected: 06/27/2021 , Expires: 08/27/2021 Start: 06-27-2021 End: 08-27-2021 C reactive protein [Mass/volume] in Serum or Plasma [facility] Work Phone: Comment on above: Expected: 06/27/2021 , Expires: 08/27/2021 Start: 06-27-2021 End: 08-27-2021 CBC W Auto Differential panel - Blood [facility] Work Phone: Comment on above: Expected: 06/27/2021 , Expires: 08/27/2021 Start: 06-27-2021 End: 08-27-2021 Comprehensive metabolic 2000 panel - Serum or Plasma [facility] Work Phone: Comment on above: Expected: 06/27/2021 , Expires: 08/27/2021 Start: 06-27-2021 End: 08-27-2021 Cyclic citrullinated peptide IgG Ab [Units/volume] in Serum or Plasma [facility] Work Phone: Comment on above: Expected: 06/27/2021 , Expires: 08/27/2021 Start: 06-27-2021 End: 08-27-2021 Erythrocyte sedimentation rate [facility] Work Phone: Comment on above: Expected: 06/27/2021 , Expires: 08/27/2021 Start: 06-27-2021 End: 06-27-2022 Hepatitis B virus core Ab [Presence] in Serum [facility] Work Phone: Comment on above: Expected: 06/27/2021 , Expires: 06/27/2022 Start: 06-27-2021 End: 06-27-2022 Hepatitis B virus surface Ab [Presence] in Serum by Immunoassay [facility] Work Phone: Comment on above: Expected: 06/27/2021 , Expires: 06/27/2022 Start: 06-27-2021 End: 06-27-2022 Hepatitis B virus surface Ab [Units/volume] in Serum [facility] Work Phone: Comment on above: Expected: 06/27/2021 , Expires: 06/27/2022 Start: 06-27-2021 End: 08-27-2021 Hepatitis C virus Ab [Presence] in Serum [facility] Work Phone: Comment on above: Expected: 06/27/2021 , Expires: 08/27/2021 Start: 06-27-2021 End: 08-27-2021 RHEUMATOID FACTOR BL [facility] Work Phone: Comment on above: Expected: 06/27/2021 , Expires: 08/27/2021 Start: 06-27-2021 End: 08-27-2021 VITAMIN D 25 HYDROXY [facility] Work Phone: Comment on above: Expected: 06/27/2021 , Expires: 08/27/2021 Start: 05-03-2021 Assay of prostate specific antigen total ASSAY OF PSA [facility] Work Phone: Start: 03-02-2021 DEPRESSION ASSESSMENT DEPRESSION ASS ESSMENT [facility] Start: 2020 RSV Vaccine (1 - 1-d ose 60+ series) RSV Vaccine (1 - 1-dose 60+ series) [facility] Start: 2020 RSV Vaccine (1 - Ris k 60-74 years 1-dose series) RSV Vaccine (1 - Risk 60-74 years 1-dose series) [facility] Start: 10-21-2019 Colonoscopy COLONOSCOPY [facility] Start: 10-21-2019 COLORECTAL CANCER SCREENING COLORECTAL CANCER SCREENING [facility] Start: 10-21-2019 Screening for malign ant neoplasm of colon [facility] Start: 08-06-2015 PROSTATE CANCER SCREENING DISCUSSION PROSTATE CANCER SCREENING DISCUSSION [facility] Start: 08-06-2015 Prostate specific antigen measurement Prostate Cancer Screening Discussion [facility] Start: 2010 SHINGRIX VACCINE (1 of 2) SHINGRIX VACCINE (1 of 2) [facility] Start: 2005 COLOGUARD (FIT-DNA) COLOGUARD (FIT-D NA) [facility] Start: 2005 Colonoscopy COLONOSCOPY [facility] Start: 2005 COLORECTAL CANCER SCREENING COLORECTAL CANCER SCREENING [facility] Start: [address] COLONOGRAPHY [facility] Start: 2005 DIABETES SCREEN DIABETES SCREEN [facility] Start: 2005 FECAL OCCULT BLOOD FECAL OCCULT BLOO D [facility] Start: 2005 Screening for malign ant neoplasm of colon [facility] Start: 2005 SIGMOIDOSCOPY SIGMOIDOSCOPY [facility] Start: 08-06-1995 Lipid 1996 panel - Serum or Plasma Lipid Screening [facility] Start: 08-06-1995 Lipid panel Lipid Screening [facility] Start: 08-06-1995 LIPID SCREEN LIPID SCREEN [facility] Start: 08-06-1979 ONE PNEUMOVAX PRIOR TO AGE 65 ONE PNEUMOVAX PRIOR TO AGE 65 [facility] Start: 08-06-1979 Pneumococcal Vaccine : 50+ (1 of 2 - PCV) Pneumococcal Vaccine: 50+ (1 of 2 - PCV) [facility] Start: 08-06-1979 SHINGRIX VACCINE (1 of 2) SHINGRIX VACCINE (1 of 2) [facility] Start: 08-06-1979 Urine microalbumin profile [facility] Start: 1978 Anxiety Screening Anxiety Screening [facility] Start: 1978 Depression Screening Depression Scre ening [facility] Start: 1978 HEPATITIS C SCREENING HEPATITIS C SC REENING [facility] Start: 1978 HIV SCREENING HIV SCREENING [facility] Start: 1978 HIV screening HIV Screening [facility] Start: 1972 Adult depression screening assessment DEPRESSION SCREENING [facility] Start: 1966 PNEUMOCOCCAL (1 - PCV) PNEUMOCOCCAL (1 - PCV) [facility] Start: 1966 Pneumococcal vaccination [facility] Start: 1965 COVID-19 VACCINE (#1) COVID-19 VACCI NE (#1) [facility] Start: 1965 COVID-19 VACCINE (1) COVID-19 VACCIN E (1) [facility] Start: 02-04-1961 COVID-19 VACCINE (#1) COVID-19 VACCI NE (#1) [facility] End: 07-31-2023 25-hydroxyvitamin D3 [Mass/volume] in Serum or Plasma VITAMIN D 25 HYDROXY Lab Routine Polyarticular psoriatic arthritis (HCC) 6 Occurrences starting 07/31/2022 until 07/31/2023 [facility] Work Phone: Comment on above: 6 Occurrences starti ng 07/31/2022 until 07/31/2023 End: 04-19-2024 25-hydroxyvitamin D3 [Mass/volume] in Serum or Plasma VITAMIN D 25 HYDROXY Lab Routine Pain in joint, multiple sites Vitamin D deficiency 3 Occurrences starting 04/20/2023 until 04/19/2024 [facility] Work Phone: Comment on above: 3 Occurrences starti ng 04/20/2023 until 04/19/2024 End: 07-31-2023 CBC W Auto Differential panel - Blood CBC + DIFF Lab Routine Polyarticular psoriatic arthritis (HCC) 6 Occurrences starting 07/31/2022 until 07/31/2023 [facility] Work Phone: Comment on above: 6 Occurrences starti ng 07/31/2022 until 07/31/2023 End: 04-19-2024 CBC W Auto Differential panel - Blood CBC + DIFF Lab Routine Pain in joint, multiple sites 3 Occurrences starting 04/20/2023 until 04/19/2024 [facility] Work Phone: Comment on above: 3 Occurrences starti ng 04/20/2023 until 04/19/2024 End: 07-31-2023 Comprehensive metabolic 2000 panel - Serum or Plasma COMP METABOLIC PANEL Lab Routine Polyarticular psoriatic arthritis (HCC) 6 Occurrences starting 07/31/2022 until 07/31/2023 [facility] Work Phone: Comment on above: 6 Occurrences starti ng 07/31/2022 until 07/31/2023 End: 04-19-2024 Comprehensive metabolic 2000 panel - Serum or Plasma COMP METABOLIC PANEL Lab Routine Pain in joint, multiple sites 3 Occurrences starting 04/20/2023 until 04/19/2024 [facility] Work Phone: Comment on above: 3 Occurrences starti ng 04/20/2023 until 04/19/2024 Patient Education [facility] Work Phone: Patient referral [facility] Work Phone: Radex spine cervical 2 or 3 views XR CERV GENERAL 2V AP/LAT Radiology Routine Pain in joint, multiple sites 06/27/2021 11:33 AM EDT [facility] Work Phone[facility] Payers Date Payer Category Payer Self-pay [id number] 2021 Medicaid [id number] 2020 Medicaid [facility] MEDICAID [facility] [employer] MEDICAID [id number] 2020-Present [phone] [address] [place] [address] Medicaid [id number] 2020 Medicaid [id number] 2020 Unknown [id number] Unknown [facility] [id number] Unknown [id number] Unknown [id number] Unknown [id number] Unknown [id number] Unknown [id number] Unknown [id number] Unknown [id number] Unknown [id number] Unknown [id number] Unknown [id number] Unknown [id number] Unknown [id number] Unknown [id number] Unknown [id number] Unknown [id number] Social History Date Type Detail Facility Start: 06-27-2021 End: 03-14-2024 Tobacco smoking status NHIS Ex-smoker [facility] History of tobacco use Cigarette Smoker C [facility] History of tobacco use Cigar Smoker [facility] Start: 06-27-2021 End: 03-19-2022 Cigarettes smoked current (pack per day) - Reported 1 [facility] Start: 06-27-2021 End: 03-14-2024 Tobacco use and exposure Former smokeless tobacco user [facility] History of tobacco use Snuff User [facility] Start: 06-27-2021 End: 03-14-2024 Alcohol intake Current drinker of alcohol (finding) [facility] Start: 06-27-2021 History SDOH Alcohol Comment social [facility] Start: 1960 Sex Assigned At Not on file [facility] Start: 06-17-2021 End: 06-27-2021 Exposure to SARS-CoV-2 (event) Not sure [facility] Start: 1960 Sex Assigned At Male C [facility] Start: 07-21-2021 End: 07-31-2021 Exposure to SARS-CoV-2 (event) Unable to assess [facility] Start: 10-18-2020 End: 04-16-2023 Tobacco smoking status NHIS Unknown if ever smoked [facility] Start: 10-18-2018 Non-smoker [facility] History of tobacco use Current smoker [facility] Start: 02-24-2022 End: 03-19-2022 Tobacco use panel [facility] National Score (1-10 0), lower number is lower risk 70 [facility] Start: 07-31-2021 Gender identity Identifies as male gender (finding) [facility] Start: 07-31-2021 Sexual orientation Heterosexual (fin ding) [facility] Start: 09-02-2023 Tobacco smoking stat us NHIS Current some day smoker [facility] Start: 06-08-2024 Sex Male (finding) [facility] Medical Equipment Procedure Code Equipment Code Equipment Original Text Equi pment Identifier Dates [id number] Mental Status Date Assessment Result Facility 09-04-2022 Cognitive function Level Of Cons ciousness Awake;Alert;Appropriate;Follow s Commands [facility] Work Phone: Clinical Notes 06-27-2021 to 07-13-2024 Note Date & Type Note Facility 07-13-2024 Radiology Diagnostic study note [facility] Imaging Services [address] [place], [place] [address] Sinus/Facial Bone MR#: [id number] Acct: [id number] Name: JONEL TERRELL Rep #: [id number] : 1960 M 63 From: Jacobo Novak MD PCP: Dr. Zahra Guerrero MD Status: RE G CLI Study:Sinus/Facial Bone Date of Exam: Exam# [id number] Ordering Dr: Lisseth Keller MD PROCEDURE: SINUS/FACIAL [...] Unremarkable CT/Sinus/Facial Bone IMPRESSION: Pansinusitis. Reading Location: [facility] CC: Dr. Heber Keller MD; Dr. Zahra Guerrero MD ~ Traveling Construction Superintendent: Signed [facility] 06-15-2024 Evaluation note Diagnosis Onset Date Resolution Aortic root aneurysm chronic Apri l 2024 1:45pm Asthma chronic June 15 1:45pm CAD (coronary artery disease) chronic June 15, 2024 1:45pm Hyperlipemia chronic June 15, 2024 1:45pm Hypertension chronic June 15, 2024 1:45pm Morbid obesity chronic May 1:45pm HASMUKH (obstructive sleep apnea) chronic June 15, 2024 1:45pm [facility] Work Phone: 1(715) 936-142804-15-2025 NoteHNO ID: [id number] Author: SHARRON TORIBIO MD Service: ? Author Type: Physician Type: Progress Notes Filed: 06/14/2024 12:00 Note Text: VIRTUAL VISIT PROGRESS NOTE This is a virtual visit using Point.ioom Video Visit. It required patient-provider interaction for the medical decision making as documented below. I have communicated my name and active licensure. The patient's identity and physical location were verified at the time of this visit. 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 Uses cream. 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 It required patient- provider interaction for the medical decision making as documented below. I have communicated my name and active licensure. The patient's identity and physical location wereverified at the time of this visit. 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 Uses cream. 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 lancets (ONETOUCH DELICA PLUS LANCET MIS) albuterol HFA (PROVENTIL HFA, VENTOLIN HFA) 90 [...] which included preparing to see the patient, [id number] patient care, completing clinical documentation, obtaining and/or [...] placed in this encounter. [facility] Radiology Diagnostic study note [facility] Imaging Services [address] [place] [id number] Chest PA and Lateral MR#: [id number] Acct: [id number] Name: JONEL TERRELL Rep #: [id number] : [id number] From: Kevin Barkley MD PCP: Dr. Zahra Guerrero MD Status: GUERLINE SHAH Study:Chest PA and Lateral Date of Exam: 06/02/24 Exam# [id number] Ordering Dr: Zahra Guerrero MD PROCEDURE: CHEST [...] within limits. No pleural effusion. Reading Location: [id number] CC: Dr. Zahra Guerrero MD ~ Traveling Construction Superintendent: Signed [facility] [facility]01-13-2025 NoteHNO ID: [id number] Author: SHARRON TORIBIO MD Service: ? 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 Uses cream. 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 [employer] Family h/o autoimmune disease - mother had [...] <10.00 mIU/mL <3.10 Hep (more content not included)...[facility]01-13-2025 History of Present illness Narrative* Sharron Toribio MD - 03/14/2024 3:08 PM EST RHEUMATOLOGY PROGRESS NOTE Patient is here for a follow up visit for Patient presents with: Joint Pain HPI: Jonelalan Terrell is a 63 year old male [...] hand, scalp, clinical diagnosis, never been to j2ee application developer Morning stiffness : not much Had that [...] obesity He may have psoriasis? Uses cream. 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 [...] which included preparing to see the patient, axpe-gz-otij patient care, completing clinical documentation, obtaining and/or reviewing separately obtained history, performing a medically appropriate examination, counseling and educating the pat ient/family/caregiver, ordering medications, tests, or procedures, independently interpreting results (not separately reported), and communicating results to the patient/family/caregiver. documented in this encounterMem[facility] System09-27-2024 Telephone encounter Note * Telephone Encounter - Jade Salazar LPN - 11/27/2023 10:17 AM EDT Patient does not have an upcoming appt. Jade Salazar LPN [facility] Miscellaneous Notes* Telephone Encounter - Jade Salazar LPN - 11/27/2023 10:17 AM EDT Patient does not have an upcoming appt. Jade Salazar LPN documented in this encounterMemorial Health System08-28-2024 Telephone encounter Note * Telephone Encounter - Damari Monahan MA - 10/28/2023 3:20 PM EDT Pharmacy faxed requesting the following refill. Requested Prescriptions Pending Prescriptions Disp Refills sulfaSALAzine (AZULFIDINE) 500 mg tablet [Pharmacy Med Name: SULFASALAZINE 500 MG TABLET] 30 tablet0 Sig: take 1 tablet by mouth once daily Patient last appointment: 08/19/2023 Next Appointment: no follow up appt Patient Phone numbers: [phone] (home) Request is for script(s) to be escript to pharmacy. Damari Monahan MA [facility] Miscellaneous Notes* Telephone Encounter - Damari Monahan MA - 10/28/2023 3:20 PM EDT Pharmacy faxed requesting the following refill. Requested Prescriptions Pending Prescriptions Disp Refills sulfaSALAzine (AZULFIDINE) 500 mg tablet [Pharmacy Med Name: SULFASALAZINE 500 MG TABLET] 30 tablet0 Sig: take 1 tablet by mouth once daily Patient last appointment: 08/19/2023 Next Appointment: no follow up appt Patient Phone numbers: [phone] (home) Request is for script(s) to be escript to pharmacy. Damari Monahan MA documented in this encounterMemorial Health System08-19-2024 Telephone encounter Note * Telephone Encounter - [...] can also be life-threatening. Jade Salazar LPN [facility]08-[facility]24 Miscellaneous Notes* Telephone Encounter - Jade Salazar [...] life-threatening. Jade Salazar LPN documented in this encounterMemorial Health System07-26-2024 Miscellaneous Notes* Telephone Encounter - Damari Monahan MA - 09/25/2023 10:33 AM EDT Pharmacy faxed requesting the following refill. Requested Prescriptions Pending Prescriptions Disp Refills sulfaSALAzine (AZULFIDINE) 500 mg tablet [Pharmacy Med Name: SULFASALAZINE 500 MG TABLET] 30 tablet0 Sig: take 1 tablet by mouth once daily Patient last appointment: 04/20/2023 Next Appointment: no follow up Patient Phone numbers: [phone] (home) Request is for script(s) to be escript to pharmacy. Damari Monahan MA documented in this encounterMemorial Health System07-26-2024 Telephone encounter Note * Telephone Encounter - Damari Monahan MA - 09/25/2023 10:33 AM EDT Pharmacy faxed requesting the following refill. Requested Prescriptions Pending Prescriptions Disp Refills sulfaSALAzine (AZULFIDINE) 500 mg tablet [Pharmacy Med Name: SULFASALAZINE 500 MG TABLET] 30 tablet0 Sig: take 1 tablet by mouth once daily Patient last appointment: 04/20/2023 Next Appointment: no follow up Patient Phone numbers: [phone] (home) Request is for script(s) to be escript to pharmacy. Damari Monahan MA [facility] Telephone encounter Note* Telephone Encounter - Sandra Infante PA-C - 08/26/2023 3:14 PM EDT Please call patient to see if he had his labs done yet - Dr. Toribio ordered at his last appt. [facility] Miscellaneous Notes* Telephone Encounter - Sandra Infante PA-C - 08/26/2023 3:14 PM EDT Please call patient to see if he had his labs done yet - Dr. Toribio ordered at his last appt. * Telephone Encounter - Jdae Salazar LPN - 08/26/2023 11:26 AM EDT Pharmacy requesting the following refill. Veronika, Please reach out and schedule an appointment. Thanks. Requested Prescriptions Pending Prescriptions Disp Refills sulfaSALAzine (AZULFIDINE) 500 mg tablet [Pharmacy Med Name: SULFASALAZINE 500 MG TABLET] 90 tablet0 Sig: take 1 tablet by mouth once daily Patient last appointment: 08/19/2023 Next Appointment: Visit date not found Patient Phone numbers: [phone] (home) Request is for script(s) to be escript to pharmacy[id number] [place] [address] - [address] [facility] [phone] [id number] Jade Salazar LPN documented in this encounterMemorial Health System06-26-2024 Telephone encounter Note * Telephone Encounter - [...] Visit date not found Patient Phone numbers: [phone] (home) Request is for script(s) to be escript to pharmacy.[id number] [place] [address] - [address] [facility] [phone] [id number] Jade Salazar LPN [facility]24 NoteHNO ID: [id number] Author: SHARRON TORIBIO MD Service: ? 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 Uses cream. 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 [employer] Family h/o autoimmune disease - mother had [...] Nil <=8.00 IU/mL 0.0 (more content not included)...[facility]06-19-2024 History of Present illness Narrative* Sharron Toribio MD - 08/19/2023 10:08 AM EDT RHEUMATOLOGY PROGRESS NOTE Patient is here for a follow up visit for No chief complaint on file. HPI: Jonel Ileana Terrell is a 63 year old male [...] hand, scalp, clinical diagnosis, never been to j2ee application developer Morning stiffness : not much Had that [...] obesity He may have psoriasis? Uses cream. 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 [...] controlled. on SSZ at 500 mg daily. [facility] on 08/19/23 COMPREHENSIVE METABOLIC PANEL COMPLETE BLOOD COUNT AND DIFFERENTIAL VITAMIN D 25 HYDROXY No orders of the defined types were placed in this encounter. No follow-ups on file. Sharron Toribio MD I spent a total of 20 minutes on the date of the service which included preparing to see the patient, oolj-oy-jqcm patient care, completing clinical documentation, obtaining and/or reviewing separately obtained history, performing a medically appropriate examination, counseling and educating the pat ient/family/caregiver, ordering medications, tests, or procedures, and communicating results to thepatient/family/caregiver. documented in this encounterMemorial Health System03-18-2024 Miscellaneous Notes* Telephone Encounter - Jade Salazar LPN - 05/18/2023 11:59 AM EDT Pharmacy requesting the following refill. Requested Prescriptions Pending Prescriptions Disp Refills sulfaSALAzine (AZULFIDINE) 500 mg tablet [Pharmacy Med Name: SULFASALAZINE 500 MG TABLET] 60 tablet1 Sig: take 1 tablet by mouth twice a day Patient last appointment: 04/20/2023 Next Appointment: 08/19/2023 Patient Phone numbers: [phone] (home) Request is for script(s) to be escript to pharmacy.[id number] [place] [address] - [address] 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 Uses cream. 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 [...] (Temporal) Resp 10 Ht 177.8 cm (5' 10) Wt 124.7 kg(275 lb) BMI 39.46 kg/m [...] file. 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 Uses cream. 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 [employer] Family h/o autoimmune disease - mother had [...] file. Sharron Toribio MD documented in this encounterMemorial Health System07-31-2023 Miscellaneous Notes* Telephone Encounter - Mi Forbes LPN - 09/29/2022 3:41 PM EDT See telephone encounter dated 08/28/2022. Patient stopped this medication on 09/04/2022 due to side effects. Mi Forbes LPN documented in this encounterMemorial Health System07-11-2023 Miscellaneous Notes* Telephone Encounter - Mi Forbes LPN - 09/09/2022 2:20 PM EDT Patient calling to notify you that he has stopped the sulfasalazine on 09/04/2022 due to having GI discomfort. He states he was having vertigo, ringing in the ears, balance was off and just not feelingwell. He went to [facility] ER (09/04/2022) and was given Meclizine. He just wanted to keep youupdated. Mi Forbes LPN * Telephone Encounter - Mi Forbes LPN - 08/28/2022 2:42 PM EDT Patient just wanted to let you know that he was not able to start the sulfasalazine until 08/22/22 due to unforseen circumstances. It was prescribed on 07-31-2022. Mi Forbes LPN documented in this encounterMemorial Health System07-06-2023 Discharge summary Author Floyd Vickers [facility] September 04, 2022 8:06pm Note Date/Time September 04, 2022 6:26p m [facility] Medical Records Department [address] [place] [address] Emergency Department Summary 09/04/22 MR#: [id number] Acct: [id number] Name: JONEL TERRELL Rep #:[id number] : 1960 62 From: Folyd Vickers MD PCP: Dr. Zahra Guerrero MD Status:RE G ER Location: ED HPI History of Present Illness Chief Complaint: Dizziness Informant: patient Onset/Context/Timing Onset: Days (2-3) Context: Gradual Onset Timing: Intermittent Quality: dizzy Location: head Current Severity: Gone Maximum Severity: [...] has been experiencing intermittent tinnitus bilaterally, andstates this feels different than vertigo suggesting that he had vertigo from his [...] is urinating less, and it is orange. [facility] Medical History (Updated 09/04/22 @ 20:01 by [...] ED Constitutional Constitutional ED: Reports other Details: felt cold all day today ; Denies chills or fever(s) Eyes Eyes: [...] no sensory deficits noted Neuro Narrative: Normal emmtba-fa-gedq and rjdn-ay-vbtw bilaterally Sensorium / Orientation: awake and alert [...] results that every time he gets the dizziness, he gets a whooshing type of feeling [...] (Auto) 68.3 Lymph % (Auto) 11.5 L [place] % (Auto) 11.9 H Eos % (Auto) [...] Clarity Clear Urine pH 7.0 Ur Specific [place] 1.010 Urine Protein Negative Urine Glucose (UA) [...] your Primary Care Provider. Call [facility] ([phone]) or report to the closest Emergency Room. Call 911 if necessary. 09/04/222005 <Electronically signed by Floyd Vickers MD> Cosigner Signature (if applicable): CC: Dr. 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 Uses cream. 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 [employer] Family h/o autoimmune disease - mother had [...] (97.9 F) (Temporal) Ht 180.3 cm (5' 11) Wt 122.9 kg (271 lb) SpO2 95% [...] file. Sharron Toribio MD documented in this encounterMemorial Health System12-26-2022 NoteHNO ID: [id number] Author: Geraldine Bose APRN.[employer] Service: ? Author Type: Nurse Practitioner Type: [...] 02/27/22. He rates his sinus pain as pretty severe and has had some dizziness at times. [...] Discussed expected course of illness Geraldine Bose APRN.[facility] History of Present illness Narrative* Geraldine Bose APRN.[employer] - 02/24/2022 2:32 PM EST Images from [...] 02/27/22. He rates his sinus pain as pretty severe and has had some dizziness at times. [...] illness Geraldine Bose APRN.CNP documented in this encounterMemorial Health System12-26-2022 Instructions* Patient Instructions* Geraldine Bose APRN.CNP - [...] Discussed expected course of illness Geraldine Bose APRN.RONALDO documented in this encounterMemorial Health System12-17-2022 NoteHNO ID: [id number] Author: Thuy Godwin APRN.RONALDO Service: ? Author Type: Nurse Practitioner Type: Progress Notes Filed: 02/15/2022 1:50 PM Note Text: This note was created using [employer] Group[employer]. Subjective Jonel Terrell is a 61 year [...] history is provided by the patient. No lang interpreter was used. Sinus Problem This is a [...] and atraumatic. Right Ear: (more content not included)...[facility]12-17-2022 History of Present illness Narrative* Thuy Godwin APRN.[facility] - 02/15/2022 1:38 PM EST This note [...] history is provided by the patient. No lang interpreter was used. Sinus Problem This is a [...] if symptoms persist or worsen. 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 Uses cream. 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 [...] of a biceps tendon tear. Results for DEONTE TERRELLZO Ileana ( ) as of 07/31/2021 09:17 Ref. [...] 07/31/2022). 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 Uses cream. 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 [...] file. Sharron Toribio MD documented in this encounterMemorial Health SystemEvaluation note* Diagnosis Pain in joint, multiple sites- Primary [facility] encounter [facility]* Diagnosis Pain in joint, multiple sites documented [facility] this encounter [facility]* Diagnosis Pain in joint, multiple sites- Primary Primary osteoarthritis involving multiple joints documented in this encounter [facility] SystemEvaluation noteNo assessment information availableWMedina Hospital Work Phone: Evaluation note* Diagnosis Onset Date Resolution Status Asthma chronic [facility] Work Phone: Evaluation note* Diagnosis Rhinosinusitis- Primary Unspecified sinusitis (chronic) Acute otitis media, left Unspecified otitis media documented in this encounter [facility]* Diagnosis Sinusitis, unspecified chronicity, unspecified location- Primary documented in this encounter [facility]* Diagnosis Neck pain- Primary Cervicalgia 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 [facility] encounter [facility]* Diagnosis Onset Date Resolution Status Aortic root aneurysm chronic Asthma chronic CAD (coronary artery disease) chronic Hyperlipemia chronic Hypertension chronic Morbid obesity chronic HASMUKH (obstructive sleep apnea) chronic [facility] Work Phone: Evaluation note* Diagnosis 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 [facility]* Diagnosis Pain in joint, multiple sites- Primary Primary osteoarthritis involving multiple joints Inflammatory arthritis Unspecified inflammatory polyarthropathy Psoriatic arthropathy (HCC) Psoriatic arthropathy [facility]* Diagnosis Onset Date Resolution Status Aortic root aneurysm chronic Asthma chronic CAD (coronary artery disease) chronic Hyperlipemia chronic Hypertension chronic Morbid obesity chronic HASMUKH (obstructive sleep apnea) chronic Asthma chronic [facility] Work Phone: Evaluation note* Diagnosis Pain in joint, multiple sites- Primary Vitamin D deficiency Unspecified vitamin D deficiency 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 [facility]* Diagnosis 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 [facility]* Diagnosis Pain in joint, multiple sites- Primary Vitamin D deficiency Unspecified vitamin D deficiency Psoriatic arthropathy (HCC) Psoriatic arthropathy [facility]* Diagnosis 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 Follow-up with your dentist as scheduled.[facility] Work Phone: Reason for referral (narrative)* Diagnostic Procedure Only (Routine) - Closed Specialty Diagnoses / Procedures Referred By Contac t Referred To Contact XR IMAGING Diagnoses Pain in joint, multiple sites Procedures XR CERV GENERAL 2V AP/LAT RADEX SPINE CERVICAL 2 OR 3 VIEWS Sharron Toribio MD [address] [facility] [address] [place] [address] Xr Imaging Referral ID Status Reason Start Date Expiration Date V isits Requested Visits Authorized [id number] Closed Auto-Generate d Referral 06/27/2021 07/27/2022 1 1 [facility] for referral (narrative)* Diagnostic Procedure Only (Routine) - Closed Specialty Diagnoses / Procedures Referred By Contac t Referred To Contact XR IMAGING Diagnoses Pain in joint, multiple sites Procedures XR CERV GENERAL 2V AP/LAT RADEX SPINE CERVICAL 2 OR 3 VIEWS Sharron Toribio MD [address] [place] [address] Xr Imaging Referral ID Status Reason Start Date Expiration Date V isits Requested Visits Authorized [id number] Closed Auto-Generate d Referral 06/27/2021 07/27/2022 1 1 [facility] for referral (narrative)No reason for referral information availableWMedina Hospital Work Phone: Rerwaq for visit Narrative* Diagnostic Procedure Only (Routine) - Closed Specialty Diagnoses / Procedures Referred By Contac t Referred To Contact XR IMAGING Diagnoses Pain in joint, multiple sites Procedures XR CERV GENERAL 2V AP/LAT RADEX SPINE CERVICAL 2 OR 3 VIEWS Sharron Toribio MD [address] [place] [address] Xr Imaging Referral ID Status Reason Start Date Expiration Date V isits Requested Visits Authorized [id number] Closed Auto-Generate d Referral 06/27/2021 07/27/2022 1 1 [facility] Advance Directives No Advanced Directives Records Found Advance Directive Response Recorded Date/ Time Living Will No October 18 9 10:53am Power of Director Of Instructional Technology No October 18 019 10:53am Advance Directive Response Recorded Date/ Time Living Will No February 19 12:22am Power of Director Of Instructional Technology No February 19, 2022 12:22am Advance Directive Response Recorded Date/ Time Living Will No February 19 022 1:22am Power of Director Of Instructional Technology No February 19, 2022 1:22am Advance Directive Response Recorded Date/ Time Living Will No September 04, 2022 6 :41pm Power of Director Of Instructional Technology No September 04, 2022 6:41pm Advance Directive Response Recorded Date/ Time Living Will No October 20 3 1:50am Power of Director Of Instructional Technology No October 20, 2 023 1:50am Advance Directive Response Recorded Date/ Time Living Will No October 20 3 12:50am Power of Director Of Instructional Technology No October 20, 2 023 12:50am Chief [...] for Visit Admit Date Aortic root aneurysm June 15, 2024 1: 45pm Asthma June 15, 2024 1:4 [...] unspecified location Procedures CONSULT TO ENT OFFICE/OUTPATIENT [facility] 60-74 MINUTES Geraldine Bose APRN.[employer] [address] [place] [address] Referral ID Status Reason Start Date Expiration Date Visits Requested Visits Authorized [id number] Authorized PCP Requested Referral 2 02/24/2023 1 [...] or prosecute any alcohol or drug abuse patient.[facility] SystemIn the event this information is protected by the Federal Confidentiality of Alcohol and Drug Abuse Patient Records regulations: The Federal rules restrict any use of the information to criminally investigate or prosecute any alcohol or drug abuse patient.[facility] SystemIn the event this information is protected by the Federal Confidentiality of Alcohol and Drug Abuse Patient Records regulations: The Federal rules restrict any use of the information to criminally investigate or prosecute any alcohol or drug abuse patient.[facility] SystemIn the event this information is protected by the Federal Confidentiality of Alcohol and Drug Abuse Patient Records regulations: The Federal rules restrict any use of the information to criminally investigate or prosecute any alcohol or drug abuse patient.[facility] SystemIn the event this information is protected by the Federal Confidentiality of Alcohol and Drug Abuse Patient Records regulations: The Federal rules restrict any use of the information to criminally investigate or prosecute any alcohol or drug abuse patient.[facility] SystemIn the event this information is protected by the Federal Confidentiality of Alcohol and Drug Abuse Patient Records regulations: The Federal rules restrict any use of the information to criminally investigate or prosecute any alcohol or drug abuse patient.[facility] SystemIn the event this information is protected by the Federal Confidentiality of Alcohol and Drug Abuse Patient Records regulations: The Federal rules restrict any use of the information to criminally investigate or prosecute any alcohol or drug abuse patient.[facility] SystemIn the event this information is protected by the Federal Confidentiality of Alcohol and Drug Abuse Patient Records regulations: The Federal rules restrict any use of the information to criminally investigate or prosecute any alcohol or drug abuse patient.[facility] SystemIn the event this information is protected by the Federal Confidentiality of Alcohol and Drug Abuse Patient Records regulations: The Federal rules restrict any use of the information to criminally investigate or prosecute any alcohol or drug abuse patient.[facility] SystemIn the event this information is protected by the Federal Confidentiality of Alcohol and Drug Abuse Patient Records regulations: The Federal rules restrict any use of the information to criminally investigate or prosecute any alcohol or drug abuse patient.[facility] SystemIn the event this information is protected by the Federal Confidentiality of Alcohol and Drug Abuse Patient Records regulations: The Federal rules restrict any use of the information to criminally investigate or prosecute any alcohol or drug abuse patient.[facility] SystemIn the event this information is protected by the Federal Confidentiality of Alcohol and Drug Abuse Patient Records regulations: The Federal rules restrict any use of the information to criminally investigate or prosecute any alcohol or drug abuse patient.[facility] SystemIn the event this information is protected by the Federal Confidentiality of Alcohol and Drug Abuse Patient Records regulations: The Federal rules restrict any use of the information to criminally investigate or prosecute any alcohol or drug abuse patient.[facility] SystemIn the event this information is protected by the Federal Confidentiality of Alcohol and Drug Abuse Patient Records regulations: The Federal rules restrict any use of the information to criminally investigate or prosecute any alcohol or drug abuse patient.[facility] SystemIn the event this information is protected by the Federal Confidentiality of Alcohol and Drug Abuse Patient Records regulations: The Federal rules restrict any use of the information to criminally investigate or prosecute any alcohol or drug abuse patient.[facility] SystemIn the event this information is protected by the Federal Confidentiality of Alcohol and Drug Abuse Patient Records regulations: The Federal rules restrict any use of the information to criminally investigate or prosecute any alcohol or drug abuse patient.[facility] SystemIn the event this information is protected by the Federal Confidentiality of Alcohol and Drug Abuse Patient Records regulations: The Federal rules restrict any use of the information to criminally investigate or prosecute any alcohol or drug abuse patient.[facility] SystemIn the event this information is protected by the Federal Confidentiality of Alcohol and Drug Abuse Patient Records regulations: The Federal rules restrict any use of the information to criminally investigate or prosecute any alcohol or drug abuse patient.[facility] SystemIn the event this information is protected by the Federal Confidentiality of Alcohol and Drug Abuse Patient Records regulations: The Federal rules restrict any use of the information to criminally investigate or prosecute any alcohol or drug abuse patient.[facility] Reason for Visit (unrecogniz ed section and [...] Care Teams (unrecognized sec tion and content) Third Mate Relationship Specialty Start Date End Date Zahra Guerrero [address] [facility] [address] [place] [address] PCP - General Family Practice 06/27/21 Third Mate Relationship Specialty Start Date End Date Zahra Guerrero [address] [facility] [address] [place] [address] PCP - General Family Practice 06/27/21 Third Mate Relationship Specialty Start Date End Date Zahra Guerrero [address] [facility] [address] [place] [address] PCP - General Family Practice 06/27/21 Third Mate Relationship Specialty Start Date End Date Zahra Guerrero [address] [facility] [address] [place] [address] PCP - General Family Medicine 06/27/21 Third Mate Relationship Specialty Start Date End Date Zahra Guerrero [address] [facility] [address] [place] [address] PCP - General Family Medicine 06/27/21 Team [...] Pr ovider, Attending Provider, Referring Provider Active Third Mate Relationship Specialty Start Date End Date Zahra Guerrero [address] [place], [place] [id number] PCP - General Family Medicine 06/27/21 Team [...] MD Primary Care Provider Active Zahra Graham BEHAVIORAL INSTRUCTOR, BEHAVIORAL INSTRUCTOR-C Attending Provider Active Team Status: Inactive Member Role Status Dates Dr. Zahra Guerrero MD Primary Care Provider Active Dr. Lu Styles MD Attending Provider, Referring Pr ovider Active Team Status: Inactive Member Role Status Dates Dr. Zahra Guerrero MD Primary Care Provider Active Dr. Floyd Vickers MD Attending Provider, Emergency Provider Active Team Status: Inactive Member Role Status Dates Dr. Zahra Guerrero MD Primary Care Provider Active Dr. Latonia Mann MD Emergency Provider Active Third Mate Relationship Specialty Start Date End Date Zahra Guerrero MD [address] [place], [place] [id number] PCP - General Family Medicine 06/27/21 Third Mate Relationship Specialty Start Date End Date Zahra Guerrero MD [address] [facility] [address] [place], [place] [address] PCP - General Family Medicine 06/27/21 Third Mate Relationship Specialty Start Date End Date Zahra Guerrero MD [address] [facility] [address] [place], [place] [id number] PCP - General Family Medicine 06/27/21 Team [...] Anjelica Pate MD Attending Provider, Referring P rafaelader Active Dr. Zahra Guerrero MD Primary Care Provider Active Team Status: Active Member Role Status Dates Dr. Zahra Guerrero MD Primary Care Pr ovider, Attending Provider, Referring Provider Active Third Mate Relationship Specialty Start Date End Date Zahra Guerrero MD [address] [facility] [address] [place] [address] PCP - General Family Medicine 06/27/21 Third Mate Relationship Specialty Start Date End Date Zahra Guerrero MD [address] [facility] [address] [place] [address] PCP - General Family Medicine 06/27/21 Third Mate Relationship Specialty Start Date End Date Zahra Guerrero MD [address] [facility] [address] [place] [address] PCP - General Family Medicine 06/27/21 Third Mate Relationship Specialty Start Date End Date Zahra Guerrero MD [address] [facility] [address] [place], [place] [id number] PCP - [facility] 06/27/21 Team Status: Inactive Member Role [...] June 02, 2024 End: June 02, 2024 Third Mate Relationship Specialty Start Date End Date Zahra Guerrero MD [address] [facility] [address] [place], [place] [address] PCP - [facility] 06/27/21 Team Status: Active Member Role Status [...] July 12, 2024 End: July 12, 2024 Team Status: Active Member Role/Relationship Status Dates Dr. Zahra Guerrero MD Primary Care Provider Active Team Status: Inactive Member Role/Relationship Status Dates Dr. Zahra Guerrero MD Primary Care Provider Active Start: June 02, 2024 End: June 02, 2024 Dr. Zahra Guerrero MD Attending Provider Active Start: June 02, 2024 End: June 02, 2024 Dr. Zahra Guerrero MD Referring Provider Active Start: June 02, 2024 End: June 02, 2024 Team Status: Inactive Member Role/Relationship Status Dates Dr. Zahra Guerrero MD Primary Care Provider Active Start: June 15, 2024 End: June 15, 2024 Dr. Zahra Guerrero MD Referring Provider Active Start: June 15, 2024 End: June 15, 2024 Dr. Lu Styles MD Attending Provider Active Start: June 15, 2024 End: June 15, 2024 Team Status: Inactive Member Role/Relationship Status Dates Dr. Zahra Guerrero MD Primary Care Provider Active Start: June 16, 2024 End: June 16, 2024 Dr. Heber Keller MD Attending Provider Active Start: June 16, 2024 End: June 16, 2024 Dr. Hbeer Keller MD Referring Provider Active Start: June 16, 2024 End: June 16, 2024 Team Status: Inactive Member Role/Relationship Status Dates Dr. Zahra Guerrero MD Primary Care Provider Active Start: July 12, 2024 End: July 12, 2024 Dr. Heber Keller MD Attending Provider Active Start: July 12, 2024 End: July 12, 2024 Dr. Hbeer Keller MD Referring Provider Active Start: July 12, 2024 End: July 12, 2024 Team Status: Inactive Member Role/Relationship Status Dates Dr. Zahra Guerrero MD Primary Care Provider Active Start: September 22, 2024 End: September 22, 2024 Dr. Zahra Guerrero MD Attending Provider Active Start: September 22, 2024 End: September 22, 2024 Dr. Zahra Guerrero MD Referring Provider Active Start: September 22, 2024 End: September 22, 2024 Goals (unrecognized section and content) Goals [...] section and content) DATE CREATED AUTHOR 08/12/2022 [facility] DATE CREATED AUTHOR AUTHOR'S ORGANIZ ATION 06/16/2024 [facility] DATE CREATED AUTHOR AUTHOR'S LYNDSEY ATION 10/17/2024 [facility] FOR RECORDS PERTAINING TO PATIENTS WHO ARE [...] BE BASED ON THE PRIMARY CLINICAL RECORDS. [facility] [employer] [facility]. provides no warranty or guarantee of the accuracy or completeness of information in this document.
[2024-10-17] MEDS: Lactated Ringers 1,000 ML 15 ML IV (07:44)
[2024-10-17] MEDS: Oxymetazoline 0.05% 1 SPRAY SPRAY.BTL 3 SPRAY NASAL (07:45)
--- NOTE | 2024-10-17 08:35 | PRE.ANES_ITS ---
ASA Classification* ASA Classification ASA Classification: 2 Assessment & Plan Anesthesia* Anesthesia Assessment Anesthesia Assessment: Discussed sedation and/or anesthesia options, risks, benefits, and alternatives with patient/parents/legal guardian/POA. Questions invited. The patient/parents/legal guardian/POA seems to understand and agrees to proceed with anesthesia plan. Reviewed the physical assessment, medical history, allergy history and patient home medications list prior to surgery/procedure/anesthetic and documented any changes. Performed airway and anesthesia risk assessments. Anesthesia Type Anesthesia Type: General History Source History Obtained from:: Patient and Chart Anesthesia Focused Assessment* Temperature: 97.0 F Pulse Rate: 55 Blood Pressure: 144/87 Respiratory Rate: 16 Pulse Ox: 95 Oxygen Delivery Method: Room Air Airway Assessment Mouth opens: >3 cm Mallampati Score: I Teeth Condition: Chipped/Broken (Patient had left lower molar with a chipped broken off.) and Missing (Patient has 1 missing tooth right upper molar.) Neck Range of motion (ROM): Limited ROM (Slight Decrease) Labs Anesthesia Preop lab: CBC WBC 8.8 K/mm3 (4.4-11.0) 09/22/24 09:34 09/22/24 RBC 4.60 M/mm3 (4.6-6.2) 09/22/24 09:34 09/22/24 Hgb 13.9 g/dL (13.0-16.5) 09/22/24 09:34 09/22/24 Hct 42.4 % (40-54) 09/22/24 09:34 09/22/24 Plt Count 286 K/mm3 (150-450) 09/22/24 09:34 09/22/24 CHEMISTRY Potassium 3.7 mmol/L (3.3-5.1) 09/22/24 09:34 09/22/24 Sodium 138 mmol/L (133-145) 09/22/24 09:34 09/22/24 Magnesium 2.2 mg/dL (1.6-2.6) 03/25/24 10:45 03/25/24 BUN 20 mg/dL (4-19) H 09/22/24 09:34 09/22/24 Creatinine 0.96 mg/dL (0.70-1.20) 09/22/24 09:34 09/22/24 Glucose 124 mg/dL (70-99) H 09/22/24 09:34 09/22/24 POC Glucose 146 mg/dL (74-106) H 10/17/24 07:56 10/17/24 TSH 2.63 uIU/mL (0.358-3.74) 04/14/23 08:43 COAG Pre-Assessment Diagnosis/Proposed Procedure Planned Operative Procedure(s): FUNCTIONAL SINUS SURGERY Anesthesia History Anesthesia History - engineer design and construction: Anesthesia History - engineer design and construction Hx Hospitalization No 10/03/24 15:54 Any Problems With Anesthesia No 10/03/24 15:54 Cholinesterase deficiency No 10/03/24 15:54 You/Your Family Experience No 10/03/24 15:54 fever (hyperthermia) with Relationship Recent Exposure to Contagious No 10/17/24 07:32 Disease Does patient have nerve No 10/03/24 15:54 stimulator Patient instructed to have device shut off --Does patient have Pacemaker No 10/17/24 07:35 or ICD? When Was Last Pacemaker Check QUESTION #4 FULL TEXT: You/Your Family Experience fever (hyperthermia) with Anesthesia Last Oral Intake Last Oral intake: Last Oral Intake NPO since 23:45 10/17/24 07:35 Meds taken in AM with sips of water? Meds patient instructed to take am of surgery Any additional information?: Yes Meds taken in AM with sips of water?: Yes PONV PONV - engineer design and construction: PONV - engineer design and construction Female No 10/03/24 15:54 HX of Motion Sickness No 10/03/24 15:54 HX of N/V After Surgery No 10/03/24 15:54 Non-Smoker Yes 10/03/24 15:54 Duration of Surgery greater Yes 10/03/24 15:54 than 60 minutes Number of Risk Factors 2 10/03/24 15:54 PONV Score Moderate Risk 10/03/24 15:54 Height & Weight Height & Weight: Anesthesia: Height & Weight Height 6 ft 10/17/24 07:35 Weight: 126.099 kg 10/17/24 07:35 Body Mass Index (BMI) 37.7 10/17/24 07:35 Respiratory Assessment Respiratory Assessment - engineer design and construction: Respiratory Tract Infection Hx - engineer design and construction Hx Respiratory Tract Infection Yes: SINUS INFECTIONS 10/03/24 15:54 ONGOING STOP Sleep Apnea STOP Sleep Apnea - engineer design and construction: STOP Sleep Apnea - engineer design and construction Hx Hypertension Yes: CONTROLLED WITH MEDS 10/03/24 15:54 Hx Sleep Apnea Yes: DOES NOT WEAR 10/03/24 15:54 CPAP No 10/03/24 15:54 BIPAP No 10/03/24 15:54 Do you snore loudly (louder than talking or can be heard Do you often feel tired/ fatigued/ sleepy during daytime? Has anyone observed you stop breathing during sleep? STOP Results Positive 10/03/24 15:54 QUESTION #5 FULL TEXT : Do you snore loudly (louder than talking or can be heard through closed doors)? Tobacco Use History Tobacco Use History - engineer design and construction: Tobacco Use History - engineer design and construction Tobacco Use Smoking Status Former smoker 10/03/24 15:54 Hx Tobacco Use Yes 10/03/24 15:54 Years Smoking Packs Smoked per Day Smoking Cessation Date was Yes - quit smoking within 15 10/03/24 15:54 within the last 15 years years Hx Smoking Cessation Date Hx Smoking Cessation Counseling Hematologic Medial History Hematologic Hx - engineer design and construction: Hematologic Medical Hx - fabric normalizer Hx of Blood Transfusion No 10/03/24 15:54 Hx of Transfusion in last 3 No 10/03/24 15:54 Months Date of Last Transfusion (if within last 3 months) Ever experience any problems No 10/03/24 15:54 with transfusion(s)? Specify any problems Hx of Preganancy in last 3 N/A 10/03/24 15:54 Months Nurse Filling Out Transfusion [email or web address] 10/03/24 15:54 & Questions: Date: 10/03/24 10/03/24 15:54 Time: 15:58 10/03/24 15:54 Patient unable to answer at this time (ie. confused, unrespo /Reproduction History /Reproductive History - engineer design and construction: /Reproductive Hx- engineer design and construction Hx Now Gestational Age (in weeks): EDC: Hx Hx Para Hx Section SAB Active Medications Active Medications: Current Medications Generic Name Dose Route Start Last Admin Trade Name Freq PRN Reason Stop Dose Admin Lactated Ringer's 1,000 mls @ 15 mls/hr 10/17/24 07:15 10/17/24 07:44 IV 15 mls/hr .Q48H JEAN Administration Oxymetazoline HCl 3 spray 10/17/24 09:55 10/17/24 07:45 Oxymetazoline 0.05% 1 [place].Btl NASAL 10/17/24 09:56 3 spray PREOP ONE Administration PFSH Medical History Rheumatoid arthritis Former smoker Sleep apnea Leg cramps History of echocardiogram History of stress test Cardiology follow-up encounter Dental abscess Polyarticular psoriatic arthritis BPPV (benign paroxysmal positional vertigo) Tear of biceps muscle Neck pain Cervical radiculopathy DDD (degenerative disc disease), cervical Hand pain Pulmonary nodules CAD (coronary artery disease) Lightheadedness Nonspecific dizziness Allergic rhinitis Tobacco dependence in remission Morbid obesity Asthma Hemorrhoids Acid reflux Arthritis Gout Diabetes Hypertension HASMUKH (obstructive sleep apnea) Mild intermittent asthma Aortic root aneurysm Hyperlipemia LVH (left ventricular hypertrophy) Home Medications ?Medication ?Instructions ?Recorded ?Last Taken ?Type aspirin 81 mg tablet,delayed 81 mg PO QDAY heart 04/0210/10/24 History release (Adult Low Dose Aspirin) metformin 1,000 mg tablet 1,000 mg PO BIDWMEAL 3 10/16/24 History metoprolol succinate 50 mg 50 mg PO DAILY 09/11/22 20:00 History tablet,extended release 24 hr albuterol sulfate 90 mcg/actuation 2 puff inhalation Q 6H PRN 12/21/23 Unknown Rx aerosol inhaler shortness of breath or wheez ing #8.5 grams hydrochlorothiazide 25 mg tablet 25 mg PO QDAY #90 tab s 12/29/23 10/15/24 Rx mometasone-formoterol HFA 200 2 puff inhalation BID #3 ea 09/20/24 10/16/24 Rx mcg-5 mcg/actuation aerosol inhaler (Dulera) cetirizine 10 mg tablet (24Hour 10 mg PO DAILY 5 10/16/24 History Allergy) fluticasone propionate 50 1 - 2 spray intranasal DAILY PRN 10/03/24 10/16/24 History mcg/actuation nasal allergy symptoms spray,suspension prednisone 20 mg tablet 20 mg PO DAILY 10/17/2409/30 History Allergy/AdvReac Type Severity Reaction Status Date / Time peanut Allergy Severe Anaphylaxis Verified 10/17/24 07:28 lisinopril Allergy Intermediate Angioedema Verified 10/17/24 07:28 metronidazole (From Flagyl) Allergy Hives Verified 10/17/24 07:28 amlodipine AdvReac Mild Rash Verified 10/17/24 07:28 Family History Mother Asthma Surgical History [place] teeth removed Hx of colonoscopy Hx of umbilical hernia repair Social History Smoking Status: Former smoker Smokeless tobacco user: chewing tobacco how long ago did patient quit smokin, 2p/day second hand exposure: Yes alcohol intake: current alcohol intake frequency: a few times a month substance use type: does not use caffeine: Yes Type: coffee Number of servings: 10 what type of physical activity do you participate in: none frequency: does not exercise seatbelt use: always Review of Systems (Anesthesia) ROS Narrative System reviewed and no additional complaints, except as documented.
--- NOTE | 2024-10-17 09:00 | ETH_PTH ---
PATIENT: JONEL FRITZ LOC: [facility] U#:[id number] AGE/SX: 64/M ROOM: RE10/17/[address]: Dr. Yusuf Keller MD : 1960 BED: DIS: 10/17/2024 SPEC #: [id number] RECD: 10/17/24 13:18 STATUS: SIM NICK #: [id number] KARINE: 10/17/24 09:[address]: Yusuf Keller DEPT: SURGICAL PATHOLOGY RECD BY: Giacomo Fontanez ENTERED: 10/17/24 14:00 SP TYPE: ETH TISS OTHR DR: Dr. Kevin Borden MD Tissues: A - Ethmoid sinus, NOS B - Ethmoid sinus, NOS Procedures: Special Stain Group I Surgery Specimen Level IV GMS Stain (control) HEADER OPERATION: Functional endoscopic sinus surgery with Navigation PRE-OP DIAGNOSIS: Chronic sinusitis, nasal congestion, polyp of nasal cavity, hypertrophy of nasal turbinates, deviated nasal septum TISSUE SUBMITTED: A- Right nasal contents, B- Left nasal contents MICROSCOPIC DIAGNOSIS A. Nose, right, contents, functional endoscopic sinus surgery: - Sinonasal mucosa with mild chronic inflammation including eosinophils. - Mucin with neutrophilic aggregates. - PASD stain negative for fungal organisms. - Unremarkable trabecular bone fragments. B. Nose, left, contents, functional endoscopic sinus surgery: - Sinonasal mucosa with mild chronic inflammation including eosinophils. - Polypoid fragments of sinonasal mucosa consistent with inflammatory polyp. - Mucin with neutrophilic aggregates. - PASD stain negative for fungal organisms. - Unremarkable trabecular bone fragments. MICROSCOPIC DESCRIPTION Slides are reviewed. ?All matched controls reacted appropriately. These tests were developed and their performance characteristics determined by [facility]. They may not have been cleared or approved by the U.S. Food and Drug Administration. The FDA has determined that such clearance or approval is not necessary.? The above immunohistochemical?markers and/or special stains have been reviewed by the Pathologist. GROSS DESCRIPTION Received in 2 formalin containers labeled with the patient's name and date of . Designated as: A. Right nasal contents is a 4.0 x 3.2 x 1.2 cm aggregate of obyd-pink to red soft to rubbery tissue fragments, clotted blood and flecks of apparent bone. [employer] sections are submitted in 1 cassette, following brief decalcification. B. Left nasal contents is a 4.0 x 2.6 x 1.2 cm aggregate of boyd-pink to red soft to rubbery tissue fragments, clotted blood and flecks of apparent bone. [employer] sections are submitted in 1 cassette, following brief decalcification. NV 10/17/2024 CPT:32961m5,[id number]
--- NOTE | 2024-10-17 09:05 | PCM.DC.SUM ---
Providers Primary Care Physician: Dr. Kevin Borden MD Reason For Visit: Functional Endoscopoic Sinus Surgery, Septoplasty Medications at Discharge Home Medications aspirin 81 mg tablet,delayed release (Adult Low Dose Aspirin) 81 mg PO QDAY heart 04/02/17 metformin 1,000 mg tablet 1,000 mg PO BIDWMEAL 09/11/22 metoprolol succinate 50 mg tablet,extended release 24 hr 50 mg PO DAILY 09/11/22 albuterol sulfate 90 mcg/actuation aerosol inhaler 2 puff inhalation Q6H PRN shortness of breath or wheezing #8.5 grams 12/21/23 hydrochlorothiazide 25 mg tablet 25 mg PO QDAY #90 tabs 12/29/23 mometasone-formoterol HFA 200 mcg-5 mcg/actuation aerosol inhaler (Dulera) 2 puff inhalation BID #3 ea 09/20/24 cetirizine 10 mg tablet (24Hour Allergy) 10 mg PO DAILY 10/03/24 fluticasone propionate 50 mcg/actuation nasal spray,suspension 1 - 2 spray intranasal DAILY PRN allergy symptoms 10/03/24 prednisone 20 mg tablet 20 mg PO DAILY 10/17/24 Weight / BMI Weight Weight: 126.099 kg Body Mass Index (BMI) 37.7 ABG / Lab / Microbiology Data Laboratory: Laboratory Results - last 24 hr 10/17/24 07:56: POC Glucose 146 H D/C Instructions Additional Activity Instructions: No nose blowing Start irrigation on 10/18/24. Irrigate 4x/day DC O2, CPAP, BIPAP Needs Home O2 Discharge instructions: No Please Follow Up With: Yusuf Keller MD When: next week Meaningful Use Info Meaningful Use Meaningful Use Diagnoses (Choose all that apply): None applicable Discharge Plan Admission Attending Provider: Yusuf Keller Primary Care Provider: Kevin Borden Instructions Print Language: [place] Citizen Discharge Orders/Prescriptions Prescriptions: No Action aspirin [Adult Low Dose Aspirin] 81 mg tablet,delayed release (DR/EC) 81 mg PO QDAY metoprolol succinate 50 mg tablet extended release 24 hr 50 mg PO DAILY metformin 1,000 mg tablet 1,000 mg PO BIDWMEAL albuterol sulfate 90 mcg/actuation HFA aerosol inhaler 2 puff inhalation Q6H PRN (Reason: shortness of breath or wheezing) Qty: 8.5 11RF Rx Instructions: administer with spacer hydrochlorothiazide 25 mg tablet 25 mg PO QDAY Qty: 90 3RF cetirizine [24Hour Allergy] 10 mg tablet 10 mg PO DAILY fluticasone propionate 50 mcg/actuation spray,suspension 1 - 2 spray INTRANASAL DAILY PRN (Reason: allergy symptoms) prednisone 20 mg tablet 20 mg PO DAILY Dulera 200-5 mcg/actuation HFA aerosol inhaler 2 puff INHALATION BID Qty: 3 3RF Other Ambulatory Orders: 12 Lead EKG (Routine) Timeframe: [id number] Location: None Selected Ordered By: Dr. Viral Berumen Referrals / Follow Up: Kevin Borden MD [Primary Care Provider] - Disposition Disposition (needs filled in before D/C Order can be placed): Home, Self Care
--- NOTE | 2024-10-17 09:31 | PCM.OPRPT ---
Operative Report (Standard) Operative Information Date of Procedure: 10/17/24 Pre-Operative Diagnosis: chronic sinusitis with polyposis Post-Operative Diagnosis: same Surgery/Procedure Performed: Bilateral total ethmoidectomy Bilateral sphenoidotomy Bilateral maxillary antrostomy with tissue removal Use of navigation wastewater technician: No Type of Anesthesia: General RN Documented Start/Stop Times: Operation Date: 10/17/24 09:00 Case Time Into Pre-Op 10/17/24 07:14 Procedure Start Time: 09:56 Procedure Stop Time: 11:16 Select all DRAINS/GRAFTS/IMPLANTS that apply: None Estimated Blood Loss: minimal Specimen collected: Yes Description of specimen(s) removed: right and left sinus contents Description of surgery: The patient was taken to the operating room on 10/17/2024. The patient was placed in the supine position on the operating table. The patient was given sufficient general endotracheal anesthesia. The head of bed was elevated 30 degrees. The navigation system was placed and verified per protocol and found to be accurate. 0 and 30 degrees rigid nasal endoscopes were used throughout the entire case. I did not feel that a septoplasty was necessary for access to either sinus (left or right). The middle turbinate, uncinate process and polyps were injected with 1% lidocaine with epinephrine bilaterally. The right middle turbinate was medialized with a [place] elevator. Polyp was removed from the middle meatus using a sinus shaver. A ball-tipped sinus seeker was placed into the patient's maxillary sinus. The maxillary antrostomy was created with a backbiter widened posteriorly with Osvaldo-Cut forceps. Thick inspissated secretions were removed from the maxillary sinus with irrigation, [place] hossein forceps and suction. The uncinate process was taken down using a microdebrider. Next, the ethmoid bulla was opened with a small curette. Anterior and posterior ethmoidectomy were then carried out using curette, sinus shaver and 45 degree [place] Hossein forceps. Ethmoid cells were verified for relation to the skull base and orbit prior to being entered with the navigation system. The front face of the sphenoid was opened with a suction. Osvaldo-Cut forceps were then used to widen the opening. I then placed Afrin pledgets into the sinonasal cavity. Next attention was turned to the left side. The middle turbinate was medialized with a [place] elevator. A large polyp was removed from the middle meatus using a sinus shaver. The maxillary antrostomy was created with a backbiter and widen posteriorly with Osvaldo-Cut forceps. Thick inspissated secretions were removed from the maxillary sinus with forceps and irrigation. The uncinate process was taken down using a sinus shaver. The ethmoid bulla was opened with a small curette. Anterior posterior ethmoidectomy were then carried out using a sinus shaver curette and [place] Hossein forceps. Ethmoid cells were verified for relation to the skull base and orbit prior to being entered with the navigation system. There was a polyp occluding the natural sphenoid ostia. This was removed with a sinus shaver. The sphenoid was then opened on the left side using a sinus shaver and confirmed with navigation. Hemostasis was then achieved using Afrin pledgets. The pledgets were then removed bilaterally and Hemoblast powder was applied bilaterally for absolute hemostasis. The procedure was then terminated. The patient was then awoken and brought to the recovery room in stable condition. blood loss approximately 30 cc, replacement none. Sponge, needle, instrument count were correct at the end of the procedure. Surgical Findings: polyps bilaterally Complications Complications: No
[2024-10-17] MEDS: Lidocaine 1% (5 ml sdv) 5 ML Vial 10 ML IV (09:42)
[2024-10-17] MEDS: fentaNYL 100 MCG/2 ML Ampul IV (09:51)
[2024-10-17] MEDS: Lidocaine 1% /Epi 1:100 (20ml) 20 ML Vial (10:00)
[2024-10-17] MEDS: Oxymetazoline 0.05% 1 SPRAY SPRAY.BTL 15 SPRAY (10:38)
[2024-10-17] MEDS: dexMEDEtomidine 200 MCG/2 ML ML 8 MCG IV (11:17)
[2024-10-17] MEDS: Lactated Ringers 2,000 ML 2000 ML IV (11:18)
--- NOTE | 2024-10-17 11:30 | PCM.POST.ANE ---
Anesthesia: Postop Eval I Current Vital Signs Temperature: 97.0 F Pulse Rate: 70 Blood Pressure: 128/67 Respiratory Rate: 16 Pulse Ox: 96 Oxygen Delivery Method: Room Air Assessment Airway patent: Yes Spontaneous unlabored respirations: Yes Mental status: Awake and Calm nausea: No Vomiting: No Anesthesia Complication: No Fluid Hydration Crystalloid volume administer (ml): 1,000 Total IV fluid infused: 1,000 Progress Note Anesthesia document: Postop Eval 1 completed: Yes
[2024-10-17] MEDS: HYDROcodone Bitartrate/Apap 5/325 Tablet PO (12:53)
--- NOTE | 2024-10-17 13:37 | POSTOPAN2_ITS ---
Anesthesia Postop Eval I Sum Postop Eval Completion status Anesthesia document: Postop Eval 1 completed: Yes Anesthesia Postop Eval I Summary Anesthesia Postop Eval I Summary: Anesthesia Postop Eval I: Assessment Summary Airway patent Yes 10/17/24 11:31 LINKING MACHINE OPERATOR.SHANNAN Spontaneous unlabored Yes 10/17/24 11:31 LINKING MACHINE OPERATOR.SHANNAN respirations Mental status Awake,Calm 10/17/24 11:31 LINKING MACHINE OPERATOR.SHANNAN nausea No 10/17/24 11:31 LINKING MACHINE OPERATOR.SHANNAN Vomiting No 10/17/24 11:31 LINKING MACHINE OPERATOR.SHANNAN Anesthesia Postop Eval I: Fluid Summary Crystalloid volume administer 1,000 10/17/24 11:31 LINKING MACHINE OPERATOR.JOHANNYAN (ml) Colloids volume administered ( ml) Blood Product volume administered (ml) Total IV fluid infused 1,000 10/17/24 11:31 LINKING MACHINE OPERATOR.SHANNAN Anesthesia Postop Eval I: Summary Notes Anesthesia Complication No 10/17/24 11:31 LINKING MACHINE OPERATOR.SHANNAN Anesthesia Complication Comment: Post-operative progress note Anesthesia: Postop Eval II Evaluation Mental status: Awake and Calm Pain Level: 0 nausea: No Vomiting: No Complications Anesthesia Complication: No
--- NOTE | 2024-10-17 13:37 | PCM.POSTANE2 ---
Anesthesia Postop Eval I Sum Postop Eval Completion status Anesthesia document: Postop Eval 1 completed: Yes Anesthesia Postop Eval I Summary Anesthesia Postop Eval I Summary: Anesthesia Postop Eval I: Assessment Summary Airway patent Yes 10/17/24 11:31 HIGH SCHOOL SPORTS COACH.SHANNAN Spontaneous unlabored Yes 10/17/24 11:31 HIGH SCHOOL SPORTS COACH.SHANNAN respirations Mental status Awake,Calm 10/17/24 11:31 HIGH SCHOOL SPORTS COACH.SHANNAN nausea No 10/17/24 11:31 HIGH SCHOOL SPORTS COACH.SHANNAN Vomiting No 10/17/24 11:31 HIGH SCHOOL SPORTS COACH.SHANNAN Anesthesia Postop Eval I: Fluid Summary Crystalloid volume administer 1,000 10/17/24 11:31 HIGH SCHOOL SPORTS COACH.JOHANNYAN (ml) Colloids volume administered ( ml) Blood Product volume administered (ml) Total IV fluid infused 1,000 10/17/24 11:31 HIGH SCHOOL SPORTS COACH.SHANNAN Anesthesia Postop Eval I: Summary Notes Anesthesia Complication No 10/17/24 11:31 HIGH SCHOOL SPORTS COACH.SHANNAN Anesthesia Complication Comment: Post-operative progress note Anesthesia: Postop Eval II Evaluation Mental status: Awake and Calm Pain Level: 0 nausea: No Vomiting: No Complications Anesthesia Complication: No
== END 2024-10-17 13:11 | disposition home or self-care (01) ==
LOC: SDC 06:45 → AC 06:47
PROVIDERS: PCP Family Medicine; Referring Provider Otolaryngology; Visit Provider Otolaryngology
PROC: (CPT 31257; principal; 2024-10-17 08:30)
DX: J32.9 Chronic sinusitis, unspecified (principal); M06.9 Rheumatoid arthritis, unspecified; E66.01 Morbid (severe) obesity due to excess calories; E11.9 Type 2 diabetes mellitus without complications; J34.3 Hypertrophy of nasal turbinates; J34.2 Deviated nasal septum; J33.8 Other polyp of sinus; I10 Essential (primary) hypertension; I25.10 Atherosclerotic heart disease of native coronary artery without angina pectoris; J45.20 Mild intermittent asthma, uncomplicated; G47.33 Obstructive sleep apnea (adult) (pediatric); Z68.37 Body mass index [BMI] 37.0-37.9, adult; Z79.84 Long term (current) use of oral hypoglycemic drugs; Z79.82 Long term (current) use of aspirin; Z79.51 Long term (current) use of inhaled steroids; Z79.899 Other long term (current) drug therapy; Z87.891 Personal history of nicotine dependence
CPT/HCPCS: 31257; 31267; 61782; 00160; 82962; 88305; 88312; 93005; J2405

== ENCOUNTER → 2025-01-04 | Outpatient (CLI) | payer MEDICAID, SELFPAY ==
[2025-01-04 09:53] LABS: Mucous, Urine 0 SEEN /hpf (<or=2+); Red Blood Cells-Urine 0 SEEN /hpf (0-5); Squamous Epithelial Cells - UA 0 SEEN /hpf (0-5)
[2025-01-04 12:30] LABS: Color, Urine Yellow (Yellow); Glucose, Dipstick Normal (Normal); Ketone-Dipstick Negative (Negative); Leukocyte Esterase-Dipstick Negative /ul (Negative); Nitrite-Dipstick Negative (Negative); Occult Blood-Urine Negative /ul (Negative); Protein-Dipstick Negative (Negative); Specific Gravity, Urine 1.020 (1.002-1.030); Urine Bilirubin Dipstick Negative (Negative)
[2025-01-04 12:34] LABS: Hematocrit 41.7 % (40-54); Hemoglobin 13.9 g/dL (13.0-16.5); Immature Granulocytes Count 0.090 X10^3/uL (0.0-0.0); Mean Corp Hgb Conc 33.3 g/dL (32-36); Mean Corpuscular Volume 91.0 fL (80-94); Mean Platelet Vol. 10.1 fl (6.2-12.0); NRBC Flagged by Analyzer 0 % (0-5); Platelet Count 288 K/mm3 (150-450); RBC Distribution Width CV 13.1 % (11.6-14.6); RBC Distribution Width SD 43.7 fl (35.1-43.9); Red Blood Count 4.58 M/mm3 (4.6-6.2); White Blood Count 8.3 K/mm3 (4.4-11.0)
[2025-01-04 13:23] LABS: AST(SGOT) 21 U/L (<=37); Alanine Aminotransfer ALT/SGPT 23 U/L (<=46); Albumin, Serum 4.2 g/dL (3.4-4.8); Alkaline Phosphatase 42 U/L (40-129); Anion Gap 13 (5-15); BUN 20 mg/dL (4-19); BUN/Creat Ratio 21.9 RATIO (10-20); Calcium,Total 9.6 mg/dL (7.6-11.0); Carbon Dioxide 24.9 mmol/L (21.0-32.0); Chloride 101 mmol/L (98-108); Cholesterol 263 mg/dL (<=200); Globulin 2.8 g/dL (2.2-4.2); Glucose 139 mg/dL (70-99); Low Density Lipoprotein Calc. 196 mg/dL; Potassium 3.8 mmol/L (3.3-5.1); Triglycerides 123 mg/dL; Very Low Density Lipoprotein 25 mg/dL (5-40); cholesterol:hdl ratio screen 5.90
[2025-01-04 13:31] LABS: Creatinine, Urine (random) 95.60 mg/dL (39.00-259.00); Microalbumin,Random Urine < 12.0 mg/L (<20 mg/L)
== END | disposition home or self-care (01) ==
LOC: MFPLAB 09:50
PROVIDERS: PCP Family Medicine; Visit Provider Family Medicine
DX: E11.8 Type 2 diabetes mellitus with unspecified complications (principal)
CPT/HCPCS: 36415; 80053; 80061; 81001; 82043; 82570; 83036; 85025

== ENCOUNTER → 2025-01-23 | Outpatient (CLI) | payer MEDICAID, SELFPAY ==
--- NOTE | 2025-01-23 16:45 | CT_ITS ---
PROCEDURE: CTA CHEST W/WO CONTRAST 01/23/2025 REASON FOR EXAM: Clinical history of aortic aneurysm. TECHNIQUE: Procedure Code: [id number] Modality: CT Procedure: CTA CHEST W/WO CONTRAST Multidetector CT angiography of the chest with intravenous contrast including multiplanar and post-processed maximum intensity projection (MIP) were generated and interpreted. CONTRAST: Isovue 370 VOLUME: 100 mL One or more dose reduction techniques were used (e.g., Automated exposure control, adjustment of the mA and/or kV according to patient size, use of iterative reconstruction technique). RADIATION DOSE SUMMARY: DLP: 851.71 mGycm COMPARISON: CTA chest 01/20/2024 FINDINGS: Vasculature: Stable ascending thoracic aorta measuring up to 4 cm. The main pulmonary artery is dilated measuring up to 3.3 cm. Pulmonary parenchyma: No focal lung consolidation. Centrilobular emphysema. 4 mm right lower lobe pulmonary nodule. Airways: The central airways are patent. Pleural space: No pneumothorax or pleural effusion. Heart and pericardium: The heart is normal in size. No pericardial effusion. There are coronary artery calcifications. Mediastinum and gloria: Unremarkable. Osseous structures: No aggressive osseous lesion. Degenerative changes of the thoracic spine. Upper visualized abdomen: Findings suggestive of hepatic steatosis. CT/CTA Chest W/WO Contrast IMPRESSION: 1. Stable prominent ascending thoracic aorta measuring up to 4.0 cm. 2. Dilated main pulmonary artery suggestive of pulmonary arterial hypertension. 3. Coronary artery calcifications. 4. Pulmonary emphysema. No focal lung consolidation. 5. Slight interval increase in right lower lobe pulmonary nodule, measuring 4 m m. Reading Location: [id number]
== END | disposition home or self-care (01) ==
LOC: CT 16:41
PROVIDERS: PCP Family Medicine; Referring Provider Internal Medicine Cardiovascular Disease; Visit Provider Internal Medicine Cardiovascular Disease
DX: I71.9 Aortic aneurysm of unspecified site, without rupture (principal)
CPT/HCPCS: 71275; Q9967; A4216